=== PATIENT | female | born 1945 | race Caucasian/White ===

== ENCOUNTER → 2017-12-03 10:02 | Outpatient (CLI) | payer MEDICARE, OTHER, SELFPAY ==
[2017-12-03 10:16] VITALS: BP 112/62; PULSE 73; RESP 18; TEMP 36.3; O2SAT 99; BMI 25.4
[2017-12-03] MEDS: Mepolizumab 100 MG VIAL SQ (10:33)
== END ==
PROVIDERS: Family Provider Internal Medicine; PCP Internal Medicine; Visit Provider Internal Medicine Critical Care Medicine
DX: J45.50 Severe persistent asthma, uncomplicated (principal)
CPT/HCPCS: 96372; J2182

== ENCOUNTER → 2017-12-31 10:11 | Outpatient (CLI) | payer MEDICARE, OTHER, SELFPAY ==
[2017-12-03 10:16] VITALS: BP 112/62; BMI 25.4
[2017-12-31] MEDS: Mepolizumab 100 MG VIAL SQ (10:42)
[2017-12-31 10:50] VITALS: BP 117/56; PULSE 72; RESP 18; TEMP 36.7; O2SAT 98; BMI 24.7
== END ==
PROVIDERS: Family Provider Internal Medicine; PCP Internal Medicine; Visit Provider Internal Medicine Critical Care Medicine
DX: J45.50 Severe persistent asthma, uncomplicated (principal)
CPT/HCPCS: 96372; J2182

== ENCOUNTER → 2018-01-06 07:19 | Outpatient (CLI) | payer MEDICARE, OTHER, SELFPAY ==
[2018-01-06 07:54] LABS: Hemoglobin A1c 5.6 % (4.2-6.3)
[2018-01-06 07:58] LABS: AST(SGOT) 14 U/L (15-37); Alanine Aminotransfer ALT/SGPT 22 U/L (13-56); Albumin, Serum 3.3 g/dL (3.2-5.0); Alkaline Phosphatase 61 U/L (45-117); Anion Gap 9 (5-15); BUN 26 mg/dL (7-18); BUN/Creat Ratio 33.4 RATIO (10-20); Calcium,Total 8.2 mg/dL (8.5-10.1); Chloride 111 mmol/L (98-107); Cholesterol 159 mg/dL (200); Creatinine, Serum 0.78 mg/dL (0.55-1.02); EST Glomerular Filtration Rate 77 mL/min (>60); Est Glom Filt Rate - Afr Amer 93 mL/min (>60); Globulin 3.3 g/dL (2.2-4.2); Glucose 85 mg/dL (74-106); High Density Lipoprotein 68 mg/dL; Potassium 4.2 mmol/L (3.5-5.1); Protein, Total 6.6 g/dL (6.4-8.2); Sodium Level 143 mmol/L (136-145); Triglycerides 107 mg/dL; Very Low Density Lipoprotein 21 mg/dL (5-40)
[2018-01-06 08:04] LABS: Absolute Lymphocyte Count 1.87 X10^3/ul (0.83-4.51); Absolute Neutrophil Count 4.6 X10^3/uL (2.0-7.7); Basophil# 0.02 X10^3/uL; Basophil% 0.3 % (0-1); Eosinophil# 0.04 X10^3/uL; Eosinophils% 0.5 % (0-5); Hematocrit 45.4 % (37-47); Hemoglobin 14.8 g/dl (12.0-15.0); Lymphocyte # 1.87 X10^3/ul (4.0); Lymphocyte % 25.6 % (19-41); Mean Corp Hgb Conc 32.6 g/gl (32-36); Mean Corpuscular Hgb 31.7 pg (27.0-32.0); Mean Corpuscular Volume 97.2 fL (81-99); Mean Platelet Vol. 11.5 fl (6.2-12.0); Monocyte# 0.78 X10^3/uL; Monocyte% 10.7 % (0-10); Neutrophil # 4.56 X10^3/uL (2.7-7.7); Neutrophil % 62.5 % (47-70); Platelet Count 172 K/mm3 (150-450); RBC Distribution Width CV 15.8 % (11.6-14.6); RBC Distribution Width SD 55.9 fl (35.1-43.9); Red Blood Count 4.67 M/mm3 (4.2-5.4); White Blood Count 7.3 K/mm3 (4.4-11.0)
[2018-01-06 08:13] LABS: POSITIVE COUNT NO; POSITIVE DIFFERENTIAL NO; POSITIVE MORPHOLOGY NO
== END ==
PROVIDERS: Family Provider Internal Medicine; PCP Internal Medicine; Visit Provider Internal Medicine
DX: E78.5 Hyperlipidemia, unspecified (principal); R73.09 Other abnormal glucose; I10 Essential (primary) hypertension
CPT/HCPCS: 36415; 80053; 80061; 83036; 85025

== ENCOUNTER → 2018-01-14 14:01 | Outpatient (CLI) | payer MEDICARE, OTHER, SELFPAY ==
[2018-01-14 15:53] LABS: M R Staph aureus DNA By PCR Negative (Negative); Probe Check PASS; Specimen Processing Control PASS
== END ==
PROVIDERS: Family Provider Internal Medicine; PCP Internal Medicine; Visit Provider Internal Medicine
DX: Z86.14 Personal history of Methicillin resistant Staphylococcus aureus infection (principal)
CPT/HCPCS: 87641

== ENCOUNTER → 2018-01-28 13:08 | Outpatient (CLI) | payer MEDICARE, OTHER, SELFPAY ==
[2018-01-28 13:14] VITALS: BP 106/66; PULSE 77; RESP 16; TEMP 37; O2SAT 97; BMI 24.9
[2018-01-28] MEDS: Mepolizumab 100 MG VIAL SQ (14:00)
== END ==
PROVIDERS: Family Provider Internal Medicine; PCP Internal Medicine; Visit Provider Internal Medicine Critical Care Medicine
DX: J45.50 Severe persistent asthma, uncomplicated (principal)
CPT/HCPCS: 96372; J2182

== ENCOUNTER → 2018-02-10 13:01 | Outpatient (CLI) | payer MEDICARE, OTHER, SELFPAY ==
--- NOTE | 2018-02-10 13:02 | BI_ITS ---
MAMMOGRAPHY - BILATERAL SCREENING REASON FOR EXAM: Female, 72 years old. Routine annual screening examination. PERTINENT HISTORY: Non-contributory. TECHNIQUE: Digital bilateral breast christa (3D mammographic acquisition) in the CC and MLO projections. 2-D mediolateral oblique (MLO) and craniocaudad (CC) views of both breasts were obtained. CAD: Full Field Digital Mammography with Computer Added Detection was performed. COMPARISON: Comparison is made with prior study dated January 18, 2017. Comparison is also made with prior ultrasound of the right breast dated January 20, 2017. FINDINGS: Breast Composition: The breasts are heterogeneously dense, which may obscure small masses. There are no dominant masses or suspicious calcifications. Stable 1 cm well-defined nodular density medial aspect of the right breast. No other significant abnormalities are identified. There has been no significant change since the prior study. BI/SCREENING MAMM (CAD), BILAT IMPRESSION: Stable bilateral screening mammogram. Yearly follow-up mammogram recommended. (A) ASSESSMENT CATEGORY: BIRADS Category 2: Benign. A letter regarding these results will be sent to the patient by the facility within 30 days. Approximately 10% of breast cancers are not detected by mammography. A normal mammogram should not delay biopsy of a clinically suspicious abnormality. [id number] Electronically Signed: Anand Dumont MD at 14:39 EDT Tel [phone], Service support ,
== END ==
PROVIDERS: Family Provider Internal Medicine; PCP Internal Medicine; Visit Provider Internal Medicine
DX: Z12.31 Encounter for screening mammogram for malignant neoplasm of breast (principal)
CPT/HCPCS: 77063; 77067

== ENCOUNTER → 2018-02-25 12:39 | Outpatient (CLI) | payer MEDICARE, OTHER, SELFPAY ==
[2018-02-25 12:55] VITALS: BP 122/76; PULSE 87; RESP 18; TEMP 36.4; O2SAT 96; BMI 25.0
[2018-02-25] MEDS: Mepolizumab 100 MG VIAL SQ (13:05)
== END ==
PROVIDERS: Family Provider Internal Medicine; PCP Internal Medicine; Visit Provider Internal Medicine Critical Care Medicine
DX: J45.50 Severe persistent asthma, uncomplicated (principal)
CPT/HCPCS: 96372; J2182

== ENCOUNTER → 2018-03-25 12:32 | Outpatient (CLI) | payer MEDICARE, OTHER, SELFPAY ==
[2018-03-25 12:52] VITALS: BP 104/68; PULSE 77; RESP 16; TEMP 36.9; O2SAT 98; BMI 24.7
[2018-03-25] MEDS: Mepolizumab 100 MG VIAL SQ (13:12)
== END ==
PROVIDERS: Family Provider Internal Medicine; PCP Internal Medicine; Visit Provider Internal Medicine Critical Care Medicine
DX: J45.50 Severe persistent asthma, uncomplicated (principal)
CPT/HCPCS: 96372; J2182

== ENCOUNTER → 2018-04-22 12:16 | Outpatient (CLI) | payer MEDICARE, OTHER, SELFPAY ==
[2018-04-22 12:34] VITALS: BP 103/71; PULSE 76; RESP 18; TEMP 36.4; O2SAT 98; BMI 24.5
[2018-04-22] MEDS: Mepolizumab 100 MG VIAL SQ (12:48)
== END ==
PROVIDERS: Family Provider Internal Medicine; PCP Internal Medicine; Visit Provider Internal Medicine Critical Care Medicine
DX: J45.50 Severe persistent asthma, uncomplicated (principal)
CPT/HCPCS: 96372; J2182

== ENCOUNTER → 2018-05-10 16:15 | Outpatient (CLI) | payer MEDICARE, OTHER, SELFPAY ==
--- NOTE | 2018-05-10 16:18 | RAD_ITS ---
STUDY: X-RAY - LUMBAR SPINE REASON FOR EXAM: Female, 72 years old. Chronic low back pain TECHNIQUE: 5 view(s) of the lumbar spine were obtained. COMPARISON: July 24, 2015 FINDINGS: There is a 21 degree lumbar scoliosis with convexity to the left with degenerative changes of the L1-L2, L2-3, L4-5 and L5-S1 disc spaces. There are no acute fractures. The paravertebral soft tissues are normal RAD/L/S Spine Min 4 Views IMPRESSION: Multilevel degenerative changes of the lumbosacral spine. There is also a 21 degree lumbar scoliosis convex to the left Electronically Signed: Brian Batista, at 4:04 EDT Tel , Service support ,
== END ==
PROVIDERS: Family Provider Internal Medicine; PCP Internal Medicine; Visit Provider Internal Medicine
DX: M54.5 Low back pain (principal)
CPT/HCPCS: 72110

== ENCOUNTER → 2018-05-20 10:34 | Outpatient (CLI) | payer MEDICARE, OTHER, SELFPAY ==
[2018-05-20 10:45] VITALS: BP 122/53; PULSE 82; RESP 16; TEMP 36.3; O2SAT 100; BMI 24.3
[2018-05-20] MEDS: Mepolizumab 100 MG VIAL SQ (10:54)
== END ==
PROVIDERS: Family Provider Internal Medicine; PCP Internal Medicine; Visit Provider Internal Medicine Critical Care Medicine
DX: J45.50 Severe persistent asthma, uncomplicated (principal)
CPT/HCPCS: 96372; J2182

== ENCOUNTER → 2018-06-17 11:00 | Outpatient (CLI) | payer MEDICARE, OTHER, SELFPAY ==
[2018-06-17 11:09] VITALS: BP 108/71; PULSE 82; RESP 18; TEMP 36.6; O2SAT 97; BMI 23.8
[2018-06-17] MEDS: Mepolizumab 100 MG VIAL SQ (11:18)
== END ==
PROVIDERS: Family Provider Internal Medicine; PCP Internal Medicine; Visit Provider Internal Medicine Critical Care Medicine
DX: J45.50 Severe persistent asthma, uncomplicated (principal)
CPT/HCPCS: 96372; J2182

== ENCOUNTER → 2018-07-01 10:32 | Outpatient (CLI) | payer MEDICARE, OTHER, SELFPAY | PROVIDERS: Family Provider Internal Medicine; PCP Internal Medicine; Visit Provider Urology | DX: N39.0 Urinary tract infection, site not specified (principal); R39.15 Urgency of urination | CPT/HCPCS: 76770 ==

== ENCOUNTER → 2018-07-15 10:54 | Outpatient (CLI) | payer MEDICARE, OTHER, SELFPAY ==
[2018-07-15 11:12] VITALS: BP 135/69; PULSE 68; RESP 18; TEMP 35.8; O2SAT 100; BMI 24.3
[2018-07-15] MEDS: Mepolizumab 100 MG VIAL SQ (11:35)
== END ==
PROVIDERS: Family Provider Internal Medicine; PCP Internal Medicine; Visit Provider Internal Medicine Critical Care Medicine
DX: J45.50 Severe persistent asthma, uncomplicated (principal); S81.812A Laceration without foreign body, left lower leg, initial encounter; W45.8XXA Other foreign body or object entering through skin, initial encounter; L03.116 Cellulitis of left lower limb; Z86.14 Personal history of Methicillin resistant Staphylococcus aureus infection; M79.89 Other specified soft tissue disorders; R60.0 Localized edema; M30.1 Polyarteritis with lung involvement [Churg-Strauss]
CPT/HCPCS: 11042; 87070; 87075; 87205; 96372; 99213; G0463; J2182

== ENCOUNTER → 2018-07-21 08:52 | Outpatient (CLI) | payer MEDICARE, OTHER, SELFPAY ==
[2018-07-21 09:02] LABS: Lyme Ab Screen Interpretation REF LAB
[2018-07-21 09:49] LABS: Absolute Lymphocyte Count 1.94 X10^3/ul (0.83-4.51); Absolute Neutrophil Count 3.8 X10^3/uL (2.0-7.7); Basophil# 0.05 X10^3/uL; Basophil% 0.8 % (0-1); Eosinophil# 0.06 X10^3/uL; Eosinophils% 0.9 % (0-5); Hematocrit 43.3 % (37-47); Hemoglobin 14.3 g/dl (12.0-15.0); Lymphocyte # 1.94 X10^3/ul (4.0); Lymphocyte % 30.1 % (19-41); Mean Corpuscular Hgb 31.8 pg (27.0-32.0); Mean Corpuscular Volume 96.2 fL (81-99); Mean Platelet Vol. 10.6 fl (6.2-12.0); Monocyte# 0.57 X10^3/uL; Monocyte% 8.8 % (0-10); Neutrophil # 3.83 X10^3/uL (2.7-7.7); Neutrophil % 59.4 % (47-70); Platelet Count 266 K/mm3 (150-450); RBC Distribution Width CV 13.7 % (11.6-14.6); RBC Distribution Width SD 48.3 fl (35.1-43.9); White Blood Count 6.5 K/mm3 (4.4-11.0)
[2018-07-21 09:50] LABS: POSITIVE COUNT NO; POSITIVE DIFFERENTIAL NO; POSITIVE MORPHOLOGY NO
[2018-07-21 10:06] LABS: Hemoglobin A1c 5.3 % (4.2-6.3)
[2018-07-21 10:17] LABS: AST(SGOT) 14 U/L (15-37); Alanine Aminotransfer ALT/SGPT 20 U/L (13-56); Albumin, Serum 3.3 g/dL (3.2-5.0); Alkaline Phosphatase 69 U/L (45-117); Anion Gap 8 (5-15); BUN 17 mg/dL (7-18); BUN/Creat Ratio 30.6 RATIO (10-20); Calcium,Total 8.6 mg/dL (8.5-10.1); Chloride 108 mmol/L (98-107); Cholesterol 150 mg/dL (200); Creatinine, Serum 0.56 mg/dL (0.55-1.02); EST Glomerular Filtration Rate 114 mL/min (>60); Est Glom Filt Rate - Afr Amer 137 mL/min (>60); Globulin 3.4 g/dL (2.2-4.2); Glucose 88 mg/dL (74-106); High Density Lipoprotein 65 mg/dL; Potassium 4.1 mmol/L (3.5-5.1); Protein, Total 6.7 g/dL (6.4-8.2); Sodium Level 141 mmol/L (136-145); Triglycerides 124 mg/dL; Very Low Density Lipoprotein 25 mg/dL (5-40)
[2018-07-21 10:22] LABS: Vitamin D,25 Hydroxy 39.5 ng/mL (29.95-100.01)
[2018-07-23 07:49] LABS: Lyme Scn Total Ab w/Rflx <0.91 ISR (0.00-0.90)
== END ==
PROVIDERS: Family Provider Internal Medicine; PCP Internal Medicine; Referring Provider Internal Medicine; Visit Provider Internal Medicine
DX: R21 Rash and other nonspecific skin eruption (principal); I10 Essential (primary) hypertension; E78.5 Hyperlipidemia, unspecified; R73.09 Other abnormal glucose; E55.9 Vitamin D deficiency, unspecified
CPT/HCPCS: 36415; 80053; 80061; 82306; 83036; 85025; 86618

== ENCOUNTER 2018-07-22 10:00 | Outpatient (RCR) | payer MEDICARE, OTHER, SELFPAY ==
[2018-07-15 09:45] VITALS: BP 131/81; PULSE 79; RESP 16; TEMP 36.1; BMI 24.7
--- NOTE | 2018-07-15 11:13 | PCM.WC.PN ---
(1) Traumatic open wound of left lower leg Status: Acute Current Visit: Yes Qualifiers: Code(s): S81.802A - Unspecified open wound, left lower leg, initial encounter (2) Infected wound Status: Acute Current Visit: Yes Code(s): T14.8XXA - Other injury of unspecified body region, initial encounter; L08.9 - Local infection of the skin and subcutaneous tissue, unspecified (3) History of MRSA infection Status: Acute Current Visit: Yes Code(s): Z86.14 - Personal history of Methicillin resistant Staphylococcus aureus infection Type of Wound Date of Service: 07/15/18 Chief Complaint: Traumatic ulcer to the left lower extremity anterior tibial surface History of Wound: This is a 71-year-old female who presented with a traumatic injury to the left anterior tibial surface. He had a box approximately July 03 and developed a huge partial avulsion laceration with cellulitis was put on doxycycline for her cellulitis. Patient has been using old wound medications to treat. Not healing still has some cellulitis decided to return to wound center. She has had incompetency is shown on her vascular studies in the past. The patient denies a history of thrombophlebitis. She normally experiences pain and swelling in her lower extremities bilaterally, typically near the end of each day. Her right leg is said to be worse symptomatically. She sleeps flat at night. She noted severe swelling in her legs in November 2015, at which time she drove to and from [place] on vacation. 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 Since her previous treatment and [facility], the patient has been implementing conservative treatment measures relative to the swelling, edema, and pain in her lower extremities, namely leg elevation, avoidance of idle standing and sitting, use of graduated compression stockings of 20-30 mmHg compression, active lifestyle, weight control measures, and the use of as non-steroidal anti-inflammatory medications. Progress of Wound: Today the area is small V shaped with some darkened scabbing and eschar that might debride on its own with medication. There is some redness around the area and because of the history of MRSA we will culture her today. - Physical Exam Vital Signs Temp Pulse Resp BP 96.9 F L 79 16 131/81 H 07/15/18 09:45 07/15/18 09:45 07/15/18 09:45 07/15/18 09:45 General: Oriented x3, Cooperative, Well developed HEENT: Atraumatic, PERRLA Oral: Moist Mucosa Neck: Supple, No JVD Lungs: Clear to auscultation, Normal air movement Cardiovascular: Regular rate, Regular Rhythm Abdomen: Bowel Sounds Present, Soft, Non Tender, No Hepato-splenomegaly Extremities: No clubbing, No edema Skin: Ulcer/ Wound - Traumatic wound left lower anterior leg Wound Measurements and Assessment - Nurse 1 - General Ulcer Measurement Start: 07/15/18 09:42 Freq: Status: Active Protocol: Activity Type Activity Date Activity User E-Sign Co-Sign Detail Recorded Client Recorded Date Recorded By Document 07/15/18 09:45 [facility] [id number] 07/15/18 10:07 [facility] 07/15/18 09:45 Wound Center Nurse 1 [Ulcer Assessment] #2- LT LOWER SEE -Combined with other wound No -Current Size (cm) - Length 0.3 -Current Size (cm) - Width 0.4 -Current Size (cm) - Depth 0.2 -Total Square Cm 0.12 -Date of Last Picture (Recall this 07/15/18 field) -Photo Taken Yes -Epithelialization None Present -Tunneling No -Undermining/Tunneling No -Circular Undermining No -Exudate Amt Small (1-33%) -Exudate Type Sanguineous -Wound Margin Distinct, Outline Attached -Granulation Amt Medium (34-66%) -Granulation Quality Red -Slough/Fibrin Yes -Necrosis Amt Medium (34-66%) -Necrotic Tissue Type Adherent Slough -Texture (Summer-wound Skin Appearance) Scarring -Moisture (Summer-wound Skin Appearance Dry/Scaly ) -Color (Summer-wound Skin Appearance) Ecchymosis Erythema -Temperature (Summer-wound Skin No Abnormality Appearance) (Pt Warm) -Tenderness on Palpation (Summer-wound No Skin Appearance) -Ulcer Cleansing Rinsed/ Irrigated with Saline -Foul Odor after Cleansing No -Anesthetic Used 5% Lidocaine Gel [Edema Assessment] -Lower Limb Edema Present Yes -Right Calf (cm) 31.6 -Right Ankle (cm) 19.7 -Left Calf (cm) 32.8 -Left Ankle (cm) 20.2 WC - Nurse 2 - General Ulcer CM Notes Start: 07/15/18 09:42 Freq: Status: Active Protocol: Activity Type Activity Date Activity User E-Sign Co-Sign Detail Recorded Client Recorded Date Recorded By Document 07/15/18 10:19 MW [id number] 07/15/18 10:25 MW 07/15/18 10:19 Wound Center Nurse 2 [Procedure/Treatment] #2- LT LOWER SEE -Time 10:19 -Correct Patient Yes -Correct Side, Site, Position Yes -Correct Procedure Yes -Procedure Performed Yes -Type of Procedure Debridement -Clinical Debridement Subcutaneous -Post Debridement Size (cm) - Length 2.4 -Post Debridement Size (cm) - Width 2.0 -Post Debridement Size (cm) - Depth 0.2 -Total Square Cm 4.80 -Wound/Ulcer Outcome Not Healed -Ulcer Cleansing Rinsed/ Irrigated with Saline -Foul Odor after Cleansing No -Bioengineered Tissue No -Bleeding Controlled with Pressure -Treatment Response Procedure Tolerated Well [See Physician Procedure note for Specifics] Pain Scale: 0-10 Numeric [Pain] -Is Patient Pain Free? Yes Musculoskeletal: No Tenderness to Palpation of Joints or Extremities Lymphatic: No Cervical, Supraclavicular, or Inguinal Adenopathy Neurological: Cranial nerves II-XII grossly intact, Neuro grossly intact Psych/Mental Status: Normal Affect, Appropriate, Alert and oriented to time, place, person, mood and affect Debridement Note Post-Debridement Measurements/Treatment - Nurse 2 - General Ulcer CM Notes Start: 07/15/18 09:42 Freq: Status: Active Protocol: Activity Type Activity Date Activity User E-Sign Co-Sign Detail Recorded Client Recorded Date Recorded By Document 07/15/18 10:19 MW [id number] 07/15/18 10:25 MW 07/15/18 10:19 Wound Center Nurse 2 #2- LT LOWER SEE -Time 10:19 -Correct Patient Yes -Correct Side, Site, Position Yes -Correct Procedure Yes -Procedure Performed Yes -Type of Procedure Debridement -Clinical Debridement Subcutaneous -Post Debridement Size (cm) - Length 2.4 -Post Debridement Size (cm) - Width 2.0 -Post Debridement Size (cm) - Depth 0.2 -Total Square Cm 4.80 -Wound/Ulcer Outcome Not Healed -Ulcer Cleansing Rinsed/ Irrigated with Saline -Foul Odor after Cleansing No -Bioengineered Tissue No -Bleeding Controlled with Pressure -Treatment Response Procedure Tolerated Well Pain Scale: 0-10 Numeric Is Patient Pain Free? Yes Wound debrided: Eft lower leg wound Type of Debridement: Excisional debridement Depth: Down to and including healthy tissue, in the subcutaneous layer Percentage of wound debrided: 100 Instrument Used: 3mm curette Tissue Removed: Devitalized tissue and fibrin Severity: Limited To Skin Breakdown Amount of bleeding with debridement: Mild Bleeding Controlled with: Compression and gauze Patient tolerated procedure well Assessment/Plan Cultures obtained for anaerobic and anaerobic Active Problems (Last Reviewed 05/19/18 @ 12:04 by Nallely Drummond NP-C) Infected wound (Acute) History of MRSA infection (Acute) Traumatic open wound of left lower leg (Acute) Assessment: Traumatic wound left lower leg. History of MRSA. Cellulitis Plan: Wash left leg with Hibiclens. Apply Aquacel silver to wound base cover with Adaptic gauze tape. Double layer Tubigrip to the left leg. Follow-up in 1 week. We will call with the culture results.
--- NOTE | 2018-07-15 11:18 | PN.PCM_ITS ---
(1) Traumatic open wound of left lower leg Status: Acute Current Visit: Yes Qualifiers: Code(s): S81.802A - Unspecified open wound, left lower leg, initial encounter (2) Infected wound Status: Acute Current Visit: Yes Code(s): T14.8XXA - Other injury of unspecified body region, initial encounter; L08.9 - Local infection of the skin and subcutaneous tissue, unspecified (3) History of MRSA infection Status: Acute Current Visit: Yes Code(s): Z86.14 - Personal history of Methicillin resistant Staphylococcus aureus infection Type of Wound Date of Service: 07/15/18 Chief Complaint: Traumatic ulcer to the left lower extremity anterior tibial surface History of Wound: This is a 71-year-old female who presented with a traumatic injury to the left anterior tibial surface. He had a box approximately July 03 and developed a huge partial avulsion laceration with cellulitis was put on doxycycline for her cellulitis. Patient has been using old wound medications to treat. Not healing still has some cellulitis decided to return to wound center. She has had incompetency is shown on her vascular studies in the past. The patient denies a history of thrombophlebitis. She normally experiences pain and swelling in her lower extremities bilaterally, typically near the end of each day. Her right leg is said to be worse symptomatically. She sleeps flat at night. She noted severe swelling in her legs in November 2015, at which time she drove to and from [place] on vacation. 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 Since her previous treatment and [facility], the patient has been implementing conservative treatment measures relative to the swelling, edema, and pain in her lower extremities, namely leg elevation, avoidance of idle standing and sitting, use of graduated compression stockings of 20-30 mmHg compression, active lifestyle, weight control measures, and the use of as non-steroidal anti-inflammatory medications. Progress of Wound: Today the area is small V shaped with some darkened scabbing and eschar that might debride on its own with medication. There is some redness around the area and because of the history of MRSA we will culture her today. - Physical Exam Vital Signs Temp Pulse Resp BP 96.9 F L 79 16 131/81 H 07/15/18 09:45 07/15/18 09:45 07/15/18 09:45 07/15/18 09:45 General: Oriented x3, Cooperative, Well developed HEENT: Atraumatic, PERRLA Oral: Moist Mucosa Neck: Supple, No JVD Lungs: Clear to auscultation, Normal air movement Cardiovascular: Regular rate, Regular Rhythm Abdomen: Bowel Sounds Present, Soft, Non Tender, No Hepato-splenomegaly Extremities: No clubbing, No edema Skin: Ulcer/ Wound - Traumatic wound left lower anterior leg Wound Measurements and Assessment - Nurse 1 - General Ulcer Measurement Start: 07/15/18 09:42 Freq: Status: Active Protocol: Activity Type Activity Date Activity User E-Sign Co-Sign Detail Recorded Client Recorded Date Recorded By Document 07/15/18 09:45 [facility] [id number] 07/15/18 10:07 [facility] 07/15/18 09:45 Wound Center Nurse 1 [Ulcer Assessment] #2- LT LOWER SEE -Combined with other wound No -Current Size (cm) - Length 0.3 -Current Size (cm) - Width 0.4 -Current Size (cm) - Depth 0.2 -Total Square Cm 0.12 -Date of Last Picture (Recall this 07/15/18 field) -Photo Taken Yes -Epithelialization None Present -Tunneling No -Undermining/Tunneling No -Circular Undermining No -Exudate Amt Small (1-33%) -Exudate Type Sanguineous -Wound Margin Distinct, Outline Attached -Granulation Amt Medium (34-66%) -Granulation Quality Red -Slough/Fibrin Yes -Necrosis Amt Medium (34-66%) -Necrotic Tissue Type Adherent Slough -Texture (Summer-wound Skin Appearance) Scarring -Moisture (Summer-wound Skin Appearance Dry/Scaly ) -Color (Summer-wound Skin Appearance) Ecchymosis Erythema -Temperature (Summer-wound Skin No Abnormality Appearance) (Pt Warm) -Tenderness on Palpation (Summer-wound No Skin Appearance) -Ulcer Cleansing Rinsed/ Irrigated with Saline -Foul Odor after Cleansing No -Anesthetic Used 5% Lidocaine Gel [Edema Assessment] -Lower Limb Edema Present Yes -Right Calf (cm) 31.6 -Right Ankle (cm) 19.7 -Left Calf (cm) 32.8 -Left Ankle (cm) 20.2 WC - Nurse 2 - General Ulcer CM Notes Start: 07/15/18 09:42 Freq: Status: Active Protocol: Activity Type Activity Date Activity User E-Sign Co-Sign Detail Recorded Client Recorded Date Recorded By Document 07/15/18 10:19 MW [id number] 07/15/18 10:25 MW 07/15/18 10:19 Wound Center Nurse 2 [Procedure/Treatment] #2- LT LOWER SEE -Time 10:19 -Correct Patient Yes -Correct Side, Site, Position Yes -Correct Procedure Yes -Procedure Performed Yes -Type of Procedure Debridement -Clinical Debridement Subcutaneous -Post Debridement Size (cm) - Length 2.4 -Post Debridement Size (cm) - Width 2.0 -Post Debridement Size (cm) - Depth 0.2 -Total Square Cm 4.80 -Wound/Ulcer Outcome Not Healed -Ulcer Cleansing Rinsed/ Irrigated with Saline -Foul Odor after Cleansing No -Bioengineered Tissue No -Bleeding Controlled with Pressure -Treatment Response Procedure Tolerated Well [See Physician Procedure note for Specifics] Pain Scale: 0-10 Numeric [Pain] -Is Patient Pain Free? Yes Musculoskeletal: No Tenderness to Palpation of Joints or Extremities Lymphatic: No Cervical, Supraclavicular, or Inguinal Adenopathy Neurological: Cranial nerves II-XII grossly intact, Neuro grossly intact Psych/Mental Status: Normal Affect, Appropriate, Alert and oriented to time, place, person, mood and affect Debridement Note Post-Debridement Measurements/Treatment - Nurse 2 - General Ulcer CM Notes Start: 07/15/18 09:42 Freq: Status: Active Protocol: Activity Type Activity Date Activity User E-Sign Co-Sign Detail Recorded Client Recorded Date Recorded By Document 07/15/18 10:19 MW [id number] 07/15/18 10:25 MW 07/15/18 10:19 Wound Center Nurse 2 #2- LT LOWER SEE -Time 10:19 -Correct Patient Yes -Correct Side, Site, Position Yes -Correct Procedure Yes -Procedure Performed Yes -Type of Procedure Debridement -Clinical Debridement Subcutaneous -Post Debridement Size (cm) - Length 2.4 -Post Debridement Size (cm) - Width 2.0 -Post Debridement Size (cm) - Depth 0.2 -Total Square Cm 4.80 -Wound/Ulcer Outcome Not Healed -Ulcer Cleansing Rinsed/ Irrigated with Saline -Foul Odor after Cleansing No -Bioengineered Tissue No -Bleeding Controlled with Pressure -Treatment Response Procedure Tolerated Well Pain Scale: 0-10 Numeric Is Patient Pain Free? Yes Wound debrided: Eft lower leg wound Type of Debridement: Excisional debridement Depth: Down to and including healthy tissue, in the subcutaneous layer Percentage of wound debrided: 100 Instrument Used: 3mm curette Tissue Removed: Devitalized tissue and fibrin Severity: Limited To Skin Breakdown Amount of bleeding with debridement: Mild Bleeding Controlled with: Compression and gauze Patient tolerated procedure well Assessment/Plan Cultures obtained for anaerobic and anaerobic Active Problems (Last Reviewed 05/19/18 @ 12:04 by Nallely Drummond NP-C) Infected wound (Acute) History of MRSA infection (Acute) Traumatic open wound of left lower leg (Acute) Assessment: Traumatic wound left lower leg. History of MRSA. Cellulitis Plan: Wash left leg with Hibiclens. Apply Aquacel silver to wound base cover with Adaptic gauze tape. Double layer Tubigrip to the left leg. Follow-up in 1 week. We will call with the culture results.
[2018-07-22 10:29] VITALS: BP 119/85; PULSE 85; RESP 16; TEMP 36.3; BMI 24.7
--- NOTE | 2018-07-22 11:49 | PCM.WC.PN ---
(1) Traumatic open wound of left lower leg Status: Acute Current Visit: Yes Qualifiers: Code(s): S81.802A - Unspecified open wound, left lower leg, initial encounter (2) Infected wound Status: Acute Current Visit: Yes Code(s): T14.8XXA - Other injury of unspecified body region, initial encounter; L08.9 - Local infection of the skin and subcutaneous tissue, unspecified (3) History of MRSA infection Status: Acute Current Visit: Yes Code(s): Z86.14 - Personal history of Methicillin resistant Staphylococcus aureus infection Type of Wound Chief Complaint: Traumatic ulcer to the left lower extremity anterior tibial surface History of Wound: This is a 71-year-old female who presented with a traumatic injury to the left anterior tibial surface. He had a box approximately July 03 and developed a huge partial avulsion laceration with cellulitis was put on doxycycline for her cellulitis. Patient has been using old wound medications to treat. Not healing still has some cellulitis decided to return to wound center. She has had incompetency is shown on her vascular studies in the past. The patient denies a history of thrombophlebitis. She normally experiences pain and swelling in her lower extremities bilaterally, typically near the end of each day. Her right leg is said to be worse symptomatically. She sleeps flat at night. She noted severe swelling in her legs in November 2015, at which time she drove to and from [place] on vacation. 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 Since her previous treatment and [facility], the patient has been implementing conservative treatment measures relative to the swelling, edema, and pain in her lower extremities, namely leg elevation, avoidance of idle standing and sitting, use of graduated compression stockings of 20-30 mmHg compression, active lifestyle, weight control measures, and the use of as non-steroidal anti-inflammatory medications. Progress of Wound: Today the area is open and healing well cultures showed negative growth. Today the ulcer is shallow and healing we will apply for pure apply for the wound base possibly next week. She is to continue with present treatment until we get approval. - Physical Exam Vital Signs Temp Pulse Resp BP 97.3 F L 85 16 119/85 H 07/22/18 10:29 07/22/18 10:29 07/22/18 10:29 07/22/18 10:29 General: Oriented x3, Cooperative, Well developed HEENT: Atraumatic, PERRLA Oral: Moist Mucosa Neck: Supple, No JVD Lungs: Clear to auscultation, Normal air movement Cardiovascular: Regular rate, Regular Rhythm Abdomen: Bowel Sounds Present, Soft, Non Tender, No Hepato-splenomegaly Extremities: No clubbing, No edema, - - Left lower leg Wound Measurements and Assessment WC - Nurse 1 - General Ulcer Measurement Start: 07/15/18 09:42 Freq: Status: Active Protocol: Activity Type Activity Date Activity User E-Sign Co-Sign Detail Recorded Client Recorded Date Recorded By Document 07/22/18 10:29 [id number] 07/22/18 10:31 07/22/18 10:29 Wound Center Nurse 1 [Ulcer Assessment] #4- LT LOWER SEE -Combined with other wound No -Current Size (cm) - Length 1.9 -Current Size (cm) - Width 1.6 -Current Size (cm) - Depth 0.1 -Total Square Cm 3.04 -Photo Taken No -Epithelialization Small 1-33% -Tunneling No -Undermining/Tunneling No -Circular Undermining No -Exudate Amt Medium (34-66%) -Exudate Type Yellow/Green -Wound Margin Distinct, Outline Attached -Granulation Amt Medium (34-66%) -Granulation Quality [place] Red -Slough/Fibrin Yes -Necrosis Amt Large (67-100%) -Necrotic Tissue Type Adherent Slough -Structure Exposed None/Limited to Skin Breakdown -Texture (Summer-wound Skin Appearance) Assessed Scarring -Moisture (Summer-wound Skin Appearance No Abnormality ) Assessed -Color (Summer-wound Skin Appearance) No Abnormality Assessed -Temperature (Summer-wound Skin No Abnormality Appearance) (Pt Warm) -Tenderness on Palpation (Summer-wound Yes Skin Appearance) -Ulcer Cleansing Rinsed/ Irrigated with Saline -Foul Odor after Cleansing No -Anesthetic Used 5% Lidocaine Gel [Edema Assessment] -Lower Limb Edema Present No -Left Ankle (cm) 31 -Left Foot (cm) 20 WC - Nurse 2 - General Ulcer CM Notes Start: 07/15/18 09:42 Freq: Status: Active Protocol: Activity Type Activity Date Activity User E-Sign Co-Sign Detail Recorded Client Recorded Date Recorded By Document 07/22/18 10:44 MW [id number] 07/22/18 10:45 MW 07/22/18 10:44 Wound Center Nurse 2 [Procedure/Treatment] #4- LT LOWER SEE -Time 10:44 -Correct Patient Yes -Correct Side, Site, Position Yes -Correct Procedure Yes -Procedure Performed Yes -Type of Procedure Debridement -Clinical Debridement Subcutaneous -Post Debridement Size (cm) - Length 2.0 -Post Debridement Size (cm) - Width 1.5 -Post Debridement Size (cm) - Depth 0.2 -Total Square Cm 3.00 -Wound/Ulcer Outcome Not Healed -Ulcer Cleansing Rinsed/ Irrigated with Saline -Foul Odor after Cleansing No -Bioengineered Tissue No -Bleeding Controlled with Pressure -Treatment Response Procedure Tolerated Well [See Physician Procedure note for Specifics] Pain Scale: 0-10 Numeric [Pain] -Is Patient Pain Free? Yes Musculoskeletal: No Tenderness to Palpation of Joints or Extremities Lymphatic: No Cervical, Supraclavicular, or Inguinal Adenopathy Neurological: Cranial nerves II-XII grossly intact, Neuro grossly intact Psych/Mental Status: Normal Affect, Appropriate Debridement Note Post-Debridement Measurements/Treatment WC - Nurse 2 - General Ulcer CM Notes Start: 07/15/18 09:42 Freq: Status: Active Protocol: Activity Type Activity Date Activity User E-Sign Co-Sign Detail Recorded Client Recorded Date Recorded By Document 07/15/18 10:19 MW [id number] 07/15/18 10:25 MW Document 07/22/18 10:44 MW [id number] 07/22/18 10:45 MW 07/15/18 07/22/18 10:19 10:44 Wound Center Nurse 2 #4- LT LOWER SEE -Time 10:19 10:44 -Correct Patient Yes Yes -Correct Side, Site, Position Yes Yes -Correct Procedure Yes Yes -Procedure Performed Yes Yes -Type of Procedure Debridement Debridement -Clinical Debridement Subcutaneous Subcutaneous -Post Debridement Size (cm) - Length 2.4 2.0 -Post Debridement Size (cm) - Width 2.0 1.5 -Post Debridement Size (cm) - Depth 0.2 0.2 -Total Square Cm 4.80 3.00 -Wound/Ulcer Outcome Not Healed Not Healed -Ulcer Cleansing Rinsed/ Rinsed/ Irrigated with Irrigated with Saline Saline -Foul Odor after Cleansing No No -Bioengineered Tissue No No -Bleeding Controlled with Pressure Pressure -Treatment Response Procedure Procedure Tolerated Well Tolerated Well Pain Scale: 0-10 Numeric Is Patient Pain Free? Yes Yes Wound debrided: Left wound Type of Debridement: Excisional debridement Anesthesia Used: 5% Lidocaine Gel Depth: Down to and including healthy tissue, in the subcutaneous layer Percentage of wound debrided: 100 Instrument Used: 3mm curette Tissue Removed: Fibrin and some devitalized tissue Severity: Limited To Skin Breakdown Amount of bleeding with debridement: Mild Bleeding Controlled with: Compression and gauze Patient tolerated procedure well Assessment/Plan Active Problems (Last Reviewed 05/19/18 @ 12:04 by Nallely Drummond [employer]-C) Infected wound (Acute) History of MRSA infection (Acute) Traumatic open wound of left lower leg (Acute) Assessment: Traumatic wound left lower leg. History of MRSA. Cellulitis Plan: Wash left leg with Hibiclens. Apply Aquacel silver to wound base cover with Adaptic gauze tape. Apply for puraply to wound base. Double layer Tubigrip to the left leg. Follow-up in 1 week. We will call with the culture results.
--- NOTE | 2018-07-22 11:53 | PN.PCM_ITS ---
(1) Traumatic open wound of left lower leg Status: Acute Current Visit: Yes Qualifiers: Code(s): S81.802A - Unspecified open wound, left lower leg, initial encounter (2) Infected wound Status: Acute Current Visit: Yes Code(s): T14.8XXA - Other injury of unspecified body region, initial encounter; L08.9 - Local infection of the skin and subcutaneous tissue, unspecified (3) History of MRSA infection Status: Acute Current Visit: Yes Code(s): Z86.14 - Personal history of Methicillin resistant Staphylococcus aureus infection Type of Wound Chief Complaint: Traumatic ulcer to the left lower extremity anterior tibial surface History of Wound: This is a 71-year-old female who presented with a traumatic injury to the left anterior tibial surface. He had a box approximately July 03 and developed a huge partial avulsion laceration with cellulitis was put on doxycycline for her cellulitis. Patient has been using old wound medications to treat. Not healing still has some cellulitis decided to return to wound center. She has had incompetency is shown on her vascular studies in the past. The patient denies a history of thrombophlebitis. She normally experiences pain and swelling in her lower extremities bilaterally, typically near the end of each day. Her right leg is said to be worse symptomatically. She sleeps flat at night. She noted severe swelling in her legs in November 2015, at which time she drove to and from [place] on vacation. 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 Since her previous treatment and [facility], the patient has been implementing conservative treatment measures relative to the swelling, edema, and pain in her lower extremities, namely leg elevation, avoidance of idle standing and sitting, use of graduated compression stockings of 20-30 mmHg compression, active lifestyle, weight control measures, and the use of as non-steroidal anti-inflammatory medications. Progress of Wound: Today the area is open and healing well cultures showed negative growth. Today the ulcer is shallow and healing we will apply for pure apply for the wound base possibly next week. She is to continue with present treatment until we get approval. - Physical Exam Vital Signs Temp Pulse Resp BP 97.3 F L 85 16 119/85 H 07/22/18 10:29 07/22/18 10:29 07/22/18 10:29 07/22/18 10:29 General: Oriented x3, Cooperative, Well developed HEENT: Atraumatic, PERRLA Oral: Moist Mucosa Neck: Supple, No JVD Lungs: Clear to auscultation, Normal air movement Cardiovascular: Regular rate, Regular Rhythm Abdomen: Bowel Sounds Present, Soft, Non Tender, No Hepato-splenomegaly Extremities: No clubbing, No edema, - - Left lower leg Wound Measurements and Assessment WC - Nurse 1 - General Ulcer Measurement Start: 07/15/18 09:42 Freq: Status: Active Protocol: Activity Type Activity Date Activity User E-Sign Co-Sign Detail Recorded Client Recorded Date Recorded By Document 07/22/18 10:29 [id number] 07/22/18 10:31 07/22/18 10:29 Wound Center Nurse 1 [Ulcer Assessment] #4- LT LOWER SEE -Combined with other wound No -Current Size (cm) - Length 1.9 -Current Size (cm) - Width 1.6 -Current Size (cm) - Depth 0.1 -Total Square Cm 3.04 -Photo Taken No -Epithelialization Small 1-33% -Tunneling No -Undermining/Tunneling No -Circular Undermining No -Exudate Amt Medium (34-66%) -Exudate Type Yellow/Green -Wound Margin Distinct, Outline Attached -Granulation Amt Medium (34-66%) -Granulation Quality [place] Red -Slough/Fibrin Yes -Necrosis Amt Large (67-100%) -Necrotic Tissue Type Adherent Slough -Structure Exposed None/Limited to Skin Breakdown -Texture (Summer-wound Skin Appearance) Assessed Scarring -Moisture (Summer-wound Skin Appearance No Abnormality ) Assessed -Color (Summer-wound Skin Appearance) No Abnormality Assessed -Temperature (Summer-wound Skin No Abnormality Appearance) (Pt Warm) -Tenderness on Palpation (Summer-wound Yes Skin Appearance) -Ulcer Cleansing Rinsed/ Irrigated with Saline -Foul Odor after Cleansing No -Anesthetic Used 5% Lidocaine Gel [Edema Assessment] -Lower Limb Edema Present No -Left Ankle (cm) 31 -Left Foot (cm) 20 WC - Nurse 2 - General Ulcer CM Notes Start: 07/15/18 09:42 Freq: Status: Active Protocol: Activity Type Activity Date Activity User E-Sign Co-Sign Detail Recorded Client Recorded Date Recorded By Document 07/22/18 10:44 MW [id number] 07/22/18 10:45 MW 07/22/18 10:44 Wound Center Nurse 2 [Procedure/Treatment] #4- LT LOWER SEE -Time 10:44 -Correct Patient Yes -Correct Side, Site, Position Yes -Correct Procedure Yes -Procedure Performed Yes -Type of Procedure Debridement -Clinical Debridement Subcutaneous -Post Debridement Size (cm) - Length 2.0 -Post Debridement Size (cm) - Width 1.5 -Post Debridement Size (cm) - Depth 0.2 -Total Square Cm 3.00 -Wound/Ulcer Outcome Not Healed -Ulcer Cleansing Rinsed/ Irrigated with Saline -Foul Odor after Cleansing No -Bioengineered Tissue No -Bleeding Controlled with Pressure -Treatment Response Procedure Tolerated Well [See Physician Procedure note for Specifics] Pain Scale: 0-10 Numeric [Pain] -Is Patient Pain Free? Yes Musculoskeletal: No Tenderness to Palpation of Joints or Extremities Lymphatic: No Cervical, Supraclavicular, or Inguinal Adenopathy Neurological: Cranial nerves II-XII grossly intact, Neuro grossly intact Psych/Mental Status: Normal Affect, Appropriate Debridement Note Post-Debridement Measurements/Treatment WC - Nurse 2 - General Ulcer CM Notes Start: 07/15/18 09:42 Freq: Status: Active Protocol: Activity Type Activity Date Activity User E-Sign Co-Sign Detail Recorded Client Recorded Date Recorded By Document 07/15/18 10:19 MW [id number] 07/15/18 10:25 MW Document 07/22/18 10:44 MW [id number] 07/22/18 10:45 MW 07/15/18 07/22/18 10:19 10:44 Wound Center Nurse 2 #4- LT LOWER SEE -Time 10:19 10:44 -Correct Patient Yes Yes -Correct Side, Site, Position Yes Yes -Correct Procedure Yes Yes -Procedure Performed Yes Yes -Type of Procedure Debridement Debridement -Clinical Debridement Subcutaneous Subcutaneous -Post Debridement Size (cm) - Length 2.4 2.0 -Post Debridement Size (cm) - Width 2.0 1.5 -Post Debridement Size (cm) - Depth 0.2 0.2 -Total Square Cm 4.80 3.00 -Wound/Ulcer Outcome Not Healed Not Healed -Ulcer Cleansing Rinsed/ Rinsed/ Irrigated with Irrigated with Saline Saline -Foul Odor after Cleansing No No -Bioengineered Tissue No No -Bleeding Controlled with Pressure Pressure -Treatment Response Procedure Procedure Tolerated Well Tolerated Well Pain Scale: 0-10 Numeric Is Patient Pain Free? Yes Yes Wound debrided: Left wound Type of Debridement: Excisional debridement Anesthesia Used: 5% Lidocaine Gel Depth: Down to and including healthy tissue, in the subcutaneous layer Percentage of wound debrided: 100 Instrument Used: 3mm curette Tissue Removed: Fibrin and some devitalized tissue Severity: Limited To Skin Breakdown Amount of bleeding with debridement: Mild Bleeding Controlled with: Compression and gauze Patient tolerated procedure well Assessment/Plan Active Problems (Last Reviewed 05/19/18 @ 12:04 by Nallely Drummond [employer]) Infected wound (Acute) History of MRSA infection (Acute) Traumatic open wound of left lower leg (Acute) Assessment: Traumatic wound left lower leg. History of MRSA. Cellulitis Plan: Wash left leg with Hibiclens. Apply Aquacel silver to wound base cover with Adaptic gauze tape. Apply for puraply to wound base. Double layer Tubigrip to the left leg. Follow-up in 1 week. We will call with the culture results.
== END 2018-07-24 23:59 ==
LOC: WC 10:00
PROVIDERS: Family Provider Internal Medicine; PCP Internal Medicine; Visit Provider Nurse Practitioner
DX: S81.812A Laceration without foreign body, left lower leg, initial encounter (principal); L03.116 Cellulitis of left lower limb; W45.8XXA Other foreign body or object entering through skin, initial encounter; Z86.14 Personal history of Methicillin resistant Staphylococcus aureus infection; M79.89 Other specified soft tissue disorders; R60.0 Localized edema; M30.1 Polyarteritis with lung involvement [Churg-Strauss]
CPT/HCPCS: 11042; 87070; 87075; 87205; 99213; G0463

== ENCOUNTER → 2018-07-25 11:20 | Outpatient (CLI) | payer MEDICARE, OTHER, SELFPAY ==
--- NOTE | 2018-07-25 11:22 | RAD_ITS ---
STUDY: X-RAY - LEFT SHOULDER REASON FOR EXAM: Female, 72 years old. Left shoulder pain TECHNIQUE: 4 view(s) of the shoulder. COMPARISON: None. FINDINGS: Normal glenohumeral articulation. There is degenerative arthrosis of the acromioclavicular joint without inferior osseous spur formation. Normal acromion. Normal humeral head and visualized proximal humerus. The soft tissue structures are unremarkable. Normal visualized pulmonary apex. RAD/Shoulder min 2 Views IMPRESSION: Minimal AC joint degenerative change. Remainder is within normal limits Electronically Signed: Antwon Henson DO at 9:26 EDT Tel , Service support ,
--- NOTE | 2018-07-25 11:22 | RAD_ITS ---
STUDY: X-RAY - BILATERAL CLAVICLES REASON FOR EXAM: Female, 72 years old. Left shoulder pain TECHNIQUE: 2 views of the right clavicle. 2 views of the left clavicle. With and without weights COMPARISON: None. FINDINGS: No acute fracture. No evidence of significant AC joint widening. Minimal AC joint degenerative changes bilaterally. RAD/A/C Jts Gerry w or w/o Wts IMPRESSION: No acute findings. No evidence of AC joint widening Electronically Signed: Antwon Henson DO at 9:25 EDT Tel , Service support ,
== END ==
PROVIDERS: Family Provider Internal Medicine; PCP Internal Medicine; Referring Provider Internal Medicine; Visit Provider Internal Medicine
DX: M25.512 Pain in left shoulder (principal)
CPT/HCPCS: 73030; 73050

== ENCOUNTER → 2018-08-01 11:48 | Outpatient (CLI) | payer MEDICARE, OTHER, SELFPAY ==
--- NOTE | 2018-08-01 11:50 | RAD_ITS ---
STUDY: X-RAY - RIGHT ELBOW REASON FOR EXAM: Female, 72 years old. Bursitis. TECHNIQUE: 3 view(s) of the elbow. COMPARISON: None. FINDINGS: Normal visualized humerus, radius and ulna. Normal radiocapitellar and ulnotrochlear articulations. The soft tissue structures are unremarkable. RAD/Elbow min 3 Views IMPRESSION: Normal x-ray examination of the right elbow. Electronically Signed: Keagan Dos Santos MD at 13:42 EDT , Service support ,
== END ==
PROVIDERS: Family Provider Internal Medicine; PCP Internal Medicine; Referring Provider Physician Assistant; Visit Provider Physician Assistant
DX: M25.521 Pain in right elbow (principal)
CPT/HCPCS: 73080

== ENCOUNTER → 2018-08-04 10:00 | Outpatient (CLI) | payer MEDICARE, OTHER, SELFPAY ==
--- NOTE | 2018-08-04 13:07 | PFT ---
INTRODUCTION: The patient is a 72-year-old female that presents for pulmonary function studies secondary to a diagnosis of asthma. Respiratory therapy reports good patient effort. Bronchodilators were used during testing. INTERPRETATION: Forced expiration spirometry demonstrates no evidence of a large airways obstructive ventilatory defect. There was no significant response to aerosolized bronchodilators, based upon changes noted in FVC or FEV1. However, the patient did have a brisk mid flow bronchodilator response. Spirograms are of good quality and plateau normally. The respiratory flow volume loop appears normal. Body plethysmography was performed and reveals an elevated TLC to 126% of predicted. Diffusing capacity by single breath CO is within normal limits. When compared to previous pulmonary function studies dated July 2017, there is been a 10% reduction in the patient's FEV1. IMPRESSION: These pulmonary function studies demonstrate possible stigmata of small airways disease, with significant mid flow bronchodilator response. A mild degree of hyperinflation was noted.
== END ==
PROVIDERS: Family Provider Internal Medicine; PCP Internal Medicine; Referring Provider Nurse Practitioner Acute Care; Visit Provider Nurse Practitioner Acute Care
DX: J45.51 Severe persistent asthma with (acute) exacerbation (principal)
CPT/HCPCS: 94060; 94726; 94729

== ENCOUNTER → 2018-08-09 12:13 | Outpatient (CLI) | payer MEDICARE, OTHER, SELFPAY ==
[2018-08-09 12:29] LABS: Absolute Lymphocyte Count 1.85 X10^3/ul (0.83-4.51); Absolute Neutrophil Count 6.4 X10^3/uL (2.0-7.7); Basophil# 0.04 X10^3/uL; Basophil% 0.4 % (0-1); Eosinophil# 0.06 X10^3/uL; Eosinophils% 0.6 % (0-5); Hemoglobin 13.8 g/dl (12.0-15.0); Lymphocyte # 1.85 X10^3/ul (4.0); Lymphocyte % 19.7 % (19-41); Mean Corp Hgb Conc 32.1 g/gl (32-36); Mean Corpuscular Hgb 31.3 pg (27.0-32.0); Mean Corpuscular Volume 97.5 fL (81-99); Monocyte# 1.04 X10^3/uL; Monocyte% 11.1 % (0-10); Neutrophil # 6.36 X10^3/uL (2.7-7.7); Neutrophil % 67.9 % (47-70); Platelet Count 290 K/mm3 (150-450); RBC Distribution Width CV 13.7 % (11.6-14.6); Red Blood Count 4.41 M/mm3 (4.2-5.4); White Blood Count 9.4 K/mm3 (4.4-11.0)
[2018-08-09 12:31] LABS: Erythrocyte Sedimentation Rate 15 mm/hr (0-30); POSITIVE COUNT NO; POSITIVE DIFFERENTIAL NO; POSITIVE MORPHOLOGY NO
[2018-08-09 12:46] LABS: Free T3 2.9 pg/mL (2.18-3.98); T4 Free Direct 1.18 ng/dL (0.76-1.46); Thyroid Stim Hormone (TSH) 2.59 uIU/mL (0.358-3.74)
[2018-08-10 13:36] LABS: Thyroid Peroxidase AB 9 IU/mL (0-34)
== END ==
PROVIDERS: Family Provider Internal Medicine; PCP Internal Medicine; Referring Provider Internal Medicine; Visit Provider Internal Medicine
DX: E06.9 Thyroiditis, unspecified (principal)
CPT/HCPCS: 84439; 84443; 84481; 85025; 85652; 86140; 86376

== ENCOUNTER → 2018-08-11 14:27 | Outpatient (CLI) | payer MEDICARE, OTHER, SELFPAY ==
--- NOTE | 2018-08-11 14:29 | US_ITS ---
STUDY: THYROID ULTRASOUND REASON FOR EXAM: Female, 72 years old. Right neck lump TECHNIQUE: Ultrasound evaluation of the thyroid was performed with real-time and static calhoun-scale imaging. # of Images: 80 COMPARISON: None. FINDINGS: RIGHT LOBE: The right lobe of the thyroid gland measures 3.7 x 1.3 x 2.1 cm. There is a homogeneous echotexture. There are a few nodules in the right thyroid lobe measuring respectively: Nodule #1 measures 7 x 6 x 6 mm. TIRADS Category 3, consistent with low suspicion for malignancy. Nodular #2. Measures 17 x 8 x 9 mm. TIRADS Category 4, consistent with moderate suspicion for malignancy. Nodule #3 measures 11 x 7 x 11 mm. TIRADS Category 3, consistent with low suspicion for malignancy. LEFT LOBE: The left lobe of the thyroid gland measures 3.7 x 1.2 x 1.9 cm cm. There is a homogeneous echotexture. There is one nodule in the left thyroid lobe measures 14 x 10 x 11 mm. TIRADS Category 4, consistent with moderate suspicion for malignancy. ISTHMUS: The isthmus measures . The regional lymph nodes are normal. US/Thyroid IMPRESSION: Bilateral thyroid nodules as described above Electronically Signed: Allyson Wong MD at 15:06 EDT Tel , Service support ,
== END ==
PROVIDERS: Family Provider Internal Medicine; PCP Internal Medicine; Referring Provider Internal Medicine; Visit Provider Internal Medicine
DX: E07.9 Disorder of thyroid, unspecified (principal)
CPT/HCPCS: 76536

== ENCOUNTER → 2018-08-12 13:01 | Outpatient (CLI) | payer MEDICARE, OTHER, SELFPAY ==
[2018-08-12] MEDS: Mepolizumab 100 MG VIAL SQ (13:44)
[2018-08-12 13:48] VITALS: BP 120/68; PULSE 81; RESP 18; TEMP 36.2; O2SAT 98; BMI 23.8
== END ==
PROVIDERS: Family Provider Internal Medicine; PCP Internal Medicine; Visit Provider Internal Medicine Critical Care Medicine
DX: J45.50 Severe persistent asthma, uncomplicated (principal)
CPT/HCPCS: 96372; J2182

== ENCOUNTER 2018-08-19 10:00 | Outpatient (RCR) | payer MEDICARE, OTHER, SELFPAY ==
[2018-07-25 01:38] VITALS: BP 119/85; PULSE 85; RESP 16; TEMP 36.3
[2018-07-29 10:34] VITALS: BP 128/69; PULSE 78; RESP 18; TEMP 36.2
--- NOTE | 2018-07-29 12:43 | PCM.WC.PN ---
(1) Infected wound Status: Acute Current Visit: No Code(s): T14.8XXA - Other injury of unspecified body region, initial encounter; L08.9 - Local infection of the skin and subcutaneous tissue, unspecified (2) Traumatic open wound of left lower leg Status: Acute Current Visit: Yes Qualifiers: Code(s): S81.802A - Unspecified open wound, left lower leg, initial encounter Type of Wound Chief Complaint: Traumatic ulcer to the left lower extremity anterior tibial surface History of Wound: This is a 71-year-old female who presented with a traumatic injury to the left anterior tibial surface. Approximately 9 days prior to presentation, the patient inadvertently impacted the left anterior tibial surface against the corner of a coffee table. This resulted in a traumatic wound. Several skin flaps were elevated, and the patient anchored these back in place using Steri-Strips, which she had on hand. She also used collagen hydrogel topically. Portions of the traumatic wound blackened, and the patient scheduled an appointment for evaluation in the [facility]. She has been previously treated for similar injuries in this location. The patient has undergone vascular studies, with results indicating no evidence of arterial occlusive disease. 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 The patient denies a history of thrombophlebitis. She normally experiences pain and swelling in her lower extremities bilaterally, typically near the end of each day. Her right leg is said to be worse symptomatically. She sleeps flat at night. She noted severe swelling in her legs in November 2015, at which time she drove to and from [place] on vacation. 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 Since her previous treatment and discharge from the [facility], the patient has been implementing conservative treatment measures relative to the swelling, edema, and pain in her lower extremities, namely leg elevation, avoidance of idle standing and sitting, use of graduated compression stockings of 20-30 mmHg compression, active lifestyle, weight control measures, and the use of as non-steroidal anti-inflammatory medications. Progress of Wound: Today the area is open and healing well cultures showed negative growth. Today the ulcer is shallow and healing we applied #1 pure apply to area. - Physical Exam Vital Signs Temp Pulse Resp BP 97.1 F L 78 18 128/69 H 07/29/18 10:34 07/29/18 10:34 07/29/18 10:34 07/29/18 10:34 General: Oriented x3, Cooperative, Well developed HEENT: Atraumatic, PERRLA Oral: Moist Mucosa Neck: Supple, No JVD Lungs: Clear to auscultation, Normal air movement Cardiovascular: Regular rate, Regular Rhythm Abdomen: Bowel Sounds Present, Soft, Non Tender, No Hepato-splenomegaly Extremities: No clubbing, No edema Skin: Ulcer/ Wound - Left lower extremity sharma wound Wound Measurements and Assessment WC - Nurse 1 - General Ulcer Measurement Start: 07/29/18 10:34 Freq: Status: Active Protocol: Activity Type Activity Date Activity User E-Sign Co-Sign Detail Recorded Client Recorded Date Recorded By Document 07/29/18 10:34 [id number] 07/29/18 10:35 07/29/18 10:34 Wound Center Nurse 1 [Ulcer Assessment] #4- LT LOWER SHARMA -Combined with other wound No -Current Size (cm) - Length 1.5 -Current Size (cm) - Width 1.4 -Current Size (cm) - Depth 0.1 -Total Square Cm 2.10 -Photo Taken No -Epithelialization Small 1-33% -Tunneling No -Undermining/Tunneling No -Circular Undermining No -Classification - Thickness Full Thickness without Exposed Support Structure -Exudate Amt Small (1-33%) -Exudate Type Serosanguineous -Wound Margin Distinct, Outline Attached -Granulation Amt Small (1-33%) -Granulation Quality Red -Slough/Fibrin Yes -Necrosis Amt Large (67-100%) -Necrotic Tissue Type Adherent Slough -Structure Exposed Fascia Fat Layer Exposed -Texture (Summer-wound Skin Appearance) Assessed Friable Scarring -Moisture (Summer-wound Skin Appearance No Abnormality ) Assessed -Color (Summer-wound Skin Appearance) Assessed Hemosiderin Staining -Temperature (Summer-wound Skin No Abnormality Appearance) (Pt Warm) -Tenderness on Palpation (Summer-wound No Skin Appearance) -Anesthetic Used 4% Lidocaine Solution [Edema Assessment] -Lower Limb Edema Present Yes -Left Calf (cm) 32.0 -Left Ankle (cm) 19.0 WC - Nurse 2 - General Ulcer CM Notes Start: 07/29/18 10:34 Freq: Status: Active Protocol: Activity Type Activity Date Activity User E-Sign Co-Sign Detail Recorded Client Recorded Date Recorded By Document 07/29/18 10:41 MW [id number] 07/29/18 10:48 MW 07/29/18 10:41 Wound Center Nurse 2 [Procedure/Treatment] #4- LT LOWER SHARMA -Time 10:42 -Correct Patient Yes -Correct Side, Site, Position Yes -Correct Procedure Yes -Procedure Performed Yes -Type of Procedure Debridement -Clinical Debridement Subcutaneous -Post Debridement Size (cm) - Length 1.2 -Post Debridement Size (cm) - Width 1.3 -Post Debridement Size (cm) - Depth 0.2 -Total Square Cm 1.56 -Wound/Ulcer Outcome Not Healed -Ulcer Cleansing Rinsed/ Irrigated with Saline -Foul Odor after Cleansing No -Bioengineered Tissue No -Type of bioengineered Tissue [id number] -Expiration Date 03/21/18 -Product Lot Number [id number] -Percent Used 100 -Saline Lot Number [id number] -Bleeding Controlled with Pressure -Treatment Response Procedure Tolerated Well [See Physician Procedure note for Specifics] Musculoskeletal: No Tenderness to Palpation of Joints or Extremities Lymphatic: No Cervical, Supraclavicular, or Inguinal Adenopathy Neurological: Cranial nerves II-XII grossly intact, Neuro grossly intact Psych/Mental Status: Normal Affect, Appropriate Debridement Note Post-Debridement Measurements/Treatment WC - Nurse 2 - General Ulcer CM Notes Start: 07/29/18 10:34 Freq: Status: Active Protocol: Activity Type Activity Date Activity User E-Sign Co-Sign Detail Recorded Client Recorded Date Recorded By Document 07/29/18 10:41 MW [id number] 07/29/18 10:48 MW 07/29/18 10:41 Wound Center Nurse 2 #4- LT LOWER SHARMA -Time 10:42 -Correct Patient Yes -Correct Side, Site, Position Yes -Correct Procedure Yes -Procedure Performed Yes -Type of Procedure Debridement -Clinical Debridement Subcutaneous -Post Debridement Size (cm) - Length 1.2 -Post Debridement Size (cm) - Width 1.3 -Post Debridement Size (cm) - Depth 0.2 -Total Square Cm 1.56 -Wound/Ulcer Outcome Not Healed -Ulcer Cleansing Rinsed/ Irrigated with Saline -Foul Odor after Cleansing No -Bioengineered Tissue No -Type of bioengineered Tissue [id number] -Expiration Date 03/21/18 -Product Lot Number [id number] -Percent Used 100 -Saline Lot Number [id number] -Bleeding Controlled with Pressure -Treatment Response Procedure Tolerated Well Wound debrided: Left sharma wound Type of Debridement: Excisional debridement Anesthesia Used: 5% Lidocaine Gel Depth: Down to and including healthy tissue Percentage of wound debrided: 100 Instrument Used: 3mm curette Tissue Removed: Fibrin Severity: Limited To Skin Breakdown Amount of bleeding with debridement: Mild Bleeding Controlled with: Pressure Assessment/Plan Active Problems (Last Reviewed 05/19/18 @ 12:04 by Nallely Drummond NP-C) Traumatic open wound of left lower leg (Acute) Assessment: This is a 71-year-old female who sustained a traumatic injury to the left anterior tibial surface approximately 9 days prior to presentation. The wound on the left anterior tibial surface is now completely healed and epithelialized, having been achieved by conservative means. These measures have included serial debridements, the use of collagen hydrogel, compression to the lower extremities using compression stockings of 20-30 mmHg compression, leg elevation, avoidance of vital standing and sitting, weight control measures, etc. She has shown significant improvement each succeeding week. She is now completely healed, and will be discharged from our facility. She has been urged to continue with conservative treatment measures as discussed above, including leg elevation, avoidance vital standing and sitting, active lifestyle, weight control measures, and daily compression by means of graduated compression stockings of at least 20-30 mmHg compression. She notes a history of lower extremity swelling, but denies that significant leg pain or discomfort has been an issue in the past. Plan: Puraply #1 applied leave dressing alone for 1 week. Double layer Tubigrip to the left leg. Follow-up in 1 week
--- NOTE | 2018-07-29 12:46 | PN.PCM_ITS ---
(1) Infected wound Status: Acute Current Visit: No Code(s): T14.8XXA - Other injury of unspecif ied body region, initial encounter; L08.9 - Local infection of the skin and subcutaneous tissue, unspecified (2) Traumatic open wound of left lower leg Status: Acute Current Visit: Yes Qualifiers: Code(s): S81.802A - Unspecified open wound, left lower leg, initial encounter Type of Wound Chief Complaint: Traumatic ulcer to the left lower extremity anterior tibial surface History of Wound: This is a 71-year-old female who presented with a traumatic injury to the left anterior tibial surface. Approximately 9 days prior to presentation, the patient inadvertently impacted the left anterior tibial surface against the corner of a coffee table. This resulted in a traumatic wound. Several skin flaps were elevated, and the patient anchored these back in place using Steri-Strips, which she had on hand. She also used collagen h ydrogel topically. Portions of the traumatic wound blackened, and the patient scheduled an appointment for evaluation in the [facility]. She has been previously treated for similar injuries in this location. The patient has undergone vascular studies, with results indicating no evidence of arterial occlusive disease. 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 The patient denies a history of thrombophlebitis. She normally experiences pain and swelling in her lower extremities bilaterally, typically near the end of each day. Her right leg is said to be worse symptomatically. She sleeps flat at night. She noted severe swelling in her legs in November 2015, at which time she drove to and from [place] on vacation. 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 Since her previous treatment and discharge from the [facility], the patient has been implementing conservative treatment measures relative to the swelling, edema, and pain in her lower extremities, namely leg elevation, avoidance of idle standing and sitting, use of graduated compression stockings of 20-30 mmHg compression, active lifestyle, weight control measures, and the use of as non- steroidal anti-inflammatory medications. Progress of Wound: Today the area is open and healing well cultures showed negative growth. Today the ulcer is shallow and healing we applied #1 pure apply to area. - Physical Exam Vital Signs Temp Pulse Resp BP 97.1 F L 78 18 128/69 H 07/29/18 10:34 07/29/18 10:34 07/29/18 10:34 07/29/18 10:34 General: Oriented x3, Cooperative, Well developed HEENT: Atraumatic, PERRLA Oral: Moist Mucosa Neck: Supple, No JVD Lungs: Clear to auscultation, Normal air movement Cardiovascular: Regular rate, Regular Rhythm Abdomen: Bowel Sounds Present, Soft, Non Tender, No Hepato-splenomegaly Extremities: No clubbing, No edema Skin: Ulcer/ Wound - Left lower extremity sharma wound Wound Measurements and Assessment WC - Nurse 1 - General Ulcer Measurement Start: 07/29/18 10:34 Freq: Status: Active Protocol: Activity Type Activity Date Activity User E-Sign Co-Sign Detail Recorded Client Recorded Date Recorded By Document 07/29/18 10:34 [id number] 07/29/18 10:35 07/29/18 10:34 Wound Center Nurse 1 [Ulcer Assessment] #4- LT LOWER SHARMA -Combined with other wound No -Current Size (cm) - Length 1.5 -Current Size (cm) - Width 1.4 -Current Size (cm) - Depth 0.1 -Total Square Cm 2.10 -Photo Taken No -Epithelialization Small 1-33% -Tunneling No -Undermining/Tunneling No -Circular Undermining No -Classification - Thickness Full Thickness without Exposed Support Structure -Exudate Amt Small (1-33%) -Exudate Type Serosanguineous -Wound Margin Distinct, Outline Attached -Granulation Amt Small (1-33%) -Granulation Quality Red -Slough/Fibrin Yes -Necrosis Amt Large (67-100%) -Necrotic Tissue Type Adherent Slough -Structure Exposed Fascia Fat Layer Exposed -Texture (Summer-wound Skin Appearance) Assessed Friable Scarring -Moisture (Summer-wound Skin Appearance No Abnormality ) Assessed -Color (Summer-wound Skin Appearance) Assessed Hemosiderin Staining -Temperature (Summer-wound Skin No Abnormality Appearance) (Pt Warm) -Tenderness on Palpation (Summer-wound No Skin Appearance) -Anesthetic Used 4% Lidocaine Solution [Edema Assessment] -Lower Limb Edema Present Yes -Left Calf (cm) 32.0 -Left Ankle (cm) 19.0 WC - Nurse 2 - General Ulcer CM Notes Start: 07/29/18 10:34 Freq: Status: Active Protocol: Activity Type Activity Date Activity User E-Sign Co-Sign Detail Recorded Client Recorded Date Recorded By Document 07/29/18 10:41 MW [id number] 07/29/18 10:48 MW 07/29/18 10:41 Wound Center Nurse 2 [Procedure/Treatment] #4- LT LOWER SHARMA -Time 10:42 -Correct Patient Yes -Correct Side, Site, Position Yes -Correct Procedure Yes -Procedure Performed Yes -Type of Procedure Debridement -Clinical Debridement Subcutaneous -Post Debridement Size (cm) - Length 1.2 -Post Debridement Size (cm) - Width 1.3 -Post Debridement Size (cm) - Depth 0.2 -Total Square Cm 1.56 -Wound/Ulcer Outcome Not Healed -Ulcer Cleansing Rinsed/ Irrigated with Saline -Foul Odor after Cleansing No -Bioengineered Tissue No -Type of bioengineered Tissue [id number] -Expiration Date 03/21/18 -Product Lot Number [id number] -Percent Used 100 -Saline Lot Number [id number] -Bleeding Controlled with Pressure -Treatment Response Procedure Tolerated Well [See Physician Procedure note for Specifics] Musculoskeletal: No Tenderness to Palpation of Joints or Extremities Lymphatic: No Cervical, Supraclavicular, or Inguinal Adenopathy Neurological: Cranial nerves II-XII grossly intact, Neuro grossly intact Psych/Mental Status: Normal Affect, Appropriate Debridement Note Post-Debridement Measurements/Treatment - Nurse 2 - General Ulcer CM Notes Start: 07/29/18 10:34 Freq: Status: Active Protocol: Activity Type Activity Date Activity User E-Sign Co-Sign Detail Recorded Client Recorded Date Recorded By Document 07/29/18 10:41 MW [id number] 07/29/18 10:48 MW 07/29/18 10:41 Wound Center Nurse 2 #4- LT LOWER SHARMA -Time 10:42 -Correct Patient Yes -Correct Side, Site, Position Yes -Correct Procedure Yes -Procedure Performed Yes -Type of Procedure Debridement -Clinical Debridement Subcutaneous -Post Debridement Size (cm) - Length 1.2 -Post Debridement Size (cm) - Width 1.3 -Post Debridement Size (cm) - Depth 0.2 -Total Square Cm 1.56 -Wound/Ulcer Outcome Not Healed -Ulcer Cleansing Rinsed/ Irrigated with Saline -Foul Odor after Cleansing No -Bioengineered Tissue No -Type of bioengineered Tissue [id number] -Expiration Date 03/21/18 -Product Lot Number [id number] -Percent Used 100 -Saline Lot Number [id number] -Bleeding Controlled with Pressure -Treatment Response Procedure Tolerated Well Wound debrided: Left sharma wound Type of Debridement: Excisional debridement Anesthesia Used: 5% Lidocaine Gel Depth: Down to and including healthy tissue Percentage of wound debrided: 100 Instrument Used: 3mm curette Tissue Removed: Fibrin Severity: Limited To Skin Breakdown Amount of bleeding with debridement: Mild Bleeding Controlled with: Pressure Assessment/Plan Active Problems (Last Reviewed 05/19/18 @ 12:04 by Nallely Drummond NP-C) Traumatic open wound of left lower leg (Acute) Assessment: This is a 71-year-old female who sustained a traumatic injury to the left anterior tibial surface approximately 9 days prior to presentation. The wound on the left anterior tibial surface is now completely healed and epithelialized, having been achieved by conservative means. These measures have included serial debridements, the use of collagen hydrogel, compression to the lower extremities using compression stockings of 20-30 mmHg compression, leg elevation, avoidance of vital standing and sitting, weight control measures, etc. She has shown significant improvement each succeeding week. She is now completely healed, and will be discharged from our facility. She has been urged to continue with conservative treatment measures as discussed above, including leg elevation, avoidance vital standing and sitting, active lifestyle, weight control measures, and daily compression by means of graduated compression stockings of at least 20-30 mmHg compression. She notes a history of lower extremity swelling, but denies that significant leg pain or discomfort has been an issue in the past. Plan: Puraply #1 applied leave dressing alone for 1 week. Double layer Tubigrip to the left leg. Follow-up in 1 week
[2018-08-05 10:23] VITALS: BP 134/75; PULSE 77; RESP 18; TEMP 35.6
--- NOTE | 2018-08-05 11:24 | PCM.WC.PN ---
(1) Infected wound Status: Acute Current Visit: No Code(s): T14.8XXA - Other injury of unspecified body region, initial encounter; L08.9 - Local infection of the skin and subcutaneous tissue, unspecified (2) Traumatic open wound of left lower leg Status: Acute Current Visit: Yes Qualifiers: Code(s): S81.802A - Unspecified open wound, left lower leg, initial encounter Type of Wound Chief Complaint: Traumatic ulcer to the left lower extremity anterior tibial surface History of Wound: This is a 71-year-old female who presented with a traumatic injury to the left anterior tibial surface. Approximately 9 days prior to presentation, the patient inadvertently impacted the left anterior tibial surface against the corner of a coffee table. This resulted in a traumatic wound. Several skin flaps were elevated, and the patient anchored these back in place using Steri-Strips, which she had on hand. She also used collagen hydrogel topically. Portions of the traumatic wound blackened, and the patient scheduled an appointment for evaluation in the [facility]. She has been previously treated for similar injuries in this location. The patient has undergone vascular studies, with results indicating no evidence of arterial occlusive disease. 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 The patient denies a history of thrombophlebitis. She normally experiences pain and swelling in her lower extremities bilaterally, typically near the end of each day. Her right leg is said to be worse symptomatically. She sleeps flat at night. She noted severe swelling in her legs in November 2015, at which time she drove to and from [place] on vacation. 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 Since her previous treatment and discharge from the [facility], the patient has been implementing conservative treatment measures relative to the swelling, edema, and pain in her lower extremities, namely leg elevation, avoidance of idle standing and sitting, use of graduated compression stockings of 20-30 mmHg compression, active lifestyle, weight control measures, and the use of as non-steroidal anti-inflammatory medications. Progress of Wound: Today the area is open and healing well cultures showed negative growth. Today the wound is shallow and one half the size it was obvious cellular growth happening. We applied #2 of puraply today she should be healed in 2 weeks when she returns. - Physical Exam Vital Signs Temp Pulse Resp BP 96.1 F L 77 18 134/75 H 08/05/18 10:23 08/05/18 10:23 08/05/18 10:23 08/05/18 10:23 General: Oriented x3, Cooperative, Well developed HEENT: Atraumatic, PERRLA Oral: Moist Mucosa Neck: Supple, No JVD Lungs: Clear to auscultation, Normal air movement Cardiovascular: Regular rate, Regular Rhythm Abdomen: Bowel Sounds Present, Soft, Non Tender, No Hepato-splenomegaly Extremities: No clubbing, No edema, - - Left sharma wound Wound Measurements and Assessment WC - Nurse 1 - General Ulcer Measurement Start: 07/29/18 10:34 Freq: Status: Active Protocol: Activity Type Activity Date Activity User E-Sign Co-Sign Detail Recorded Client Recorded Date Recorded By Document 08/05/18 10:23 [facility] [id number] 08/05/18 10:26 [facility] 08/05/18 10:23 W[facility] Center Nurse 1 [Ulcer Assessment] #4- LT LOWER SHARMA -Combined with other wound No -Current Size (cm) - Length 1.5 -Current Size (cm) - Width 1.3 -Current Size (cm) - Depth 0.1 -Total Square Cm 1.95 -Photo Taken No -Epithelialization Small 1-33% -Tunneling No -Undermining/Tunneling No -Circular Undermining No -Exudate Amt Small (1-33%) -Exudate Type Serosanguineous -Wound Margin Distinct, Outline Attached -Granulation Amt Large (67-100%) -Granulation Quality Red -Slough/Fibrin Yes -Necrosis Amt Small (1-33%) -Texture (Summer-wound Skin Appearance) Scarring -Moisture (Summer-wound Skin Appearance Maceration ) -Color (Summer-wound Skin Appearance) Palor -Temperature (Summer-wound Skin No Abnormality Appearance) (Pt Warm) -Tenderness on Palpation (Summer-wound Yes Skin Appearance) -Ulcer Cleansing Rinsed/ Irrigated with Saline -Foul Odor after Cleansing No -Anesthetic Used 4% Lidocaine Solution [Edema Assessment] -Lower Limb Edema Present Yes -Left Calf (cm) 31.9 -Left Ankle (cm) 18.3 WC - Nurse 2 - General Ulcer CM Notes Start: 07/29/18 10:34 Freq: Status: Active Protocol: Activity Type Activity Date Activity User E-Sign Co-Sign Detail Recorded Client Recorded Date Recorded By Document 08/05/18 10:52 MW [id number] 08/05/18 10:59 MW 08/05/18 10:52 Wound Center Nurse 2 [Procedure/Treatment] #4- LT LOWER SHARMA -Time 10:53 -Correct Patient Yes -Correct Side, Site, Position Yes -Correct Procedure Yes -Procedure Performed Yes -Type of Procedure Debridement -Clinical Debridement Subcutaneous -Post Debridement Size (cm) - Length 1.0 -Post Debridement Size (cm) - Width 1.2 -Post Debridement Size (cm) - Depth 0.1 -Total Square Cm 1.20 -Wound/Ulcer Outcome Not Healed -Ulcer Cleansing Rinsed/ Irrigated with Saline -Foul Odor after Cleansing No -Bioengineered Tissue Yes -Type of bioengineered Tissue [id number] -Expiration Date 03/21/19 -Product Lot Number [id number] -Percent Used 100 -Saline Lot Number [id number] -Bleeding Controlled with Pressure -Treatment Response Procedure Tolerated Well [See Physician Procedure note for Specifics] Pain Scale: 0-10 Numeric [Pain] -Is Patient Pain Free? Yes Musculoskeletal: No Tenderness to Palpation of Joints or Extremities Lymphatic: No Cervical, Supraclavicular, or Inguinal Adenopathy Neurological: Cranial nerves II-XII grossly intact, Neuro grossly intact Psych/Mental Status: Normal Affect, Appropriate Debridement Note Post-Debridement Measurements/Treatment - Nurse 2 - General Ulcer CM Notes Start: 07/29/18 10:34 Freq: Status: Active Protocol: Activity Type Activity Date Activity User E-Sign Co-Sign Detail Recorded Client Recorded Date Recorded By Document 07/29/18 10:41 MW [id number] 07/29/18 10:48 MW Document 08/05/18 10:52 MW [id number] 08/05/18 10:59 MW 07/29/18 08/05/18 10:41 10:52 Wound Center Nurse 2 #4- LT LOWER SHARMA -Time 10:42 10:53 -Correct Patient Yes Yes -Correct Side, Site, Position Yes Yes -Correct Procedure Yes Yes -Procedure Performed Yes Yes -Type of Procedure Debridement Debridement -Clinical Debridement Subcutaneous Subcutaneous -Post Debridement Size (cm) - Length 1.2 1.0 -Post Debridement Size (cm) - Width 1.3 1.2 -Post Debridement Size (cm) - Depth 0.2 0.1 -Total Square Cm 1.56 1.20 -Wound/Ulcer Outcome Not Healed Not Healed -Ulcer Cleansing Rinsed/ Rinsed/ Irrigated with Irrigated with Saline Saline -Foul Odor after Cleansing No No -Bioengineered Tissue No Yes -Type of bioengineered Tissue [id number] -Expiration Date 03/21/18 03/21/19 -Product Lot Number [id number] -Percent Used 100 100 -Saline Lot Number [id number] -Bleeding Controlled with Pressure Pressure -Treatment Response Procedure Procedure Tolerated Well Tolerated Well Pain Scale: 0-10 Numeric Is Patient Pain Free? Yes Wound debrided: Left sharma wound Type of Debridement: Excisional debridement Anesthesia Used: 5% Lidocaine Gel Depth: Down to and including healthy tissue, in the subcutaneous layer Percentage of wound debrided: 100 Instrument Used: 7mm curette Tissue Removed: Fibrin Severity: Limited To Skin Breakdown Amount of bleeding with debridement: Mild Bleeding Controlled with: Compression and gauze Patient tolerated procedure well Assessment/Plan Active Problems (Last Reviewed 05/19/18 @ 12:04 by Nallely Drummond NP-Kai) Traumatic open wound of left lower leg (Acute) Assessment: This is a 71-year-old female who sustained a traumatic injury to the left anterior tibial surface approximately 9 days prior to presentation. The wound on the left anterior tibial surface is now completely healed and epithelialized, having been achieved by conservative means. These measures have included serial debridements, the use of collagen hydrogel, compression to the lower extremities using compression stockings of 20-30 mmHg compression, leg elevation, avoidance of vital standing and sitting, weight control measures, etc. She has shown significant improvement each succeeding week. She is now completely healed, and will be discharged from our facility. She has been urged to continue with conservative treatment measures as discussed above, including leg elevation, avoidance vital standing and sitting, active lifestyle, weight control measures, and daily compression by means of graduated compression stockings of at least 20-30 mmHg compression. She notes a history of lower extremity swelling, but denies that significant leg pain or discomfort has been an issue in the past. Plan: Puraply #2 applied leave dressing alone for 1 week. Double layer Tubigrip to the left leg. Follow-up in 2 week
--- NOTE | 2018-08-05 11:29 | PN.PCM_ITS ---
(1) Infected wound Status: Acute Current Visit: No Code(s): T14.8XXA - Other injury of unspecif ied body region, initial encounter; L08.9 - Local infection of the skin and subcutaneous tissue, unspecified (2) Traumatic open wound of left lower leg Status: Acute Current Visit: Yes Qualifiers: Code(s): S81.802A - Unspecified open wound, left lower leg, initial encounter Type of Wound Chief Complaint: Traumatic ulcer to the left lower extremity anterior tibial surface History of Wound: This is a 71-year-old female who presented with a traumatic injury to the left anterior tibial surface. Approximately 9 days prior to presentation, the patient inadvertently impacted the left anterior tibial surface against the corner of a coffee table. This resulted in a traumatic wound. Several skin flaps were elevated, and the patient anchored these back in place using Steri-Strips, which she had on hand. She also used collagen h ydrogel topically. Portions of the traumatic wound blackened, and the patient scheduled an appointment for evaluation in the [facility]. She has been previously treated for similar injuries in this location. The patient has undergone vascular studies, with results indicating no evidence of arterial occlusive disease. 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 The patient denies a history of thrombophlebitis. She normally experiences pain and swelling in her lower extremities bilaterally, typically near the end of each day. Her right leg is said to be worse symptomatically. She sleeps flat at night. She noted severe swelling in her legs in November 2015, at which time she drove to and from [place] on vacation. 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 Since her previous treatment and discharge from the [facility], the patient has been implementing conservative treatment measures relative to the swelling, edema, and pain in her lower extremities, namely leg elevation, avoidance of idle standing and sitting, use of graduated compression stockings of 20-30 mmHg compression, active lifestyle, weight control measures, and the use of as non- steroidal anti-inflammatory medications. Progress of Wound: Today the area is open and healing well cultures showed negative growth. Today the wound is shallow and one half the size it was obvious cellular growth happening. We applied #2 of puraply today she should be healed in 2 weeks when she returns. - Physical Exam Vital Signs Temp Pulse Resp BP 96.1 F L 77 18 134/75 H 08/05/18 10:23 08/05/18 10:23 08/05/18 10:23 08/05/18 10:23 General: Oriented x3, Cooperative, Well developed HEENT: Atraumatic, PERRLA Oral: Moist Mucosa Neck: Supple, No JVD Lungs: Clear to auscultation, Normal air movement Cardiovascular: Regular rate, Regular Rhythm Abdomen: Bowel Sounds Present, Soft, Non Tender, No Hepato-splenomegaly Extremities: No clubbing, No edema, - - Left sharma wound Wound Measurements and Assessment WC - Nurse 1 - General Ulcer Measurement Start: 07/29/18 10:34 Freq: Status: Active Protocol: Activity Type Activity Date Activity User E-Sign Co-Sign Detail Recorded Client Recorded Date Recorded By Document 08/05/18 10:23 [facility] [id number] 08/05/18 10:26 [facility] 08/05/18 10:23 Wound Center Nurse 1 [Ulcer Assessment] #4- LT LOWER SHARMA -Combined with other wound No -Current Size (cm) - Length 1.5 -Current Size (cm) - Width 1.3 -Current Size (cm) - Depth 0.1 -Total Square Cm 1.95 -Photo Taken No -Epithelialization Small 1-33% -Tunneling No -Undermining/Tunneling No -Circular Undermining No -Exudate Amt Small (1-33%) -Exudate Type Serosanguineous -Wound Margin Distinct, Outline Attached -Granulation Amt Large (67-100%) -Granulation Quality Red -Slough/Fibrin Yes -Necrosis Amt Small (1-33%) -Texture (Summer-wound Skin Appearance) Scarring -Moisture (Summer-wound Skin Appearance Maceration ) -Color (Summer-wound Skin Appearance) Palor -Temperature (Summer-wound Skin No Abnormality Appearance) (Pt Warm) -Tenderness on Palpation (Summer-wound Yes Skin Appearance) -Ulcer Cleansing Rinsed/ Irrigated with Saline -Foul Odor after Cleansing No -Anesthetic Used 4% Lidocaine Solution [Edema Assessment] -Lower Limb Edema Present Yes -Left Calf (cm) 31.9 -Left Ankle (cm) 18.3 WC - Nurse 2 - General Ulcer CM Notes Start: 07/29/18 10:34 Freq: Status: Active Protocol: Activity Type Activity Date Activity User E-Sign Co-Sign Detail Recorded Client Recorded Date Recorded By Document 08/05/18 10:52 MW [id number] 08/05/18 10:59 MW 08/05/18 10:52 Wound Center Nurse 2 [Procedure/Treatment] #4- LT LOWER SHARMA -Time 10:53 -Correct Patient Yes -Correct Side, Site, Position Yes -Correct Procedure Yes -Procedure Performed Yes -Type of Procedure Debridement -Clinical Debridement Subcutaneous -Post Debridement Size (cm) - Length 1.0 -Post Debridement Size (cm) - Width 1.2 -Post Debridement Size (cm) - Depth 0.1 -Total Square Cm 1.20 -Wound/Ulcer Outcome Not Healed -Ulcer Cleansing Rinsed/ Irrigated with Saline -Foul Odor after Cleansing No -Bioengineered Tissue Yes -Type of bioengineered Tissue [id number] -Expiration Date 03/21/19 -Product Lot Number [id number] -Percent Used 100 -Saline Lot Number [id number] -Bleeding Controlled with Pressure -Treatment Response Procedure Tolerated Well [See Physician Procedure note for Specifics] Pain Scale: 0-10 Numeric [Pain] -Is Patient Pain Free? Yes Musculoskeletal: No Tenderness to Palpation of Joints or Extremities Lymphatic: No Cervical, Supraclavicular, or Inguinal Adenopathy Neurological: Cranial nerves II-XII grossly intact, Neuro grossly intact Psych/Mental Status: Normal Affect, Appropriate Debridement Note Post-Debridement Measurements/Treatment WC - Nurse 2 - General Ulcer CM Notes Start: 07/29/18 10:34 Freq: Status: Active Protocol: Activity Type Activity Date Activity User E-Sign Co-Sign Detail Recorded Client Recorded Date Recorded By Document 07/29/18 10:41 MW [id number] 07/29/18 10:48 MW Document 08/05/18 10:52 MW [id number] 08/05/18 10:59 MW 07/29/18 08/05/18 10:41 10:52 Wound Center Nurse 2 #4- LT LOWER SHARMA -Time 10:42 10:53 -Correct Patient Yes Yes -Correct Side, Site, Position Yes Yes -Correct Procedure Yes Yes -Procedure Performed Yes Yes -Type of Procedure Debridement Debridement -Clinical Debridement Subcutaneous Subcutaneous -Post Debridement Size (cm) - Length 1.2 1.0 -Post Debridement Size (cm) - Width 1.3 1.2 -Post Debridement Size (cm) - Depth 0.2 0.1 -Total Square Cm 1.56 1.20 -Wound/Ulcer Outcome Not Healed Not Healed -Ulcer Cleansing Rinsed/ Rinsed/ Irrigated with Irrigated with Saline Saline -Foul Odor after Cleansing No No -Bioengineered Tissue No Yes -Type of bioengineered Tissue [id number] -Expiration Date 03/21/18 03/21/19 -Product Lot Number [id number] -Percent Used 100 100 -Saline Lot Number [id number] -Bleeding Controlled with Pressure Pressure -Treatment Response Procedure Procedure Tolerated Well Tolerated Well Pain Scale: 0-10 Numeric Is Patient Pain Free? Yes Wound debrided: Left sharma wound Type of Debridement: Excisional debridement Anesthesia Used: 5% Lidocaine Gel Depth: Down to and including healthy tissue, in the subcutaneous layer Percentage of wound debrided: 100 Instrument Used: 7mm curette Tissue Removed: Fibrin Severity: Limited To Skin Breakdown Amount of bleeding with debridement: Mild Bleeding Controlled with: Compression and gauze Patient tolerated procedure well Assessment/Plan Active Problems (Last Reviewed 05/19/18 @ 12:04 by DENNIS Castorena) Traumatic open wound of left lower leg (Acute) Assessment: This is a 71-year-old female who sustained a traumatic injury to the left anterior tibial surface approximately 9 days prior to presentation. The wound on the left anterior tibial surface is now completely healed and epithelialized, having been achieved by conservative means. These measures have included serial debridements, the use of collagen hydrogel, compression to the lower extremities using compression stockings of 20-30 mmHg compression, leg elevation, avoidance of vital standing and sitting, weight control measures, etc. She has shown significant improvement each succeeding week. She is now completely healed, and will be discharged from our facility. She has been urged to continue with conservative treatment measures as discussed above, including leg elevation, avoidance vital standing and sitting, active lifestyle, weight control measures, and daily compression by means of graduated compression stockings of at least 20-30 mmHg compression. She notes a history of lower extremity swelling, but denies that significant leg pain or discomfort has been an issue in the past. Plan: Teeaply #2 applied leave dressing alone for 1 week. Double layer Tubigrip to the left leg. Follow-up in 2 week
[2018-08-19 10:20] VITALS: BP 111/72; PULSE 81; RESP 16; TEMP 36.6
--- NOTE | 2018-08-19 11:12 | PCM.WC.PN ---
(1) Infected wound Status: Acute Current Visit: No Code(s): T14.8XXA - Other injury of unspecified body region, initial encounter; L08.9 - Local infection of the skin and subcutaneous tissue, unspecified (2) Traumatic open wound of left lower leg Status: Acute Current Visit: Yes Qualifiers: Code(s): S81.802A - Unspecified open wound, left lower leg, initial encounter Type of Wound Chief Complaint: Traumatic ulcer to the left lower extremity anterior tibial surface History of Wound: This is a 71-year-old female who presented with a traumatic injury to the left anterior tibial surface. Approximately 9 days prior to presentation, the patient inadvertently impacted the left anterior tibial surface against the corner of a coffee table. This resulted in a traumatic wound. Several skin flaps were elevated, and the patient anchored these back in place using Steri-Strips, which she had on hand. She also used collagen hydrogel topically. Portions of the traumatic wound blackened, and the patient scheduled an appointment for evaluation in the [facility]. She has been previously treated for similar injuries in this location. The patient has undergone vascular studies, with results indicating no evidence of arterial occlusive disease. 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 In the left lower extremity, the great saphenous vein is incompetent, as well as an incompetent builder beam 15 cm proximal to the left medial malleolus. The patient denies a history of thrombophlebitis. She normally experiences pain and swelling in her lower extremities bilaterally, typically near the end of each day. Her right leg is said to be worse symptomatically. She sleeps flat at night. She noted severe swelling in her legs in November 2015, at which time she drove to and from [place] on vacation. 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 Since her previous treatment and discharge from the [facility], the patient has been implementing conservative treatment measures relative to the swelling, edema, and pain in her lower extremities, namely leg elevation, avoidance of idle standing and sitting, use of graduated compression stockings of 20-30 mmHg compression, active lifestyle, weight control measures, and the use of as non-steroidal anti-inflammatory medications. Progress of Wound: Today the area is healed. After 2 puraply's. - Physical Exam Vital Signs Temp Pulse Resp BP 97.9 F 81 16 111/72 08/19/18 10:20 08/19/18 10:20 08/19/18 10:20 08/19/18 10:20 General: Oriented x3, Cooperative, Well developed HEENT: Atraumatic, PERRLA Oral: Moist Mucosa Neck: Supple, No JVD Lungs: Clear to auscultation, Normal air movement Cardiovascular: Regular rate, Regular Rhythm Abdomen: Bowel Sounds Present, Soft, Non Tender, No Hepato-splenomegaly Extremities: No clubbing, No edema Skin: Ulcer/ Wound - Left lower leg wound traumatic Wound Measurements and Assessment WC - Nurse 1 - General Ulcer Measurement Start: 07/29/18 10:34 Freq: Status: Active Protocol: Activity Type Activity Date Activity User E-Sign Co-Sign Detail Recorded Client Recorded Date Recorded By Document 08/19/18 10:20 [id number] 08/19/18 10:22 08/19/18 10:20 Wound Center Nurse 1 [Ulcer Assessment] #4- LT LOWER SEE -Combined with other wound No -Current Size (cm) - Length 0.5 -Current Size (cm) - Width 0.4 -Current Size (cm) - Depth 0.1 -Total Square Cm 0.20 -Epithelialization Large 67-100% -Tunneling No -Undermining/Tunneling No -Circular Undermining No -Exudate Amt Small (1-33%) -Exudate Type Serosanguineous -Wound Margin Distinct, Outline Attached -Granulation Amt Medium (34-66%) -Granulation Quality [place] Red -Slough/Fibrin Yes -Necrosis Amt Small (1-33%) -Necrotic Tissue Type Adherent Slough -Structure Exposed Fat Layer Exposed None/Limited to Skin Breakdown -Texture (Summer-wound Skin Appearance) Assessed Scarring -Moisture (Summer-wound Skin Appearance No Abnormality ) Assessed -Color (Summer-wound Skin Appearance) No Abnormality Assessed -Temperature (Summer-wound Skin No Abnormality Appearance) (Pt Warm) -Tenderness on Palpation (Summer-wound No Skin Appearance) -Ulcer Cleansing Rinsed/ Irrigated with Saline -Foul Odor after Cleansing No -Anesthetic Used 4% Lidocaine Solution [Edema Assessment] -Left Calf (cm) 33 -Left Ankle (cm) 19 WC - Nurse 2 - General Ulcer CM Notes Start: 10/05/18 10:34 Freq: Status: Active Protocol: Activity Type Activity Date Activity User E-Sign Co-Sign Detail Recorded Client Recorded Date Recorded By Document 08/19/18 10:35 MW [id number] 08/19/18 10:36 MW 08/19/18 10:35 Wound Center Nurse 2 [Procedure/Treatment] #4- LT LOWER SEE -Time 10:35 -Correct Patient Yes -Correct Side, Site, Position Yes -Correct Procedure Yes -Procedure Performed No -Post Debridement Size (cm) - Length 0 -Post Debridement Size (cm) - Width 0 -Post Debridement Size (cm) - Depth 0 -Total Square Cm 0 -Wound/Ulcer Outcome Healed- Epithelialized -Ulcer Cleansing Not Cleansed -Foul Odor after Cleansing No -Bioengineered Tissue No -Bleeding Controlled with NA -Treatment Response Procedure Tolerated Well [See Physician Procedure note for Specifics] Pain Scale: 0-10 Numeric [Pain] -Is Patient Pain Free? Yes Musculoskeletal: No Tenderness to Palpation of Joints or Extremities Lymphatic: No Cervical, Supraclavicular, or Inguinal Adenopathy Neurological: Cranial nerves II-XII grossly intact, Neuro grossly intact Psych/Mental Status: Normal Affect, Appropriate Debridement Note Post-Debridement Measurements/Treatment WC - Nurse 2 - General Ulcer CM Notes Start: 07/29/18 10:34 Freq: Status: Active Protocol: Activity Type Activity Date Activity User E-Sign Co-Sign Detail Recorded Client Recorded Date Recorded By Document 07/29/18 10:41 MW [id number] 07/29/18 10:48 MW Document 08/05/18 10:52 MW [id number] 08/05/18 10:59 MW Document 08/19/18 10:35 MW [id number] 08/19/18 10:36 MW 07/29/18 08/05/18 08/19/18 10:41 10:52 10:35 Wound Center Nurse 2 #4- LT LOWER SEE -Time 10:42 10:53 10:35 -Correct Patient Yes Yes Yes -Correct Side, Site, Position Yes Yes Yes -Correct Procedure Yes Yes Yes -Procedure Performed Yes Yes No -Type of Procedure Debridement Debridement -Clinical Debridement Subcutaneous Subcutaneous -Post Debridement Size (cm) - Length 1.2 1.0 0 -Post Debridement Size (cm) - Width 1.3 1.2 0 -Post Debridement Size (cm) - Depth 0.2 0.1 0 -Total Square Cm 1.56 1.20 0 -Wound/Ulcer Outcome Not Healed Not Healed Healed- Epithelialized -Ulcer Cleansing Rinsed/ Rinsed/ Not Cleansed Irrigated with Irrigated with Saline Saline -Foul Odor after Cleansing No No No -Bioengineered Tissue No Yes No -Type of bioengineered Tissue [id number] -Expiration Date 03/21/18 03/21/19 -Product Lot Number [id number] -Percent Used 100 100 -Saline Lot Number [id number] -Bleeding Controlled with Pressure Pressure NA -Treatment Response Procedure Procedure Procedure Tolerated Well Tolerated Well Tolerated Well Pain Scale: 0-10 Numeric Is Patient Pain Free? Yes Yes Wound debrided: Left lower leg wound No debridement was completed today Assessment/Plan Active Problems (Last Updated 08/16/18 @ 07:46 by Danette Benitez) Traumatic open wound of left lower leg (Acute) Assessment: This is a 71-year-old female who sustained a traumatic injury to the left anterior tibial surface approximately 9 days prior to presentation. The wound on the left anterior tibial surface is now completely healed and epithelialized, having been achieved by conservative means. These measures have included serial debridements, the use of collagen hydrogel, compression to the lower extremities using compression stockings of 20-30 mmHg compression, leg elevation, avoidance of vital standing and sitting, weight control measures, etc. She has shown significant improvement each succeeding week. She is now completely healed, and will be discharged from our facility. She has been urged to continue with conservative treatment measures as discussed above, including leg elevation, avoidance vital standing and sitting, active lifestyle, weight control measures, and daily compression by means of graduated compression stockings of at least 20-30 mmHg compression. She notes a history of lower extremity swelling, but denies that significant leg pain or discomfort has been an issue in the past. Plan: Discharge from the wound center follow-up as needed
== END 2018-08-24 23:59 ==
LOC: WC 10:00
PROVIDERS: Family Provider Internal Medicine; PCP Internal Medicine; Visit Provider Nurse Practitioner
DX: S81.802A Unspecified open wound, left lower leg, initial encounter (principal); L03.116 Cellulitis of left lower limb; W45.8XXA Other foreign body or object entering through skin, initial encounter; Z86.14 Personal history of Methicillin resistant Staphylococcus aureus infection; M79.89 Other specified soft tissue disorders; R60.0 Localized edema; M30.1 Polyarteritis with lung involvement [Churg-Strauss]
CPT/HCPCS: 15271; 99213; Q4172; G0463

== ENCOUNTER → 2018-09-07 13:29 | Outpatient (CLI) | payer MEDICARE, OTHER, SELFPAY ==
--- NOTE | 2018-09-07 | ASPIG_PTH ---
PATIENT: LULI LARA LOC: [facility] [[email or web address]]#:[id number] AGE/SX: 79/F ROOM: RE09/07/[address]: Dr. Bib Fajardo MD : 1945 BED: DIS: SPEC #: [id number] RECD: 09/07/18 14:52 STATUS: OSMIN MCQUEEN #: [id number] DIVYA: 09/07/18 00:[address]: Bib Fajardo DEPT: CYTOLOGY RECD BY: Francisco Javier Caceres ENTERED: 09/07/18 14:53 SP TYPE: ASP OUT OTHR DR: Dr. Domonique Akins DO Tissues: Thyroid gland, NOS Procedures: FNA Specimen Adequacy Pap Stain (control) Special Stain Group II Surgery Specimen Level IV Diff Quik Stain (control) Cell Block Cytology Other HEADER OPERATION: Ultrasound guided thyroid biopsy PRE-OP DIAGNOSIS: Multi nodule goiter TISSUE SUBMITTED: Left thyroid nodule, FNA DIAGNOSIS CYTOLOGY Left thyroid nodule, ultrasound-guided FNA (smears and cell block): Consistent with benign follicular nodule. Adequate for evaluation. See comment. SJ:sp 09/08/18 COMMENT The specimen is evaluated at the time of FNA by Dr. Willis. Immediate Evaluation = Follicular cells noted. Correlation with clinical, radiologic findings and appropriate followup are necessary. Case has been reviewed in consultation with Dr. Davis who concurs with the above diagnosis. IDC:AM CYTOLOGY STUDY Slides are reviewed. CYTOLOGY GROSS Received are slides labeled with the patient's name, and designated Left thyroid nodule. 5 imprints and 1 pap are made from the submitted fluid and the rest is added to CytoLyt for cell block preparation. Submitted for cytology study. TC: 5 CPT: 88320, 40873, 71061
--- NOTE | 2018-09-07 13:35 | US_ITS ---
STUDY: THYROID ULTRASOUND REASON FOR EXAM: Female, 72 years old. Ultrasound guided biopsy of the left thyroid nodule. TECHNIQUE: Ultrasound evaluation of the thyroid was performed with real-time and static calhoun-scale imaging. COMPARISON: Comparison is made with prior examination dated August 11, 2018. FINDINGS: Under direct sonographic guidance, the surgeon performed multiple 22-gauge needle aspiration of the 1 cm x 1 cm x 1.2 cm hypoechoic solid nodule in the left lobe. US/US Thyroid Biopsy IMPRESSION: Successful ultrasound-guided biopsy of the nodular density in the left lobe of the thyroid. Electronically Signed: Anand Dumont MD at 14:42 EST Tel [phone], Service support ,
--- NOTE | 2018-09-08 08:57 | OP.PCM_ITS ---
Problem List (1) Multinodular goiter (nontoxic) Status: Acute Report of Operation Date of Procedure: 09/07/18 Pre-Operative Diagnosis: Multinodular goiter Post-Operative Diagnosis: Same Surgery/Procedure Performed:: Ultrasound-guided fine-needle aspiration of dominant left thyroid nodule Type of Anesthesia:: Local Estimated Blood Loss (mL): < 5 CC Description of Procedure: Patient was brought into the ultrasound room. Ultrasound of the right thyroid gland I could not delineate an obvious discernible mass and it actually looked quite different from her original ultrasound of her thyroid. I opted not to do any fine-needle aspiration on this side. Ultrasound of the left side of the thyroid revealed a nodule in question. I prepped the skin with chlorhexidine. I injected 1% lidocaine plain. Under ultrasound guidance 5 passes with a 22- gauge needle were performed I gave these to the pathologist that was located within the room. She told me that there were follicular cells. Sterile dressings were applied. The patient tolerated the procedure well. - Admit VTE Documentation VTE Present on Admission: No VTE Mechan Device Prophylaxis: None VTE Pharm Prophylaxis ordered?: No Reason prophylaxis not ordered:: Treatment Not Indicated
== END ==
PROVIDERS: Family Provider Internal Medicine; PCP Internal Medicine; Referring Provider Surgery; Visit Provider Surgery
DX: E04.2 Nontoxic multinodular goiter (principal)
CPT/HCPCS: 10022; 76942; 88161; 88172; 88305; 88313

== ENCOUNTER → 2018-09-23 10:57 | Outpatient (CLI) | payer MEDICARE, OTHER, SELFPAY ==
[2018-09-09 10:56] VITALS: BMI 25.4
[2018-09-23 11:13] VITALS: BP 113/66; PULSE 72; RESP 16; TEMP 36.6; O2SAT 100; BMI 23.8
[2018-09-23] MEDS: Mepolizumab 100 MG VIAL SQ (11:24)
--- OUTSIDE RECORDS SUMMARY | 2018-11-18 08:57 | XMS RPT_ITS ---
:1945 Author Organization [place] Support Name Relationship Address Phone JOSE LARA Unavailable Ja [phone] [place] [address] R Unavailable Unavailable Unavailable BRAIN, JOSE Unavailable Ja [phone] [place] [address] R Unavailable Unavailable Unavailable BRAIN, JOSE Unavailable Ja [phone] [place] [address] R Unavailable Unavailable Unavailable BRAIN, JOSE Unavailable Ja [phone] [place] [address] R Unavailable Unavailable Unavailable BRAIN, JOSE Unavailable Ja [phone] [place] [address] R Unavailable Unavailable Unavailable BRAIN, JOSE Unavailable Ja [phone] [place] [address] R Unavailable Unavailable Unavailable BRAIN, JOSE Unavailable Ja [phone] [place] [address] R Unavailable Unavailable Unavailable BRAIN, JOSE Unavailable Ja [phone] [place] [address] R Unavailable Unavailable Unavailable BRAIN, JOSE Unavailable Ja [phone] [place] [address] R Unavailable Unavailable Unavailable BRAIN, JOSE Unavailable Ja [phone] [place] [address] R Unavailable Unavailable Unavailable BRAIN, JOSE Unavailable Ja [phone] [place] [address] R Unavailable Unavailable Unavailable BRAIN, JOSE Unavailable Ja [phone] [place] [address] R Unavailable Unavailable Unavailable BRAIN, JOSE Unavailable Ja [phone] [place] [address] R Unavailable Unavailable Unavailable BRAIN, JOSE Unavailable Ja [phone] [place] [address] R Unavailable Unavailable Unavailable BRAIN, JOSE [facility]available [phone] [place] [address] R Unavailable Unavailable Unavailable BRAIN, JOSE Unavailable [facility] [phone] [place] [address] R Unavailable Unavailable Unavailable BRAIN, JOSE Unavailable [phone] [place] [address] R Unavailable Unavailable Unavailable BRAIN, JOSE Unavailable [phone] [place] [address] R Unavailable Unavailable Unavailable BRAIN, JOSE Unavailable [phone] [place] [address] R Unavailable Unavailable Unavailable BRAIN, JOSE Unavailable [phone] [place] [address] R Unavailable Unavailable Unavailable BRAIN, JOSE Unavailable [phone] [place] [address] R Unavailable Unavailable Unavailable BRAIN, JOSE Unavailable [phone] [place] [address] R Unavailable Unavailable Unavailable BRAIN, JOSE Unavailable [phone] [place] [address] R Unavailable Unavailable Unavailable BRAIN, JOSE Unavailable [phone] [place] [address] R Unavailable Unavailable Unavailable BRAIN, JOSE Unavailable [phone] [place] [address] R Unavailable Unavailable Unavailable BRAIN, JOSE Unavailable [phone] [place] [address] R Unavailable Unavailable Unavailable BRAIN, JOSE Unavailable [phone] [place] [address] R Unavailable Unavailable Unavailable BRAIN, JOSE Unavailable [phone] [place] [address] R Unavailable Unavailable Unavailable BRAIN, JOSE Unavailable [phone] [place] [address] R Unavailable Unavailable Unavailable BRAIN, JOSE Unavailable [phone] [place] [address] R Unavailable Unavailable Unavailable BRAIN, JOSE Unavailable [phone] [place] [address] R Unavailable Unavailable Unavailable BRAIN, JOSE Unavailable Ja [phone] [place] [address] R Unavailable Unavailable Unavailable BRAIN, JOSE Unavailable Ja [phone] [place] [address] R Unavailable Unavailable Unavailable BRAIN, JOSE Unavailable [phone] [place] [address] R Unavailable Unavailable Unavailable BRAIN, JOSE Unavailable Ja [phone] [place] [address] R Unavailable Unavailable Unavailable BRAIN, JOSE Unavailable [phone] [place] [address] R Unavailable Unavailable Unavailable BRAIN, JOSE Unavailable [phone] [place] [address] R Unavailable Unavailable Unavailable BRAIN, JOSE Unavailable [phone] [place] [address] R Unavailable Unavailable Unavailable BRAIN, JOSE Unavailable Ja [phone] [place] [address] R Unavailable Unavailable Unavailable BRAIN, JOSE Unavailable [phone] [place] [address] R Unavailable Unavailable Unavailable BRAIN, JOSE Unavailable [phone] [place] [address] R Unavailable Unavailable Unavailable BRAIN, JOSE Unavailable [phone] [place] [address] R Unavailable Unavailable Unavailable BRAIN, JOSE Unavailable Ja [phone] [place] [address] R Unavailable Unavailable Unavailable BRAIN, JOSE Unavailable [phone] [place] [address] R Unavailable Unavailable Unavailable BRAIN, JOSE Unavailable Ja [phone] [place] [address] R Unavailable Unavailable Unavailable Care Team Providers Name Role Phone Lorena Pacheco Attending Unavailable Nallely Drummond Attending Unavailable Fast, Domonique Referring Unavailable Fast, Domonique Primary Care Unavailable Nallely Drummond Attending Unavailable Fast, Domonique Primary Care Unavailable Carlitos Rankin Attending Unavailable Fast, Domonique Referring Unavailable Fast, Domonique Primary Care Unavailable Carlitos Rankin Attending Unavailable Fast, Domonique Primary Care Unavailable Carlitos Ranikn Referring Unavailable Carlitos Rankin Attending Unavailable Fast, Domonique Primary Care Unavailable Chucho, Carlitos Attending Unavailable Chucho, Carlitos Referring Unavailable Fast, Domonique Primary Care Unavailable Fast, Domonique Attending Unavailable Fast, Domonique Referring Unavailable Fast, Domonique Primary Care Unavailable Chucho, Carlitos Attending Unavailable Fast, Domonique Referring Unavailable Fast, Domonique Attending Unavailable Fast, Domonique Primary Care Unavailable Fast, Domonique Referring Unavailable Chucho, Carlitos Attending Unavailable Chucho, Carlitos Referring Unavailable Fast, Domonique Primary Care Unavailable Fast, Domonique Attending Unavailable Fast, Domonique Referring Unavailable Fast, Domonique Primary Care Unavailable Chucho, Carlitos Attending Unavailable Chucho, Carlitos Referring Unavailable Fast, Domonique Primary Care Unavailable Graciela Interiano Unavailable Chucho, Carlitos Attending Unavailable Chucho, Carlitos Referring Unavailable Fast, Domonique Primary Care Unavailable Fast, Domonique Attending Unavailable Fast, Domonique Primary Care Unavailable Chucho, Carlitos Attending Unavailable Chucho, Carlitos Referring Unavailable Fast, Domonique Primary Care Unavailable Nallely Drummond Attending Unavailable Fast, Domonique Referring Unavailable Fast, Domonique Primary Care Unavailable Fast, Domonique Attending Unavailable Fast, Domonique Referring Unavailable Fast, Domonique Primary Care Unavailable Chucho, Carlitos Attending Unavailable Chucho, Carlitos Referring Unavailable Fast, Domonique Primary Care Unavailable Drummond, Nallely Attending Unavailable Fast, Domonique Referring Unavailable Fast, Domonique Primary Care Unavailable Chucho, Carlitos Attending Unavailable Chucho, Carlitos Referring Unavailable Fast, Domonique Primary Care Unavailable Clara Sullivan Attending Unavailable Fast, Domonique Primary Care Unavailable Clara Sullivan Referring Unavailable Chucho, Carlitos Attending Unavailable Chucho, Carlitos Referring Unavailable Fast, Domonique Primary Care Unavailable Rosalie Valles [employer] Attending Unavailable Fast, Domonique Primary Care Unavailable Fast, Domonique Attending Unavailable Fast, Domonique Referring Unavailable Fast, Domonique Primary Care Unavailable Rosalie Valles [employer] Attending Unavailable Fast, Domonique Primary Care Unavailable Fast, Domonique Attending Unavailable Fast, Domonique Referring Unavailable Fast, Domonique Primary Care Unavailable Jairo Vines Attending Unavailable Fast, Domonique Referring Unavailable WayJairo song Attending Unavailable Wayt, Jairo Referring Unavailable Fast, Domonique Primary Care Unavailable DrummondNallely Attending Unavailable Fast, Domonique Referring Unavailable Drummond Nallely Attending Unavailable Drummond, Nallely Referring Unavailable Fast, Domonique Primary Care Unavailable Fast, Domonique Attending Unavailable Fast, Domonique Referring Unavailable Fast, Domonique Primary Care Unavailable Chucho, Carlitos Attending Unavailable Chucho, Carlitos Referring Unavailable Fast, Domonique Primary Care Unavailable Fast, Domonique Attending Unavailable Fast, Domonique Referring Unavailable Fast, Domonique Primary Care Unavailable Chucho, Carlitos Attending Unavailable Fast, Domonique Referring Unavailable Sugar Johnson.O. Attending Unavailable Drummond, Nallely Referring Unavailable [place], Bib Attending Unavailable Fast, Domonique Referring Unavailable Valles, Rosalie [employer] Attending Unavailable Fast, Domonique Primary Care Unavailable [place], Bib Attending Unavailable Fast, Domonique Referring Unavailable Tana, Bib Attending Unavailable [place], Bib Referring Unavailable Fast, Domonique Primary Care Unavailable Chucho, Carlitos Attending Unavailable Chucho, Carlitos Referring Unavailable Fast, Domonique Primary Care Unavailable Tana, Bib Attending Unavailable Tana, Bib Referring Unavailable Fast, Domonique Primary Care Unavailable [place], Bib Consulting Unavailable Tana, Bib Attending Unavailable Fast, Domonique Referring Unavailable Chucho, Carlitos Attending Unavailable Fast, Domonique Primary Care Unavailable Tana, Bib Attending Unavailable PROBLEMS PROBLEMS DATE TYPE CONDITION / CODE ATTENDING STATUS SOURCE 09/28/2018 Unknown J45.50 - Severe ChuchoCarlitos mckinnon Active [place] persistent asthma, Community uncomplicated / Hospital J45.50(ICD-10) Repository 09/26/2018 Unknown E04.2 - Nontoxic [place]anc, Bib Active [facility] multinodular goiter Community / E04.2(ICD-10) Hospital Repository 08/25/2018 Unknown S81.812A - Valles, Active [facility] Laceration without Rosalie [employer] Community foreign body, left Hospital lower leg, initial Repository encounter / S81.812A(ICD-10) 08/16/2018 Unknown 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 Community with (acute) Hospital exacerbation / Repository J45.51(ICD-10) 08/01/2018 Unknown Z23 - Encounter for Bhanu Active [place] immunization / Nallely Community Z23(ICD-10) Hospital Repository 08/01/2018 Unknown M25.521 - Pain in PablotJairo Active [place] right elbow / Community M25.521(ICD-10) Hospital Repository 07/25/2018 Unknown M25.512 - Pain in Fast, Domonique Active [place] left shoulder / Community M25.512(ICD-10) Hospital Repository 07/21/2018 Unknown I10 - Essential Fast, Domonique Active [facility] (primary) Community hypertension / Hospital I10(ICD-10) Repository 07/21/2018 Unknown E55.9 - Vitamin D Fast, Domonique Active [place] deficiency, Community unspecified / Hospital E55.9(ICD-10) Repository 07/21/2018 Unknown R73.09 - Other Fast, Domonique Active [place] abnormal glucose / Community R73.09(ICD-10) Hospital Repository 07/21/2018 Unknown R21 - Rash and other Fast, Domonique Active [facility] nonspecific skin Community eruption / Hospital R21(ICD-10) Repository 05/10/2018 Unknown M54.5 - Low back Fast, Domonique Active [facility] pain / M54.5(ICD-10) [facility] Hospital Repository 01/14/2018 Unknown Z86.14 - Personal Fast, Domonique Active [place] history 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 / Z86.14(ICD-10) 01/06/2018 Unknown E78.5 - Fast, Domonique Active [facility] Hyperlipidemia, Community unspecified / Hospital E78.5(ICD-10) Repository 10/21/2017 Unknown R06.02 - Shortness Drummond, Active [place] of breath / [facility] R06.02(ICD-10) Hospital Repository 10/21/2017 Unknown R05 - Cough / Drummond, Active [facility] R05(ICD-10) [facility] Hospital Repository PROCEDURES PROCEDURES No Procedure Records FoundRESULTS RESULTS SURGERY VISIT REPORT Observed: 09/27/2018 Status: F Source: [place] 12:57 PM [facility] REPOSITORY [facility] [address] [place] [address]. 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 Is patient in pain?: No Allergies Penicillins Allergy (Verified 09/23/18 11:18) Hives Sulfa (Sulfonamide Antibiotics) Allergy (Verified 09/23/18 11:18) Rash gabapentin [From Neurontin] Adverse Reaction (Mild, Verified 09/23/18 11:18) constipation Medications Albuterol Aerosols [Ventolin Aerosols] 2.5 mg INHALATION Q6H PRN PRN 06/25/15 [History Confirmed 08/23/18] Estradiol [Estrace] 1 gm TOPICAL QWEEK 06/25/15 [History Confirmed 08/23/18] Levalbuterol HCl [Xopenex Aerosols] 0.63 mg INHALATION Q6H PRN PRN 06/25/15 [History Confirmed 08/23/18] Lisinopril [Zestril] 5 mg PO DAILY 06/25/15 [History Confirmed 08/23/18] Omeprazole [Prilosec] 20 mg PO DAILY 06/25/15 [History Confirmed 08/23/18] Solifenacin Succinate [Vesicare] 5 mg PO DAILY 06/25/15 [History Confirmed 08/23/18] MedroxyPROGESTERone [Cycrin,Provera] 2.5 mg PO DAILY 11/09/16 [History Confirmed 08/23/18] Mepolizumab [Nucala] 100 mg SQ X1 09/03/17 [History Confirmed 08/23/18] albuterol sulfate HFA 90 mcg/actuation aerosol inhaler 2 puff INHALATION Q4H #18 g 10/21/17 [Rx Confirmed 08/23/18] Simvastatin [Zocor] 5 mg PO QHS 04/22/18 [History Confirmed 08/23/18] Acetaminophen [Tylenol Arthritis] 650 mg PO DAILY PRN 07/15/18 [History Confirmed 08/23/18] Amlodipine [Norvasc] 5 mg PO DAILY 07/15/18 [History Confirmed 08/23/18] Ascorbic Acid [Vitamin C] 500 mg PO DAILY 07/15/18 [History Confirmed 08/23/18] Cranberry 500 mg PO TID 07/15/18 [History Confirmed 08/23/18] Fluticasone/Salmeterol [Advair 500/50 Mcg Diskus] 1 puff INHALATION BID 07/15/18 [History Confirmed 08/23/18] Glucosamine/MSM/Chondroitin A [Glucosamine Chondroit MSM Tab] 1 ea PO DAILY 07/15/18 [History Confirmed 08/23/18] L.acidoph,Paracasei, B.lactis [Probiotic] 1 ea PO DAILY 07/15/18 [History Confirmed 08/23/18] Loratadine [Claritin] 10 mg PO DAILY 07/15/18 [History Confirmed 08/23/18] Loteprednol Etabonate [Alrex] ml OP PRN 07/15/18 [History Confirmed 08/23/18] Multivitamin [Multiple Vitamins] 1 ea PO SUMOTUWETH 07/15/18 [History Confirmed 08/23/18] Hanna-3 Fatty Acids [Fish Oil] mg PO DAILY 07/15/18 [History Confirmed 08/23/18] Turmeric Root Extract [Turmeric] 1,000 mg PO DAILY 07/15/18 [History Confirmed 08/23/18] Ubidecarenone [Coq10] 100 mg PO DAILY 07/15/18 [History Confirmed 08/23/18] Cephalexin [Keflex] 250 mg PO QHS 08/12/18 [History Confirmed 08/23/18] Is last menstrual period known: No Post menopausal: Yes Patient : No Subjective Details: Patient status post an ultrasound-guided fine-needle aspiration of a left thyroid nodule. This came back consistent with a benign follicular nodule. It was adequate for evaluation Objective Details: Neck is supple there are no hard palpable nodules identified. There is no lymphadenopathy identified. Assessment AND Plan Problems 1. Multinodular goiter (nontoxic) E04.2 Plan I will see the patient back in 6 months with a follow-up ultrasound bilaterally. I think him to have to keep a close eye on her because of her previous radiation treatment for her adenoids and tonsils with Elielasaki up the nose Coding Level of Care Code Off vis,est,level 2 Diagnoses Multinodular goiter (nontoxic) E04.2 09/27/18 1257 <Electronically signed by Bib Fajardo MD> Date [facility] Signature: Date (if applicable) CC: Domonique Akins DO OPERATIVE REPORT Observed: 09/08/2018 Status: F Source: [place] 8:57 AM [facility] REPOSITORY [facility] Medical Records Department [address] [place] [address] Operative Report 09/08/18 0855 MR#: [id number] Acct: [id number] Name: RONDA LARA Rep #: [id number] : 1945 72 From: Bib Fajardo MD PCP: Domonique Akins DO Status: REG CLI Y Location: Problem List (1) Multinodular goiter (nontoxic) Status: Acute Report of Operation Date of Procedure: 09/07/18 Pre-Operative Diagnosis: Multinodular goiter Post-Operative Diagnosis: Same Surgery/Procedure Performed:: Ultrasound-guided fine-needle aspiration of dominant left thyroid nodule Type of Anesthesia:: Local Estimated Blood Loss (mL): < 5 CC Description of Procedure: Patient was brought into the ultrasound room. Ultrasound of the right thyroid gland I could not delineate an obvious discernible mass and it actually looked quite different from her original ultrasound of her thyroid. I opted not to do any fine-needle aspiration on this side. Ultrasound of the left side of the thyroid revealed a nodule in question. I prepped the skin with chlorhexidine. I injected 1% lidocaine plain. Under ultrasound guidance 5 passes with a 22-gauge needle were performed I gave these to the pathologist that was located within the room. She told me that there were follicular cells. Sterile dressings were applied. The patient tolerated the procedure well. - Admit VTE Documentation VTE Present on Admission: No VTE Mechan Device Prophylaxis: None VTE Pharm Prophylaxis ordered?: No Reason prophylaxis not ordered:: Treatment Not Indicated 09/08/18 0857 <Electronically signed by Bib Fajardo MD> Date Bib Fajardo MD CC: Bib Fajardo MD; Domonique Akins DO Signed US THYROID BIOPSY Observed: 09/07/2018 Status: F Source: [place] 1:35 PM [facility] REPOSITORY [facility] Imaging Services [address] [place] [address] US Thyroid Biopsy MR#: [id number] Acct: [id number] Name: RONDA LARA Rep #: [id number] : 1945 F 72 From: Anand Dumont MD PCP: Domonique Akins DO Status: REG CLI Study: US Thyroid Biopsy Date of Exam: 09/07/18 Exam# [id number] Ordering Dr: Bib Fajardo MD STUDY: THYROID ULTRASOUND REASON FOR EXAM: Female, 72 years old. Ultrasound guided biopsy of the left thyroid nodule. TECHNIQUE: Ultrasound evaluation of the thyroid was performed with real-time and static calhoun-scale imaging. COMPARISON: Comparison is made with prior examination dated August 11, 2018. FINDINGS: Under direct sonographic guidance, the surgeon performed multiple 22-gauge needle aspiration of the 1 cm x 1 cm x 1.2 cm hypoechoic solid nodule in the left lobe. US/US Thyroid Biopsy IMPRESSION: Successful ultrasound-guided biopsy of the nodular density in the left lobe of the thyroid. Electronically Signed: Anand Dumont MD at 14:42 EST Tel [phone], Service support , CC: Bib Fajardo MD; Domonique Akins DO Family Services Coordinator: Signed ASP RADIOLOGY (FLUID) Observed: 09/07/2018 Status: F Source: [place] 12:00 AM [facility] REPOSITORY Patient: RONDA LARA : 1945 (72/F) Acct Num: [id number] Phys: Bib Fajardo MD Unit Num: [id number] Loc: US Specimen: [id number] Received: 09/07/18 - 1452 Spec Type: ASP OUT TISSUES 1 TISSUES: Thyroid gland, NOS COMMENT The specimen is evaluated at the time of FNA by Dr. Willis. Immediate Evaluation = Follicular cells noted. Correlation with clinical, radiologic findings and appropriate followup are necessary. Case has been reviewed in consultation with Dr. Davis who concurs with the above diagnosis. IDC:AM CYTOLOGY GROSS Received are slides labeled with the patient's name, and designated Left thyroid nodule. 5 imprints and 1 pap are made from the submitted fluid and the rest is added to CytoLyt for cell block preparation. Submitted for cytology study. TC: 5 CPT: 46515, 47802, 77489 CYTOLOGY STUDY Slides are reviewed. DIAGNOSIS CYTOLOGY Left thyroid nodule, ultrasound-guided FNA (smears and cell block): Consistent with benign follicular nodule. Adequate for evaluation. See comment. SJ:cyndi 09/08/18 HEADER OPERATION: Ultrasound guided thyroid biopsy PRE-OP DIAGNOSIS: Multi nodule goiter TISSUE SUBMITTED: Left thyroid nodule, FNA Signed Joseph Willis 09/08/18 <signature on file> Performed By: #### EDUARDO #### [facility] [address] [place] [address] [place], [address] SURGERY VISIT REPORT Observed: 09/02/2018 Status: F Source: [place] 8:27 [facility] REPOSITORY [facility] [address] [place] [address] OFFICE VISIT Date of Service: 09/02/18 MR#: [id number] Acct: [id number] Name: RONDA LARA Rep #: [id number] : 1945 Provider: Bib Fajardo MD Age/Sex: 72/F Location: [facility] Status: Signed Intake Intake Visit Reasons: Bilateral FNA Thyroid Chief Complaint: nucala Allergies Penicillins Allergy (Verified 08/23/18 08:22) Hives Sulfa (Sulfonamide Antibiotics) Allergy (Verified 08/23/18 08:22) Rash gabapentin [From Neurontin] Adverse Reaction (Mild, Verified 08/23/18 08:22) constipation Medications Albuterol Aerosols [Ventolin Aerosols] 2.5 mg INHALATION Q6H PRN PRN 06/25/15 [History Confirmed 08/23/18] Estradiol [Estrace] 1 gm TOPICAL QWEEK 06/25/15 [History Confirmed 08/23/18] Levalbuterol HCl [Xopenex Aerosols] 0.63 mg INHALATION Q6H PRN PRN 06/25/15 [History Confirmed 08/23/18] Lisinopril [Zestril] 5 mg PO DAILY 06/25/15 [History Confirmed 08/23/18] Omeprazole [Prilosec] 20 mg PO DAILY 06/25/15 [History Confirmed 08/23/18] Solifenacin Succinate [Vesicare] 5 mg PO DAILY 06/25/15 [History Confirmed 08/23/18] MedroxyPROGESTERone [Cycrin,Provera] 2.5 mg PO DAILY 11/09/16 [History Confirmed 08/23/18] Mepolizumab [Nucala] 100 mg SQ X1 09/03/17 [History Confirmed 08/23/18] albuterol sulfate HFA 90 mcg/actuation aerosol inhaler 2 puff INHALATION Q4H #18 g 10/21/17 [Rx Confirmed 08/23/18] Simvastatin [Zocor] 5 mg PO QHS 04/22/18 [History Confirmed 08/23/18] Acetaminophen [Tylenol Arthritis] 650 mg PO DAILY PRN 07/15/18 [History Confirmed 08/23/18] Amlodipine [Norvasc] 5 mg PO DAILY 07/15/18 [History Confirmed 08/23/18] Ascorbic Acid [Vitamin C] 500 mg PO DAILY 07/15/18 [History Confirmed 08/23/18] Cranberry 500 mg PO TID 07/15/18 [History Confirmed 08/23/18] Fluticasone/Salmeterol [Advair 500/50 Mcg Diskus] 1 puff INHALATION BID 07/15/18 [History Confirmed 08/23/18] Glucosamine/MSM/Chondroitin A [Glucosamine Chondroit MSM Tab] 1 ea PO DAILY 07/15/18 [History Confirmed 08/23/18] L.acidoph,Paracasei, B.lactis [Probiotic] 1 ea PO DAILY 07/15/18 [History Confirmed 08/23/18] Loratadine [Claritin] 10 mg PO DAILY 07/15/18 [History Confirmed 08/23/18] Loteprednol Etabonate [Alrex] ml OP PRN 07/15/18 [History Confirmed 08/23/18] Multivitamin [Multiple Vitamins] 1 ea PO SUMOTUWETH 07/15/18 [History Confirmed 08/23/18] Hanna-3 Fatty Acids [Fish Oil] mg PO DAILY 07/15/18 [History Confirmed 08/23/18] Turmeric Root Extract [Turmeric] 1,000 mg PO DAILY 07/15/18 [History Confirmed 08/23/18] Ubidecarenone [Coq10] 100 mg PO DAILY 07/15/18 [History Confirmed 08/23/18] Cephalexin [Keflex] 250 mg PO QHS 08/12/18 [History Confirmed 08/23/18] Subjective Details: Patient is here to undergo a bilateral fine-needle aspiration of her thyroid gland Objective Details: Unfortunately my ultrasound cannot delineate with a high degree of certainty where the nodules are located within the thyroid gland Assessment AND Plan Problems 1. Multinodular goiter (nontoxic) E04.2 Plan We are going to get the patient scheduled to undergo her bilateral fine-needle aspiration in the radiology department with the pathologist present at the time of the procedure. Coding Level of Care Code No Charge Diagnoses Multinodular goiter (nontoxic) E04.2 09/02/18 0827 <Electronically signed by Bib Fajardo MD> Date Bib Foxign Signature: Date (if applicable) CC: SURGERY VISIT REPORT Observed: 08/26/2018 Status: F Source: [place] 12:09 PM [facility] REPOSITORY [facility] [address] [place] [address] OFFICE VISIT Date of Service: 08/23/18 MR#: [id number] Acct: [id number] Name: RONDA LARA Rep #: [id number] : 1945 Provider: Bib Fajardo MD Age/Sex: 72/F Location: [facility] Status: Signed Intake Vital Signs08/23/18 Height 5 ft 1 in 08/23/18 Weight: 134 lb 08/23/18 Body Mass Index (BMI) 25.3 Intake Visit Reasons: Bilateral Thyroid Nodules/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 Is patient in pain?: No Allergies Penicillins Allergy (Verified 08/23/18 08:22) Hives Sulfa (Sulfonamide Antibiotics) Allergy (Verified 08/23/18 08:22) Rash gabapentin [From Neurontin] Adverse Reaction (Mild, Verified 08/23/18 08:22) constipation Medications Albuterol Aerosols [Ventolin Aerosols] 2.5 mg INHALATION Q6H PRN PRN 06/25/15 [History Confirmed 08/23/18] Estradiol [Estrace] 1 gm TOPICAL QWEEK 06/25/15 [History Confirmed 08/23/18] Levalbuterol HCl [Xopenex Aerosols] 0.63 mg INHALATION Q6H PRN PRN 06/25/15 [History Confirmed 08/23/18] Lisinopril [Zestril] 5 mg PO DAILY 06/25/15 [History Confirmed 08/23/18] Omeprazole [Prilosec] 20 mg PO DAILY 06/25/15 [History Confirmed 08/23/18] Solifenacin Succinate [Vesicare] 5 mg PO DAILY 06/25/15 [History Confirmed 08/23/18] MedroxyPROGESTERone [Cycrin,Provera] 2.5 mg PO DAILY 11/09/16 [History Confirmed 08/23/18] Mepolizumab [Nucala] 100 mg SQ X1 09/03/17 [History Confirmed 08/23/18] albuterol sulfate HFA 90 mcg/actuation aerosol inhaler 2 puff INHALATION Q4H #18 g 10/21/17 [Rx Confirmed 08/23/18] Simvastatin [Zocor] 5 mg PO QHS 04/22/18 [History Confirmed 08/23/18] Acetaminophen [Tylenol Arthritis] 650 mg PO DAILY PRN 07/15/18 [History Confirmed 08/23/18] Amlodipine [Norvasc] 5 mg PO DAILY 07/15/18 [History Confirmed 08/23/18] Ascorbic Acid [Vitamin C] 500 mg PO DAILY 07/15/18 [History Confirmed 08/23/18] Cranberry 500 mg PO TID 07/15/18 [History Confirmed 08/23/18] Fluticasone/Salmeterol [Advair 500/50 Mcg Diskus] 1 puff INHALATION BID 07/15/18 [History Confirmed 08/23/18] Glucosamine/MSM/Chondroitin A [Glucosamine Chondroit MSM Tab] 1 ea PO DAILY 07/15/18 [History Confirmed 08/23/18] L.acidoph,Paracasei, B.lactis [Probiotic] 1 ea PO DAILY 07/15/18 [History Confirmed 08/23/18] Loratadine [Claritin] 10 mg PO DAILY 07/15/18 [History Confirmed 08/23/18] Loteprednol Etabonate [Alrex] ml OP PRN 07/15/18 [History Confirmed 08/23/18] Multivitamin [Multiple Vitamins] 1 ea PO SUMOTUWETH 07/15/18 [History Confirmed 08/23/18] Hanna-3 Fatty Acids [Fish Oil] mg PO DAILY 07/15/18 [History Confirmed 08/23/18] Turmeric Root Extract [Turmeric] 1,000 mg PO DAILY 07/15/18 [History Confirmed 08/23/18] Ubidecarenone [Coq10] 100 mg PO DAILY 07/15/18 [History Confirmed 08/23/18] Cephalexin [Keflex] 250 mg PO QHS 08/12/18 [History Confirmed 08/23/18] [facility] Medical History Vasculitis (Acute) Eosinophilia (Chronic) Diverticulitis (Chronic) Depression (Chronic) GERD (gastroesophageal reflux disease) (Chronic) Hyperlipemia (Chronic) Palpitations (Acute) Churg-Renate syndrome (Chronic) Aortic valve disease (Chronic) Trochanteric bursitis (Acute) Sciatica (Acute) Seasonal allergies (Chronic) Right knee pain (Chronic) Left knee pain (Chronic) Osteoarthritis (Chronic) Physical deconditioning (Chronic) Abscess (Acute) Cellulitis (Acute) Neuropathy (Chronic) Hypertension (Chronic) Asthma (Chronic) Edema, lower extremity (Chronic) Peripheral vascular disease (Chronic) 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) Bilateral lower extremity edema (Chronic) Traumatic open wound of left lower leg (Acute) Peripheral vascular occlusive disease (Chronic) Venous insufficiency (chronic) (peripheral) (Chronic) 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) Swelling of lower extremity (Chronic) Pain In Left Leg (Chronic) Pain In Right Leg (Chronic) Churg-Renate syndrome with lung involvement (Chronic) Thyroiditis (Acute) Surgical History History of colon surgery (Acute) h/o tonsillectomy (Acute) Social History Smoking Status: Never smoker second hand exposure: No alcohol intake: current alcohol intake frequency: a few times a month Alcohol type: wine substance use type: does not use HPI HPI HPI: RONDA LARA, is a 72 F who presents to the office today for an abnormal ultrasound to her thyroid gland. Patient had a ultrasound of her thyroid gland completed at [facility] on 08/11/2018. This showed there to be a 1.7 cm nodule on the right side and a 1.4 cm nodule on the left side. There was several other subcentimeter nodules located on the right side. Patient has a history of thyroiditis in the past she has been treated with NSAIDs in the past. Of most interest the patient believes that she may have been treated with radium tip tubes in her nostrils when she was just a child approximately 3 years of age which would have been approximately 1951. ROS General General: Yes fatigue; no weight change, appetite, colon cancer, breast cancer or weakness HEENT HEENT: Yes difficulty swallowing and swollen glands; no eye injury, eye surgery or hoarseness Endo Endocrine: Yes thyroid disease; no diabetes mellitus, thyroid cancer, Hair loss, heat intolerance or cold intolerance Skin Skin: No rash or changing moles Breast Breast: No left breast lump, right breast lump, nipple discharge, breast pain, abnormal mammogram, abnormal US or breast enlargement Musc Musculoskeletal: Yes back problems and arthritis; no rheumatoid arthritis, gout or joint pain Cardio Cardiovascular: Yes high blood pressure; no murmur, pacemaker, heart disease, atrial fibrillation, heart attack, heart stent, palpitations, shortness of breat with exertion or chest pain Psych Psychiatric: No depression, anxiety or hearing voices Resp Respiratory: Yes shortness of breath, Yes asthma, No sleep apnea, No cough, No COPD, No emphysema, No wheezing Gastro Gastrointestinal: Yes acid reflux, No abdominal pain, No nausea or vomiting, No diarrhea, No constipation, No blood in stool, No hemorrhoids, No ulcers, No gallbladder problem, No black,tarry stools Sonu Hematologic: No blood thinners, No blood disorders, No bleeding, No anemia, No blood clots Neuro Neurologic: No system reviewed and no additional complaints, except as docu, No as per HPI, No abnormal walking, No abnormal hearing, No abnormal movements, No abnormal speech, No behavioral changes, No burning sensations, No confusion, No seizure-like activity, No unsteadiness, No dizziness, No localized weakness, No frequent falls, No headache(s), No lack of coordination, No loss of vision, No memory loss, No numbness, No other visual disturbances, No radiating pain, No restless legs, No sensory deficit, No fainting, No tingling, No tremor(s), No weakness, No other Exam Const General: well developed, no acute distress, well hydrated Orientation: oriented to person, oriented to place, oriented to time [facility] Head: normocephalic, atraumatic Ears: external ears normal Mouth: moist mucous membranes Other: Thyroid Exam: No hard palpable nodules are identified on either side. There is no lymphadenopathy identified on either side I cannot really appreciate any tenderness on her thyroid exam. Eyes Sclera: sclerae normal Pupils: normal by confrontation Neck Neck: no lymphadenopathy noted Neck mass: No Thyroid: symmetrical, thyroid normal Chest Chest palpation AND inspection: normal inspection of the chest Breast Palpation: No nipple discharge Resp Effort AND Inspection: normal respiratory effort Auscultation: clear to auscultation bilaterally Percussion: percussion normal Cardio Rate: regular rate Rhythm: regular rhythm Heart Sounds: no murmurs GI Palpation: soft, no masses, no hepatosplenomegaly, nontender Rectal Exam: other Other: Rectal exam deferred. Extrem General: no clubbing, cyanosis or edema, normal to inspection Assessment AND Plan Problems 1. Multinodular goiter (nontoxic) E04.2 Plan Plan is to perform a bilateral fine-needle aspiration of the thyroid glands. We discussed the risks and benefits of the planned procedure. I have informed the patient that complications can occur including failure to complete the procedure. The patient had the opportunity to ask questions concerning the planned procedure. My staff has also explained the procedure to the patient in understandable terms and has given the patient printed material concerning the procedure. The patient freely consents to the procedure. Of interesting note if this patient actually was treated with radium tip tubes in her nostrils ([place] up the nose), we will really need to consider performing a total thyroidectomy. Coding Level of Care Code Off vis,new,level 3 Diagnoses Multinodular goiter (nontoxic) E04.2 08/26/18 1209 <Electronically signed by Bib Fajardo MD> Date Bib Fajardo MD Cosigner Signature: Date (if applicable) CC: Domonique Akins DO PULMONARY VISIT REPORT Observed: 08/16/2018 Status: F Source: [place] 8:18 AM [facility] Pulmonary Medicine [address] [place] [address] OFFICE VISIT Date of Service: 08/16/18 MR#: [id number] Acct: [id number] Name: RONDA LARA Rep #: [id number] : 1945 Provider: Carlitos Rankin MD Age/Sex: 72/F Location: [facility] Status: Signed Assessment AND Plan Problems 1. 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 Severe persistent asthma with acute exacerbation J45.51 Plan Patient is doing well from a breathing perspective. Patient is on Nucala and has been able to come off of prednisone therapy. Did discuss with patient about the possibility of stepping down Advair therapy, but patient is concerned that this would lead to reinitiation of p.o. prednisone. After discussion, patient will remain on current medications until next visit. Signs and symptoms of exacerbation and sick policy were reviewed in detail. Patient voiced understanding. Continue current medications. Call with issues Plan Detail Follow Up 6 Months ([facility] 2 M FU: Chief Complaint: Follow-up asthma Details: Patient is a 72-year-old female, currently under the care of Dr. Akins, who presents for evaluation secondary to asthma and Churg-Renate syndrome Since last visit, patient denies any ER visits, hospitalizations or prednisone burst. Patient is on Advair and Nucala. Patient states that she was diagnosed with thyroiditis recently had thyroid studies are within normal limits. Patient reports she did have a CBC in relation to this finding and was noted to have an eosinophil count of 0.6%. Overall, patient feels well controlled at this time. Patient has not required any as needed albuterol. Patient states that she can forget her Advair intermittently and does notice a difference. Patient states that she has been tolerating the Nucala well. Patient is wondering if she could possibly space out dosing to 5-6 weeks but is unaware of the effect this would have. Patient is very excited about being off of prednisone therapy. Patient continues to have issues with seasonal allergies. Patient is on Claritin and Flonase therapy and tolerating this well. Patient denies any convocation such as thrush, hoarseness, sore throat or epistaxis. 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 Accompanied by: Self Is patient in pain?: Yes Allergies Penicillins Allergy (Verified 08/16/18 06:37) Hives Sulfa (Sulfonamide Antibiotics) Allergy (Verified 08/16/18 06:37) Rash gabapentin [From Neurontin] Adverse Reaction (Mild, Verified 08/16/18 06:37) constipation Medications Albuterol Aerosols [Ventolin Aerosols] 2.5 mg INHALATION Q6H PRN PRN 06/25/15 [History Confirmed 08/16/18] Estradiol [Estrace] 1 gm TOPICAL QWEEK 06/25/15 [History Confirmed 08/16/18] Levalbuterol HCl [Xopenex Aerosols] 0.63 mg INHALATION Q6H PRN PRN 06/25/15 [History Confirmed 08/16/18] Lisinopril [Zestril] 5 mg PO DAILY 06/25/15 [History Confirmed 08/16/18] Omeprazole [Prilosec] 20 mg PO DAILY 06/25/15 [History Confirmed 08/16/18] Solifenacin Succinate [Vesicare] 5 mg PO DAILY 06/25/15 [History Confirmed 08/16/18] MedroxyPROGESTERone [Cycrin,Provera] 2.5 mg PO DAILY 11/09/16 [History Confirmed 08/16/18] Mepolizumab [Nucala] 100 mg SQ X1 09/03/17 [History Confirmed 08/16/18] albuterol sulfate HFA 90 mcg/actuation aerosol inhaler 2 puff INHALATION Q4H #18 g 10/21/17 [Rx Confirmed 08/16/18] Simvastatin [Zocor] 5 mg PO QHS 04/22/18 [History Confirmed 08/16/18] Acetaminophen [Tylenol Arthritis] 650 mg PO DAILY PRN 07/15/18 [History Confirmed 08/16/18] Amlodipine [Norvasc] 5 mg PO DAILY 07/15/18 [History Confirmed 08/16/18] Ascorbic Acid [Vitamin C] 500 mg PO DAILY 07/15/18 [History Confirmed 08/16/18] Cranberry 500 mg PO TID 07/15/18 [History Confirmed 08/16/18] Fluticasone/Salmeterol [Advair 500/50 Mcg Diskus] 1 puff INHALATION BID 07/15/18 [History Confirmed 08/16/18] Glucosamine/MSM/Chondroitin A [Glucosamine Chondroit MSM Tab] 1 ea PO DAILY 07/15/18 [History Confirmed 08/16/18] L.acidoph,Paracasei, B.lactis [Probiotic] 1 ea PO DAILY 07/15/18 [History Confirmed 08/16/18] Loratadine [Claritin] 10 mg PO DAILY 07/15/18 [History Confirmed 08/16/18] Loteprednol Etabonate [Alrex] ml OP PRN 07/15/18 [History Confirmed 08/16/18] Multivitamin [Multiple Vitamins] 1 ea PO SUMOTUWETH 07/15/18 [History Confirmed 08/16/18] Hanna-3 Fatty Acids [Fish Oil] mg PO DAILY 07/15/18 [History Confirmed 08/16/18] Turmeric Root Extract [Turmeric] 1,000 mg PO DAILY 07/15/18 [History Confirmed 08/16/18] Ubidecarenone [Coq10] 100 mg PO DAILY 07/15/18 [History Confirmed 08/16/18] Cephalexin [Keflex] 250 mg PO QHS 08/12/18 [History Confirmed 08/16/18] PF[facility] Medical History Vasculitis (Acute) Eosinophilia (Chronic) Diverticulitis (Chronic) Depression (Chronic) GERD (gastroesophageal reflux disease) (Chronic) Hyperlipemia (Chronic) Palpitations (Acute) Churg-Renate syndrome (Chronic) Aortic valve disease (Chronic) Trochanteric bursitis (Acute) Sciatica (Acute) Seasonal allergies (Chronic) Right knee pain (Chronic) Left knee pain (Chronic) Osteoarthritis (Chronic) Physical deconditioning (Chronic) Abscess (Acute) Cellulitis (Acute) Neuropathy (Chronic) Hypertension (Chronic) Asthma (Chronic) Edema, lower extremity (Chronic) Peripheral vascular disease (Chronic) 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) Bilateral lower extremity edema (Chronic) Traumatic open wound of left lower leg (Acute) Peripheral vascular occlusive disease (Chronic) Venous insufficiency (chronic) (peripheral) (Chronic) 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) Swelling of lower extremity (Chronic) Pain In Left Leg (Chronic) Pain In Right Leg (Chronic) Churg-Renate syndrome with lung involvement (Chronic) Thyroiditis (Acute) Social History Smoking Status: Never smoker second hand exposure: No alcohol intake: current alcohol intake frequency: a few times a month Alcohol type: wine substance use type: does not use Review of Systems Const CONSTITUTIONAL: Positive seasonal allergies; negative anorexia, body ache, chills, daytime sleepiness, fever(s), night sweats, oral thrush, stops breathing during sleep, weight loss, sleeping in chair, fatigue, weight loss, weight gain, frequent colds, other, headache(s) or orthopnea EETM Ear Nose Throat Mouth: Positive hearing normal; negative hoarseness, dry mouth in morning, change in vision, itchy eyes, eye pain, swallowing Difficulty, ear pain, headache(s), mouth pain, nasal congestion, nasal discharge, sinus pain, sinus pressure, sore throat, other, hard of hearing, nose bleed or post nasal drip Cardio Cardiovascular: Negative chest pain, chest pain at rest, chest pain with activity, irregular heart rhythm, edema, shortness of breath when lying down, palpitations, other or murmur Resp Respiratory: Positive as per HPI and shortness of breath shortness of breath: Positive with activity; negative pain with cough, wheezing, chest congestion, cough, chest tightness, pain on inspiration, inhalers, increase use of rescue inhalers, snoring, apnea or other Gastro Gastrointestional: Negative bloody stools, change in appetite, difficulty swallowing, reflux, hematemesis, melena stool, loose stool, constipation or other Genitourinary: Negative blood in urine, nocturia, pain with urination or other Musc Musculoskeletal: Negative body pain, back pain, neck pain or other Skin/Breast Skin/Breast: Negative dry skin, itching, unusual bruising, breast lump, other or rash Neuro Neurological: Negative restless legs, confusion, weakness or other Psych Psychocological: Negative abnormal sleep pattern, anxiety, thoughts of hurting self/others, hopelessness or other Lymph Lymphatic: Negative easy bleeding, easy bruising, other or swollen lymph nodes Exam Const Constitutional: Positive conversant, cooperative, in no acute respiratory distress, healthy appearing, well developed, well nourished and good hygiene Head Head: Positive normocephalic and atraumatic; negative cyanosis of lips/distal nose, frontal sinus tenderness or maxillary sinus tenderness Eyes Eye: Positive clear conjunctiva; negative nystagmus, scleral abnormality or cataract present Ears Ear: Positive hearing normal and external ears normal; negative hard of hearing Nose Nose: Positive external nose normal, septum normal and no nasal discharge; negative epistaxis or nasal polyp Mouth Mouth: Positive oral mucosae normal, no lesions and good dentition; negative post nasal drip, malodorous breath or oral thrush present Mallampati Score: I: Mallampati Score Neck Neck: Positive normal visual inspection, full ROM and trachea midline; negative lymphadenopathy or JVD Chest Wall Chest: Positive normal inspection of the chest and symmetric chest movement; negative crepitus or tenderness Resp lung sounds: Positive clear to auscultation, good air exchange, normal expiratory time and normal respiratory effort; negative wheezes, rhonchi, rales, use of accessory muscles, wheeze present on forced exhalation or dullness to percussion Cardio Cardiac: Positive regular rate, regular rhythm, S1 normal and S2 normal; negative murmur, rub or gallop GI GI: Positive normal to inspection and normal bowel sounds; negative distended, ascites or epigastric tenderness Genitourinary: Positive deferred Musc Musculoskeletal: Positive steady gait; negative using an assistive device for ambulation, kyphosis or scoliosis Skin Pulmonary Skin Exam: Positive intact; negative rash, lesion, ulcers, erythema or dermal atrophy Pulses Pulse: Yes radial pulses present Extremities Extremities: Yes capillary refill normal, No clubbing, No cyanosis, No edema Neuro Neurologic: Yes conversant, Yes no focal neuro deficits, Yes normal concentration, Yes understands questions, Yes cooperative, Yes normal cognition, Yes normal coordination Lymph Lymphatic: No lymphadenopathy Psych Appearance: Positive grossly normal Mental Status: Positive mental status grossly normal Mood: Positive congruent mood Affect: Positive normal affect Coding Level of Care Code Off vis,est,level 3 Diagnoses 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 Severe persistent asthma with acute exacerbation J45.51 Asthma severity: severe Asthma complication type: with acute exacerbation Asthma persistence: persistent 08/16/1818 <Electronically signed by Carlitos Rankin MD> Date Carlitos Rankin MD Cosigner Signature: Date (if applicable) CC: Domonique Akins DO THYROID Observed: 08/11/2018 Status: F Source: [place] 2:29 PM [facility] REPOSITORY [facility] Imaging Services [address] [place] [address] Thyroid MR#: [id number] Acct: [id number] Name: RONDA LARA Rep #: [id number] : 1945 F 72 From: Allyson Wong MD PCP: Domonique Akins DO Status: REG CLI Study: Thyroid Date of Exam: 08/11/18 Exam# [id number] Ordering Dr: Domonique Akins DO STUDY: THYROID ULTRASOUND REASON FOR EXAM: Female, 72 years old. Right neck lump TECHNIQUE: Ultrasound evaluation of the thyroid was performed with real-time and static calhoun-scale imaging. # of Images: 80 COMPARISON: None. FINDINGS: RIGHT LOBE: The right lobe of the thyroid gland measures 3.7 x 1.3 x 2.1 cm. There is a homogeneous echotexture. There are a few nodules in the right thyroid lobe measuring respectively: Nodule #1 measures 7 x 6 x 6 mm. TIRADS Category 3, consistent with low suspicion for malignancy. Nodular #2. Measures 17 x 8 x 9 mm. TIRADS Category 4, consistent with moderate suspicion for malignancy. Nodule #3 measures 11 x 7 x 11 mm. TIRADS Category 3, consistent with low suspicion for malignancy. LEFT LOBE: The left lobe of the thyroid gland measures 3.7 x 1.2 x 1.9 cm cm. There is a homogeneous echotexture. There is one nodule in the left thyroid lobe measures 14 x 10 x 11 mm. TIRADS Category 4, consistent with moderate suspicion for malignancy. ISTHMUS: The isthmus measures . The regional lymph nodes are normal. US/Thyroid IMPRESSION: Bilateral thyroid nodules as described above Electronically Signed: Allyson Wong MD at 15:06 EDT Tel , Service support , CC: Domonique Akins DO Family Services Coordinator: Signed CBC W/DIFF, AUTOMATED Collected: 08/09/2018 Status: F Source: [place] 12:22 PM [facility] REPOSITORY TYPE CODE TESTS RESULT OUT OF RANGE REFERENCE UNITS LAB L100.1000 4.4-11.0 K/mm3 Normal WBC 9.4 LAB L100.1200 4.2-5.4 M/mm3 Normal RBC 4.41 LAB L100.1300 12.0-15.0 g/dl Normal HGB 13.8 LAB L100.1400 37-47 % Normal HCT 43.0 LAB L100.1500 81-99 fL Normal MCV 97.5 LAB L100.1600 27.0-32.0 pg Normal MCH 31.3 LAB L100.1700 32-36 g/gl Normal MCHC 32.1 LAB L100.1810 11.6-14.6 % Normal RDW CV 13.7 LAB L100.1820 35.1-43.9 fl High RDW SD 49.0 LAB L100.1900 150-450 K/mm3 Normal PLT 290 LAB L100.2000 6.2-12.0 fl Normal MPV 11.0 LAB L100.2100 47-70 % Normal NEUT% 67.9 LAB L100.2200 19-41 % Normal LY% 19.7 LAB L100.2300 0-10 % High MONO% 11.1 LAB L100.2400 0-5 % Normal EO% 0.6 LAB L100.2500 0-1 % Normal BASO% 0.4 LAB L100.2550 0.0-0.9 % Normal IM GRAN % 0.300 Result Comment: IG% - Immature Granulocytes (promyelocytes, myelocytes and metamyelocytes) > 1% indicates that a LEFT SHIFT is Present. LAB L100.2620 2.0-7.7 X10 3/uL Normal Absolute Neut 6.4 LAB L100.2720 0.83-4.51 X10 3/ul Normal Absolute Lymph 1.85 Performed By: #### L100.0100, L101.9900, L501.6710, L501.37287, L501.9520, L506.0400 #### [facility] [address] [place], [address] ERYTHROCYTE SED RATE Collected: 08/09/2018 Status: F Source: [place] 12:22 PM [facility] REPOSITORY TYPE CODE TESTS RESULT OUT OF RANGE REFERENCE UNITS LAB L102.0000 0-30 mm/hr Normal SED RATE 15 Performed By: #### L100.0100, L101.9900, L501.6710, L501.90062, L501.9520, L506.0400 #### [facility] [address] [place], [place], [address] (010) CRP Collected: 08/09/2018 Status: F Source: [place] 12:22 PM [facility] REPOSITORY TYPE CODE TESTS RESULT OUT OF RANGE REFERENCE UNITS LAB L501.6710 0.0-3.0 mg/L High 25.40 C-REACTIVE PROT Result Comment: C-Reactive Protein (CRP) provides useful information for the diagnosis, therapy and monitoring of inflammatory processes and associated diseases. For the evaluation of Relative Risk for Cardiovascular Disease, a High Sensitivity CRP (HSCRP) should be ordered. Performed By: #### L100.0100, L101.9900, L501.6710, L501.78270, L501.9520, L506.0400 #### [facility] [address] [place], [address] FREE T3 Collected: 08/09/2018 Status: F Source: [place] 12:22 PM [facility] REPOSITORY TYPE CODE TESTS RESULT OUT OF RANGE REFERENCE UNITS LAB L501.60132 2.18-3.98 pg/mL Normal FREE T3 2.9 Performed By: #### L100.0100, L101.9900, L501.6710, L501.63725, L501.9520, L506.0400 #### [facility] [address] [place], [place], [address] THYROID STIM HORMONE Collected: 08/09/2018 Status: F Source: [place] ([place]SH) 12:22 PM [facility] REPOSITORY TYPE CODE TESTS RESULT OUT OF RANGE REFERENCE UNITS LAB L501.9520 0.358-3.74 uIU/mL Normal TSH 2.59 Performed By: #### L100.0100, L101.9900, L501.6710, L501.15515, L501.9520, L506.0400 #### [facility] [address] [place], [place], [address] T4 FREE DIRECT Collected: 08/09/2018 Status: F Source: [place] 12:22 PM [facility] REPOSITORY TYPE CODE TESTS RESULT OUT OF RANGE REFERENCE UNITS LAB L506.0400 0.76-1.46 ng/dL Normal T4 FREE 1.18 DIRECT Performed By: #### L100.0100, L101.9900, L501.6710, L501.44312, L501.9520, L506.0400 #### [facility] [address] [facility] [place], [address] THYROID PEROXIDASE AB Collected: 08/09/2018 Status: F Source: [place] 12:22 PM [facility] REPOSITORY TYPE CODE TESTS RESULT OUT OF RANGE REFERENCE UNITS LAB L3300.6900 0-34 IU/mL Normal TPO AB 9 4857 Result Comment: Performed at: - [facility] [id number] [employer]: Jhony Mercedes PhD, Phone: [phone] Performed By: #### L3300.6900 #### [facility] (refer to report for specific site) refer to report for address and phone number PULMONARY FUNCTION Observed: 08/04/2018 Status: F Source: [place] TEST 1:10 PM [facility] REPOSITORY [facility] Pulmonary Services/Neurology [address] [place], [place] [id number] MR#: [id number] Acct: [id number] Name: RONDA LARA Rep #: [id number] : 1945 72 From: Stanley Interiano DO Referring Dr: Nallely Drummond CORPORATE PILOT Status: REG CLI Ordering Dr: Date: Location: [facility] Sex: F C INTRODUCTION: The patient is a 72-year-old female that presents for pulmonary function studies secondary to a diagnosis of asthma. Respiratory therapy reports good patient effort. Bronchodilators were used during testing. INTERPRETATION: Forced expiration spirometry demonstrates no evidence of a large airways obstructive ventilatory defect. There was no significant response to aerosolized bronchodilators, based upon changes noted in FVC or FEV1. However, the patient did have a brisk mid flow bronchodilator response. Spirograms are of good quality and plateau normally. The respiratory flow volume loop appears normal. Body plethysmography was performed and reveals an elevated TLC to 126% of predicted. Diffusing capacity by single breath CO is within normal limits. When compared to previous pulmonary function studies dated July 2017, there is been a 10% reduction in the patient's FEV1. IMPRESSION: These pulmonary function studies demonstrate possible stigmata of small airways disease, with significant mid flow bronchodilator response. A mild degree of hyperinflation was noted. 08/04/18 1310 <Electronically signed by Stanley Interiano DO> Date Stanley Interiano DO CC: Nallely Drummond; Domonique Akins DO Date Dictated: 08/04/181306 Date Transcribed: 08/04/181306 Family Services Coordinator: CHIP Signed ORTHOPEDIC VISIT Observed: 08/02/2018 Status: F Source: [place] REPORT 11:47 AM [facility] REPOSITORY [facility] Orthopaedics AND Sports Medicine [address] [place] [address] OFFICE VISIT Date of Service: 08/01/18 MR#: [id number] Acct: [id number] Name: RONDA LARA Rep #: [id number] : 1945 Provider: ELIAS Vines Age/Sex: 72/F Location: [facility] [place] Status: Signed Intake Intake Visit Reasons: RIGHT ELBOW Chief Complaint: nucala Allergies Penicillins Allergy (Verified 08/01/18 14:01) Hives Sulfa (Sulfonamide Antibiotics) Allergy (Verified 08/01/18 14:01) Rash gabapentin [From Neurontin] Adverse Reaction (Mild, Verified 08/01/18 14:01) constipation Medications Albuterol Aerosols [Ventolin Aerosols] 2.5 mg INHALATION Q6H PRN PRN 06/25/15 [History Confirmed 08/01/18] Estradiol [Estrace] 1 gm TOPICAL QWEEK 06/25/15 [History Confirmed 08/01/18] Levalbuterol HCl [Xopenex Aerosols] 0.63 mg INHALATION Q6H PRN PRN 06/25/15 [History Confirmed 08/01/18] Lisinopril [Zestril] 5 mg PO DAILY 06/25/15 [History Confirmed 08/01/18] Omeprazole [Prilosec] 20 mg PO DAILY 06/25/15 [History Confirmed 08/01/18] Solifenacin Succinate [Vesicare] 5 mg PO DAILY 06/25/15 [History Confirmed 08/01/18] MedroxyPROGESTERone [Cycrin,Provera] 2.5 mg PO DAILY 11/09/16 [History Confirmed 08/01/18] Mepolizumab [Nucala] 100 mg SQ X1 09/03/17 [History Confirmed 08/01/18] albuterol sulfate HFA 90 mcg/actuation aerosol inhaler 2 puff INHALATION Q4H #18 g 10/21/17 [Rx Confirmed 08/01/18] Simvastatin [Zocor] 10 mg PO QHS 04/22/18 [History Confirmed 08/01/18] Acetaminophen [Tylenol Arthritis] 650 mg PO DAILY PRN 07/15/18 [History Confirmed 08/01/18] Amlodipine [Norvasc] 5 mg PO DAILY 07/15/18 [History Confirmed 08/01/18] Ascorbic Acid [Vitamin C] 500 mg PO DAILY 07/15/18 [History Confirmed 08/01/18] Cranberry 500 mg PO TID 07/15/18 [History Confirmed 08/01/18] Doxycycline Hyclate 100 mg PO BID 07/15/18 [History Confirmed 08/01/18] Fluticasone/Salmeterol [Advair 500/50 Mcg Diskus] 1 puff INHALATION BID 07/15/18 [History Confirmed 08/01/18] Glucosamine/MSM/Chondroitin A [Glucosamine Chondroit MSM Tab] 1 ea PO DAILY 07/15/18 [History Confirmed 08/01/18] L.acidoph,Paracasei, B.lactis [Probiotic] 1 ea PO DAILY 07/15/18 [History Confirmed 08/01/18] Loratadine [Claritin] 10 mg PO DAILY 07/15/18 [History Confirmed 08/01/18] Loteprednol Etabonate [Alrex] ml OP PRN 07/15/18 [History Confirmed 08/01/18] Multivitamin [Multiple Vitamins] 1 ea PO SUMOTUWETH 07/15/18 [History Confirmed 08/01/18] Hanna-3 Fatty Acids [Fish Oil] mg PO DAILY 07/15/18 [History Confirmed 08/01/18] Turmeric Root Extract [Turmeric] 1,000 mg PO DAILY 07/15/18 [History Confirmed 08/01/18] Ubidecarenone [Coq10] 100 mg PO DAILY 07/15/18 [History Confirmed 08/01/18] PFSH Medical History Vasculitis (Acute) Eosinophilia (Chronic) Diverticulitis (Chronic) Depression (Chronic) GERD (gastroesophageal reflux disease) (Chronic) Hyperlipemia (Chronic) Palpitations (Acute) Churg-Renate syndrome (Chronic) Aortic valve disease (Chronic) Trochanteric bursitis (Acute) Sciatica (Acute) Seasonal allergies (Chronic) Right knee pain (Chronic) Left knee pain (Chronic) Osteoarthritis (Chronic) Physical deconditioning (Chronic) Abscess (Acute) Cellulitis (Acute) Neuropathy (Chronic) Hypertension (Chronic) Asthma (Chronic) Edema, lower extremity (Chronic) Peripheral vascular disease (Chronic) 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) Bilateral lower extremity edema (Chronic) Traumatic open wound of left lower leg (Acute) Peripheral vascular occlusive disease (Chronic) Venous insufficiency (chronic) (peripheral) (Chronic) 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) Swelling of lower extremity (Chronic) Pain In Left Leg (Chronic) Pain In Right Leg (Chronic) Churg-Renate syndrome with lung involvement (Chronic) Social History Smoking Status: Never smoker second hand exposure: No alcohol intake: current alcohol intake frequency: a few times a month Alcohol type: wine substance use type: does not use HPI RIGHT ELBOW: Details: RONDA LARA is a 72 year old F here today for right elbow bursitis, she had it aspirated by her pcp last week and it return within a day but she states that it feels bigger and more squishy. She hit her elbow on her washer about a month ago which caused the inflammation. She states her cultures on the fluid were negative and that there was nothing injected in to the elbow. She does not have much pain and states its just more of an annoyance. ROS Ollie Reports joint swelling, Reports as per HPI Ortho Exam Left Elbow Contralateral Normal: Yes Test: No Varus Stress Test, No TTP Medial Epicondyle, No TTP Lateral Epicondyle ROM: Yes Flexion 0-140, Extension 0, Supination 0-90 and Pronation 0-80 Sensation: Radial: I, Ulnar: I, Median: I Motor: Elbow Extension: 5, Elbow Flexion: 5 ELBOW: Patient has evident localized olecranon bursitis on the left elbow. There is no erythema and no tenderness on palpation of the bursa. Office Procedures Ortho Aspiration Procedure Detail Procedure performed by: Jairo Vines Medication Given: Yes Ortho Injections/Aspirations Details: Obtained consent for aspiration. Under sterile conditions, aspirated 5cc from the patients left olecranon bursa. Syringe was then removed and needle left in place and syringe containing 0.5cc of kenalog was then applied and given. The patient tolerated the aspiration well without any noted complications. Patient should call our office if redness develops, pain worsens or if they have any concerns. Assessment AND Plan Problems 1. Olecranon bursitis of left elbow M70.22 Plan Obtained Xrays of patient's left elbow. Personally reviewed Xrays. There is no obvious fracture, dislocation, or lucency noted. See chart for further details. Patient had this aspirated within the past week only to have it return rapidly. She was using a little compression on the area. There is no erythema or signs of infection and it does not hurt her, but its just there. Her culture of the fluid was negative. We discussed aspirating this again and injecting some kenalog into the joint. We discussed risks and benefits of this which she understands. She would like to proceed with aspiration and injection with kenalog at this time. Orders Orders: Plan Detail Follow Up 2 Weeks Coding Level of Care Code Off vis,est,level 3 Diagnoses Olecranon bursitis of left elbow M70.22 08/02/18 1147 <Electronically signed by Jairo GRIFFIN> Date Jairo GRIFFIN Cosigner Signature: Date (if applicable) CC: OFFICE VISIT REPORT Observed: 08/01/2018 Status: F Source: [place] 2:[address] [place] [address] OFFICE VISIT Date of Service: 08/01/18 MR#: [id number] Acct: [id number] Patient: RONDA LARA Rep #: [id number] : 1945 Provider: Nallely Drummond Age/Sex: 72/F Location: [facility] Status: Signed Intake Vital Signs08/01/18 Height 5 ft 1 in 08/01/18 Weight: 128 lb Intake Visit Reasons: flu shot Chief Complaint: nucala [employer] Required: No Allergies Penicillins Allergy (Verified 08/01/18 14:01) Hives Sulfa (Sulfonamide Antibiotics) Allergy (Verified 08/01/18 14:01) Rash gabapentin [From Neurontin] Adverse Reaction (Mild, Verified 08/01/18 14:01) constipation Medications Albuterol Aerosols [Ventolin Aerosols] 2.5 mg INHALATION Q6H PRN PRN 06/25/15 [History Confirmed 08/01/18] Estradiol [Estrace] 1 gm TOPICAL QWEEK 06/25/15 [History Confirmed 08/01/18] Levalbuterol HCl [Xopenex Aerosols] 0.63 mg INHALATION Q6H PRN PRN 06/25/15 [History Confirmed 08/01/18] Lisinopril [Zestril] 5 mg PO DAILY 06/25/15 [History Confirmed 08/01/18] Omeprazole [Prilosec] 20 mg PO DAILY 06/25/15 [History Confirmed 08/01/18] Solifenacin Succinate [Vesicare] 5 mg PO DAILY 06/25/15 [History Confirmed 08/01/18] MedroxyPROGESTERone [Cycrin,Provera] 2.5 mg PO DAILY 11/09/16 [History Confirmed 08/01/18] Mepolizumab [Nucala] 100 mg SQ X1 09/03/17 [History Confirmed 08/01/18] albuterol sulfate HFA 90 mcg/actuation aerosol inhaler 2 puff INHALATION Q4H #18 g 10/21/17 [Rx Confirmed 08/01/18] Simvastatin [Zocor] 10 mg PO QHS 04/22/18 [History Confirmed 08/01/18] Acetaminophen [Tylenol Arthritis] 650 mg PO DAILY PRN 07/15/18 [History Confirmed 08/01/18] Amlodipine [Norvasc] 5 mg PO DAILY 07/15/18 [History Confirmed 08/01/18] Ascorbic Acid [Vitamin C] 500 mg PO DAILY 07/15/18 [History Confirmed 08/01/18] Cranberry 500 mg PO TID 07/15/18 [History Confirmed 08/01/18] Doxycycline Hyclate 100 mg PO BID 07/15/18 [History Confirmed 08/01/18] Fluticasone/Salmeterol [Advair 500/50 Mcg Diskus] 1 puff INHALATION BID 07/15/18 [History Confirmed 08/01/18] Glucosamine/MSM/Chondroitin A [Glucosamine Chondroit MSM Tab] 1 ea PO DAILY 07/15/18 [History Confirmed 08/01/18] L.acidoph,Paracasei, B.lactis [Probiotic] 1 ea PO DAILY 07/15/18 [History Confirmed 08/01/18] Loratadine [Claritin] 10 mg PO DAILY 07/15/18 [History Confirmed 08/01/18] Loteprednol Etabonate [Alrex] ml OP PRN 07/15/18 [History Confirmed 08/01/18] Multivitamin [Multiple Vitamins] 1 ea PO SUMOTUWETH 07/15/18 [History Confirmed 08/01/18] Hanna-3 Fatty Acids [Fish Oil] mg PO DAILY 07/15/18 [History Confirmed 08/01/18] Turmeric Root Extract [Turmeric] 1,000 mg PO DAILY 07/15/18 [History Confirmed 08/01/18] Ubidecarenone [Coq10] 100 mg PO DAILY 07/15/18 [History Confirmed 08/01/18] Immunizations Fluad 65yr up(PF)45 mcg(15 mcgx3)/0.5 mL intramuscular syringe Performing Provider: DENNIS Castorena Administered by: Danette Benitez on 08/01/18 14:04 Dose Route Admin Location Lot Number Expiration Date [facility] Mobile Phlebotomist 0.5 mL IM Left Deltoid [id number] 02/21/19 00483-879-69 SEQIRUS VIS Given Date VIS Publication Date 08/01/18 05/31/15 Eligibility Eligibility Date Assessment AND Plan Orders Orders: Medications Discontinued: Fluad 65yr up(PF)45 mcg(15 mcgx3)/0.5 mL intramuscula0.5 mL IM ONCE #1 0RF NS Z23 r syringe (flu vac 2018 [id number])) Discontinued Re ason: Office Medication has been Documented as given 08/01/18 1434 <Electronically signed by Nallely COLLINS> Date Nallely COLLINS Cosigner Signature: Date (if applicable) CC: Domonique Akins DO ELBOW MIN 3 VIEWS Observed: 08/01/2018 Status: F Source: [place] 11:50 AM [facility] REPOSITORY [facility] Imaging Services [address] [place] [address] Elbow min 3 Views MR#: [id number] Acct: [id number] Name: RONDA LARA Rep #: [id number] : 1945 F 72 From: Keagan Dos Santos MD PCP: Domonique Akins DO Status: REG CLI Study: Elbow min 3 Views Date of Exam: 08/01/18 Exam# [id number] Ordering Dr: Jairo Vines STUDY: X-RAY - RIGHT ELBOW REASON FOR EXAM: Female, 72 years old. Bursitis. TECHNIQUE: 3 view(s) of the elbow. COMPARISON: None. FINDINGS: Normal visualized humerus, radius and ulna. Normal radiocapitellar and ulnotrochlear articulations. The soft tissue structures are unremarkable. RAD/Elbow min 3 Views IMPRESSION: Normal x-ray examination of the right elbow. Electronically Signed: Keagan Dos Santos MD at 13:42 EDT , Service support , CC: ELIAS Vines; Domonique Akins DO Family Services Coordinator: Signed A/C JTS GERRY W OR Observed: 07/25/2018 Status: F Source: [place] W/O WTS 11:23 AM [facility] REPOSITORY [facility] Imaging Services [address] [place] [address] A/C Jts Gerry w or w/o Wts MR#: [id number] Acct: [id number] Name: RONDA LARA Rep #: [id number] : 1945 F 72 From: Antwon Henson DO PCP: Domonique Akins DO Status: REG CLI Study: A/C Jts Gerry w or w/o Wts Date of Exam: 07/25/18 Exam# [id number] Ordering Dr: Domonique Akins DO STUDY: X-RAY - BILATERAL CLAVICLES REASON FOR EXAM: Female, 72 years old. Left shoulder pain TECHNIQUE: 2 views of the right clavicle. 2 views of the left clavicle. With and without weights COMPARISON: None. FINDINGS: No acute fracture. No evidence of significant AC joint widening. Minimal AC joint degenerative changes bilaterally. RAD/A/C Jts Gerry w or w/o Wts IMPRESSION: No acute findings. No evidence of AC joint widening Electronically Signed: Antwon Henson DO at 9:25 EDT Tel , Service support , CC: Domonique Akins DO Family Services Coordinator: Signed SHOULDER MIN 2 VIEWS Observed: 07/25/2018 Status: F Source: [place] 11:23 AM [facility] REPOSITORY [facility] Imaging Services [address] [place] [address] Shoulder min 2 Views MR#: [id number] Acct: [id number] Name: RONDA LARA Rep #: [id number] : 1945 F 72 From: Antwon Henson DO PCP: Domonique Akins DO Status: REG CLI Study: Shoulder min 2 Views Date of Exam: 07/25/18 Exam# [id number] Ordering Dr: Domonique Akins DO STUDY: X-RAY - LEFT SHOULDER REASON FOR EXAM: Female, 72 years old. Left shoulder pain TECHNIQUE: 4 view(s) of the shoulder. COMPARISON: None. FINDINGS: Normal glenohumeral articulation. There is degenerative arthrosis of the acromioclavicular joint without inferior osseous spur formation. Normal acromion. Normal humeral head and visualized proximal humerus. The soft tissue structures are unremarkable. Normal visualized pulmonary apex. RAD/Shoulder min 2 Views IMPRESSION: Minimal AC joint degenerative change. Remainder is within normal limits Electronically Signed: Antwon Henson DO at 9:26 EDT Tel , Service support , CC: Domonique Akins DO Family Services Coordinator: Signed CBC W/DIFF, AUTOMATED Collected: 07/21/2018 Status: F Source: [place] 9:00 AM [facility] REPOSITORY TYPE CODE TESTS RESULT OUT OF RANGE REFERENCE UNITS LAB L100.1000 4.4-11.0 K/mm3 Normal WBC 6.5 LAB L100.1200 4.2-5.4 M/mm3 Normal RBC 4.50 LAB L100.1300 12.0-15.0 g/dl Normal HGB 14.3 LAB L100.1400 37-47 % Normal HCT 43.3 LAB L100.1500 81-99 fL Normal MCV 96.2 LAB L100.1600 27.0-32.0 pg Normal MCH 31.8 LAB L100.1700 32-36 g/gl Normal MCHC 33.0 LAB L100.1810 11.6-14.6 % Normal RDW CV 13.7 LAB L100.1820 35.1-43.9 fl High RDW SD 48.3 LAB L100.1900 150-450 K/mm3 Normal PLT 266 LAB L100.2000 6.2-12.0 fl Normal MPV 10.6 LAB L100.2100 47-70 % Normal NEUT% 59.4 LAB L100.2200 19-41 % Normal LY% 30.1 LAB L100.2300 0-10 % Normal MONO% 8.8 LAB L100.2400 0-5 % Normal EO% 0.9 LAB L100.2500 0-1 % Normal BASO% 0.8 LAB L100.2550 0.0-0.9 % Normal IM GRAN % 0.000 Result Comment: IG% - Immature Granulocytes (promyelocytes, myelocytes and metamyelocytes) > 1% indicates that a LEFT SHIFT is Present. LAB L100.2620 2.0-7.7 X10 3/uL Normal Absolute Neut 3.8 LAB L100.2720 0.83-4.51 X10 3/ul Normal Absolute Lymph 1.94 Performed By: #### L100.0100 #### [facility] [address] [place], [place], [id number] HEMOGLOBIN A1C Collected: 07/21/2018 Status: F Source: [place] 9:00 AM [facility] REPOSITORY TYPE CODE TESTS RESULT OUT OF RANGE REFERENCE UNITS LAB L501.9985 4.2-6.3 % Normal HGB A1C 5.3 Performed By: #### L501.9985 #### [facility] [address] [place], [place], [address] COMPREHENSIVE METABOLIC Collected: 07/21/2018 Status: F Source: [facility] 9:00 AM [facility] REPOSITORY TYPE CODE TESTS RESULT OUT OF RANGE REFERENCE UNITS LAB L501.0100 74-106 mg/dL Normal GLU 88 Result Comment: Please note revised GLUCOSE reference range effective 2017. LAB L501.1000 7-18 mg/dL Normal BUN 17 LAB L501.1100 0.55-1.02 mg/dL Normal CREAT,SERUM 0.56 Result Comment: The validity of the calculated GFR AND GFRAA in patients over 70 years has not been determined. Clinical correlation is essential. LAB L501.1110 >60 mL/min Normal EST GFR 114 Result Comment: Non- GFR Calc LAB L501.1115 >60 mL/min Normal EST GFR - AA 137 Result Comment: GFR Calc LAB L501.1300 10-20 RATIO High BUN/CRE 30.6 LAB L501.1500 6.4-8.2 g/dL T Normal PROT 6.7 LAB L501.1800 3.2-5.0 g/dL Normal ALB 3.3 LAB L501.1950 2.2-4.2 g/dL Normal GLOB 3.4 LAB L501.2000 0.9-2.4 RATIO Normal A/G 1.0 LAB L501.2200 8.5-10.1 mg/dL CA Normal 8.6 LAB L501.4100 15-37 U/L Low AST 14 LAB L501.4305 45-117 U/L Normal ALK P 69 LAB L501.4405 13-56 U/L Normal ALT 20 LAB L501.4600 0.20-1.00 mg/dL T Normal BILI 0.40 LAB L501.5300 136-145 mmol/L NA Normal 141 LAB L501.5600 3.5-5.1 mmol/L K Normal 4.1 LAB L501.5900 98-107 mmol/L High CL 108 LAB L501.6100 21.0-32.0 mmol/L Normal CO2 25.0 LAB L501.6200 5-15 Normal GAP 8 Performed By: #### L500.4050, L500.4100 #### [facility] [address] [place], [place], [address] LIPID PROFILE Collected: 07/21/2018 Status: F Source: [place] 9:00 AM [facility] REPOSITORY TYPE CODE TESTS RESULT OUT OF RANGE REFERENCE UNITS LAB L501.4900 200 mg/dL Normal CHOL 150 Result Comment: <200 mg/dL Desirable 200-240 mg/dL Borderline >240 mg/dL High Risk LAB L501.5000 mg/dL Normal TRIG 124 Result Comment: The drugs N-Acetylcysteine and Metamizole may falsely depress this assay. Serum Triglycerides Reference Interval Normal <150 mg/dL Borderline high 150 - 199 mg/dL High 200 - 499 mg/dL Very High > or = 500 mg/dL LAB L501.6400 mg/dL Normal HDL 65 Result Comment: The drugs N-Acetylcysteine and Metamizole may falsely depress this assay. Reference Range HDL <40 mg/dL Low HDL Cholesterol HDL >or= 60 mg/dL High HDL Cholesterol LAB L501.6500 0-130 mg/dL Normal LDL 60 LAB L501.6600 5-40 mg/dL Normal VLDL 25 Performed By: #### L500.4050, L500.4100 #### [facility] [address] [facility] [place], [address] VITAMIN D,25 HYDROXY Collected: 07/21/2018 Status: F Source: [place] 9:00 AM [facility] REPOSITORY TYPE CODE TESTS RESULT OUT OF RANGE REFERENCE UNITS LAB L506.1000 29.95-100.01 ng/mL Normal Vitamin D 39.5 25-OH Result Comment: Vitamin D 25(OH) Status Range Deficiency <20 ng/mL (50nmol/L) Insuffciency 20 - 30 ng/mL (50 - 75 nmol/L) Sufficiency 30 - 100 ng/mL (75 - 250 nmol/L) Toxicity >100 ng/mL (>250 nmol/L) Performed By: #### L506.1000 #### [facility] [address] [facility] [place], [address] LYME SCREEN W/REFLEX Collected: 07/21/2018 Status: F Source: [facility] 9:00 AM [facility] REPOSITORY TYPE CODE TESTS RESULT OUT OF RANGE REFERENCE UNITS LAB L7000.5400 0.00-0.90 ISR Normal LYME SCN <0.91 AB Result Comment: Negative <0.91 Equivocal 0.91 - 1.09 Positive >1.09 Performed at: - [facility] [id number] [employer]: Jhony Mercedes PhD, Phone: [phone] LAB L3088.4157 Normal LYME SCN REF INTERP LAB Performed By: #### L7000.5306 #### [facility] (refer to report for specific site) refer to report for address and phone number Observed: 07/15/2018 Status: F Source: [place] CULTURE, DEEP WOUND 10:30 AM [facility] REPOSITORY Gram Stain Gram Stain No White Blood Cells No organisms seen Wound Culture No growth aerobically. Cult, Anaerobic No growth in 5 days. Performed By: #### M100.1500 #### [facility] [address] [place], [address] KIDNEY AND BLADDER Observed: 07/01/2018 Status: F Source: [place] 10:36 AM [facility] REPOSITORY [facility] Imaging Services [address] [place] [address] Kidney and Bladder MR#: [id number] Acct: [id number] Name: RONDA LARA Rep #: [id number] : 1945 F 72 From: Altaf Malik DO PCP: Domonique Akins DO Status: REG CLI Study: Kidney and Bladder Date of Exam: 07/01/18 Exam# [id number] Ordering Dr: Clara Sullivan MD STUDY: RENAL ULTRASOUND - COMPLETE REASON FOR EXAM: Female, 72 years old. Chronic UTI. Urgency. Bladder leak. TECHNIQUE: Ultrasound evaluation of the kidneys was performed with real-time and static plaza-scale imaging. COMPARISON: CT of the abdomen and pelvis, November 28, 2013. FINDINGS: RIGHT KIDNEY: Normal location of the right kidney, which is normal in size. The right kidney measures 9.3 cm. There is a normal cortex of the right kidney. The renal cortex measures 1.2 cm. There is no right renal mass or cyst. There are no right renal calculi. There is no right hydronephrosis. DISTAL RIGHT URETER: There is non-visualization of the distal right ureter. There is no demonstrated right ureterovesical junction calculus. There is a visualized right ureteral jet. LEFT KIDNEY: Normal location of the left kidney, which is normal in size. The left kidney measures 9.4 cm. There is a normal cortex of the left kidney. The renal cortex measures 1.4 cm. There is a 0.9 x 0.7 x 0.8 cm hyperechoic nodule in the lower pole of the left kidney which is consistent with the fatty density mass seen on the prior CT. This suggests angiomyolipoma. There are no left renal calculi. There is no left hydronephrosis. DISTAL LEFT URETER: There is non-visualization of the distal left ureter. There is no demonstrated left ureterovesical junction calculus. There is a visualized left ureteral jet. BLADDER: The distended urinary bladder has a volume of 69 ml. The empty urinary bladder has a volume of 0 ml. There is a normal wall thickness of the distended urinary bladder. There is no demonstrated mass within the urinary bladder. There are no demonstrated bladder calculi. US/Kidney and Bladder IMPRESSION: 1. 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 2. Otherwise normal kidneys and urinary bladder. Electronically Signed: Altaf Malik DO at 23:03 EDT Tel [phone], Service support , CC: Domonique Akins DO; Clara Sullivan MD Family Services Coordinator: Signed PULMONARY VISIT REPORT Observed: 05/19/2018 Status: F Source: [place] 1:43 PM [facility] REPOSITORY Pulmonary Medicine [address] [place] [address] OFFICE VISIT Date of Service: 05/19/18 MR#: [id number] Acct: [id number] Name: RONDA LARA Rep #: [id number] : 1945 Provider: Nallely Drummond Age/Sex: 72/F Location: [facility] Status: Signed Assessment AND Plan 1. Severe persistent asthma with acute exacerbation J45.51 Plan Stable. No signs of exacerbation of asthma today. Discontinue use of Spiriva, as patient had no clinical benefit from using. No additional testing at this time. Contact the office with any signs of new or worsening symptoms. Follow-up in 3 months as scheduled following yearly PFT. 2. Postnasal drip R09.82 Plan Improved. Continue use of Flonase daily to control symptoms. HPI 2 M FU: Chief Complaint: dyspnea with exertion HPI Comments Details: Ronda is a pleasant 72-year-old female who presents to the office to follow up for asthma. At her last visit, she was started on Spiriva to see if it improved her symptoms. The patient presents with a log of peak flows before and after the Spiriva, with only minor improvement of an average of 10-15 mL following treatment. The patient does endorse some dyspnea with exertion which she associates with the humidity and warm weather, but denies any significant wheezing, chest tightness, cough, or shortness of breath at rest. Ronda reports that she does not use a rescue inhaler because she has never noticed an improvement in her symptoms, so she has not used it in years. She is also started on Flonase, which she states has improved her postnasal drip. Overall, the patient is feeling very well today and denies any acute complaints. She has not had an exacerbation of her asthma symptoms for approximately 6 months, and has not required any ER visits or hospitalization. Ronda denies any medication side effects, such as thrush, sore throat, or hoarseness. She reports that she does rinse her mouth out after each use of her Advair. Intake Vital Signs05/19/18 Height 5 ft 1 in 05/19/18 Weight: 130 lb Intake Visit Reasons: 2 M FU Chief Complaint: NUCALA Accompanied by: Self Allergies Penicillins Allergy (Verified 05/19/18 10:47) Hives Sulfa (Sulfonamide Antibiotics) Allergy (Verified 05/19/18 10:47) Rash gabapentin [From Neurontin] Adverse Reaction (Mild, Verified 05/19/18 10:47) constipation Medications Albuterol Aerosols [Ventolin Aerosols] 2.5 mg INHALATION Q6H PRN PRN 06/25/15 [History Confirmed 05/19/18] Amlodipine [Norvasc] 5 mg PO DAILY 06/25/15 [History Confirmed 05/19/18] Cholecalciferol (VIT D3) [Vitamin D] 2,000 unit PO DAILY 06/25/15 [History Confirmed 05/19/18] Estradiol [Estrace] 0.5 mg PO DAILY 06/25/15 [History Confirmed 05/19/18] Levalbuterol HCl [Xopenex Aerosols] 0.63 mg INHALATION Q6H PRN PRN 06/25/15 [History Confirmed 05/19/18] Lisinopril [Zestril] 5 mg PO DAILY 06/25/15 [History Confirmed 05/19/18] Omeprazole [Prilosec] 20 mg PO DAILY 06/25/15 [History Confirmed 05/19/18] Ranitidine [Zantac] 150 mg PO DAILY 06/25/15 [History Confirmed 05/19/18] Solifenacin Succinate [Vesicare] 5 mg PO DAILY 06/25/15 [History Confirmed 05/19/18] MedroxyPROGESTERone [Cycrin,Provera] 2.5 mg PO DAILY 11/09/16 [History Confirmed 05/19/18] Mepolizumab [Nucala] 100 mg SQ X1 09/03/17 [History Confirmed 05/19/18] albuterol sulfate HFA 90 mcg/actuation aerosol inhaler 2 puff INHALATION Q4H #18 g 10/21/17 [Rx Confirmed 05/19/18] levalbuterol HFA 45 mcg/actuation aerosol inhaler 2 inh INHALATION Q6H #15 g 10/21/17 [Rx Confirmed 05/19/18] Simvastatin [Zocor] 5 mg PO QHS 11/05/17 [History Confirmed 05/19/18] Simvastatin [Zocor] 10 mg PO QHS 04/22/18 [History Confirmed 05/19/18] fluticasone 500 mcg-salmeterol 50 mcg/dose blistr powdr for inhalation 1 inh INHALATION BID #60 ea 05/10/18 [Rx Confirmed 05/19/18] fluticasone 50 mcg/actuation nasal spray,suspension 2 spray INTRANASAL QDAY 05/19/18 [History Confirmed 05/19/18] [facility] Medical History Vasculitis (Acute) Eosinophilia (Chronic) Diverticulitis (Chronic) Depression (Chronic) GERD (gastroesophageal reflux disease) (Chronic) Hyperlipemia (Chronic) Palpitations (Acute) Churg-Renate syndrome (Chronic) Aortic valve disease (Chronic) Trochanteric bursitis (Acute) Sciatica (Acute) Seasonal allergies (Chronic) Right knee pain (Chronic) Left knee pain (Chronic) Osteoarthritis (Chronic) Physical deconditioning (Chronic) Abscess (Acute) Cellulitis (Acute) Neuropathy (Chronic) Hypertension (Chronic) Asthma (Chronic) Edema, lower extremity (Chronic) Peripheral vascular disease (Chronic) 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) Bilateral lower extremity edema (Chronic) Traumatic open wound of left lower leg (Acute) Peripheral vascular occlusive disease (Chronic) Venous insufficiency (chronic) (peripheral) (Chronic) 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) Swelling of lower extremity (Chronic) Pain In Left Leg (Chronic) Pain In Right Leg (Chronic) Churg-Renate syndrome with lung involvement (Chronic) Social History Smoking Status: Never smoker second hand exposure: No alcohol intake: current alcohol intake frequency: a few times a month Alcohol type: wine substance use type: does not use Review of Systems Const CONSTITUTIONAL: Positive fatigue; negative anorexia, body ache, chills, daytime sleepiness, fever(s), night sweats, oral thrush, stops breathing during sleep, weight loss, sleeping in chair, weight loss, weight gain, frequent colds, seasonal allergies, other, headache(s) or orthopnea EETM Ear Nose Throat Mouth: Positive hard of hearing (reads lips); negative hoarseness, dry mouth in morning, change in vision, itchy eyes, eye pain, swallowing Difficulty, ear pain, nose bleed, headache(s), mouth pain, nasal congestion, nasal discharge, post nasal drip, sinus pain, sinus pressure, sore throat or other Cardio Cardiovascular: Negative chest pain, chest pain at rest, chest pain with activity, irregular heart rhythm, edema, shortness of breath when lying down, palpitations, murmur or other Resp Respiratory: Positive as per HPI and shortness of breath shortness of breath: Positive with activity; negative pain with cough, wheezing, chest congestion, cough, chest tightness, pain on inspiration, inhalers, increase use of rescue inhalers, snoring, apnea or other Gastro Gastrointestional: Negative bloody stools, change in appetite, difficulty swallowing, reflux, hematemesis, melena stool, loose stool, constipation or other Genitourinary: Negative blood in urine, nocturia, pain with urination or other Musc Musculoskeletal: Negative body pain, back pain, neck pain or other Skin/Breast Skin/Breast: Negative dry skin, itching, rash, unusual bruising, breast lump or other Neuro Neurological: Negative restless legs, confusion, weakness or other Psych Psychocological: Negative abnormal sleep pattern, anxiety, thoughts of hurting self/others, hopelessness or other Lymph Lymphatic: Negative easy bleeding, easy bruising, swollen lymph nodes or other Exam Const Constitutional: Positive conversant, cooperative, in no acute respiratory distress, healthy appearing, well developed, well nourished and good hygiene Head Head: Positive normocephalic and atraumatic; negative cyanosis of lips/distal nose Eyes Eye: Positive clear conjunctiva; negative nystagmus or scleral abnormality Ears Ear: Positive hard of hearing (reads lips) Nose Nose: Positive external nose normal and no nasal discharge; negative epistaxis Mouth Mouth: Positive oral mucosae normal and no lesions; negative post nasal drip or oral thrush present Mallampati Score: II: Mallampati Score Neck Neck: Positive normal visual inspection, full ROM and trachea midline; negative lymphadenopathy, JVD or tender Chest Wall Chest: Positive normal inspection of the chest and symmetric chest movement; negative increased A/P diameter Resp lung sounds: Positive good air exchange, wheezes (RML inspiratory) wheezing: Positive right, normal expiratory time and normal respiratory effort; negative diminished, rhonchi, rales, dullness to percussion or wheeze present on forced exhalation Cardio Cardiac: Positive regular rate, regular rhythm, S1 normal and S2 normal; negative murmur GI GI: Positive normal to inspection and normal bowel sounds; negative distended Genitourinary: Positive deferred Musc Musculoskeletal: Positive steady gait and ROM normal; negative kyphosis or scoliosis Skin Pulmonary Skin Exam: Positive intact; negative rash Pulses Pulse: Yes radial pulses present Extremities Extremities: Yes capillary refill normal, No clubbing, No cyanosis, Yes edema Location: lower extremity location: Bilateral chronic with vascular changes Neuro Neurologic: Yes conversant, Yes no focal neuro deficits, Yes cooperative, Yes normal cognition, Yes normal coordination, Yes normal concentration, Yes understands questions Lymph Lymphatic: No lymphadenopathy Psych Appearance: Positive grossly normal, eye contact and well kempt Mental Status: Positive mental status grossly normal Mood: Positive congruent mood Affect: Positive normal affect Coding Level of Care Code Off vis,est,level 3 Diagnoses Severe persistent asthma with acute exacerbation J45.51 Asthma severity: severe Asthma complication type: with acute exacerbation Asthma persistence: persistent Postnasal drip R09.82 05/19/18 1343 <Electronically signed by Nallely COLLINS> Date Nallely COLLINS Cosigner Signature: Date (if applicable) CC: Domonique Akins DO L/S SPINE MIN 4 Observed: 05/10/2018 Status: F Source: [place] 4:19 PM [facility] REPOSITORY [facility] Imaging Services [address] [place] [id number] L/S Spine Min 4 Views MR#: [id number] Acct: [id number] Name: RONDA LARA Rep #: [id number] : 1945 F 72 From: Brian Batista MD PCP: Domonique Akins DO Status: REG CLI Study: L/S Spine Min 4 Views Date of Exam: 05/10/18 Exam# [id number] Ordering Dr: Domonique Akins DO STUDY: X-RAY - LUMBAR SPINE REASON FOR EXAM: Female, 72 years old. Chronic low back pain TECHNIQUE: 5 view(s) of the lumbar spine were obtained. COMPARISON: July 24, 2015 FINDINGS: There is a 21 degree lumbar scoliosis with convexity to the left with degenerative changes of the L1-L2, L2-3, L4-5 and L5-S1 disc spaces. There are no acute fractures. The paravertebral soft tissues are normal RAD/L/S Spine Min 4 Views IMPRESSION: Multilevel degenerative changes of the lumbosacral spine. There is also a 21 degree lumbar scoliosis convex to the left Electronically Signed: Brian Batista, at 4:04 EDT Tel , Service support , CC: Domonique Akins DO Family Services Coordinator: Signed PULMONARY VISIT REPORT Observed: 05/06/2018 Status: F Source: [place] 6:24 PM [facility] REPOSITORY [facility] [place] [address] [place] [address] OFFICE VISIT Date of Service: 05/06/18 MR#: [id number] Acct: [id number] Name: RONDA LARA Rep #: [id number] : 1945 Provider: Nallely Drummond Age/Sex: 72/F Location: [facility] Status: Signed Assessment AND Plan 1. Severe persistent asthma with acute exacerbation J45.51 Status Chronic Plan Added and add adjunctive therapy, Spiriva 1.25 mcg 2 puffs daily. She was provided with a sample of the medication the office today and personally trained on how to use medication. Does provide in the office. Patient will perform peak flow volumes prior to using the Spiriva daily and post inhalation of the Spiriva daily. Will then follow-up in 2 weeks to see if there has been any change in her peak flow volumes were shortness of breath. She has been encouraged to contact the office if her wheezing does not dissipate over the next few days. Annual pulmonary function test will be due in June, we will set up an appointment for her to be seen by Dr. Rankin in July. Orders Orders: 2. 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 Eosinophils are 0.3 %. Change in maintenance medications at this time. 3. PND (post-nasal drip) R09.82 Status Acute Plan New. She has been encouraged to garbage pick up man Flonase [id number] for her postnasal drip. Plan Detail Follow Up 2 Weeks ([facility]) 3 Months ([facility]) HPI 3 M FU: Chief Complaint: Reduced peak flow meter HPI Comments Details: Patient presents to the office today follow-up on her severe asthma. She is ambulatory in room air. She has not been seen in the ED urgent care for respiratory illness last office visit. She has not required any antibiotics or prednisone or any breathing problems since her last office visit. The patient reports that she is very pleased to be off of prednisone for the first time in 18 years. She remains compliant with her new, injections monthly. She continues Advair twice daily. She does report rinsing her mouth out after each use. She denies any medication side effects as sore throat or thrush. She has not needed use her rescue inhaler for rescue symptoms but would like to know if it would be appropriate to use it prior to exercising/walking. She currently denies any cough, wheezing or chest tightness. Denies any sputum production or hemoptysis. She denies any shortness of breath on exertion. She does report some mild lower extremity edema which she attributes to incompetent pains. Denies any fever, chills or body aches. She has not experienced any chest pain or palpitation. She does report that she checks her peak flow volumes daily. Approximately 4 years ago her peak flow volumes were around the 370 L/min range, currently she only ever holds about 310-3 30 L/min. She is concerned about the overall reduction in liter flow. Intake Vital Signs05/06/18 Height 5 ft 1.5 in 05/06/18 Weight: 132 lb Intake Visit Reasons: 3 M FU Chief Complaint: NUCALA [employer] Apprentice Required: No Accompanied by: Self Is patient in pain?: No Allergies Penicillins Allergy (Verified 05/06/18 10:55) Hives Sulfa (Sulfonamide Antibiotics) Allergy (Verified 05/06/18 10:55) Rash gabapentin [From Neurontin] Adverse Reaction (Mild, Verified 05/06/18 10:55) constipation Medications Albuterol Aerosols [Ventolin Aerosols] 2.5 mg INHALATION Q6H PRN PRN 06/25/15 [History Confirmed 05/06/18] Amlodipine [Norvasc] 5 mg PO DAILY 06/25/15 [History Confirmed 05/06/18] Cholecalciferol (VIT D3) [Vitamin D] 2,000 unit PO DAILY 06/25/15 [History Confirmed 05/06/18] Estradiol [Estrace] 0.5 mg PO DAILY 06/25/15 [History Confirmed 05/06/18] Fluticasone/Salmeterol [Advair 500/50 Mcg Diskus] 1 puff INHALATION BID 06/25/15 [History Confirmed 05/06/18] Levalbuterol HCl [Xopenex Aerosols] 0.63 mg INHALATION Q6H PRN PRN 06/25/15 [History Confirmed 05/06/18] Lisinopril [Zestril] 5 mg PO DAILY 06/25/15 [History Confirmed 05/06/18] Omeprazole [Prilosec] 20 mg PO DAILY 06/25/15 [History Confirmed 05/06/18] Ranitidine [Zantac] 150 mg PO DAILY 06/25/15 [History Confirmed 05/06/18] Solifenacin Succinate [Vesicare] 5 mg PO DAILY 06/25/15 [History Confirmed 05/06/18] MedroxyPROGESTERone [Cycrin,Provera] 2.5 mg PO DAILY 11/09/16 [History Confirmed 05/06/18] Mepolizumab [Nucala] 100 mg SQ X1 09/03/17 [History Confirmed 05/06/18] albuterol sulfate HFA 90 mcg/actuation aerosol inhaler 2 puff INHALATION Q4H #18 g 10/21/17 [Rx Confirmed 05/06/18] levalbuterol HFA 45 mcg/actuation aerosol inhaler 2 inh INHALATION Q6H #15 g 10/21/17 [Rx Confirmed 05/06/18] Simvastatin [Zocor] 5 mg PO QHS 11/05/17 [History Confirmed 05/06/18] Simvastatin [Zocor] 10 mg PO QHS 04/22/18 [History Confirmed 05/06/18] PFSH Medical History Vasculitis (Acute) Eosinophilia (Chronic) Diverticulitis (Chronic) Depression (Chronic) GERD (gastroesophageal reflux disease) (Chronic) Hyperlipemia (Chronic) Palpitations (Acute) Churg-Renate syndrome (Chronic) Aortic valve disease (Chronic) Trochanteric bursitis (Acute) Sciatica (Acute) Seasonal allergies (Chronic) Right knee pain (Chronic) Left knee pain (Chronic) Osteoarthritis (Chronic) Physical deconditioning (Chronic) Abscess (Acute) Cellulitis (Acute) Neuropathy (Chronic) Hypertension (Chronic) Asthma (Chronic) Edema, lower extremity (Chronic) Peripheral vascular disease (Chronic) 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) Bilateral lower extremity edema (Chronic) Traumatic open wound of left lower leg (Acute) Peripheral vascular occlusive disease (Chronic) Venous insufficiency (chronic) (peripheral) (Chronic) 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) Swelling of lower extremity (Chronic) Pain In Left Leg (Chronic) Pain In Right Leg (Chronic) Churg-Renate syndrome with lung involvement (Chronic) Social History Smoking Status: Never smoker second hand exposure: No alcohol intake: current alcohol intake frequency: a few times a month Alcohol type: wine substance use type: does not use Review of Systems Const CONSTITUTIONAL: Positive fatigue; negative anorexia, body ache, chills, daytime sleepiness, fever(s), night sweats, oral thrush, stops breathing during sleep, weight loss, sleeping in chair, weight loss, weight gain, frequent colds, seasonal allergies, other, headache(s) or orthopnea EETM Ear Nose Throat Mouth: Positive hard of hearing and post nasal drip; negative hoarseness, dry mouth in morning, change in vision, itchy eyes, eye pain, swallowing Difficulty, ear pain, nose bleed, headache(s), mouth pain, nasal congestion, nasal discharge, sinus pain, sinus pressure, sore throat or other Cardio Cardiovascular: Positive edema Location: lower extremity; negative chest pain, chest pain at rest, chest pain with activity, irregular heart rhythm, shortness of breath when lying down, palpitations, murmur or other Resp Respiratory: Positive as per HPI, shortness of breath shortness of breath: Positive with activity and inhalers; negative pain with cough, wheezing, chest congestion, cough, chest tightness, pain on inspiration, increase use of rescue inhalers, snoring, apnea or other Gastro Gastrointestional: Negative bloody stools, change in appetite, difficulty swallowing, reflux, hematemesis, melena stool, loose stool, constipation or other Genitourinary: Negative blood in urine, nocturia, pain with urination or other Musc Musculoskeletal: Positive body pain; negative back pain, neck pain or other Skin/Breast Skin/Breast: Negative dry skin, itching, rash, unusual bruising, breast lump or other Neuro Neurological: Negative restless legs, confusion, weakness or other Psych Psychocological: Negative abnormal sleep pattern, anxiety, thoughts of hurting self/others, hopelessness or other Lymph Lymphatic: Negative easy bleeding, easy bruising, swollen lymph nodes or other Exam Const Constitutional: Positive conversant, cooperative, in no acute respiratory distress, healthy appearing, well developed, well nourished and good hygiene Head Head: Positive normocephalic and atraumatic; negative cyanosis of lips/distal nose Eyes Eye: Positive clear conjunctiva and nystagmus; negative scleral abnormality Ears Ear: Positive hard of hearing and external ears normal Nose Nose: Positive external nose normal and no nasal discharge; negative epistaxis Mouth Mouth: Positive post nasal drip, oral mucosae normal, no lesions, good dentition and crowded posterior oropharynx; negative malodorous breath or oral thrush present Mallampati Score: III: Mallampati Score Neck Neck: Positive normal visual inspection, full ROM and trachea midline; negative lymphadenopathy, JVD or tender Chest Wall Chest: Positive normal inspection of the chest and symmetric chest movement; negative increased A/P diameter Resp lung sounds: Positive good air exchange, wheezes, wheeze present on forced exhalation, normal expiratory time and normal respiratory effort; negative diminished, rhonchi, rales or dullness to percussion Cardio Cardiac: Positive regular rate, regular rhythm, S1 normal and S2 normal; negative murmur GI GI: Positive normal to inspection and normal bowel sounds; negative distended Genitourinary: Positive deferred Musc Musculoskeletal: Positive steady gait and ROM normal; negative kyphosis or scoliosis Skin Pulmonary Skin Exam: Negative rash, lesion, ulcers, erythema, scaly or dermal atrophy Pulses Pulse: Yes pulses normal x4 extremities Extremities Extremities: Yes capillary refill normal, No clubbing, No cyanosis, No edema Neuro Neurologic: Yes conversant, Yes no focal neuro deficits, Yes normal concentration, Yes understands questions, Yes cooperative, Yes normal cognition, Yes normal coordination Lymph Lymphatic: No lymphadenopathy, No tenderness, No cervical adenopathy, No axillary adenopathy Psych Appearance: Positive grossly normal, eye contact and well kempt Mental Status: Positive mental status grossly normal Mood: Positive congruent mood Affect: Positive normal affect Office Procedures Inhaler Training Inhaler Training Procedure performed by: Nallely Drummond Inhaler Training: Yes personally trained on inhaler use, sample provided, first dose given in the office, expresses understanding and continue to monitor Coding Level of Care Code Off vis,est,level 4 Diagnoses Severe persistent asthma with acute exacerbation J45.51 Asthma severity: severe Asthma complication type: with acute exacerbation Asthma persistence: persistent 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 PND (post-nasal drip) R09.82 05/06/18 1824 <Electronically signed by Nallely Drummond CORPORATE PILOTJosepC> Date Nallely Drummond CORPORATE PILOT-C Cosigner Signature: Date (if applicable) CC: Domonique Akins DO SCREENING MAMM (CAD), Observed: 02/10/2018 Status: F Source: [place] 1:02 PM [facility] REPOSITORY [facility] Imaging Services [address] [place] [address] SCREENING MAMM (CAD), BILAT MR#: [id number] Acct: [id number] Name: RONDA LARA Rep #: [id number] : 1945 F 72 From: Anand Dumont MD PCP: Domonique Akins DO Status: REG CLI Study: SCREENING MAMM (CAD), BILAT Date of Exam: 02/10/18 Exam# [id number] Ordering Dr: Domonique Akins DO MAMMOGRAPHY - BILATERAL SCREENING REASON FOR EXAM: Female, 72 years old. Routine annual screening examination. PERTINENT HISTORY: Non-contributory. TECHNIQUE: Digital bilateral breast chritsa (3D mammographic acquisition) in the CC and MLO projections. 2-D mediolateral oblique (MLO) and craniocaudad (CC) views of both breasts were obtained. CAD: Full Field Digital Mammography with Computer Added Detection was performed. COMPARISON: Comparison is made with prior study dated January 18, 2017. Comparison is also made with prior ultrasound of the right breast dated January 20, 2017. FINDINGS: Breast Composition: The breasts are heterogeneously dense, which may obscure small masses. There are no dominant masses or suspicious calcifications. Stable 1 cm well-defined nodular density medial aspect of the right breast. No other significant abnormalities are identified. There has been no significant change since the prior study. BI/SCREENING MAMM (CAD), BILAT IMPRESSION: Stable bilateral screening mammogram. Yearly follow-up mammogram recommended. (A) ASSESSMENT CATEGORY: BIRADS Category 2: Benign. A letter regarding these results will be sent to the patient by the facility within 30 days. Approximately 10% of breast cancers are not detected by mammography. A normal mammogram should not delay biopsy of a clinically suspicious abnormality. [id number] Electronically Signed: Anand Dumont MD at 14:39 EDT Tel [phone], Service support , CC: Domonique Akins DO Family Services Coordinator: Signed Bhavya Romeo [facility] Collected: 01/14/2018 Status: F Source: [place] DNA BY PCR 2:02 PM [facility] REPOSITORY Order Comment: Order Date: 01/14/18 Order Info: [id number] - MRSAD TYPE CODE TESTS RESULT OUT OF RANGE REFERENCE UNITS LAB L8200.1100 Negative Normal MRSA Negative RESULT Performed By: #### L8200.1000 #### [facility] [address] [facility] [facility] [place], [address] HEMOGLOBIN A1C Collected: 01/06/2018 Status: F Source: [place] 7:23 AM [facility] REPOSITORY Order Comment: PLEASE COPY DR CHAMORRO @ [id number] TYPE CODE TESTS RESULT OUT OF RANGE REFERENCE UNITS LAB L501.9985 4.2-6.3 % Normal HGB A1C 5.6 Performed By: #### L501.9985 #### [facility] [address] [facility] [place], [address] COMPREHENSIVE METABOLIC Collected: 01/06/2018 Status: F Source: [place] PROFIL 7:23 AM [facility] REPOSITORY Order Comment: PLEASE COPY DR CHAMORRO @ [id number] TYPE CODE TESTS RESULT OUT OF RANGE REFERENCE UNITS LAB L501.0100 74-106 mg/dL Normal GLU 85 Result Comment: Please note revised GLUCOSE reference range effective 2017. LAB L501.1000 7-18 mg/dL High BUN 26 LAB L501.1100 0.55-1.02 mg/dL Normal CREAT,SERUM 0.78 Result Comment: The validity of the calculated GFR AND GFRAA in patients over 70 years has not been determined. Clinical correlation is essential. LAB L501.1110 >60 mL/min Normal EST GFR 77 Result Comment: Non- GFR Calc LAB L501.1115 >60 mL/min Normal EST GFR - AA 93 Result Comment: GFR Calc LAB L501.1300 10-20 RATIO High BUN/CRE 33.4 LAB L501.1500 6.4-8.2 g/dL T Normal PROT 6.6 LAB L501.1800 3.2-5.0 g/dL Normal ALB 3.3 LAB L501.1950 2.2-4.2 g/dL Normal GLOB 3.3 LAB L501.2000 0.9-2.4 RATIO Normal A/G 1.0 LAB L501.2200 8.5-10.1 mg/dL Low CA 8.2 LAB L501.4100 15-37 U/L Low AST 14 LAB L501.4305 45-117 U/L Normal ALK P 61 LAB L501.4405 13-56 U/L Normal ALT 22 Result Comment: Please note revised ALT reference range effective 2017. LAB L501.4600 0.20-1.00 mg/dL Normal T BILI 0.40 LAB L501.5300 136-145 mmol/L Normal NA 143 LAB L501.5600 3.5-5.1 mmol/L Normal K 4.2 LAB L501.5900 98-107 mmol/L High CL 111 LAB L501.6100 21.0-32.0 mmol/L Normal CO2 23.0 LAB L501.6200 5-15 Normal GAP 9 Performed By: #### L500.4050, L500.4100 #### [facility] [address] [place], [address] LIPID PROFILE Collected: 01/06/2018 Status: F Source: [place] 7:23 AM [facility] REPOSITORY Order Comment: PLEASE COPY DR CHAMORRO @ [id number] TYPE CODE TESTS RESULT OUT OF RANGE REFERENCE UNITS LAB L501.4900 200 mg/dL Normal CHOL 159 Result Comment: <200 mg/dL Desirable 200-240 mg/dL Borderline >240 mg/dL High Risk LAB L501.5000 mg/dL Normal TRIG 107 Result Comment: The drugs N-Acetylcysteine and Metamizole may falsely depress this assay. Serum Triglycerides Reference Interval Normal <150 mg/dL Borderline high 150 - 199 mg/dL High 200 - 499 mg/dL Very High > or = 500 mg/dL LAB L501.6400 mg/dL Normal HDL 68 Result Comment: The drugs N-Acetylcysteine and Metamizole may falsely depress this assay. Reference Range HDL <40 mg/dL Low HDL Cholesterol HDL >or= 60 mg/dL High HDL Cholesterol LAB L501.6500 0-130 mg/dL Normal LDL 70 LAB L501.6600 5-40 mg/dL Normal VLDL 21 Performed By: #### L500.4050, L500.4100 #### [facility] [address], [address] CBC W/DIFF, AUTOMATED Collected: 01/06/2018 Status: F Source: [place] 7:23 AM [facility] REPOSITORY Order Comment: PLEASE COPY DR CHAMORRO @ [id number] TYPE CODE TESTS RESULT OUT OF RANGE REFERENCE UNITS LAB L100.1000 4.4-11.0 K/mm3 Normal WBC 7.3 LAB L100.1200 4.2-5.4 M/mm3 Normal RBC 4.67 LAB L100.1300 12.0-15.0 g/dl Normal HGB 14.8 LAB L100.1400 37-47 % Normal HCT 45.4 LAB L100.1500 81-99 fL Normal MCV 97.2 LAB L100.1600 27.0-32.0 pg Normal MCH 31.7 LAB L100.1700 32-36 g/gl Normal MCHC 32.6 LAB L100.1810 11.6-14.6 % High RDW CV 15.8 LAB L100.1820 35.1-43.9 fl High RDW SD 55.9 LAB L100.1900 150-450 K/mm3 Normal PLT 172 LAB L100.2000 6.2-12.0 fl Normal MPV 11.5 LAB L100.2100 47-70 % Normal NEUT% 62.5 LAB L100.2200 19-41 % Normal LY% 25.6 LAB L100.2300 0-10 % High MONO% 10.7 LAB L100.2400 0-5 % Normal EO% 0.5 LAB L100.2500 0-1 % Normal BASO% 0.3 LAB L100.2550 0.0-0.9 % Normal IM GRAN % 0.400 Result Comment: IG% - Immature Granulocytes (promyelocytes, myelocytes and metamyelocytes) > 1% indicates that a LEFT SHIFT is Present. LAB L100.2620 2.0-7.7 X10 3/uL Normal Absolute Neut 4.6 LAB L100.2720 0.83-4.51 X10 3/ul Normal Absolute Lymph 1.87 Performed By: #### L100.0100 #### [facility] [facility] [place], [address] PULMONARY VISIT REPORT Observed: 10/28/2017 Status: F Source: [place] 12:45 PM [facility] REPOSITORY Pulmonary Medicine of [address] [place] [address] OFFICE VISIT Date of Service: 10/28/17 MR#: [id number] Acct: [id number] Name: RONDA LARA Rep #: [id number] : 1945 Provider: Carlitos Rankin MD Age/Sex: 71/F Location: [facility] Status: Signed Assessment AND Plan 1. Severe persistent asthma with acute exacerbation J45.51; J45.51; J45.51 Plan Patient appears to be responding to therapy appropriately. Patient has completed 5 days of antibiotics and likely does not require subsequent doses. This was complicated by a vaginal yeast infection, but patient appears to be responding to that therapy. Did discuss with patient about the weaning of her steroids. Patient will be down to 10 mg as previously planned. Patient will then come down in a stepwise fashion with the goal of being off of steroids by next visit. Patient can continue with her Nucala therapy as previously prescribed. Will check a CBC with differential to see if eosinophils are continued to be suppressed off of steroid therapy at the next visit. Obtain CBC prior to next visit. Wean steroids. No further antibiotics. Orders Orders: 2. 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 Eosinophils at last draw were below 2%. Patient is currently on a prednisone burst secondary to an acute exacerbation, but the plan would be to wean off of p.o. steroid therapy and be down to Advair by the next visit. And will attempt to decrease Advair therapy if possible. Patient should continue with Nucala therapy as steroids do not provide interaction. Wean steroids as prescribed. Continue Nucala. CBC prior to next visit. 3. Yeast infection of the vagina B37.3 Plan Patient with complications to antibiotic therapy with the development of a vaginal yeast infection. Patient has been using [id number]-[id number] Monistat and fluconazole with significant improvement in overall condition. Will defer to PCP for further management. Patient likely does not require further antibiotic therapy from a pulmonary perspective, which should allow for resolution of yeast infection. Management per PCP. Plan Detail Other Medications Discontinued: azithromycin Discontinued Reason: Order [id number] mg PO QDAY Carlitos Rankin MD rigoberto levofloxacin (Levaquin) Discontinued Reason: B750 mg PO Q24H 7 days Background Daemon y Stop Date Follow Up 3 Months ([facility]) HPI 3 M FU: Details: MRSA on thigh - drained twice - back to normal. improving. completed 5 days of antibiotics. yeast improving. on 20 mg prednisone - Patient is a 71-year-old female, well-known to me, who presented to our office approximately 1 week ago with signs of an asthma exacerbation. At that time, patient had a chest x-ray showing a possible early infiltrate and was initiated on steroid and antibiotic therapy. Patient reports complications with yeast infection associated with the antibiotics, but has completed a total of 5 days of antibiotics. Patient called her PCP and was recently placed on fluconazole and was taking Monistat [id number]. Patient reports significant improvement in all symptoms compared to previous. Patient states her albuterol use is down from its peak. Patient is bringing up clear sputum at this time. Patient continues to have some dyspnea on exertion, but feels this is much improved compared to previous. Patient is currently on 20 mg of prednisone and is tolerating this well. Patient does report that she has been seen by surgery twice in the last 2 months secondary to MRSA abscess in her inner thigh. Patient states that she feels that she is on the mend from this condition. Patient does not believe that this had any bearing on her respiratory status. Intake Vital Signs10/28/17 Height 5 ft 1 in 10/28/17 Weight: 61.689 kg Intake Visit Reasons: 3 M FU Allergies Penicillins Allergy (Verified 10/21/17 11:06) Hives Sulfa (Sulfonamide Antibiotics) Allergy (Verified 10/21/17 11:06) Rash Medications Albuterol Aerosols [Ventolin Aerosols] 2.5 mg INHALATION Q6H PRN PRN 06/25/15 [History Confirmed 10/21/17] Amlodipine [Norvasc] 5 mg PO DAILY 06/25/15 [History Confirmed 10/21/17] Cholecalciferol (VIT D3) [Vitamin D] 2,000 unit PO DAILY 06/25/15 [History Confirmed 10/21/17] Estradiol [Estrace] 0.5 mg PO DAILY 06/25/15 [History Confirmed 10/21/17] Fluticasone/Salmeterol [Advair 500/50 Mcg Diskus] 1 puff INHALATION BID 06/25/15 [History Confirmed 10/21/17] Levalbuterol HCl [Xopenex Aerosols] 0.63 mg INHALATION Q6H PRN PRN 06/25/15 [History Confirmed 10/21/17] Lisinopril [Zestril] 5 mg PO DAILY 06/25/15 [History Confirmed 10/21/17] Hanna-3 Fatty Acids/Fish Oil [Fish Oil 1,000 mg Capsule] 1 ea PO DAILY 06/25/15 [History Confirmed 10/21/17] Omeprazole [Prilosec] 20 mg PO DAILY 06/25/15 [History Confirmed 10/21/17] PredniSONE 6 mg PO DAILY 06/25/15 [History Confirmed 10/21/17] Ranitidine [Zantac] 150 mg PO DAILY 06/25/15 [History Confirmed 10/21/17] Solifenacin Succinate [Vesicare] 5 mg PO DAILY 06/25/15 [History Confirmed 10/21/17] MedroxyPROGESTERone [Cycrin,Provera] 2.5 mg PO DAILY 11/09/16 [History Confirmed 10/21/17] Mepolizumab [Nucala] 100 mg SQ 09/03/17 [History Confirmed 10/21/17] albuterol sulfate HFA 90 mcg/actuation aerosol inhaler 2 puff INHALATION Q4H #18 g 10/21/17 [Rx Confirmed 10/21/17] levalbuterol HFA 45 mcg/actuation aerosol inhaler 2 inh INHALATION Q6H #15 g 10/21/17 [Rx Confirmed 10/21/17] prednisone 10 mg tablet 10 mg PO QDAY #30 tab 10/21/17 [Rx Confirmed 10/21/17] miconazole nitrate 200 mg vaginal suppository 200 mg VAGINAL QHS 3 Days #3 supp 10/26/17 [Rx] Review of Systems Const CONSTITUTIONAL: Negative anorexia, body ache, chills, daytime sleepiness, fever(s), night sweats, oral thrush, stops breathing during sleep, weight loss, sleeping in chair, fatigue, weight loss, weight gain, frequent colds, seasonal allergies, other, headache(s) or orthopnea EETM Ear Nose Throat Mouth: Positive hearing normal, hoarseness, dry mouth in morning, nasal congestion, nasal discharge and sinus pressure; negative hard of hearing, change in vision, itchy eyes, eye pain, swallowing Difficulty, ear pain, nose bleed, headache(s), mouth pain, post nasal drip, sinus pain, sore throat or other Cardio Cardiovascular: Positive palpitations; negative chest pain, chest pain at rest, chest pain with activity, irregular heart rhythm, edema, shortness of breath when lying down, murmur or other Resp Respiratory: Positive as per HPI, shortness of breath (getting better ) shortness of breath: Positive with activity and while talking, wheezing, chest congestion, cough and increase use of rescue inhalers; negative pain with cough, chest tightness, pain on inspiration, inhalers, snoring, apnea or other Gastro Gastrointestional: Negative bloody stools, change in appetite, difficulty swallowing, reflux, hematemesis, melena stool, loose stool, constipation or other Genitourinary: Negative blood in urine, nocturia, pain with urination or other Musc Musculoskeletal: Positive back pain; negative body pain, neck pain or other Skin/Breast Skin/Breast: Negative dry skin, itching, rash, unusual bruising, breast lump or other Neuro Neurological: Negative restless legs, confusion, weakness or other Psych Psychocological: Negative abnormal sleep pattern, anxiety, thoughts of hurting self/others, hopelessness or other Lymph Lymphatic: Negative easy bleeding, easy bruising, swollen lymph nodes or other Exam Const Constitutional: Positive conversant, cooperative, in no acute respiratory distress, healthy appearing, well developed, well nourished and good hygiene Head Head: Positive normocephalic, atraumatic and maxillary sinus tenderness (Left); negative cyanosis of lips/distal nose or frontal sinus tenderness Eyes Eye: Positive clear conjunctiva; negative nystagmus, scleral abnormality or cataract present Ears Ear: Positive hearing normal and external ears normal; negative hard of hearing Nose Nose: Positive external nose normal, septum normal and clear nasal discharge; negative epistaxis or nasal polyp Mouth Mouth: Positive oral mucosae normal, no lesions, good dentition and posterior oropharynx is adequate; negative post nasal drip or oral thrush present Mallampati Score: II: Mallampati Score Neck Neck: Positive normal visual inspection, full ROM and trachea midline; negative lymphadenopathy, JVD or tender Chest Wall Chest: Positive normal inspection of the chest and symmetric chest movement; negative crepitus or tenderness Resp lung sounds: Positive good air exchange, normal expiratory time and wheeze present on forced exhalation; negative wheezes, rhonchi, rales or use of accessory muscles Cardio Cardiac: Positive regular rate, regular rhythm, S1 normal and S2 normal; negative murmur, rub or gallop GI GI: Positive normal to inspection and normal bowel sounds; negative distended, ascites or epigastric tenderness Genitourinary: Positive deferred Musc Musculoskeletal: Positive steady gait; negative using an assistive device for ambulation Skin Pulmonary Skin Exam: Positive intact and dermal atrophy; negative rash, lesion, ulcers or erythema Pulses Pulse: Positive radial pulses present Extremities Extremities: Positive capillary refill normal; negative clubbing, cyanosis or edema Neuro Neurologic: Positive conversant, no focal neuro deficits, cooperative, normal cognition, normal coordination and normal concentration Lymph Lymphatic: Negative lymphadenopathy Psych Appearance: Positive grossly normal Mental Status: Positive mental status grossly normal Mood: Positive congruent mood Affect: Positive normal affect [facility] Medical History Cough (Acute) Vasculitis (Acute) Eosinophilia (Chronic) Diverticulitis (Chronic) Depression (Chronic) GERD (gastroesophageal reflux disease) (Chronic) Hyperlipemia (Chronic) Palpitations (Acute) Churg-Renate syndrome (Chronic) Aortic valve disease (Chronic) Trochanteric bursitis (Acute) Sciatica (Acute) Seasonal allergies (Chronic) Right knee pain (Chronic) Left knee pain (Chronic) Osteoarthritis (Chronic) Physical deconditioning (Chronic) Abscess (Acute) Cellulitis (Acute) Neuropathy (Chronic) Hypertension (Chronic) Asthma (Chronic) Edema, lower extremity (Chronic) Peripheral vascular disease (Chronic) 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) Bilateral lower extremity edema (Chronic) Traumatic open wound of left lower leg (Acute) Peripheral vascular occlusive disease (Chronic) Venous insufficiency (chronic) (peripheral) (Chronic) 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) Swelling of lower extremity (Chronic) Pain In Left Leg (Chronic) Pain In Right Leg (Chronic) Churg-Renate syndrome with lung involvement (Chronic) Social History Smoking Status: Never smoker second hand exposure: No alcohol intake: current alcohol intake frequency: a few times a month Alcohol type: wine substance use type: does not use 10/28/17 1245 <Electronically signed by Carlitos Rankin MD> Date Carlitos Rankin MD Cosigner Signature: Date (if applicable) CC: Domonique Akins DO PULMONARY VISIT REPORT Observed: 10/21/2017 Status: F Source: [place] 6:08 PM [facility] REPOSITORY Pulmonary Medicine of [address] [place] [address] OFFICE VISIT Date of Service: 10/21/17 MR#: [id number] Acct: [id number] Name: RONDA LARA Rep #: [id number] : 1945 Provider: Nallely Drummond Age/Sex: 71/F Location: [facility] Status: Signed with Addenda ADDENDUM by Nallely Drummond on 10/21/17 at 1808 Addendum entered and electronically signed by DENNIS Castorena 10/21/17 18:08: Chest x-ray looks like early pneumonia, given the patient's symptoms the patient will be treated for pneumonia. She has been called and notified of the chest x-ray results. She did take the 2 azithromycin tablets tonight. 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 She has been advised to report to the emergency department if her symptoms worsen over the weekend. 10/21/17 1808 <Electronically signed by Nallely COLLINS> Date Nallely Drummond cc: Domonique Fast DO * Signed Assessment AND Plan 1. Cough R05 Status Acute Plan Patient's cough is possibly the result of a viral insult. The patient does have significant rhonchi in the left posterior base, this could be consistent with pneumonia. The patient has not reported any fevers. The patient is agreeable to obtaining a chest x-ray today to rule out pneumonia. She is also agreeable to providing a sputum culture prior to initiation of any antibiotics. I do not believe the 30 mg daily dosing of prednisone is quite enough for the patient I have increased her to a taper that consist of 40 mg for 3 days, followed by 30 mg for 3 days, then 20 mg for 3 days, and finally 10 mg for 3 days. The patient has been on long-term prednisone and there is a concern for the speed of the taper. After the patient completes the 10 mg she will drop down to 5 mg for 3 days and at that point will attempt to drop down to 2 mg which she was on previous to this exacerbation. The patient has an upcoming visit and will keep that to follow-up and make sure she is on the mend. She has been advised to call the office on Wednesday with the report on how she is feeling. Given that the weekend and holiday are upcoming, the patient will be treated with a Z-Luis in the meantime. Once the results of the sputum can be evaluated, antibiotic changes will be made if necessary. Orders Orders: Plan Detail Other Orders Orders: Other Medications New: prednisone take 4 tabs for three days, then 3 tabs for three days, then 10 mg PO QDAY 2 tabs for three days, then 1 tab for 3 days HPI Shortness of breath: Chief Complaint: cough HPI Comments Details: Patient presents to the office today for an acute visit regarding cough and shortness of breath. The patient reports that 5 days ago she began to notice increasing shortness of breath, wheezing and cough, as well as a sore throat and runny nose. Her cough is dry but persistent. It is also hard. She feels as though she has chest congestion. She last received a new collagen injection on October 08. She is compliant with Advair twice daily. She had not used her rescue inhaler since 2015 prior to this illness, but has been using her Xopenex twice daily since Wednesday. She was seen by her PCP physician 2 days ago and was placed on 30 mg of prednisone daily. She does report that she originally presented with flulike symptoms but was not treated with Tamiflu, and has not received any antibiotics. She denies any fever or chills. She denies any hemoptysis. She does report that occasionally she is able to expectorate thick yellow sputum, typically occurs in the morning. She also states that the cough was so persistent last night that she received very little sleep. Intake Vital Signs10/21/17 Height 5 ft 1 in 10/21/17 Weight: 136 lb Intake Visit Reasons: Shortness of breath Accompanied by: Self Allergies Penicillins Allergy (Verified 10/21/17 11:06) Hives Sulfa (Sulfonamide Antibiotics) Allergy (Verified 10/21/17 11:06) Rash Medications Albuterol Aerosols [Ventolin Aerosols] 2.5 mg INHALATION Q6H PRN PRN 06/25/15 [History Confirmed 10/21/17] Amlodipine [Norvasc] 5 mg PO DAILY 06/25/15 [History Confirmed 10/21/17] Cholecalciferol (VIT D3) [Vitamin D] 2,000 unit PO DAILY 06/25/15 [History Confirmed 10/21/17] Estradiol [Estrace] 0.5 mg PO DAILY 06/25/15 [History Confirmed 10/21/17] Fluticasone/Salmeterol [Advair 500/50 Mcg Diskus] 1 puff INHALATION BID 06/25/15 [History Confirmed 10/21/17] Levalbuterol HCl [Xopenex Aerosols] 0.63 mg INHALATION Q6H PRN PRN 06/25/15 [History Confirmed 10/21/17] Lisinopril [Zestril] 5 mg PO DAILY 06/25/15 [History Confirmed 10/21/17] Hanna-3 Fatty Acids/Fish Oil [Fish Oil 1,000 mg Capsule] 1 ea PO DAILY 06/25/15 [History Confirmed 10/21/17] Omeprazole [Prilosec] 20 mg PO DAILY 06/25/15 [History Confirmed 10/21/17] PredniSONE 6 mg PO DAILY 06/25/15 [History Confirmed 10/21/17] Ranitidine [Zantac] 150 mg PO DAILY 06/25/15 [History Confirmed 10/21/17] Solifenacin Succinate [Vesicare] 5 mg PO DAILY 06/25/15 [History Confirmed 10/21/17] MedroxyPROGESTERone [Cycrin,Provera] 2.5 mg PO DAILY 11/09/16 [History Confirmed 10/21/17] Mepolizumab [Nucala] 100 mg SQ 09/03/17 [History Confirmed 10/21/17] azithromycin 250 mg tablet 250 mg PO QDAY #6 tab 10/21/17 [Rx Confirmed 10/21/17] levalbuterol HFA 45 mcg/actuation aerosol inhaler 2 inh INHALATION Q6H #15 g 10/21/17 [Rx Confirmed 10/21/17] prednisone 10 mg tablet 10 mg PO QDAY #30 tab 10/21/17 [Rx Confirmed 10/21/17] Review of Systems Const CONSTITUTIONAL: Positive chills, sleeping in chair and other (cannot lie flat); negative anorexia, body ache, daytime sleepiness, fever(s), night sweats, oral thrush, stops breathing during sleep, weight loss, fatigue, weight loss, weight gain, frequent colds, seasonal allergies, headache(s) or orthopnea EETM Ear Nose Throat Mouth: Positive hard of hearing, hoarseness, nasal discharge and other (dry mouth); negative hearing normal, dry mouth in morning, change in vision, itchy eyes, eye pain, swallowing Difficulty, ear pain, nose bleed, headache(s), mouth pain, nasal congestion, post nasal drip, sinus pain, sinus pressure or sore throat Cardio Cardiovascular: Negative chest pain, chest pain at rest, chest pain with activity, irregular heart rhythm, edema, shortness of breath when lying down, palpitations, murmur or other Resp Respiratory: Positive as per HPI, shortness of breath, wheezing and cough (cloudy to yellow) cough: Positive productive; negative pain with cough, chest congestion, chest tightness, pain on inspiration, inhalers, increase use of rescue inhalers, snoring, apnea or other Gastro Gastrointestional: Negative bloody stools, change in appetite, difficulty swallowing, reflux, hematemesis, melena stool, loose stool, constipation or other Genitourinary: Positive nocturia; negative blood in urine, pain with urination or other Musc Musculoskeletal: Negative body pain, back pain, neck pain or other Skin/Breast Skin/Breast: Negative dry skin, itching, rash, unusual bruising, breast lump or other Neuro Neurological: Negative restless legs, confusion, weakness or other Psych Psychocological: Positive abnormal sleep pattern; negative anxiety, thoughts of hurting self/others, hopelessness or other Lymph Lymphatic: Positive easy bruising; negative easy bleeding, swollen lymph nodes or other Exam Const Constitutional: Positive conversant, cooperative, well developed, well nourished, good hygiene, ill appearing and in no acute respiratory distress Head Head: Positive normocephalic and atraumatic; negative cyanosis of lips/distal nose Eyes Eye: Positive clear conjunctiva and nystagmus; negative scleral abnormality Ears Ear: Positive hard of hearing; negative hearing normal Nose Nose: Positive no nasal discharge and external nose normal; negative epistaxis Mouth Mouth: Positive oral mucosae normal, no lesions, good dentition and posterior oropharynx is adequate; negative post nasal drip, malodorous breath or oral thrush present Mallampati Score: II: Mallampati Score Neck Neck: Positive normal visual inspection, full ROM and trachea midline; negative lymphadenopathy, JVD or tender Chest Wall Chest: Positive normal inspection of the chest and symmetric chest movement; negative increased A/P diameter Resp lung sounds: Positive rhonchi (base) rhonchi: Positive left, diminished, normal expiratory time and increased work of breathing; negative rales, wheezes, wheeze present on forced exhalation, dullness to percussion or use of accessory muscles Cardio Cardiac: Positive regular rate, regular rhythm, S1 normal and S2 normal; negative murmur GI GI: Positive normal to inspection and normal bowel sounds; negative distended Genitourinary: Positive deferred Musc Musculoskeletal: Positive steady gait and ROM normal; negative kyphosis or scoliosis Skin Pulmonary Skin Exam: Positive intact; negative rash, lesion or ulcers Pulses Pulse: Positive pulses normal x4 extremities Extremities Extremities: Positive capillary refill normal; negative clubbing, cyanosis or edema Neuro Neurologic: Positive conversant, no focal neuro deficits, cooperative, normal cognition, normal coordination, normal concentration and understands questions; negative tremor Lymph Lymphatic: Negative lymphadenopathy, tenderness, cervical adenopathy or axillary adenopathy Psych Appearance: Positive grossly normal, eye contact and well kempt Mental Status: Positive mental status grossly normal Mood: Positive congruent mood Affect: Positive normal affect [facility] Medical History Vasculitis (Acute) Eosinophilia (Chronic) Diverticulitis (Chronic) Depression (Chronic) GERD (gastroesophageal reflux disease) (Chronic) Hyperlipemia (Chronic) Palpitations (Acute) Churg-Renate syndrome (Chronic) Aortic valve disease (Chronic) Trochanteric bursitis (Acute) Sciatica (Acute) Seasonal allergies (Chronic) Right knee pain (Chronic) Left knee pain (Chronic) Osteoarthritis (Chronic) Physical deconditioning (Chronic) Abscess (Acute) Cellulitis (Acute) Neuropathy (Chronic) Hypertension (Chronic) Asthma (Chronic) Edema, lower extremity (Chronic) Peripheral vascular disease (Chronic) 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) Bilateral lower extremity edema (Chronic) Traumatic open wound of left lower leg (Acute) Peripheral vascular occlusive disease (Chronic) Venous insufficiency (chronic) (peripheral) (Chronic) 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) Swelling of lower extremity (Chronic) Pain In Left Leg (Chronic) Pain In Right Leg (Chronic) Churg-Renate syndrome with lung involvement (Chronic) Social History Smoking Status: Never smoker second hand exposure: No alcohol intake: current alcohol intake frequency: a few times a month Alcohol type: wine substance use type: does not use 10/21/17 3836 <Electronically signed by Nallely MALINC> Date Nallely COLLINS Cosigner Signature: Date (if applicable) CC: Domonique Akins DO Observed: 10/21/2017 Status: F Source: [place] CULTURE, SPUT[place] 2:53 PM [facility] REPOSITORY Gram Stain Acceptable Specimen? Yes (<25 Epithelial cells per/lpf) Gram Stain 3+ White Blood Cells 2+ Gram positive diplococci No Epithelial cells Resp. Culture Mixed normal respiratory [place]. No Haemophilus, Streptococcus pneumoniae, beta-hemolytic Streptococcus or Staphylococcus aureus isolated. Performed By: #### M100.0800 #### [facility] [address] [place], [address] CHEST PA AND LATERAL Observed: 10/21/2017 Status: F Source: [place] 12:16 PM [facility] REPOSITORY [facility] Imaging Services [address] [place] [address] Chest PA and Lateral MR#: [id number] Acct: [id number] Name: RONDA LARA Rep #: [id number] : 1945 F 71 From: Lenard Santana MD PCP: Domonique Akins DO Status: REG CLI Study: Chest PA and Lateral Date of Exam: 10/21/17 Exam# [id number] Ordering Dr: Nallely Drummond STUDY: X-RAY CHEST REASON FOR EXAM: Female, 71 years old. Cough. TECHNIQUE: Frontal and lateral views of the chest. COMPARISON: March 31, 2016 FINDINGS: There is stable hyperexpansion. There is a mild diffuse interstitial pattern which is slightly more prominent than on the prior study. There is linear opacities at the left base compatible with atelectasis. Early/developing pneumonia cannot be excluded. There is no demonstrated pleural abnormality. There is stable borderline cardiomegaly. Normal mediastinum and praveen. Normal visualized pulmonary arteries. Normal visualized aortic arch and descending thoracic aorta. Normal visualized thoracic spine. Normal visualized ribs, clavicles, and shoulders. There is no demonstrated abnormality of the visualized soft tissue structures of the upper abdomen. RAD/Chest PA and Lateral IMPRESSION: Stable borderline cardiomegaly. Mild diffuse interstitial pattern which is slightly more prominent than on the prior study. Patchy opacity at the left base most compatible with atelectasis. However, early/developing pneumonia cannot be excluded. If the patient remains symptomatic, a repeat chest x-ray would be appropriate for this finding. Electronically Signed: Lenard Santana MD at 17:56 EST , Service support , CC: Nallely Drummond; Domonique Akins DO Family Services Coordinator: Signed ALLERGIES ALLERGIES DATE TYPE / CODE NAME / CODE REACTION SEVERITY SOURCE 09/23/2018 Drug Penicillins/ Hives Unknown [facility] Allergy/416 [id number](R Hospital 589463(SNOM XNORM) Repository ED CT) 09/23/2018 Drug Sulfa Rash Unknown [facility] Allergy/416 (Sulfonamide Hospital 509293(SN Antibiotics) Repository ED CT) /[id number]( RXNORM) 09/23/2018 Drug gabapentin/F CONSTIPATION [place] [facility] Allergy/416 [id number](RX Hospital 078992(SNOM NORM) Repository ED CT) ENCOUNTERS ENCOUNTERS ADMIT/DISCHARGE ACCOUNT ADMITTING ENCOUNTER LOCATION SOURCE NUMBER CLASS 09/23/2018 [id number] Ambulatory [place] 6 [facility] 09/19/2018/ [id number] Ambulatory BMSBuilding:B [place] 8 2 [facility] Repository 09/09/2018 [id number] [place] 5 [facility] ing:MEDOUT Repository 09/08/2018 [id number] Ambulatory BMSBuilding:B [place] 4 MS.[facility] Repository 09/07/2018 [id number] Ambulatory [place] 3 [facility] ing:US Repository 09/07/2018 [id number] Ambulatory BMSBuilding:B [place] 0 MS.[facility] Hospital Repository 09/04/2018 [id number] Ambulatory [place] 4 [facility] ing:WC Repository 09/02/2018/ [id number] Ambulatory BMSBuilding:B [place] 8 0 [facility] Hospital Repository 08/23/2018/ [id number] Ambulatory BMSBuilding:B [place] 8 3 [facility] Hospital Repository 08/19/2018/ [id number] Ambulatory [place] 8 7 [facility] Repository 08/16/2018/ [id number] Ambulatory BMSBuilding:B [place] 8 2 [facility] Hospital Repository 08/12/2018 [id number] Ambulatory [place] 3 [facility] Hospital ing:MEDOUTP Repository 08/11/2018 [id number] Ambulatory [place] 5 [facility] Hospital ing:OPUS Repository 08/09/2018 [id number] Ambulatory [place] 6 [facility] Hospital ing:LABSPEC Repository 08/04/2018 [id number] Ambulatory [place] 7 [facility] Hospital ing:PSN Repository 08/04/2018 [id number] Ambulatory BMSBuilding:W [place] 2 [facility] Hospital Repository 08/01/2018/ [id number] Ambulatory BMSBuilding:B [place] 8 1 [facility] Hospital Repository 08/01/2018 [id number] Ambulatory [place] 0 [facility] Hospital ing:HPRAD Repository 08/01/2018/ [id number] Ambulatory BMSBuilding:B [place] 8 8 [facility] Repository 07/25/2018 [id number] Ambulatory [place] 9 [facility] Hospital ing:MTRAD Repository 07/22/2018/ [id number] Ambulatory [place] 8 6 [facility] Hospital ing:WC Repository 07/21/2018 [id number] Ambulatory [place] 7 [facility] Hospital ing:LAB Repository 07/15/2018 [id number] Ambulatory [place] 0 [facility] ing:MEDOUTP Repository 07/01/2018 [id number] Ambulatory [place] 2 [facility] Hospital ing:US Repository 06/17/2018 [id number] Ambulatory [place] 7 [facility] Hospital ing:MEDOUTP Repository 05/20/2018 [id number] Ambulatory [place] 4 [facility] Hospital ing:MEDOUTP Repository 05/19/2018/ [id number] Ambulatory BMSBuilding:B [place] 8 8 MS.[facility] Hospital Repository 05/10/2018 [id number] Ambulatory [place] 8 [facility] ing:MTRAD Repository 05/06/2018/ [id number] Ambulatory BMSBuilding:B [place] 8 6 MS.[facility] Hospital Repository 04/22/2018 [id number] Ambulatory [place] 0 [facility] ing:MEDOUTP Repository 03/25/2018 [id number] Ambulatory [place] 1 [facility] Hospital ing:MEDOUTP Repository 03/24/2018 [id number] Ambulatory [place] 8 [facility] Hospital ing:[facility] Repository 02/25/2018 [id number] Ambulatory [place] 7 [facility] Hospital ing:MEDOUTP Repository 02/10/2018 [id number] Ambulatory [place] 7 [facility] Hospital ing:OPBI Repository 02/02/2018 [id number] Ambulatory BMSBuilding:B [place] 8 MS.[facility] Hospital Repository 01/28/2018 [id number] Ambulatory [place] 9 [facility] Hospital ing:MEDOUTP Repository 01/14/2018 [id number] Ambulatory [place] 3 [facility] Hospital ing:LABSPEC Repository 01/06/2018 [id number] Ambulatory [place] 5 [facility] Hospital ing:LAB Repository 12/31/2017 [id number] Ambulatory [place] 9 [facility] Hospital ing:MEDOUTP Repository 12/03/2017 [id number] Ambulatory [place] 8 [facility] ing:MEDOUTP Repository 11/05/2017 [id number] Ambulatory [place] 7 [facility] ing:MEDOUTP Repository 10/28/2017/ [id number] Ambulatory BMSBuilding:B [place] 8 9 [facility] Hospital Repository 10/21/2017 [id number] Ambulatory [place] 1 [facility] ing:RAD Repository 10/21/2017/ [id number] Ambulatory BMSBuilding:B [place] 7 2 [facility] Repository 10/21/2017 [id number] Ambulatory BMSBuilding:B [place] 6 [facility] Repository PAYERS PAYERS ENCOUNTER GUARANTOR PAYER SUBSCRIBER SOURCE 09/23/2018 RONDA Quinn [id number] Primary RONDA Quinn BRAINDOB: [place] GREG Insurance:MEDICARE [id number] [address]Ghs: (330) Number: Repository [phone] () [id number] Date:2018-09-23 09/23/2018 Secondary RONDA Quinn BRAINDOB: [place] Insurance:[facility] [id number] Number: Repository [id number] Date:5561-94-43GSWBO SENIOR SUPPLEMENT [address] [place] [address]JP: 09/23/2018 Tertiary NOT GIVENUNK [place] Insurance:SELF PAY [facility] Number: Effective Repository Date:2018-09-23 09/19/2018 RONDA Quinn [id number] Primary RONDA Quinn BRAINDOB: [place] GREG Insurance:MEDICARE [id number] [facility] [address]Byv: (330) Number: Repository [phone] (HP) [id number] Date:2018-09-09 09/19/2018 Secondary RONDA Quinn BRAINDOB: [place] Insurance:[facility] [id number] [facility] Number: Repository [id number] Date:4330-20-88UEMMZ SENIOR SUPPLEMENT [address] [address], [place] [address]IC: 09/19/2018 Tertiary NOT GIVENUNK [place] Insurance:SELF PAY [facility] Number: Effective Repository Date:2018-09-19 09/09/2018 JOSE Valverde Primary RONDA C BRAINDOB: [place] [id number] Insurance:MEDICARE [id number] Number: Repository [id number]: [phone]) [id number] () Date:2018-08-12 09/09/2018 Secondary RONDA C BRAINDOB: [place] Insurance:AETNA SR [id number] [facility] Number: Repository [id number] Date:4431-67-17GPYXZ SENIOR SUPPLEMENT [address] [address]FO[place], [place] [address]JC: 09/09/2018 Tertiary NOT GIVENUNK [place] Insurance:SELF PAY [facility] Number: Effective Repository Date:2018-08-12 09/08/2018 JOSE Valvedre Primary NOT GIVENUNK [place] [id number] Insurance:SELF PAY [place] Number: Effective Repository [id number]: 330) Date:2018-09-08 [phone] () 09/07/2018 JOSE H Primary RONDA C BRAINDOB: [place] [id number] Insurance:MEDICARE [id number] Number: Repository [id number]: [phone]) [id number] [phone] (HP) Date:2018-09-02 09/07/2018 Secondary RONDA C BRAINDOB: [place] Insurance:AETNA SR [id number] [facility] Number: Repository [id number] Date:7853-15-99TVQYT SENIOR SUPPLEMENT [address] [address], [place] [address]AN: 09/07/2018 Tertiary NOT GIVENUNK [place] Insurance:SELF PAY [facility]: Effective Repository Date:2018-09-02 09/07/2018 JOSE Valverde Primary RONDA uQinn BRAINDOB: [place] [id number] Insurance:MEDICARE [id number] Number: Repository [id number]: 330 [id number] [phone] () Date:2018-09-02 09/07/2018 Secondary RONDA C BRAINDOB: [place] Insurance:AETNA SR [id number] [facility] Number: Repository [id number] Date:0252-43-72PMDPS SENIOR SUPPLEMENT [address] [place] [address]AC: 09/07/2018 Tertiary NOT GIVENUNK [place] Insurance:SELF PAY [facility] Number: Effective Repository Date:2018-09-07 09/04/2018 JOSE Valverde Primary RONDA C BRAINDOB: [place] [id number] Insurance:MEDICARE [id number] Number: Repository [address]Qii: 330 [id number] [phone] () Date:2018-07-05 09/04/2018 Secondary RONDA C BRAINDOB: [place] Insurance:AETNA SR [id number] [facility] Number: Repository [id number] Date:3458-00-18HLADP [facility] SUPPLEMENT [address] [place] [address]AQ: 09/04/2018 Tertiary NOT GIVENUNK [place] Insurance:SELF PAY [facility] Number: Effective Repository Date:2018-08-25 09/02/2018 RONDA C [id number] Primary RONDA C BRAINDOB: [place] GREG Insurance:MEDICARE [id number] [facility] [address]Rin: (330) Number: Repository [phone] () [id number] Date:2018-08-23 09/02/2018 Secondary RONDA C BRAINDOB: [place] Insurance:AETNA SR [id number] [facility] SUPPLEMENT [facility] Number: Repository [id number] Date:2474-43-89PNGJQ SENIOR SUPPLEMENT [id number] [place] [address]CR: 09/02/2018 Tertiary NOT GIVENUNK [place] Insurance:SELF PAY [facility] Number: Effective Repository Date:2018-09-01 08/23/2018 JOSE Valverde Primary RONDA Quinn BRAINDOB: [place] [id number] Insurance:MEDICARE [id number] Number: Repository [id number]: [phone]) [id number] [phone] () Date:2018-08-16 08/23/2018 Secondary RONDA C BRAINDOB: [place] Insurance:AETNA SR [id number] Number: Repository [id number] Date:1800-75-23YMQYO SENIOR SUPPLEMENT [id number] [place] [address]RD: 08/23/2018 Tertiary NOT GIVENUNK [place] Insurance:SELF PAY [facility] Number: Effective Repository Date:2018-08-23 08/19/2018 JOSE Valverde Primary RONDA Quinn BRAINDOB: [place] [id number] Insurance:MEDICARE [id number] [place] Number: Repository [id number]: [phone]) [id number] [phone] () Date:2018-07-05 08/19/2018 Secondary RONDA C BRAINDOB: [place] Insurance:AETNA SR [id number] [facility] Number: Repository [id number] Date:2687-23-55IMWRN [facility] SUPPLEMENT [address] [place] [address]FC: 08/19/2018 Tertiary NOT GIVENUNK [place] Insurance:SELF PAY [facility] Number: Effective Repository Date:2018-07-25 08/16/2018 JOSE Valverde Primary RONDA Quinn BRAINDOB: [place] [id number] Insurance:MEDICARE [id number] [place] Number: Repository [id number]: [phone]) [id number] [phone] () Date:2018-05-10 08/16/2018 Secondary RONDA Quinn BRAINDOB: [place] Insurance:AETNA SR [id number] [facility] SUPPLEMENT [facility] Number: Repository [id number] Date:9251-86-09IQRAZ SENIOR SUPPLEMENT [address] [place] [address]AP: 08/16/2018 Tertiary NOT GIVENUNK [place] Insurance:SELF PAY [facility] Number: Effective Repository Date:2018-08-08 08/12/2018 JOSE Valverde Primary RONDA Quinn BRAINDOB: [place] [id number] Insurance:MEDICARE [id number] Number: Repository [id number]: 330 [id number] [phone] () Date:2018-07-15 08/12/2018 Secondary RONDA Quinn BRAINDOB: [place] Insurance:AETNA SR [id number] [facility] Number: Repository [id number] Date:5452-05-86JPHZF SENIOR SUPPLEMENT [id number] [place] [address]JI: 08/12/2018 Tertiary NOT GIVENUNK [place] Insurance:SELF PAY [facility] Number: Effective Repository Date:2018-07-15 08/11/2018 JOSE Valverde Primary RONDA Quinn BRAINDOB: [place] [id number] Insurance:MEDICARE [id number] [place] Number: Repository [id number]: [phone]) [id number] [phone] () Date:2018-08-09 08/11/2018 Secondary RONDA Kai BRAINDOB: [place] Insurance:AETNA SR [id number] [facility] SUPPLEMENT [facility] Number: Repository [id number] Date:0540-26-46AHQJX SENIOR SUPPLEMENT [address] [place] [address]HC: 08/11/2018 Tertiary NOT GIVENUNK [place] Insurance:SELF PAY [facility] Number: Effective Repository Date:2018-08-09 08/09/2018 JOSE Valverde Primary RONDA Quinn BRAINDOB: [place] [id number] Insurance:MEDICARE [id number] [facility] [place] Number: Repository [id number]: [phone]) [id number] [phone] () Date:2018-08-09 08/09/2018 Secondary RONDA C BRAINDOB: [place] Insurance:AETNA [id number] [facility] Number: Repository [id number] Date:3257-55-08GVBQJ SENIOR SUPPLEMENT [id number] [place] [address]RW: 08/09/2018 Tertiary NOT GIVENUNK [place] Insurance:SELF PAY [facility] Number: Effective Repository Date:2018-08-09 08/04/2018 JOSE Valverde Primary RONDA Quinn BRAINDOB: [place] [id number] Insurance:MEDICARE [id number] [facility] [place] Number: Repository [address]Qys: 330 [id number] [phone] () Date:2018-05-09 08/04/2018 Secondary RONDA C BRAINDOB: [place] Insurance:AETNA [id number] [facility] Number: Repository [id number] Date:7443-63-04UPOGG SENIOR SUPPLEMENT [id number] [place] [address]PM: 08/04/2018 Tertiary NOT GIVENUNK [place] Insurance:SELF PAY [facility] Number: Effective Repository Date:2018-05-09 08/04/2018 JOSE Valverde Primary RONDA Quinn BRAINDOB: [place] [id number] Insurance:MEDICARE [id number] [facility] [place] Number: Repository [id number]: ([phone]) [id number] [phone] () Date:2018-05-09 08/04/2018 Secondary RONDA C BRAINDOB: [place] Insurance:AETNA SR [id number] [facility] Number: Repository [id number] Date:1402-63-25YFKLI SENIOR SUPPLEMENT [id number] [place] [address]VB: 08/04/2018 Tertiary NOT GIVENUNK [place] Insurance:SELF PAY [facility] Number: Effective Repository Date:2018-08-04 08/01/2018 JOSE Valverde Primary RONDA C BRAINDOB: [place] [id number] Insurance:MEDICARE [id number] Number: Repository [id number]: [phone]) [id number] [phone] () Date:2018-07-28 08/01/2018 Secondary RONDA C BRAINDOB: [place] Insurance:AETNA SR [id number] [facility] Number: Repository [id number] Date:9679-05-77QYQIM SENIOR SUPPLEMENT [id number] [place] [address]GT: 08/01/2018 Tertiary NOT GIVENUNK [place] Insurance:SELF PAY [facility] Number: Effective Repository Date:2018-08-01 08/01/2018 JOSE Valverde Primary RONDA Quinn BRAINDOB: [place] [id number] Insurance:MEDICARE [id number] [place] Number: Repository [address]Kpn: 330 [id number] [phone] () Date:2018-08-01 08/01/2018 Secondary RONDA C BRAINDOB: [place] Insurance:AETNA SR [id number] [facility] Number: Repository [id number] Date:0898-64-19DOSFB SENIOR SUPPLEMENT INSPO [facility] [id number] [place] [address]BN: 08/01/2018 Tertiary NOT GIVENUNK [place] Insurance:SELF PAY [facility] Number: Effective Repository Date:2018-08-01 08/01/2018 JOSE Valverde Primary RONDA C BRAINDOB: [place] [id number] Insurance:MEDICARE [id number] [place] Number: Repository [address]Kbe: 330 [id number] [phone] () Date:2018-07-29 08/01/2018 Secondary RONDA C BRAINDOB: [place] Insurance:AETNA SR [id number] Community SUPPLEMENT [facility] Number: Repository [id number] Date:7452-99-46NOCUK SENIOR SUPPLEMENT INSPO [address] [address] [place] [address]YR: 08/01/2018 Tertiary NOT GIVENUNK [place] Insurance:SELF PAY [facility] Effective Repository Date:2018-08-01 07/25/2018 JOSE Valverde Primary RONDA Quinn BRAINDOB: [place] [id number] Insurance:MEDICARE [id number] [facility] [place] Number: Repository [id number]: 330 [id number] [phone] () Date:2018-07-25 07/25/2018 Secondary RONDA C BRAINDOB: [place] Insurance:AETNA SR [id number] Community SUPPLEMENT [facility] Number: Repository [id number] Date:5643-53-76KRLAH SENIOR SUPPLEMENT [address] [place] [address]QW: 07/25/2018 Tertiary NOT GIVENUNK [place] Insurance:SELF PAY [facility] Number: Effective Repository Date:2018-07-25 07/22/2018 JOSE Valverde Primary RONDA Quinn BRAINDOB: [place] [id number] Insurance:MEDICARE [id number] [facility] [place] Number: Repository [id number]: 330 [id number] [phone] () Date:2018-07-05 07/22/2018 Secondary RONDA C BRAINDOB: [place] Insurance:AETNA SR [id number] Community SUPPLEMENT [facility] Number: Repository [id number] Date:3326-17-08UZXZN SENIOR SUPPLEMENT [address] [place] [address]WK: 07/22/2018 Tertiary NOT GIVENUNK [place] Insurance:SELF PAY [facility] Number: Effective Repository Date:2018-07-05 07/21/2018 JOSE Valverde Primary RONDA Quinn BRAINDOB: [place] [id number] Insurance:MEDICARE [id number] [facility] Number: Repository [address]Ini: 330 [id number] [phone] (HP) Date:2018-07-21 07/21/2018 Secondary RONDA C BRAINDOB: [place] Insurance:AETNA [id number] [facility] SUPPLEMENT [facility] Number: Repository [id number] Date:3209-36-75LKGKP SENIOR SUPPLEMENT [address] [place] [address]MW: 07/21/2018 Tertiary NOT GIVENUNK [place] Insurance:SELF PAY [facility] Number: Effective Repository Date:2018-07-21 07/15/2018 JOSE Valverde Primary RONDA Quinn BRAINDOB: [place] [id number] Insurance:MEDICARE [id number] [facility] [place] Number: Repository [id number]: 330 [id number] [phone] () Date:2018-06-17 07/15/2018 Secondary RONDA C BRAINDOB: [place] Insurance:AETNA [id number] [facility] Number: Repository [id number] Date:6791-46-71BCMYJ SENIOR SUPPLEMENT [address] [place] [address]IP: 07/15/2018 Tertiary NOT GIVENUNK [place] Insurance:SELF PAY [facility] Number: Effective Repository Date:2018-06-17 07/01/2018 JOSE Valverde Primary RONDA Quinn BRAINDOB: [place] [id number] Insurance:MEDICARE [id number] [facility] [place] Number: Repository [id number]: (178) [id number] [phone] (HP) Date:2018-06-30 07/01/2018 Secondary RONDA C BRAINDOB: [place] Insurance:AETNA SR [id number] Community SUPPLEMENT [facility] Number: Repository [id number] Date:9237-67-47KKIUC SENIOR SUPPLEMENT [address] [place] [address]BM: 07/01/2018 Tertiary NOT GIVENUNK [place] Insurance:SELF PAY [facility]: Effective Repository Date:2018-06-30 06/17/2018 JOSE Valverde Primary RONDA C BRAINDOB: [place] [id number] Insurance:MEDICARE [id number] [place] Number: Repository [id number]: 330 [id number] [phone] () Date:2018-05-20 06/17/2018 Secondary RONDA C BRAINDOB: [place] Insurance:AETNA SR [id number] [facility] Number: Repository [id number] Date:3653-18-85ZRHHK SENIOR SUPPLEMENT [address], [place] [address]RQ: 06/17/2018 Tertiary NOT GIVENUNK [place] Insurance:SELF PAY [facility] Number: Effective Repository Date:2018-05-20 05/20/2018 JOSE Valverde Primary RONDA Quinn BRAINDOB: [place] [id number] Insurance[place]MEDICARE [id number] [id number]: 330 [id number] [phone] () Date:2018-04-22 05/20/2018 Secondary RONDA C BRAINDOB: [place] Insurance:AETNA SR [id number] [facility] SUPPLEMENT [facility] Number: Repository [id number] Date:3561-01-14JHBUB SENIOR SUPPLEMENT [address] [place] [address]DF: 05/20/2018 Tertiary NOT GIVENUNK [place] Insurance:SELF PAY Community [facility] Number: Effective Repository Date:2018-04-22 05/19/2018 JOSE Valverde Primary RONDA C BRAINDOB: [place] [id number] Insurance:MEDICARE [id number] [place] Number: Repository [id number]: 330 [id number] [phone] () Date:2018-05-06 05/19/2018 Secondary RONDA C BRAINDOB: [place] Insurance:AETNA SR [id number] Community SUPPLEMENT [facility] Number: Repository [id number] Date:8771-38-14TEJNB SENIOR SUPPLEMENT [address]JM[address] [place] [address]WD: 05/19/2018 Tertiary NOT GIVENUNK [place] Insurance:SELF PAY [facility] Number: Effective Repository Date:2018-05-17 05/10/2018 JOSE Valverde Primary RONDA C BRAINDOB: [place] [id number] Insurance:MEDICARE [id number] [place] Number: Repository [address]Eeb: 330 [id number] [phone] () Date:2018-05-10 05/10/2018 Secondary RONDA C BRAINDOB: [place] Insurance:AETNA SR [id number] [facility] SUPPLEMENT [facility] Number: Repository [id number] Date:6503-22-35ZWFTS SENIOR SUPPLEMENT [address]TPB[address]RHDA[address] [place] [address]DZ: 05/10/2018 Tertiary NOT GIVENUNK [place] Insurance:SELF PAY [facility] Number: Effective Repository Date:2018-05-10 05/06/2018 JOSE Valverde Primary RONDA C BRAINDOB: [place] [id number] Insurance:MEDICARE [id number] [place] Number: Repository [id number]: 330 [id number] [phone] () Date:2018-04-05 05/06/2018 Secondary RONDA C BRAINDOB: [place] Insurance:AETNA SR [id number] [facility] SUPPLEMENT [facility] Number: Repository [id number] Date:0089-84-07PMVFX SENIOR SUPPLEMENT [address] [address]ZXENFZLHM, [place] [address]GB: 05/06/2018 Tertiary NOT GIVENUNK [place] Insurance:SELF PAY [facility] Number: Effective Repository Date:2018-04-29 04/22/2018 JOSE Valverde Primary RONDA Quinn BRAINDOB: [place] [id number] Insurance:MEDICARE [id number] [place] Number: Repository [id number]: (362) [id number] [phone] () Date:2018-03-25 04/22/2018 Secondary RONDA Kai BRAINDOB: [place] Insurance:AETNA [id number] [facility] Number: Repository [id number] Date:2223-25-12ZPDBC SENIOR SUPPLEMENT [address] [address]MZAVMWFQB, [place] [address]ZC: 04/22/2018 Tertiary NOT GIVENUNK [place] Insurance:SELF PAY [facility] Number: Effective Repository Date:2018-03-25 03/25/2018 Jose Valverde Primary RONDA Quinn BRAINDOB: [place] [id number] Insurance:MEDICARE [id number] Number: Repository [id number]: [id number] [phone] Date:2018-02-25 () 03/25/2018 Secondary RONDA C BRAINDOB: [place] Insurance:AETNA [id number] [facility] Number: Repository [id number] Date:6557-48-90KHMCQ SENIOR SUPPLEMENT [address] [address]NQ[place], [place] [address]BB: 03/25/2018 Tertiary NOT GIVENUNK [place] Insurance:SELF PAY [facility] Number: Effective Repository Date:2018-02-25 03/24/2018 Jose H Primary NOT GIVENUNK [place] [id number] Insurance:[place]LF [place] Number: Effective Repository [address]Nek: Date:2018-03-14 ~330 -4 () 02/25/2018 Jose Valverde Primary RONDA Quinn BRAINDOB: [place] [id number] Insurance:MEDICARE [id number] [place] Number: Repository [id number]: [id number] [phone] Date:2018-01-28 () 02/25/2018 Secondary RONDA C BRAINDOB: [place] Insurance:AETNA [id number] [facility] Number: Repository [id number] Date:0773-48-03EOCTV SENIOR SUPPLEMENT [address] [place] [address]HF: 02/25/2018 Tertiary NOT GIVENUNK [place] Insurance:SELF PAY [facility]: Effective Repository Date:2018-01-28 02/10/2018 Jose Valverde Primary RONDA C BRAINDOB: [place] [id number] Insurance:MEDICARE [id number] [facility] [place] Number: Repository [id number]: [id number] [phone] Date:2018-01-14 () 02/10/2018 Secondary RONDA C BRAINDOB: [place] Insurance:AETNA [id number] [facility] Number: Repository [id number] Date:1113-37-12PCXEG SENIOR SUPPLEMENT [address] [address]LZDLWQYTP, [place] [address]RT: 02/10/2018 Tertiary NOT GIVENUNK [place] Insurance:SELF PAY [facility] Number: Effective Repository Date:2018-01-14 02/02/2018 Jose Valverde Primary RONDA C BRAINDOB: [place] [id number] Insurance:MEDICARE [id number] [place] Number: Repository [id number]: [id number] [phone] Date:2017-10-28 () 02/02/2018 Secondary RONDA C BRAINDOB: [place] [facility] [id number] [id number] Rep[facility] Date:3731-31-66HH [address] [place] [address]CW: 02/02/2018 Tertiary NOT GIVENUNK [place] Insurance:SELF PAY [facility] Number: Effective Repository Date:2017-10-28 01/28/2018 Jose Valverde Primary RONDA C BRAINDOB: [place] [id number] Insurance:MEDICARE [id number] Number: Repository [id number]: [id number] [phone] Date:2017-12-31 () 01/28/2018 Secondary RONDA C BRAINDOB: [place] Insurance:AETNA [id number] [facility] Number: Repository [id number] Date:9065-28-21ZXVMX SENIOR SUPPLEMENT [address] [address]XQWACARVF, [place] [address]HD: 01/28/2018 Tertiary NOT GIVENUNK [place] Insurance:SELF PAY [facility] Number: Effective Repository Date:2017-12-31 01/14/2018 Jose Valverde Primary RONDA C BRAINDOB: [place] [id number] Insurance:MEDICARE [id number] [place] Number: Repository [id number]: [id number] [phone] Date:2018-01-14 () 01/14/2018 Secondary RONDA C BRAINDOB: [place] Insurance:AETNA SR [id number] [facility] Number: Repository [id number] Date:4939-29-05RAOKO SENIOR SUPPLEMENT [address] [place] [address]JR: 01/14/2018 Tertiary NOT GIVENUNK [place] Insurance:SELF PAY [facility] Number: Effective Repository Date:2018-01-14 01/06/2018 Jose Valverde Primary RONDA C BRAINDOB: [place] [id number] Insurance:MEDICARE [id number] [facility] [place] Number: Repository [address]Rjn: [id number] [phone] Date:2018-01-06 () 01/06/2018 Secondary RONDA Quinn BRAINDOB: [place] Insurance:AETNA SR [id number] Community SUPPLEMENT [facility] Number: Repository [id number] Date:0055-98-00EBQFM SENIOR SUPPLEMENT [address] [address]ASFLNLRWK, [place] [address]YE: 01/06/2018 Tertiary NOT GIVENUNK [place] Insurance:SELF PAY [facility] Number: Effective Repository Date:2018-01-06 12/31/2017 Jose Valverde Primary RONDA Quinn BRAINDOB: [place] [id number] Insurance:MEDICARE [id number] [facility] [place] Number: Repository [id number]: [id number] [phone] Date:2017-12-03 (HP) 12/31/2017 Secondary RONDA C BRAINDOB: [place] Insurance:AETNA SR [id number] Community SUPPLEMENT [facility] Number: Repository [id number] Date:6649-20-41LAFUX SENIOR SUPPLEMENT [address] [address]SPHKCMJFH, [place] [address]QX: 12/31/2017 Tertiary NOT GIVENUNK [place] Insurance:SELF PAY Community [facility] Number: Effective Repository Date:2017-12-03 12/03/2017 Jose Valverde Primary RONDA Quinn BRAINDOB: [place] [id number] Insurance:MEDICARE [id number] [facility] [place] Number: Repository [id number]: [id number] [phone] Date:2017-11-05 () 12/03/2017 Secondary RONDA Quinn BRAINDOB: [place] Insurance:AETNA SR [id number] Community SUPPLEMENT [facility] Number: Repository [id number] Date:8438-01-50DBRSE SENIOR SUPPLEMENT [address] [address]BXWVVPKWL, [place] [address]DH: 12/03/2017 Tertiary NOT GIVENUNK [place] Insurance:SELF PAY [facility] Number: Effective Repository Date:2017-11-05 11/05/2017 Jose Valverde Primary RONDA Quinn BRAINDOB: [place] [id number] Insurance:MEDICARE [id number] [place] Number: Repository [id number]: [id number] [phone] Date:2017-10-08 () 11/05/2017 Secondary RONDA C BRAINDOB: [place] Insurance:AETNA SR [id number] [facility] Number: Repository [id number] Date:2640-13-21KVRKNMILWA[facility] [address] [address]GQGBQLABP, [place] [address]QC: 11/05/2017 Tertiary NOT GIVENUNK [place] Insurance:SELF PAY [facility] Number: Effective Repository Date:2017-10-08 10/28/2017 Jose Valverde Primary RONDA Quinn BRAINDOB: [place] [id number] Insurance:MEDICARE [id number] [place] Number: Repository [address]Wfm: [id number] [phone] Date:2017-10-01 () 10/28/2017 Secondary RONDA C BRAINDOB: [place] Insurance:AETNAPolicy [id number] [facility] Number: [facility] [id number] Repository Date:4467-17-10[address] [address]AU: 10/28/2017 Tertiary NOT GIVENUNK [place] Insurance:SELF PAY [facility] Number: Effective Repository Date:2017-10-01 10/21/2017 Jose Valverde Primary RONDA Quinn BRAINDOB: [place] [id number] Insurance:MEDICARE [id number] [place] Number: Repository [address]Xsr: [id number] [phone] Date:2017-10-21 () 10/21/2017 Secondary RONDA C BRAINDOB: [place] Insurance:MUTUAL OF [id number] Hospital [id number] Repository Date:8705-82-44MVGOLB [place] [address]QM: 10/21/2017 Tertiary NOT GIVENUNK [place] Insurance:SELF PAY [facility] Number: Effective Repository Date:2017-10-21 10/21/2017 Jose Valverde Primary RONDA C BRAINDOB: [place] [id number] Insurance:MEDICARE [id number] [place] Number: Repository [address]Tyo: [id number] [phone] Date:2017-10-21 () 10/21/2017 Secondary RONDA C BRAINDOB: [place] Insurance:MUTUAL OF [id number] Number: [facility] [id number] Repository Date:6235-45-78AZDMWK [place] [address]EY: 10/21/2017 Tertiary NOT GIVENUNK [place] Insurance:SELF PAY [facility] Number: Effective Repository Date:2017-10-21 10/21/2017 Jose Valverde Primary RONDA Quinn BRAINDOB: [place] [id number] Insurance:MEDICARE [id number] Number: Repository [address]Upo: [id number] [phone] Date:2017-10-21 () 10/21/2017 Secondary RONDA C BRAINDOB: [place] Insurance:MUTUAL OF [id number] Number: [facility] [id number] Repository Date:6040-60-44PRIJZZ [place] [address]GH: 10/21/2017 Tertiary NOT GIVENUNK [place] Insurance:SELF PAY [facility] Number: Effective Repository Date:2017-10-21
== END ==
PROVIDERS: Family Provider Internal Medicine; PCP Internal Medicine; Visit Provider Internal Medicine Critical Care Medicine
DX: J45.50 Severe persistent asthma, uncomplicated (principal)
CPT/HCPCS: 96372; J2182

== ENCOUNTER → 2018-10-21 13:05 | Outpatient (CLI) | payer MEDICARE, OTHER, SELFPAY ==
[2018-09-23 11:13] VITALS: BMI 23.8
[2018-10-21 13:10] VITALS: BP 109/68; PULSE 77; RESP 16; TEMP 36.6; O2SAT 99; BMI 23.8
[2018-10-21] MEDS: Mepolizumab 100 MG VIAL SQ (13:31)
== END ==
PROVIDERS: Family Provider Internal Medicine; PCP Internal Medicine; Referring Provider Internal Medicine Critical Care Medicine; Visit Provider Internal Medicine Critical Care Medicine
DX: J45.50 Severe persistent asthma, uncomplicated (principal)
CPT/HCPCS: 96372; J2182

== ENCOUNTER → 2018-11-25 13:23 | Outpatient (CLI) | payer MEDICARE, OTHER, SELFPAY ==
[2018-10-21 13:10] VITALS: BMI 23.8
[2018-11-25 13:39] VITALS: BP 131/72; PULSE 77; RESP 18; TEMP 36.7; O2SAT 98; BMI 23.4
[2018-11-25] MEDS: Mepolizumab 100 MG VIAL SQ (14:03)
== END ==
PROVIDERS: Family Provider Internal Medicine; PCP Internal Medicine; Referring Provider Internal Medicine Critical Care Medicine; Visit Provider Internal Medicine Critical Care Medicine
DX: J45.50 Severe persistent asthma, uncomplicated (principal)
CPT/HCPCS: 96372; J2182

== ENCOUNTER → 2018-12-27 09:00 | Outpatient (CLI) | payer MEDICARE, OTHER, SELFPAY ==
[2018-11-25 13:39] VITALS: BMI 23.4
[2018-12-27 09:06] VITALS: BP 121/68; PULSE 84; RESP 16; TEMP 36.7; O2SAT 99; BMI 24.0
[2018-12-27] MEDS: Mepolizumab 100 MG VIAL SQ (09:21)
== END ==
PROVIDERS: Family Provider Internal Medicine; PCP Internal Medicine; Referring Provider Internal Medicine Critical Care Medicine; Visit Provider Internal Medicine Critical Care Medicine
DX: J45.50 Severe persistent asthma, uncomplicated (principal)
CPT/HCPCS: 96372; J2182

== ENCOUNTER → 2019-01-11 08:46 | Outpatient (CLI) | payer MEDICARE, OTHER, SELFPAY ==
[2018-12-27 09:06] VITALS: BMI 24.0
[2019-01-11 09:44] LABS: Absolute Lymphocyte Count 1.77 X10^3/ul (0.83-4.51); Absolute Neutrophil Count 2.5 X10^3/uL (2.0-7.7); Basophil# 0.05 X10^3/uL; Eosinophil# 0.07 X10^3/uL; Eosinophils% 1.4 % (0-5); Hematocrit 44.1 % (37-47); Hemoglobin 14.4 g/dl (12.0-15.0); Lymphocyte # 1.77 X10^3/ul (4.0); Lymphocyte % 36.1 % (19-41); Mean Corp Hgb Conc 32.7 g/gl (32-36); Mean Corpuscular Hgb 31.9 pg (27.0-32.0); Mean Corpuscular Volume 97.6 fL (81-99); Mean Platelet Vol. 10.7 fl (6.2-12.0); Monocyte# 0.51 X10^3/uL; Monocyte% 10.4 % (0-10); Neutrophil # 2.49 X10^3/uL (2.7-7.7); Neutrophil % 50.9 % (47-70); Platelet Count 274 K/mm3 (150-450); RBC Distribution Width CV 14.2 % (11.6-14.6); Red Blood Count 4.52 M/mm3 (4.2-5.4); White Blood Count 4.9 K/mm3 (4.4-11.0)
[2019-01-11 09:45] LABS: POSITIVE COUNT NO; POSITIVE DIFFERENTIAL NO; POSITIVE MORPHOLOGY NO
[2019-01-11 10:09] LABS: ALB/GLOB Ratio 1.1 RATIO (0.9-2.4); AST(SGOT) 19 U/L (15-37); Alanine Aminotransfer ALT/SGPT 21 U/L (13-56); Albumin, Serum 3.4 g/dL (3.2-5.0); Alkaline Phosphatase 63 U/L (45-117); Anion Gap 6 (5-15); BUN 18 mg/dL (7-18); BUN/Creat Ratio 25.7 RATIO (10-20); Calcium,Total 8.5 mg/dL (8.5-10.1); Chloride 107 mmol/L (98-107); Cholesterol 160 mg/dL (200); EST Glomerular Filtration Rate 87 mL/min (>60); Est Glom Filt Rate - Afr Amer 105 mL/min (>60); Globulin 3.2 g/dL (2.2-4.2); Glucose 81 mg/dL (74-106); High Density Lipoprotein 73 mg/dL; Potassium 4.2 mmol/L (3.5-5.1); Protein, Total 6.6 g/dL (6.4-8.2); Sodium Level 140 mmol/L (136-145); Triglycerides 76 mg/dL; Very Low Density Lipoprotein 15 mg/dL (5-40)
[2019-01-11 10:54] LABS: Vitamin D,25 Hydroxy 54.6 ng/mL (29.95-100.01)
[2019-01-11 11:26] LABS: Hemoglobin A1c 5.4 % (4.2-6.3)
== END ==
PROVIDERS: Family Provider Internal Medicine; PCP Internal Medicine; Referring Provider Internal Medicine; Visit Provider Internal Medicine
DX: R73.09 Other abnormal glucose (principal); E55.9 Vitamin D deficiency, unspecified
CPT/HCPCS: 36415; 80053; 80061; 82306; 83036; 85025

== ENCOUNTER → 2019-01-27 10:04 | Outpatient (CLI) | payer MEDICARE, OTHER, SELFPAY ==
[2018-12-27 09:06] VITALS: BMI 24.0
[2019-01-27 10:11] VITALS: BP 101/65; PULSE 79; RESP 18; TEMP 36.1; O2SAT 100; BMI 23.6
[2019-01-27] MEDS: Mepolizumab 100 MG VIAL SQ (10:18)
== END ==
PROVIDERS: Family Provider Internal Medicine; PCP Internal Medicine; Referring Provider Internal Medicine Critical Care Medicine; Visit Provider Internal Medicine Critical Care Medicine
DX: J45.50 Severe persistent asthma, uncomplicated (principal)
CPT/HCPCS: 96372; J2182

== ENCOUNTER → 2019-02-24 13:38 | Outpatient (CLI) | payer MEDICARE, OTHER, SELFPAY ==
[2019-01-27 10:11] VITALS: BMI 23.6
[2019-02-14 12:45] VITALS: BMI 25.6
[2019-02-24 13:44] VITALS: BP 115/70; PULSE 77; RESP 16; TEMP 36.4; O2SAT 98; BMI 23.8
[2019-02-24] MEDS: Mepolizumab 100 MG VIAL SQ (14:22)
== END ==
PROVIDERS: Family Provider Internal Medicine; PCP Internal Medicine; Referring Provider Internal Medicine Critical Care Medicine; Visit Provider Internal Medicine Critical Care Medicine
DX: J45.50 Severe persistent asthma, uncomplicated (principal)
CPT/HCPCS: 96372; J2182

== ENCOUNTER → 2019-03-24 08:58 | Outpatient (CLI) | payer MEDICARE, OTHER, SELFPAY ==
[2019-02-24 13:44] VITALS: BMI 23.8
[2019-03-24 09:07] VITALS: BP 116/86; PULSE 71; RESP 16; TEMP 36.1; O2SAT 98; BMI 23.8
[2019-03-24] MEDS: Mepolizumab 100 MG VIAL SQ (09:34)
== END ==
PROVIDERS: Family Provider Internal Medicine; PCP Internal Medicine; Referring Provider Internal Medicine Critical Care Medicine; Visit Provider Internal Medicine Critical Care Medicine
DX: J45.50 Severe persistent asthma, uncomplicated (principal)
CPT/HCPCS: 96372; J2182

== ENCOUNTER → 2019-04-21 09:04 | Outpatient (CLI) | payer MEDICARE, OTHER, SELFPAY ==
[2019-03-24 09:07] VITALS: BMI 23.8
[2019-04-21 09:10] VITALS: BP 111/76; PULSE 77; RESP 16; TEMP 36.2; O2SAT 98; BMI 23.6
[2019-04-21] MEDS: Mepolizumab 100 MG VIAL SQ (09:25)
== END ==
PROVIDERS: Family Provider Internal Medicine; PCP Internal Medicine; Referring Provider Internal Medicine Critical Care Medicine; Visit Provider Internal Medicine Critical Care Medicine
DX: J45.50 Severe persistent asthma, uncomplicated (principal)
CPT/HCPCS: 96372; J2182

== ENCOUNTER → 2019-05-09 | Outpatient (CLI) | payer MEDICARE, OTHER, SELFPAY ==
[2019-04-21 09:10] VITALS: BMI 23.6
--- NOTE | 2019-05-09 13:40 | BI_ITS ---
MAMMOGRAPHY - BILATERAL SCREENING REASON FOR EXAM: Female, 73 years old. Routine annual screening examination. PERTINENT HISTORY: Non-contributory. TECHNIQUE: Digital bilateral breast gema (3D mammographic acquisition) in the CC and MLO projections. 2-D mediolateral oblique (MLO) and craniocaudad (CC) views of both breasts were obtained. CAD: Full Field Digital Mammography with Computer Added Detection was performed. COMPARISON: Comparison is made with prior study dated February 10, 2018 and January 18, 2017. FINDINGS: Breast Composition: The breasts are heterogeneously dense, which may obscure small masses. There are no dominant masses or suspicious calcifications. No other significant abnormalities are identified. There has been no significant change since the prior study. BI/SCREEN MAMM (CAD) W/GEMA BILAT IMPRESSION: Stable bilateral screening mammogram. Yearly follow-up mammogram recommended. (A) ASSESSMENT CATEGORY: BIRADS Category 1: Negative. A letter regarding these results will be sent to the patient by the facility within 30 days. Approximately 10% of breast cancers are not detected by mammography. A normal mammogram should not delay biopsy of a clinically suspicious abnormality. [id number] Electronically Signed: Anand Dumont, at 15:02 EDT , Service support ,
--- NOTE | 2019-05-09 14:26 | US_ITS ---
STUDY: THYROID ULTRASOUND REASON FOR EXAM: Female, 73 years old. Follow-up nodule. TECHNIQUE: Ultrasound evaluation of the thyroid was performed with real-time and static calhoun-scale imaging. COMPARISON: Thyroid ultrasound biopsy, September 07, 2018. Thyroid ultrasound, August 11, 2018 FINDINGS: RIGHT LOBE: The right lobe of the thyroid gland measures 3.4 x 1.0 x 1.3 cm. There is a heterogeneous echotexture. 0.5 x 0.3 x 0.2 cm hypoechoic nodule in the upper pole. There is anterior nodular vascularity. LEFT LOBE: The left lobe of the thyroid gland measures 3.0 x 0.9 x 1.0 cm. There is a homogeneous echotexture. There is a 3 mm nodule in the mid thyroid with calcified borders. ISTHMUS: The isthmus measures 0.2 cm. The regional lymph nodes are normal. US/Thyroid IMPRESSION: 1. Marked reduction in size of the right thyroid nodule compared to prior study. This is thought to be due to collapse of the cystic portion of the mass. 2. Small calcific nodule in the left thyroid unchanged study. The low-attenuation surrounding the nodule described on the prior study is not appreciated on the current examination. Electronically Signed: Altaf Malik DO at 17:46 EDT Tel [phone], Service support ,
== END | disposition home or self-care (01) ==
LOC: OPBI 13:39
PROVIDERS: Family Provider Internal Medicine; PCP Internal Medicine; Referring Provider Internal Medicine; Visit Provider Internal Medicine
DX: E04.1 Nontoxic single thyroid nodule (principal); Z12.31 Encounter for screening mammogram for malignant neoplasm of breast
CPT/HCPCS: 76536; 77063; 77067

== ENCOUNTER → 2019-05-19 14:33 | Outpatient (CLI) | payer MEDICARE, OTHER, SELFPAY ==
[2019-04-21 09:10] VITALS: BMI 23.6
[2019-05-19] MEDS: Mepolizumab 100 MG VIAL SQ (14:52)
[2019-05-19 14:55] VITALS: BP 120/61; PULSE 94; RESP 18; TEMP 36.4; O2SAT 97; BMI 23.6
== END ==
PROVIDERS: Family Provider Internal Medicine; PCP Internal Medicine; Referring Provider Internal Medicine Critical Care Medicine; Visit Provider Internal Medicine Critical Care Medicine
DX: J45.50 Severe persistent asthma, uncomplicated (principal)
CPT/HCPCS: 96372; J2182

== ENCOUNTER → 2019-06-19 14:06 | Outpatient (CLI) | payer MEDICARE, OTHER, SELFPAY ==
[2019-05-19 14:55] VITALS: BMI 23.6
[2019-06-19 14:13] VITALS: BP 124/87; PULSE 73; RESP 16; TEMP 36.6; O2SAT 98; BMI 24.0
[2019-06-19] MEDS: Mepolizumab 100 MG VIAL SQ (14:27)
== END ==
PROVIDERS: Family Provider Internal Medicine; PCP Internal Medicine; Referring Provider Internal Medicine Rheumatology; Visit Provider Internal Medicine Rheumatology
DX: J45.50 Severe persistent asthma, uncomplicated (principal)
CPT/HCPCS: 96372; J2182

== ENCOUNTER → 2019-07-05 10:31 | Outpatient (CLI) | payer MEDICARE, OTHER, SELFPAY ==
[2019-06-19 14:13] VITALS: BMI 24.0
[2019-07-05 10:50] VITALS: BP 116/73; PULSE 78; RESP 16; TEMP 36.4; O2SAT 98; BMI 23.6
[2019-07-05] MEDS: Zoledronic Acid 5 MG 100 ML 300 MG IV (11:05)
== END ==
PROVIDERS: Family Provider Internal Medicine; PCP Internal Medicine; Referring Provider Internal Medicine; Visit Provider Internal Medicine
DX: M85.80 Other specified disorders of bone density and structure, unspecified site (principal)
CPT/HCPCS: 96365; A4216; J3489

== ENCOUNTER → 2019-07-21 13:00 | Outpatient (CLI) | payer MEDICARE, OTHER, SELFPAY ==
[2019-07-05 10:50] VITALS: BMI 23.6
[2019-07-21 13:11] VITALS: BP 115/57; PULSE 83; RESP 16; TEMP 36.6; O2SAT 97; BMI 24.1
[2019-07-21] MEDS: Mepolizumab 100 MG VIAL SQ (13:24)
== END ==
PROVIDERS: Family Provider Internal Medicine; PCP Internal Medicine; Referring Provider Internal Medicine Critical Care Medicine; Visit Provider Internal Medicine Critical Care Medicine
DX: J45.50 Severe persistent asthma, uncomplicated (principal)
CPT/HCPCS: 96372; J2182

== ENCOUNTER → 2019-07-26 15:55 | Outpatient (CLI) | payer MEDICARE, OTHER, SELFPAY ==
[2019-07-21 13:11] VITALS: BMI 24.1
[2019-07-26 18:26] LABS: Thyroid Stim Hormone (TSH) 2.22 uIU/mL (0.358-3.74)
== END ==
PROVIDERS: Family Provider Internal Medicine; PCP Internal Medicine; Referring Provider Internal Medicine; Visit Provider Internal Medicine
DX: E03.9 Hypothyroidism, unspecified (principal); Z87.440 Personal history of urinary (tract) infections
CPT/HCPCS: 36415; 84443

== ENCOUNTER → 2019-09-01 13:05 | Outpatient (CLI) | payer MEDICARE, OTHER, SELFPAY ==
[2019-08-03 10:24] VITALS: BMI 24.1
[2019-09-01 13:23] VITALS: BP 127/70; PULSE 80; RESP 16; TEMP 37; O2SAT 97; BMI 23.8
[2019-09-01] MEDS: Mepolizumab 100 MG VIAL SQ (13:46)
== END ==
PROVIDERS: Family Provider Internal Medicine; PCP Internal Medicine; Referring Provider Internal Medicine Critical Care Medicine; Visit Provider Internal Medicine Critical Care Medicine
DX: J45.50 Severe persistent asthma, uncomplicated (principal)
CPT/HCPCS: 96372; J2182

== ENCOUNTER → 2019-09-04 15:59 | Outpatient (CLI) | payer MEDICARE, OTHER, SELFPAY ==
[2019-09-01 13:23] VITALS: BMI 23.8
--- NOTE | 2019-09-04 16:04 | RAD_ITS ---
STUDY: X-RAY CHEST REASON FOR EXAM: Female, 73 years old. Acute exacerbation of asthma TECHNIQUE: Two view of the chest were performed COMPARISON: 21 October 2017 FINDINGS: Lungs are clear. There is no pneumothorax, pulmonary edema, pleural effusions or cardiomegaly. There are benign calcified mediastinal lymph nodes. Osseous structures are intact. There is no gas under the diaphragms. [ Appearance is similar to prior] RAD/Chest PA and Lateral IMPRESSION: 1. No acute cardiorespiratory disease. [ ] Electronically Signed: Krystal Gonzales, at 16:34 EST Tel , Service support ,
[2019-09-04 17:44] LABS: Absolute Lymphocyte Count 2.38 X10^3/uL (0.83-4.51); Absolute Neutrophil Count 5.8 X10^3/uL (2.0-7.7); Basophil# 0.06 X10^3/uL; Basophil% 0.7 % (0-1); Eosinophil# 0.04 X10^3/uL; Eosinophils% 0.4 % (0-5); Hematocrit 44.8 % (37-47); Hemoglobin 14.3 g/dL (12.0-15.0); Lymphocyte # 2.38 X10^3/ul (4.0); Lymphocyte % 26.2 % (19-41); Mean Corp Hgb Conc 31.9 g/dL (32-36); Mean Corpuscular Hgb 31.7 pg (27.0-32.0); Mean Corpuscular Volume 99.3 fL (81-99); Mean Platelet Vol. 10.7 fl (6.2-12.0); Monocyte# 0.77 X10^3/uL; Monocyte% 8.5 % (0-10); NRBC Flagged by Analyzer 0 % (0-5); Neutrophil % 63.8 % (47-70); Platelet Count 262 K/mm3 (150-450); RBC Distribution Width CV 13.9 % (11.6-14.6); RBC Distribution Width SD 51.1 fl (35.1-43.9); Red Blood Count 4.51 M/mm3 (4.2-5.4); White Blood Count 9.1 K/mm3 (4.4-11.0)
[2019-09-04 17:53] LABS: Erythrocyte Sedimentation Rate 7 mm/hr (0-30)
[2019-09-04 18:05] LABS: CRP < 2.90 mg/L (0.0-3.0)
== END ==
PROVIDERS: Family Provider Internal Medicine; PCP Internal Medicine; Referring Provider Internal Medicine; Visit Provider Internal Medicine
DX: J45.901 Unspecified asthma with (acute) exacerbation (principal); R07.89 Other chest pain
CPT/HCPCS: 36415; 71046; 84484; 85025; 85652; 86140

== ENCOUNTER → 2019-09-29 12:59 | Outpatient (CLI) | payer MEDICARE, OTHER, SELFPAY ==
[2019-09-01 13:23] VITALS: BMI 23.8
[2019-09-29 13:08] VITALS: BP 107/58; PULSE 78; RESP 18; TEMP 36.4; O2SAT 100
[2019-09-29] MEDS: Mepolizumab 100 MG VIAL SQ (13:38)
== END ==
PROVIDERS: Family Provider Internal Medicine; PCP Internal Medicine; Referring Provider Internal Medicine Critical Care Medicine; Visit Provider Internal Medicine Critical Care Medicine
DX: J45.50 Severe persistent asthma, uncomplicated (principal)
CPT/HCPCS: 96372; J2182

== ENCOUNTER → 2019-10-27 14:07 | Outpatient (CLI) | payer MEDICARE, OTHER, SELFPAY ==
[2019-09-01 13:23] VITALS: BMI 23.8
[2019-10-27 14:21] VITALS: BP 133/89; PULSE 81; RESP 16; TEMP 36.4; O2SAT 99; BMI 24.3
[2019-10-27] MEDS: Mepolizumab 100 MG VIAL SQ (14:27)
== END ==
PROVIDERS: Family Provider Internal Medicine; PCP Internal Medicine; Referring Provider Internal Medicine Critical Care Medicine; Visit Provider Internal Medicine Critical Care Medicine
DX: J45.50 Severe persistent asthma, uncomplicated (principal)
CPT/HCPCS: 96372; J2182

== ENCOUNTER → 2019-11-02 08:43 | Outpatient (CLI) | payer MEDICARE, OTHER, SELFPAY ==
[2019-10-27 14:21] VITALS: BMI 24.3
[2019-11-02 09:46] LABS: Hemoglobin A1c 5.5 % (4.2-6.3)
[2019-11-02 09:54] LABS: AST(SGOT) 18 U/L (15-37); Alanine Aminotransfer ALT/SGPT 25 U/L (13-56); Albumin, Serum 3.3 g/dL (3.2-5.0); Alkaline Phosphatase 67 U/L (45-117); Anion Gap 5 (5-15); BUN 23 mg/dL (7-18); Calcium,Total 8.5 mg/dL (8.5-10.1); Chloride 108 mmol/L (98-107); Cholesterol 170 mg/dL (200); Creatinine, Serum 0.77 mg/dL (0.55-1.02); EST Glomerular Filtration Rate 78 mL/min (>60); Est Glom Filt Rate - Afr Amer 94 mL/min (>60); Globulin 3.4 g/dL (2.2-4.2); Glucose 90 mg/dL (74-106); High Density Lipoprotein 79 mg/dL; Potassium 4.1 mmol/L (3.5-5.1); Protein, Total 6.7 g/dL (6.4-8.2); Sodium Level 140 mmol/L (136-145); Thyroid Stim Hormone (TSH) 2.38 uIU/mL (0.358-3.74); Triglycerides 102 mg/dL; Very Low Density Lipoprotein 20 mg/dL (5-40)
== END ==
PROVIDERS: Family Provider Internal Medicine; PCP Internal Medicine; Referring Provider Internal Medicine; Visit Provider Internal Medicine
DX: R73.09 Other abnormal glucose (principal); E78.5 Hyperlipidemia, unspecified; R79.89 Other specified abnormal findings of blood chemistry; M30.1 Polyarteritis with lung involvement [Churg-Strauss]
CPT/HCPCS: 36415; 80053; 80061; 83036; 84443

== ENCOUNTER → 2019-11-29 12:58 | Outpatient (CLI) | payer MEDICARE, OTHER, SELFPAY ==
[2019-10-27 14:21] VITALS: BMI 24.3
[2019-11-29 13:20] VITALS: BP 114/76; PULSE 78; RESP 16; TEMP 36.4; O2SAT 99; BMI 24.7
[2019-11-29] MEDS: Mepolizumab 100 MG VIAL SQ (13:32)
== END ==
PROVIDERS: Family Provider Internal Medicine; PCP Internal Medicine; Referring Provider Internal Medicine Critical Care Medicine; Visit Provider Internal Medicine Critical Care Medicine
DX: J45.50 Severe persistent asthma, uncomplicated (principal)
CPT/HCPCS: 96372; J2182

== ENCOUNTER → 2019-12-28 14:31 | Outpatient (CLI) | payer MEDICARE, OTHER, SELFPAY ==
[2019-10-27 14:21] VITALS: BMI 24.3
[2019-11-29 13:20] VITALS: BMI 24.7
[2019-12-28 14:41] VITALS: BP 117/79; PULSE 78; RESP 16; O2SAT 98; BMI 24.1
[2019-12-28] MEDS: Mepolizumab 100 MG VIAL SQ (14:50)
== END ==
PROVIDERS: PCP Internal Medicine; Referring Provider Internal Medicine Critical Care Medicine; Visit Provider Internal Medicine Critical Care Medicine
DX: J45.50 Severe persistent asthma, uncomplicated (principal)
CPT/HCPCS: 96372; J2182

== ENCOUNTER → 2020-01-24 13:36 | Outpatient (CLI) | payer MEDICARE, OTHER, SELFPAY ==
[2019-11-29 13:20] VITALS: BMI 24.7
[2019-12-28 14:41] VITALS: BMI 24.1
[2020-01-24 13:55] VITALS: BP 103/70; PULSE 79; RESP 16; TEMP 36.3; O2SAT 100; BMI 24.7
[2020-01-24] MEDS: Mepolizumab 100 MG VIAL SQ (14:03)
[2020-01-24 14:15] VITALS: BP 103/70; PULSE 79; RESP 16; TEMP 36.3; O2SAT 100
== END ==
PROVIDERS: PCP Internal Medicine; Referring Provider Family Medicine; Visit Provider Family Medicine
DX: J45.50 Severe persistent asthma, uncomplicated (principal)
CPT/HCPCS: 96372; J2182

== ENCOUNTER → 2020-02-23 13:32 | Outpatient (CLI) | payer MEDICARE, OTHER, SELFPAY ==
[2019-12-28 14:41] VITALS: BMI 24.1
[2020-01-29 11:06] VITALS: BMI 24.7
[2020-02-23] MEDS: Mepolizumab 100 MG VIAL SQ (13:56)
[2020-02-23 13:58] VITALS: BP 119/69; PULSE 79; RESP 16; TEMP 36.4; O2SAT 97; BMI 25.3
== END ==
PROVIDERS: PCP Internal Medicine; Referring Provider Internal Medicine Critical Care Medicine; Visit Provider Internal Medicine Critical Care Medicine
DX: J45.50 Severe persistent asthma, uncomplicated (principal)
CPT/HCPCS: 96372; J2182

== ENCOUNTER → 2020-03-22 13:33 | Outpatient (CLI) | payer MEDICARE, OTHER, SELFPAY ==
[2020-01-29 11:06] VITALS: BMI 24.7
[2020-02-23 13:58] VITALS: BMI 25.3
[2020-03-22 13:52] VITALS: BP 113/68; PULSE 79; RESP 18; TEMP 35.9; O2SAT 97; BMI 24.7
[2020-03-22] MEDS: Mepolizumab 100 MG VIAL SQ (13:57)
== END ==
PROVIDERS: PCP Internal Medicine; Referring Provider Internal Medicine Critical Care Medicine; Visit Provider Internal Medicine Critical Care Medicine
DX: J45.50 Severe persistent asthma, uncomplicated (principal)
CPT/HCPCS: 96372; J2182

== ENCOUNTER → 2020-04-22 13:40 | Outpatient (CLI) | payer MEDICARE, OTHER, SELFPAY ==
[2020-03-22 13:52] VITALS: BMI 24.7
[2020-04-22 14:01] VITALS: BP 128/66; PULSE 74; RESP 16; TEMP 36.5; O2SAT 100; BMI 24.7
[2020-04-22] MEDS: Mepolizumab 100 MG VIAL SQ (14:22)
== END ==
PROVIDERS: PCP Internal Medicine; Referring Provider Internal Medicine Critical Care Medicine; Visit Provider Internal Medicine Critical Care Medicine
DX: J45.50 Severe persistent asthma, uncomplicated (principal)
CPT/HCPCS: 96372; J2182

== ENCOUNTER → 2020-05-21 15:04 | Outpatient (CLI) | payer MEDICARE, OTHER, SELFPAY ==
[2020-03-22 13:52] VITALS: BMI 24.7
[2020-04-22 14:01] VITALS: BMI 24.7
[2020-05-21 15:11] VITALS: BP 106/56; PULSE 73; RESP 16; TEMP 36.7; O2SAT 97; BMI 25.2
[2020-05-21] MEDS: Mepolizumab 100 MG VIAL SQ (15:27)
== END ==
PROVIDERS: PCP Internal Medicine; Referring Provider Internal Medicine Critical Care Medicine; Visit Provider Internal Medicine Critical Care Medicine
DX: J45.50 Severe persistent asthma, uncomplicated (principal)
CPT/HCPCS: 96372; J2182

== ENCOUNTER → 2020-06-21 13:58 | Outpatient (CLI) | payer MEDICARE, OTHER, SELFPAY ==
[2020-05-21 15:11] VITALS: BMI 25.2
[2020-06-21 14:06] VITALS: BP 128/71; PULSE 71; RESP 16; TEMP 36.3; O2SAT 99; BMI 25.0
[2020-06-21] MEDS: Mepolizumab 100 MG VIAL SQ (14:41)
[2020-10-07 15:15] LABS: CREATININE FINGERSTICK 0.9 mg/dL (0.55-1.02)
== END ==
PROVIDERS: PCP Internal Medicine; Referring Provider Internal Medicine; Visit Provider Internal Medicine
DX: J45.50 Severe persistent asthma, uncomplicated (principal)
CPT/HCPCS: 96372

== ENCOUNTER → 2020-06-21 14:00 | Outpatient (CLI) | payer MEDICARE, OTHER, SELFPAY ==
[2020-04-22 14:01] VITALS: BMI 24.7
[2020-06-21 14:06] VITALS: BMI 25.0
== END ==
PROVIDERS: PCP Internal Medicine; Referring Provider Internal Medicine Critical Care Medicine; Visit Provider Internal Medicine Critical Care Medicine
DX: J45.50 Severe persistent asthma, uncomplicated (principal)
CPT/HCPCS: 96372; J2182

== ENCOUNTER → 2020-07-19 14:47 | Outpatient (CLI) | payer MEDICARE, OTHER, SELFPAY ==
[2020-05-21 15:11] VITALS: BMI 25.2
[2020-06-21 14:06] VITALS: BMI 25.0
[2020-07-19 14:58] VITALS: BP 117/69; PULSE 79; RESP 14; TEMP 37.1; O2SAT 98; BMI 25.3
[2020-07-19] MEDS: Mepolizumab 100 MG VIAL SQ (15:04)
== END ==
PROVIDERS: PCP Internal Medicine; Referring Provider Internal Medicine Critical Care Medicine; Visit Provider Internal Medicine Critical Care Medicine
DX: J45.50 Severe persistent asthma, uncomplicated (principal)
CPT/HCPCS: 96372; J2182

== ENCOUNTER → 2020-07-25 09:27 | Outpatient (CLI) | payer MEDICARE, OTHER, SELFPAY ==
[2020-01-29 11:06] VITALS: BMI 24.7
[2020-07-19 14:58] VITALS: BMI 25.3
--- NOTE | 2020-07-25 15:55 | PFTCOMP ---
COMPLETE PULMONARY FUNCTION TEST INTERPRETATION Brief HPI: Patient is a 74 year old female, currently under the care of myself, who presents to [facility] for complete pulmonary function tests secondary to diagnosis of asthma. Respiratory therapist reports good effort and reproducible results. Interpretation: Forced expiration spirometry shows no large airways obstructive ventilatory defect with an FEV1 of 111% predicted. There is no significant bronchodilator response by strict ATS criteria. Spirograms are of good quality and plateau normally. The respiratory flow volume loop shows a normal pattern. Lung volumes by body plethysmography show an elevated total lung capacity at 5.13 L, 123% predicted. All other lung volumes are increased symmetrically. Diffusion capacity by carbon monoxide is normal at 88% predicted. The airway resistance is normal. Compared to previous pulmonary function tests from 08/04/2018, there is a significant reduction in DLCO by 16%, but this appears to be in line with studies from 2015 through 2017. Impression: Grossly normal pulmonary function tests
== END ==
PROVIDERS: PCP Internal Medicine; Visit Provider Internal Medicine Critical Care Medicine
DX: J45.50 Severe persistent asthma, uncomplicated (principal); M30.1 Polyarteritis with lung involvement [Churg-Strauss]
CPT/HCPCS: 94060; 94726; 94729

== ENCOUNTER → 2020-08-16 14:05 | Outpatient (CLI) | payer MEDICARE, OTHER, SELFPAY ==
[2020-06-21 14:06] VITALS: BMI 25.0
[2020-07-31 08:01] VITALS: BMI 25.4
[2020-08-16 14:18] VITALS: BP 118/64; PULSE 78; RESP 16; TEMP 36.5; O2SAT 98; BMI 25.4
[2020-08-16] MEDS: Mepolizumab 100 MG VIAL SQ (14:51)
[2020-08-16 15:05] VITALS: BP 119/65; PULSE 77; RESP 16; TEMP 36.5; O2SAT 98
== END ==
PROVIDERS: PCP Internal Medicine; Referring Provider Internal Medicine Critical Care Medicine; Visit Provider Internal Medicine Critical Care Medicine
DX: J45.50 Severe persistent asthma, uncomplicated (principal)
CPT/HCPCS: 96372; J2182

== ENCOUNTER → 2020-09-13 14:00 | Outpatient (CLI) | payer MEDICARE, OTHER, SELFPAY ==
[2020-07-31 08:01] VITALS: BMI 25.4
[2020-08-16 14:18] VITALS: BMI 25.4
[2020-09-13 14:18] VITALS: BP 122/76; PULSE 75; RESP 14; TEMP 36.7; O2SAT 100; BMI 25.1
[2020-09-13] MEDS: Mepolizumab 100 MG VIAL SQ (14:47)
== END ==
PROVIDERS: PCP Internal Medicine; Referring Provider Internal Medicine Critical Care Medicine; Visit Provider Internal Medicine Critical Care Medicine
DX: J45.50 Severe persistent asthma, uncomplicated (principal)
CPT/HCPCS: 96372; J2182

== ENCOUNTER → 2020-10-07 14:24 | Outpatient (CLI) | payer MEDICARE, OTHER, SELFPAY ==
[2020-09-13 14:18] VITALS: BMI 25.1
--- NOTE | 2020-10-07 14:26 | US_ITS ---
STUDY: THYROID ULTRASOUND REASON FOR EXAM: Female, 74 years old. nodule TECHNIQUE: Ultrasound evaluation of the thyroid was performed with real-time and static calhoun-scale imaging. COMPARISON: 05/09/2019 FINDINGS: RIGHT LOBE: The right lobe of the thyroid gland measures 2.9 x 1.3 x 0.9 cm. There is a heterogeneous. Echotexture. There are no demonstrated solid, cystic or complex lesions. LEFT LOBE: The left lobe of the thyroid gland measures 3.1 x 1.2 x 0.9 cm. There is a homogeneous echotexture. There is a solid nodule with regular margins demonstrating perinodular vascularity demonstrates calcific shadowing ISTHMUS: The isthmus measures 2 mm . The regional lymph nodes are normal. Previously noted nodule in the right lobe is not visualized on current study US/Thyroid IMPRESSION: Nonvisualization of previously noted right thyroid nodule. Stable appearance to nodule in the left lobe Electronically Signed: Ty Gonzalez MD at 16:27 EST , Service support ,
--- NOTE | 2020-10-07 14:53 | CT_ITS ---
STUDY: CTA HEAD AND NECK WITH CONTRAST REASON FOR EXAM: Female, 74 years old. POUNDING [place]CG[place], INTERMITTENTLY X 1 YEAR. RADIATION DOSAGE (If Supplied By Facility): CTDIvol = ( 27.264 ) mGy, DLP = ( 1333.87 ) mGycm TECHNIQUE: CT angiography was performed with a multi-detector CT scanner. Data acquisition was obtained from the skull base through the vertex following intravenous administration of IV 100mL Isovue-370. MIP images were reconstructed from the axial data set. Post-processing of the angiographic images was performed, with multiplanar reformation and 3D reconstruction. Individualized dose optimization techniques were used for this CT. COMPARISON: No relevant priors. FINDINGS: Normal bilateral petrous carotid arteries. Minor calcific plaquing of the right cavernous carotid artery with a normal supraclinoid bifurcation. Minor calcific plaquing of the left cavernous carotid artery with a normal supraclinoid bifurcation. Normal right A1 segments of the anterior cerebral artery. Normal left A1 segments of the anterior cerebral artery. Normal intact anterior communicating artery (ACOM). Normal bilateral A2 segments of the anterior cerebral arteries. Normal right M1 and M2 segments of the middle cerebral arteries, with a normal M1 bifurcation. Normal left M1 and M2 segments of the middle cerebral arteries, with a normal M1 bifurcation. Normal right posterior communicating artery (PCOM). Normal left posterior communicating artery (PCOM). Normal bilateral vertebral arteries. Normal basilar artery with a normal basilar bifurcation. The visualized bilateral superior cerebellar (SCA) arteries are normal. Normal bilateral P1, P2 and visualized P3 segments of the posterior cerebral arteries. There is no demonstrated aneurysm of the [place] of [place]. There is no demonstrated abnormality of the visualized brain. AORTIC ARCH: Normal visualized aortic arch. Normal origins of the brachiocephalic, left common carotid, and left subclavian arteries. RIGHT CAROTID ARTERIES: Minor calcific plaquing of the distal right common carotid artery (CCA). Normal right common carotid bulb. Normal origin of the right internal carotid (ICA) artery without a hemodynamically significant stenosis. Normal visualized cervical portion of the right internal carotid artery. Normal origin of the right external carotid artery (ECA). LEFT CAROTID ARTERIES: Minor calcific plaquing of the distal left common carotid artery (CCA). Normal left common carotid bulb. Normal origin of the left internal carotid (ICA) artery without a hemodynamically significant stenosis. Normal visualized cervical portion of the left internal carotid artery. Normal origin of the left external carotid artery (ECA). VERTEBRAL ARTERIES: Right vertebral is dominant and normal caliber. There is diffuse narrowing of the distal left vertebral CT/CTA Head AND Neck W/ Contrast IMPRESSION: Mild atherosclerotic disease. No evidence for hemodynamically significant stenosis utilizing NASCET criteria or aneurysm. Electronically Signed: Ty Gonzalez MD at 16:00 EST , Service support ,
--- NOTE | 2020-10-07 15:29 | BI_ITS ---
MAMMOGRAPHY - BILATERAL SCREENING REASON FOR EXAM: Female, 74 years old. Routine annual screening examination. PERTINENT HISTORY: Non-contributory. TECHNIQUE: Digital bilateral breast gema (3D mammographic acquisition) in the CC and MLO projections. 2-D mediolateral oblique (MLO) and craniocaudad (CC) views of both breasts were obtained. CAD: Full Field Digital Mammography with Computer Added Detection was performed. COMPARISON: Comparison is made with prior study dated 05/09/2019 and 02/11/2008. FINDINGS: Breast Composition: The breasts are heterogeneously dense, which may obscure small masses. There are no dominant masses or suspicious calcifications. Stable benign-appearing bilateral axillary lymph nodes. No other significant abnormalities are identified. There has been no significant change since the prior study. BI/SCREEN MAMM (CAD) W/GEMA BILAT IMPRESSION: Stable bilateral screening mammogram. Yearly follow-up mammogram recommended. (A) ASSESSMENT CATEGORY: BIRADS Category 2: Benign. A letter regarding these results will be sent to the patient by the facility within 30 days. Approximately 10% of breast cancers are not detected by mammography. A normal mammogram should not delay biopsy of a clinically suspicious abnormality. [id number] Electronically Signed: Anand Dumont, at 8:18 EST , Service support ,
== END ==
PROVIDERS: PCP Internal Medicine; Referring Provider Internal Medicine; Visit Provider Internal Medicine
DX: Z12.31 Encounter for screening mammogram for malignant neoplasm of breast (principal); R51.9 Headache, unspecified; E04.1 Nontoxic single thyroid nodule
CPT/HCPCS: 70496; 70498; 76536; 77063; 77067; Q9967

== ENCOUNTER → 2020-10-14 15:06 | Outpatient (CLI) | payer MEDICARE, OTHER, SELFPAY ==
[2020-08-16 14:18] VITALS: BMI 25.4
[2020-09-13 14:18] VITALS: BMI 25.1
[2020-10-14 15:13] VITALS: BP 128/61; PULSE 79; RESP 16; TEMP 36.4; O2SAT 100; BMI 25.1
[2020-10-14] MEDS: Mepolizumab 100 MG VIAL SQ (15:44)
== END ==
PROVIDERS: PCP Internal Medicine; Referring Provider Internal Medicine Critical Care Medicine; Visit Provider Internal Medicine Critical Care Medicine
DX: J45.50 Severe persistent asthma, uncomplicated (principal)
CPT/HCPCS: 96372; J2182

== ENCOUNTER → 2020-10-22 09:58 | Outpatient (CLI) | payer MEDICARE, OTHER, SELFPAY ==
[2020-10-14 15:13] VITALS: BMI 25.1
[2020-10-22 10:56] LABS: Microalbumin,Random Urine < 5.0 mg/L (NO RANGE EST.)
[2020-10-22 10:59] LABS: Vitamin D,25 Hydroxy 44.8 ng/mL
[2020-10-22 11:00] LABS: Hemoglobin A1c 5.4 % (3.8-5.6)
[2020-10-22 11:07] LABS: ALB/GLOB Ratio 1.1 RATIO (0.9-2.4); AST(SGOT) 19 U/L (15-37); Alanine Aminotransfer ALT/SGPT 25 U/L (13-56); Albumin, Serum 3.7 g/dL (3.2-5.0); Alkaline Phosphatase 70 U/L (45-117); Anion Gap 5 (5-15); BUN 24 mg/dL (7-18); Calcium,Total 8.2 mg/dL (8.5-10.1); Chloride 105 mmol/L (98-107); Cholesterol 179 mg/dL (200); Creatinine, Serum 0.78 mg/dL (0.55-1.02); EST Glomerular Filtration Rate 77 mL/min (>60); Est Glom Filt Rate - Afr Amer 93 mL/min (>60); Globulin 3.4 g/dL (2.2-4.2); Glucose 92 mg/dL (74-106); High Density Lipoprotein 79 mg/dL; Potassium 4.4 mmol/L (3.5-5.1); Protein, Total 7.1 g/dL (6.4-8.2); Sodium Level 138 mmol/L (136-145); Thyroid Stim Hormone (TSH) 3.16 uIU/mL (0.358-3.74); Triglycerides 92 mg/dL; Very Low Density Lipoprotein 18 mg/dL (5-40)
== END ==
PROVIDERS: PCP Internal Medicine; Referring Provider Internal Medicine; Visit Provider Internal Medicine
DX: E78.5 Hyperlipidemia, unspecified (principal); R73.09 Other abnormal glucose; E03.9 Hypothyroidism, unspecified; E55.9 Vitamin D deficiency, unspecified
CPT/HCPCS: 36415; 80053; 80061; 82043; 82306; 82570; 83036; 84443

== ENCOUNTER → 2020-11-08 10:01 | Outpatient (CLI) | payer MEDICARE, OTHER, SELFPAY ==
[2020-09-13 14:18] VITALS: BMI 25.1
[2020-10-14 15:13] VITALS: BMI 25.1
[2020-11-08 10:13] VITALS: BP 143/79; PULSE 76; RESP 16; TEMP 35.8; O2SAT 98; BMI 25.1
[2020-11-08] MEDS: Mepolizumab 100 MG VIAL SQ (10:24)
== END ==
PROVIDERS: PCP Internal Medicine; Referring Provider Internal Medicine Critical Care Medicine; Visit Provider Internal Medicine Critical Care Medicine
DX: J45.50 Severe persistent asthma, uncomplicated (principal)
CPT/HCPCS: 96372; J2182

== ENCOUNTER → 2020-12-06 14:03 | Outpatient (CLI) | payer MEDICARE, OTHER, SELFPAY ==
[2020-10-14 15:13] VITALS: BMI 25.1
[2020-11-08 10:13] VITALS: BMI 25.1
[2020-12-06 14:22] VITALS: BP 112/76; PULSE 78; RESP 16; TEMP 36.3; O2SAT 97; BMI 26.0
[2020-12-06] MEDS: Mepolizumab 100 MG VIAL SQ (14:33)
[2020-12-06 14:35] VITALS: BP 107/55; PULSE 77; RESP 16; TEMP 36.3; O2SAT 99
== END ==
PROVIDERS: PCP Internal Medicine; Referring Provider Internal Medicine Critical Care Medicine; Visit Provider Internal Medicine Critical Care Medicine
DX: J45.50 Severe persistent asthma, uncomplicated (principal)
CPT/HCPCS: 96372; J2182

== ENCOUNTER 2020-12-27 13:02 | Outpatient (CLI) | payer MEDICARE, OTHER, SELFPAY ==
[2020-11-08 10:13] VITALS: BMI 25.1
[2020-12-06 14:22] VITALS: BMI 26.0
[2020-12-27 13:19] VITALS: BP 118/79; PULSE 80; RESP 16; TEMP 36.9; O2SAT 98; BMI 26.0
[2020-12-27] MEDS: Mepolizumab 100 MG VIAL SQ (13:33)
[2020-12-27 13:39] VITALS: BP 118/79; PULSE 80; RESP 16; TEMP 36.9; O2SAT 98; BMI 26.0
[2020-12-27 13:44] VITALS: BP 118/79; PULSE 80; RESP 16; TEMP 36.9; O2SAT 98
== END 2020-12-27 16:00 | disposition home or self-care (01) ==
LOC: MEDOUTP 13:03
PROVIDERS: PCP Internal Medicine; Referring Provider Internal Medicine Critical Care Medicine; Visit Provider Internal Medicine Critical Care Medicine
DX: J45.50 Severe persistent asthma, uncomplicated (principal)
CPT/HCPCS: 96372; J2182

== ENCOUNTER → 2021-01-29 09:22 | Outpatient (CLI) | payer MEDICARE, OTHER, SELFPAY ==
[2021-01-29 10:35] LABS: Absolute Lymphocyte Count 1.56 X10^3/uL (0.83-4.51); Absolute Neutrophil Count 2.9 X10^3/uL (2.0-7.7); Basophil# 0.06 X10^3/uL; Basophil% 1.2 % (0-1); Eosinophil# 0.07 X10^3/uL; Eosinophils% 1.4 % (0-5); Hematocrit 42.5 % (37-47); Hemoglobin 14.1 g/dL (12.0-15.0); Lymphocyte # 1.56 X10^3/ul (4.0); Lymphocyte % 30.4 % (19-41); Mean Corp Hgb Conc 33.2 g/dL (32-36); Mean Corpuscular Hgb 33.1 pg (27.0-32.0); Mean Corpuscular Volume 99.8 fL (81-99); Mean Platelet Vol. 10.9 fl (6.2-12.0); Monocyte# 0.53 X10^3/uL; Monocyte% 10.3 % (0-10); NRBC Flagged by Analyzer 0 % (0-5); Neutrophil # 2.89 X10^3/uL (2.7-7.7); Neutrophil % 56.1 % (47-70); Platelet Count 276 K/mm3 (150-450); RBC Distribution Width CV 14.3 % (11.6-14.6); RBC Distribution Width SD 51.9 fl (35.1-43.9); Red Blood Count 4.26 M/mm3 (4.2-5.4); White Blood Count 5.1 K/mm3 (4.4-11.0)
[2021-01-29 11:07] LABS: Hemoglobin A1c 5.3 % (3.8-5.6)
[2021-01-29 11:16] LABS: AST(SGOT) 21 U/L (15-37); Alanine Aminotransfer ALT/SGPT 22 U/L (13-56); Albumin, Serum 3.4 g/dL (3.2-5.0); Alkaline Phosphatase 70 U/L (45-117); Anion Gap 6 (5-15); BUN 15 mg/dL (7-18); BUN/Creat Ratio 27.4 RATIO (10-20); Calcium,Total 8.2 mg/dL (8.5-10.1); Chloride 109 mmol/L (98-107); Cholesterol 173 mg/dL (200); Creatinine, Serum 0.55 mg/dL (0.55-1.02); EST Glomerular Filtration Rate 115 mL/min (>60); Est Glom Filt Rate - Afr Amer 139 mL/min (>60); Globulin 3.3 g/dL (2.2-4.2); Glucose 99 mg/dL (74-106); High Density Lipoprotein 80 mg/dL; Protein, Total 6.7 g/dL (6.4-8.2); Sodium Level 139 mmol/L (136-145); Thyroid Stim Hormone (TSH) 1.92 uIU/mL (0.358-3.74); Triglycerides 99 mg/dL; Very Low Density Lipoprotein 20 mg/dL (5-40)
[2021-01-29 11:30] LABS: Vitamin D,25 Hydroxy 61.8 ng/mL
[2021-02-01 03:07] LABS: Immunoglobulin E 1250 IU/mL (6-495)
[2021-02-01 09:00] LABS: Immunoglobulin G 547 mg/dL (586-1602)
== END ==
PROVIDERS: PCP Internal Medicine; Visit Provider Internal Medicine
DX: M30.1 Polyarteritis with lung involvement [Churg-Strauss] (principal); R73.09 Other abnormal glucose; E03.9 Hypothyroidism, unspecified; E78.5 Hyperlipidemia, unspecified; E55.9 Vitamin D deficiency, unspecified; D83.9 Common variable immunodeficiency, unspecified
CPT/HCPCS: 36415; 80053; 80061; 82306; 82784; 82785; 83036; 84443; 85025

== ENCOUNTER → 2021-01-31 11:03 | Outpatient (CLI) | payer MEDICARE, OTHER, SELFPAY ==
[2021-01-31 11:18] VITALS: BP 126/71; PULSE 73; RESP 16; TEMP 36.1; O2SAT 97; BMI 25.7
[2021-01-31] MEDS: Mepolizumab 100 MG VIAL SQ (11:33)
== END ==
PROVIDERS: PCP Internal Medicine; Referring Provider Internal Medicine Critical Care Medicine; Visit Provider Internal Medicine Critical Care Medicine
DX: J45.50 Severe persistent asthma, uncomplicated (principal)
CPT/HCPCS: 96372; J2182

== ENCOUNTER → 2021-02-28 10:34 | Outpatient (CLI) | payer MEDICARE, OTHER, SELFPAY ==
[2021-02-12 09:52] VITALS: BMI 27.2
[2021-02-28 10:43] VITALS: BP 123/66; PULSE 78; RESP 16; O2SAT 100; BMI 27.2
[2021-02-28] MEDS: Mepolizumab 100 MG VIAL SQ (11:04)
== END ==
PROVIDERS: PCP Internal Medicine; Referring Provider Internal Medicine Critical Care Medicine; Visit Provider Internal Medicine Critical Care Medicine
DX: J45.50 Severe persistent asthma, uncomplicated (principal)
CPT/HCPCS: 96372; J2182

== ENCOUNTER → 2021-03-28 11:10 | Outpatient (CLI) | payer MEDICARE, OTHER, SELFPAY ==
[2021-02-12 09:52] VITALS: BMI 27.2
[2021-02-28 10:43] VITALS: BMI 27.2
[2021-03-28 11:35] VITALS: BP 123/69; PULSE 83; RESP 16; TEMP 36.3; O2SAT 96; BMI 25.0
[2021-03-28] MEDS: Mepolizumab 100 MG VIAL SQ (11:39)
== END ==
PROVIDERS: PCP Internal Medicine; Referring Provider Internal Medicine Critical Care Medicine; Visit Provider Internal Medicine Critical Care Medicine
DX: J45.50 Severe persistent asthma, uncomplicated (principal)
CPT/HCPCS: 96372; J2182

== ENCOUNTER → 2021-04-25 10:37 | Outpatient (CLI) | payer MEDICARE, OTHER, SELFPAY ==
[2021-02-28 10:43] VITALS: BMI 27.2
[2021-04-21 08:13] VITALS: BMI 25.0
[2021-04-25 10:48] VITALS: BP 114/82; PULSE 82; RESP 16; TEMP 36.5; O2SAT 99; BMI 24.7
[2021-04-25] MEDS: Mepolizumab 100 MG VIAL SQ (10:56)
== END ==
PROVIDERS: PCP Internal Medicine; Referring Provider Internal Medicine Critical Care Medicine; Visit Provider Internal Medicine Critical Care Medicine
DX: J45.50 Severe persistent asthma, uncomplicated (principal)
CPT/HCPCS: 96372; J2182

== ENCOUNTER → 2021-05-23 10:31 | Outpatient (CLI) | payer MEDICARE, OTHER, SELFPAY ==
[2021-04-21 08:13] VITALS: BMI 25.0
[2021-04-25 10:48] VITALS: BMI 24.7
[2021-05-23 10:36] VITALS: BP 114/68; PULSE 79; RESP 16; TEMP 36.6; O2SAT 98; BMI 24.7
[2021-05-23] MEDS: Mepolizumab 100 MG VIAL SQ (11:02)
== END ==
PROVIDERS: PCP Internal Medicine; Referring Provider Internal Medicine Critical Care Medicine; Visit Provider Internal Medicine Critical Care Medicine
DX: J45.50 Severe persistent asthma, uncomplicated (principal)
CPT/HCPCS: 96372; J2182

== ENCOUNTER 2021-05-28 13:00 | Outpatient (RCR) | payer MEDICARE, OTHER, SELFPAY ==
[2021-04-25 10:48] VITALS: BMI 24.7
--- NOTE | 2021-05-12 19:18 | HP.PTEVAL_ITS ---
Patient's Visit Information LULI LARA is a 75 year old F referred to Physical Therapy by Dr. Mickey Crowder DO with a diagnosis of RIGHT KNEE OA. Date of Evaluation: 05/12/21 Physical Therapist: Giancarlo Najera, PT, Cert MDT, OCS - Visit Plan Frequency: 1-2x /Week Duration: 4 Weeks Plan: PLAN TO HAVE TKR May. PT INTERVETIONS HEP,ROM.STENGTH QUADS/HAMS/HIP ,NUSTEP AND FUNCTIONAL STRENGTHENING - Subjective This 75 y/o female presents to physical therapy for right knee OA. Patient has had knee pain for 4 years which has progressively worse past several months. Patient had stem cells and uflexa by family DR. Patient seen DR Arryoo had x- rays showed DJD and plan to have TKR June 10 . Pain located global knee described ache located medial knee. Denies paresthesia/tingling. Patient is unable to squat ,kneeling ,difficulty with stairs with one steps. Pain has some difficulty with standing. Alleviating rest. Patient has some difficulty sleeping. Patient goal is to get stronger prior to TKR . SOCIAL: . HOME SITUATION: I story home with elevator - Pain Right Knee Pain Intensity (Out of 10): 1 Pain Intensity Range: 10 - Objective POSTURE: mild forward mild knee valgus. GAIT: reciprocal pattern antalgic gait right side knee slightly flexed. EDEMA: effusion knee medial > lateral. PALAPTION: medial joint line tenderness. AROM: supine knee flexion 0-130 degrees. MMT: quads/hams 4/5,hip flexion ,hip abd 4-/5,ankle 5/5. FLEXABLITY: hams mild tight. STAIRS: one step at time - Goals Goal 1:: I with HEP Goal Time Frame: 4-6 Weeks Goal 2:: Improve quality of gait with less pain Goal Time Frame: 4-6 Weeks Goal 3:: Decrease knee pain by 30% or> to improve function and gait Goal Time Frame: 4-6 Weeks Goal 4:: Improve LEFS score by 5 points or > to improve function/QOL Goal Time Frame: 4-6 Weeks - Rehabilitation Potential Physical Therapy Diagnosis: This patient has right knee pain with decrease strength impairs function with gait and ADL'S and will have TKR in May thus will need skilled PT address these deficits Rehabilitation Potential: Good - Anticipated Interventions Patient/Client Instruction: Educate patient on: Condition, Plan of Care For the Purpose of:: To decrease pain, To increase ROM, To improve ability to perform ADL's, To increase tolerance to activity/condition/position, To improve performance and independence with ADL's, To improve ability of physical actions for home/community/work/leisure, To improve health of tissue, To decrease soft tissue restriction, To increase flexibility/ROM, To reduce risk of recurrence, To improve ability to perform tasks related to life management, To improve tolerance to ADL's Therapeutic Exercise to Include: Strength training, Endurance training, Balance training, Active ROM Comment: QUADS/HAMS/KNEE For the Purpose of:: To decrease pain, To increase ROM, To improve muscle performance and motor function, To increase tolerance to activity/condition/position, To improve ability of physical actions for home/community/work/leisure, To improve health of tissue, To decrease soft tissue restriction, To increase flexibility/ROM, To improve balance, To improve safety with gait Thank you for the opportunity to evaluate your patient. For Medicare and Medicare HMO plans, please review the plan of care and approve it. It will need to be FAXED BACK to us at [phone] for Medicare purposes. For Medicare only, by signing this I certify the plan of care. Please let me know if there are questions or concerns regarding this plan of care. Physician Signature: Date:
--- NOTE | 2021-05-28 13:48 | HP.PTDCSUM ---
It has been my pleasure to treat LULI LARA referred by Dr. Mickey Crowder DO, with the diagnosis of RIGHT KNEE OA for a total of 2 visit(s). Discharge Date: 05/28/21 Please see the following information for a summary of their discharge status. Subjective: Surgery scheduled Right Knee Pain Intensity (Out of 10): 2 % Improvement: 20 Objective/Function: MALIA TX WELL DID WELL WITH HEP ROM EX'S POST REHAB. 0-130 degrees knee flexion. MMT: quads/hams 4/5,hip flexion 4-/5,ankle 5/5. STAIRS: steps lead with right one step at a time with rail Goal 1:: I with HEP Goal Progress: Goal Met Goal 2:: Improve quality of gait with less pain Goal 3:: Decrease knee pain by 30% or> to improve function and gait Goal Progress: Progressing Goal 4:: Improve LEFS score by 5 points or > to improve function/QOL Goal Progress: Progressing Plan: PLAN TO HAVE TKR May. d/c Discharge Comments: right tkr If there are questions or concerns regarding this patient's physical therapy, please feel free to call me at [phone]. Thank you for the referral of this patient. Sincerely, Giancarlo Najera, PT, Cert MDT, OCS Balance/Gait/Functional tests - Balance/Special Test Scores Lower Extremity Functional Score: 38
== END 2021-05-28 19:00 | disposition home or self-care (01) ==
LOC: PT 13:00
PROVIDERS: PCP Internal Medicine; Referring Provider Orthopaedic Surgery; Visit Provider Orthopaedic Surgery
DX: M17.11 Unilateral primary osteoarthritis, right knee (principal)
CPT/HCPCS: 97110; 97162

== ENCOUNTER → 2021-06-04 07:57 | Outpatient (CLI) | payer MEDICARE, OTHER, SELFPAY ==
[2021-04-25 10:48] VITALS: BMI 24.7
[2021-05-30 10:14] VITALS: BMI 24.7
--- NOTE | 2021-06-04 07:58 | CT_ITS ---
STUDY: RIGHT LOWER EXTREMITY CT SCAN REASON FOR EXAM: Female, 75 years old. Presurgical planning for total knee arthroplasty. RADIATION DOSAGE (If Supplied By Facility): CTDIvol = ( 20.10 ) mGy, DLP = ( 1032.81 ) mGycm. Individualized dose optimization techniques were used for this CT.? TECHNIQUE: Axial multidetector CT scan of the right lower extremity. Coronal and sagittal reformatted images. COMPARISON: X-ray dated 04/21/2021. FINDINGS: Right hip: Mild right hip osteoarthritis. Mild pubic symphysis arthrosis. 3 cm right cystic adnexa (axial image 9 series 2). Postsurgical changes at the colon. Constipation. Vascular calcifications. Normal muscles appear Right knee: Severe medial compartment arthrosis. Mild lateral compartment arthrosis. Moderate/severe patellofemoral arthrosis. Moderate volume joint effusion. Small popliteal cyst. Multiple loose bodies medially measuring up to 1.2 cm. Moderate anterior swelling. Normal muscles. Right ankle: Tiny Achilles enthesophyte. Ankle mortise well aligned. Minimal soft tissue swelling. No significant osseous degenerative features. Normal muscles. CT/Extremity Lower without Contra IMPRESSION: Right knee severe medial and patellofemoral arthrosis Right knee moderate volume joint effusion, small popliteal cyst, loose bodies and anterior swelling Right hip mild osteoarthritis Right ankle tiny enthesophyte 3 cm right cystic adnexa (statistically physiologic; correlate nonemergent ultrasound) Electronically Signed: Mukul Cuadra DO at 8:27 EDT Tel , Service support ,
== END ==
PROVIDERS: PCP Internal Medicine; Referring Provider Orthopaedic Surgery; Visit Provider Orthopaedic Surgery
DX: M17.11 Unilateral primary osteoarthritis, right knee (principal)
CPT/HCPCS: 73700

== ENCOUNTER 2021-06-10 16:00 | Inpatient (IN) | payer MEDICARE, OTHER, SELFPAY ==
[2021-04-25 10:48] VITALS: BMI 24.7
[2021-05-29 12:05] LABS: Absolute Lymphocyte Count 1.69 X10^3/uL (0.83-4.51); Basophil# 0.07 X10^3/uL; Basophil% 1.1 % (0-1); Eosinophil# 0.06 X10^3/uL; Eosinophils% 0.9 % (0-5); Hematocrit 44.9 % (37-47); Hemoglobin 14.8 g/dL (12.0-15.0); Lymphocyte # 1.69 X10^3/ul (0.83-4.51); Lymphocyte % 26.2 % (19-41); Mean Corpuscular Hgb 32.6 pg (27.0-32.0); Mean Corpuscular Volume 98.9 fL (81-99); Mean Platelet Vol. 10.6 fl (6.2-12.0); Monocyte% 9.3 % (0-10); NRBC Flagged by Analyzer 0 % (0-5); Neutrophil # 3.99 X10^3/uL (2.7-7.7); Neutrophil % 61.7 % (47-70); Platelet Count 292 K/mm3 (150-450); RBC Distribution Width CV 14.1 % (11.6-14.6); RBC Distribution Width SD 51.4 fl (35.1-43.9); Red Blood Count 4.54 M/mm3 (4.2-5.4); White Blood Count 6.5 K/mm3 (4.4-11.0)
[2021-05-29 12:12] LABS: Prothrombin Time (Protime)PT. 12.1 SECONDS (11.7-14.9)
[2021-05-29 12:13] LABS: Partial Thromboplast Time 29.5 Seconds (24.1-36.2)
[2021-05-29 12:46] LABS: Anion Gap 8 (5-15); BUN 27 mg/dL (7-18); BUN/Creat Ratio 40.4 RATIO (10-20); Calcium,Total 9.4 mg/dL (8.5-10.1); Chloride 105 mmol/L (98-107); Creatinine, Serum 0.67 mg/dL (0.55-1.02); EST Glomerular Filtration Rate 91 mL/min (>60); Est Glom Filt Rate - Afr Amer 110 mL/min (>60); Glucose 95 mg/dL (74-106); Potassium 4.7 mmol/L (3.5-5.1); Sodium Level 139 mmol/L (136-145)
[2021-05-29 12:52] LABS: Magnesium 2.5 mg/dL (1.6-2.6)
[2021-05-30 08:39] LABS: Fructosamine 229 umol/L (0-285)
[2021-05-30 10:14] VITALS: BMI 24.7
[2021-06-10] VITALS (13 sets, daily range): BP systolic 103–143; BP diastolic 54–91; PULSE 63–76; RESP 16; TEMP 36.4–37.1; O2SAT 95–100; BMI 25.9
[2021-06-10] MEDS: Lactated Ringers 1,000 ML 100 ML IV (08:45)
[2021-06-10] MEDS: Acetaminophen 500 MG Tablet 1000 MG PO ×3 (09:00→21:51)
[2021-06-10] MEDS: Gabapentin 600 MG Tablet PO (09:00)
[2021-06-10] MEDS: Scopolamine 1mg/72hr Patch 1 PATCH TD (09:00)
[2021-06-10] MEDS: Celecoxib 200 MG Capsule 400 MG PO (09:00)
--- NOTE | 2021-06-10 10:08 | HP.PCM_ITS ---
History and Physical Date of Admission: 06/10/21 Date of Service: 05/14/21 MR#:[id number]:[id number]: LULI LARA #:[id number]:[id number] Provider:Dr. Mickey Crowder DOAge/Sex: 75/F [facility] Int[facility] Visit Reasons: Euflexxa #3, L knee Allergies Penicillins Allergy (Verified 05/14/21 11:46) Hives Sulfa (Sulfonamide Antibiotics) Allergy (Verified 05/14/21 11:46) Rash gabapentin [From Neurontin] Adverse Reaction (Mild, Verified 05/14/21 11:46) constipation [facility] Medical History (Updated 04/21/21 @ 14:[address] 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 Depression Diverticulitis Edema, lower extremity Eosinophilia GERD (gastroesophageal reflux disease) Hyperlipemia Hypertension Left knee pain Neuropathy Osteoarthritis Pain In Left Leg Pain In Right Leg Palpitations Peripheral vascular disease Peripheral vascular occlusive disease Physical deconditioning Right knee pain Sciatica Seasonal allergies Swelling of lower extremity Thyroiditis Traumatic open wound of left lower leg Trochanteric bursitis Varicose veins of both legs with edema Varicose veins with ulcer and inflammation Vasculitis Venous insufficiency (chronic) (peripheral) Surgical History h/o tonsillectomy History of colon surgery Social History (Updated 02/12/21 @ 10:[address] Carlitos Rankin MD) Smoking Status: Never smoker second hand exposure: No alcohol intake: current alcohol intake frequency: a few times a month Alcohol type: wine substance use type: does not use HPI Euflexxa #3, L knee Details: Parts of this documentation were recorded by a scribe, this documentation accurately reflects the service provided and the decisions made by me, Dr. Mickey Crowder DO 05/14/21 0734. LULI LARA is a 75 year old F here today for her 3rd Euflexxa injection into her left knee. Patient states that her left knee is doing well and not having any left knee pain currently. She believes the injections have been helpful. She takes cymbalta for pain. ROS [facility] [place] arthralgias Skin/Breast Reports system reviewed and no additional complaints, except as documented Neuro Yes system reviewed and no additional complaints, except as documented Ortho Exam General General: Yes no acute distress Neurologic: Yes alert Psychologic: Yes reasonable and appropriate Left Knee KNEE: Skin/Wound: No ecchymosis, No erythema and No swelling Knee ROM: Yes ROM-Extension -20 to 0 and No ROM-Flexion 0-140 (130) Stability: NML: Anterior Drawer, NML: Posterior Drawer, NML: Valgus 0, NML: Valgus 30, NML: Varus 0 and NML: Varus 30 Patella Translation: 1 Office Meds Euflexxa Performing Provider: Mickey Crowder DO Administered by: Mickey Crowder DO on 05/14/21 11:50 Dose Route Admin Location Lot Number Expiration Date [facility] Ma nufacturer 10 mg intra-articular left knee [id number] 07/22/22 [address]-5 [facility] Supplemental Info 04/21/2021 x-ray left knee moderate to severe medial joint space narrowing moderate spurring patellofemoral joint Coding Level of Care Code Off vis,est,level 3 Diagnoses Left knee DJD M17.12 Osteoarthritis type: primary Assessment and Plan Assessment and Plan (1) Left knee DJD: Status: Acute Qualifiers: Osteoarthritis type: primary Qualified Code(s): M17.12 - Unilateral primary osteoarthritis, left knee Plan - Dr. Mickey Crowder DO: Patient may have the viscosupplementation injections every 6 months if needed. She should contact our office if she would like to repeat the injections. Spoke with the patient about her right total knee arthroplasty and the iovera procedure. Follow up on an as needed basis for her left knee or sooner if pain, swelling, numbness or associated symptoms, or concerns develop. All questions answered. Patient in agreement of plan. Plan Details Other Orders: Orders: Euflexxa Injection Today 05/14/21 1309<Electronically signed by Mickey Crowder DO>Date Mickey Crowder DO Cosigner Signature:Date (if applicable) I have re-examined the patient. There are no clinical changes since date of exam
[2021-06-10 10:36] LABS: Bedside Glucose 90 mg/dL (70-110)
--- NOTE | 2021-06-10 10:55 | KNEE_PTH ---
PATIENT: LULI LARA LOC: [facility]3 U#:[id number] AGE/SX: 75/F ROOM: MA311 RE06/10/[address]: Dr. Mickey Crowder DO : 1945 BED: 1 DIS: 06/11/2021 SPEC #: [id number] RECD: 06/10/21 15:16 STATUS: OSMIN RENimco #: [id number] DIVYA: 06/10/21 10:[address]: Mickey Crowder DEPT: SURGICAL PATHOLOGY RECD BY: Anisha Graff ENTERED: 06/11/21 08:51 SP TYPE: TOTAL KNEE OTHR DR: Dr. Domonique Akins DO Tissues: Knee, NOS Procedures: Decalcification bone/plaque Surgery Specimen Level IV HEADER OPERATION: ERAS, total knee replacement robotic arm assist PRE-OP DIAGNOSIS: Left knee degenerative joint disease TISSUE SUBMITTED: Right knee bone and soft tissue MICROSCOPIC DIAGNOSIS Bone and soft tissue, right knee, total knee replacement/resection: Pieces of bone with degenerative osteoarthritic changes. Fibroadipose tissue, fibroconnective tissue and reactive synovial tissue. JIMBO:pillo 06/16/2021 MICROSCOPIC DESCRIPTION Slides are reviewed. GROSS DESCRIPTION Received is one container designated right knee bone and soft tissue. The specimen consists of multiple fragments of severino-yellow bone measuring in aggregate 9 x 8 x 3 cm. Also in the specimen container are multiple fragments of cartilaginous tissue measuring in aggregate 6 x 3 x 1.2 cm. A number of bony fragments contain articular surfaces consistent with tibial plateau and femoral condyle and displaying prominent osteophyte formation, eburnation, and bone erosion. Utilization Management Manager sections are submitted in two cassettes as follows: 1 - soft tissue, 2 - bone after decalcification. / JIMBO:pillo 06/11/21 TC:5 [facility]: [id number], [id number]
[2021-06-10] MEDS: dexAMETHasone 10 MG/ML Vial IV (11:15)
[2021-06-10] MEDS: Bupivacaine 0.5% PF 10 ML VIAL (12:44)
[2021-06-10] MEDS: Epinephrine (1 mg/ml) 1 MG/ML VIAL (12:44)
[2021-06-10] MEDS: Betamethasone/Betamethasone 30 MG/5 ML Vial (12:44)
[2021-06-10] MEDS: 0.9% Normal Saline (Pres. free 10 ML Vial (12:44)
--- NOTE | 2021-06-10 13:20 | OP.PCM_ITS ---
Report of Operation Date of Procedure: 06/10/21 Description of Surgical Findings:: Preoperative diagnosis: Right knee DJD Postoperative diagnosis: Same Procedure: Right total knee arthroplasty CT guided Robotic Assisted Implant: Freddy triathlon cemented, femoral component size1, tibial baseplate size 2, symmetric patella size 27, polyethylene X3 size 10 CS Anesthesia: Spinal with adductor canal block Tourniquet time: 22 minutes at 250 mmHg Complications: None Condition: Stable to PACU Estimated blood loss: 125 cc Indication for procedure: This is a 75-year-old female with long standing degenerative joint disease of the knee who has failed conservative treatment and wished to proceed with elective total knee arthroplasty. Risk benefits and alternatives were reviewed including; risk of bleeding, infection, nerve artery and tissue damage, continued pain, postoperative stiffness, venous thromb oembolism, need for postoperative rehabilitation, mechanical feel to the knee, and expected postoperative course. The operative CT and templating was performed with component sizing Procedure: The patient was met in the preoperative holding area. The operative extremity was identified by both patient and physician and was marked. Patient was met by anesthesia. An adductor canal block was placed by anesthesia postoperatively the patient was brought back to the operating room on a wheeled cart and transferred to the operating table in the supine position. Anesthesia was started. A well-padded tourniquet was placed on the operative extremity. The patient was prepped and draped in the usual sterile fashion. A timeout was called to ensure the proper patient procedure and extremity were being contemplated. An Esmarch was used to exsanguinate the extremity. The tourniquet was inflated. A 10 blade scalpel was used to make a midline incision down through the skin and subcutaneous tissue. Skin retractors placed. Bovie was used to perform meticulous hemostasis. full-thickness flaps were elevated medial and lateral along the joint capsule. A deep blade scalpel was used to perform a medial parapatellar arthrotomy. The knee was brought to full extension. A Bovie was used to release the soft tissues off the most proximal aspect of the medial tibial plateau, a three-quarter inch curved osteotome was also used for this process. The infrapatellar fat pad was excised. The superior fat pad was excised partially anteriorolateraly and portion the anterioromedial pad was elevated from the femur. At this point our intra- articular femoral array was placed of a 45 degree angle proximal and posterior to the medial epicondyle. Our tibial array was placed greater than 1 hands b reath below the incision at a 20 degree angle stab incisions were used for this case were attached and checked with the robotic software. Tourniquet was let down. At this point registration lombardo were taken throughout the knee as well as checkpoints placed in the femur and tibia once the knee was registered then tensioned the medial and lateral ligaments in extension and 90 degrees of flexion. We then used these numbers to adjust our components within parameters to balance the knee in both flexion and extension once this was done on our monitor we then proceeded with using the robotic arm to make our tibial plateau cut and anterior posterior and chamfer cuts and distal on the femur we then trialed and achieved the desired plan with a well-balanced knee. Lug holes were drilled in the femur the tibia preparation was completed with a fin punch and the patella was prepared by first using a caliper to ensure sufficient bone stock and a patellar reamer to remove the desired amount of bone locals were drilled for an asymmetric poly-. We then brought the knee through range of motion with excellent patellar tracking. We thoroughly irrigated the knee with a trial components were removed a posterior capsular injection with her standard cocktail was performed the aqua Mantis was also used to aid in hemostasis. Betadine rinse was allowed to sit and washed out components were cemented in place. Aricept rinse was then used followed by several more rate liters of irrigation after it was allowed to sit. Joint capsule was closed with #1 Ethibond [id number]'s followed by Vicryl in the subcutaneous tissues staple in the skin arrays and checkpoints were removed prior to closure all counts were correct stab incisions were closed with a stable standard dressing in the form of Mepilex for the main incision Xeroform 4 x 4 and Tegaderm over pin site holes. Thigh-high TULIO hose applied over top of dressing. Patient tolerated the procedure well and was directed to PACU in stable condition no intraoperative complications
--- NOTE | 2021-06-10 13:50 | RAD_ITS ---
STUDY: X-RAY - RIGHT KNEE REASON FOR EXAM: Female, 75 years old. Post op -- AP and Lateral xray of operative knee in PACU TECHNIQUE: 2 view(s) of the knee. COMPARISON: Comparison is made with prior study dated 04/13/2021. FINDINGS: Normal visualized distal femur. Normal visualized proximal tibia and fibula. Normal proximal tibiofibular articulation. The patient status post total knee replacement. There is good alignment. Postoperative soft tissue changes. RAD/Knee 1 or 2 Views IMPRESSION: Status post total knee replacement. There is good alignment. Postoperative soft tissue changes. Electronically Signed: Anand Dumont MD at 14:39 EDT , Service support ,
[2021-06-10] MEDS: Lactated Ringers 1,000 ML 125 ML IV (15:25)
[2021-06-10] MEDS: oxyCODONE 5 MG Tablet PO ×2 (16:37→21:51)
--- NOTE | 2021-06-10 17:43 | PCS.PANDOC ---
PANDEMIC DOCUMENTATION INITIATED: Date: 06/10/2021 Time: 1600
[2021-06-10] MEDS: amLODIPine 5 MG Tablet PO (18:06)
[2021-06-10] MEDS: 0.9% Saline Lock 10 ML Syringe IV ×2 (18:07→21:54)
[2021-06-10] MEDS: Senna/Docusate Sodium 1 Tablet 2 TABLET PO (21:51)
[2021-06-11] MEDS: Lactated Ringers 1,000 ML 100 ML IV (00:16)
[2021-06-11 00:21] VITALS: BP 98/57; PULSE 63; RESP 16; TEMP 36.6; O2SAT 98
[2021-06-11 04:32] VITALS: BP 130/71; PULSE 61; RESP 16; TEMP 36.5; O2SAT 100
[2021-06-11] MEDS: Levothyroxine 50 MCG Tablet PO (04:40)
[2021-06-11] MEDS: Acetaminophen 500 MG Tablet 1000 MG PO ×2 (05:01→14:06)
[2021-06-11] MEDS: oxyCODONE 5 MG Tablet PO ×3 (05:02→15:00)
[2021-06-11 05:54] LABS: Hematocrit 37.8 % (37-47); Hemoglobin 12.1 g/dL (12.0-15.0); Mean Corpuscular Hgb 31.9 pg (27.0-32.0); Mean Corpuscular Volume 99.7 fL (81-99); Mean Platelet Vol. 10.7 fl (6.2-12.0); Platelet Count 229 K/mm3 (150-450); RBC Distribution Width CV 14.2 % (11.6-14.6); RBC Distribution Width SD 52.4 fl (35.1-43.9); Red Blood Count 3.79 M/mm3 (4.2-5.4); White Blood Count 10.5 K/mm3 (4.4-11.0)
[2021-06-11 06:14] LABS: Anion Gap 6 (5-15); BUN 9 mg/dL (7-18); BUN/Creat Ratio 17.6 RATIO (10-20); Chloride 109 mmol/L (98-107); Creatinine, Serum 0.51 mg/dL (0.55-1.02); EST Glomerular Filtration Rate 124 mL/min (>60); Est Glom Filt Rate - Afr Amer 151 mL/min (>60); Estimated Creatinine Clearance 36.12 ml/min; Glucose 150 mg/dL (74-106); Potassium 4.1 mmol/L (3.5-5.1); Sodium Level 139 mmol/L (136-145)
[2021-06-11 08:30] VITALS: BP 129/64; PULSE 59; RESP 14; TEMP 37.2; O2SAT 97
--- NOTE | 2021-06-11 09:22 | NURSING ---
PT IS NOW DOWN IN THERAPY ROOM.
[2021-06-11 09:43] VITALS: O2SAT 97
[2021-06-11] MEDS: Lisinopril 5 MG Tablet PO (09:45)
[2021-06-11] MEDS: Ascorbic Acid 500 MG Tablet PO (09:45)
[2021-06-11] MEDS: APIXABAN 2.5 MG TABLET PO (09:45)
[2021-06-11] MEDS: Multivitamins,Therapeutic Tablet 1 TABLET PO (09:45)
--- NOTE | 2021-06-11 12:18 | PCM.PN.ORT ---
Subjective Subjective Seen and examined doing well pain controlled no fevers chills nausea vomiting shortness of breath or chest pain Objective Data Objective Data Vital Signs: Vital Signs Temp Pulse Resp BP Pulse Ox 98.9 F 59 L 14 129/64 H 97 06/11/21 08:30 06/11/21 08:30 06/11/21 08:30 06/11/21 08:30 06/11/21 09:43 Oxygen Flow Rate (L/min) 6 Oxygen Delivery Method Room Air Weight: 137 lb 9.095 oz Body Mass Index (BMI) 25.9 Intake & Output: Intake and Output for Last 24 Hours 06/09/21 06/10/21 06/11/21 23:59 23:59 23:59 Intake Total 3210.58 / 3710.58 1545.26 / 1545.26 Balance 3210.58 / 3710.58 1545.26 / 1545.26 Lab / Micro Data Result Diagrams: 06/11/21 05:34 06/11/21 05:34 Labs: Laboratory Results - last 24 hr 06/11/21 05:34: WBC 10.5, RBC 3.79 L, Hgb 12.1, Hct 37.8, MCV 99.7 H, MCH 31.9, MCHC 32.0, RDW Std Deviation 52.4 H, RDW Coeff of Nella 14.2, Plt Count 229, MPV 10.7 06/11/21 05:34: Sodium 139, Potassium 4.1, Chloride 109 H, Carbon Dioxide 24.0, Anion Gap 6, BUN 9, Creatinine 0.51 L, Estim Creat Clear Calc 36.12, Est GFR (MDRD) Af Amer 151, Est GFR (MDRD) Non-Af 124, BUN/Creatinine Ratio 17.6, Glucose 150 H, Calcium 8.0 L Micro: Microbiology 05/29/21 11:33 Swab (Method) Nasal Screen MRSA/MSSA - Final Radiography Diagnostic Testing: Radiology Impression Knee X-Ray 06/10/21 13:50 IMPRESSION: Status post total knee replacement. There is good alignment. Postoperative soft tissue changes. Electronically Signed: Anand Dumont MD at 14:39 EDT , Service support , Physical Exam Const alert, oriented x3 and no apparent distress General Appearance: cooperative Extremity Extremity Narrative: Bloody drainage noted to saturate the Mepilex dressing compartments soft small amount of bloody drainage on lower pin site dressing. Neurovascular intact EHL tibialis anterior gastrocsoleus palpable pulses. Assessment & Plan Assessment/Plan (1) Total knee replacement status: QUALIFIERS: Laterality: right Qualified Code(s): Z96.651 - Presence of right artificial knee joint PLAN: Patient is doing well wish to be discharged home. Her vital signs and laboratory analysis is all okay Patient will receive second round of physical therapy prior to being discharged home Nursing to change Mepilex Ag dressing. Continue with blood thinner prescribed for 2 weeks postop Physical therapy outpatient Follow-up in the office 2 weeks
--- NOTE | 2021-06-11 12:21 | PCM.DC ---
Discharge Instructions Dressing / Incision Call your doctor if you observe: Shortness of breath and Chest pain Additional Dressing/Incision Instructions:: Ice and elevate one week while not ambulating. Ambulation is encouraged. Weightbearing as tolerated. Use assistive devise for stability. Encourage FULL knee extension and flexion 1 time EVERY time you get up and down and MULTIPLE times per day. No showering 72 hours after surgery. Begin showering postop day #3. Remove the dressing prior to shower and gently wash with warm water and antibacterial soap then pat dry and place abdominal pad (or plain gauze) and TULIO hose over top. This is to be done daily. Do not submerge for 3 weeks. If not showering daily after the initial 72 hours then you must clean incision and change dressing daily. Do not allow animals near the incision area. Keep clean. Follow anticoagulation recommendations as prescribed. Do not take any NSAIDs while on blood thinner. Do not take any additional narcotic pain medication other than what was prescribed on your surgery day without discussing with physician. Narcotic medication can be addictive. Do not drink alcohol while taking narcotics. Start physical therapy. If you are not currently scheduled for physical therapy or you are unsure of appointment time please call office [facility] to arrange. Call Dr. Crowder with any concerns. Follow Up Care Test Results: Test results from this visit will be discussed in further detail at your follow-up appointment, if applicable. Discharge Plan Admission Admit Date/Time: 06/10/21 16:00 Attending Provider: Mickey Crowder Primary Care Provider: Domonique Akins Discharge Orders/Prescriptions Prescriptions: New acetaminophen 500 mg Tablet 1,000 mg PO Q6H Qty: 100 RF: 0 Eliquis 2.5 mg Tablet 2.5 mg PO BID Qty: 28 RF: 0 oxycodone 5 mg Tablet 5 - 10 mg PO Q4H PRN PRN (Reason: Pain Score 4-10) 7 Days Qty: 50 RF: 0 Continued duloxetine 60 mg capsule,delayed release(DR/EC) 60 mg PO DAILY RF: 0 levothyroxine 50 mcg capsule 50 mcg capsule 50 mcg PO DAILY RF: 0 albuterol sulfate [Ventolin HFA] 90 mcg/actuation HFA aerosol inhaler 2 puff INHALATION Q4H Qty: 18 RF: 6 lisinopril 5 MG tablet 5 mg PO DAILY RF: 0 estradiol 0.5 MG tablet 1 gm TOPICAL QWEEK RF: 0 Nucala 100 MG recon soln 100 mg SQ X1 RF: 0 multivitamin 1 EACH tablet 1 each PO SUMOTUWETH RF: 0 Alrex 10 ML drops,suspension 10 ml OP PRN PRN (Reason: Dry Eye) RF: 0 amlodipine 5 MG tablet 5 mg PO 1800 RF: 0 ascorbic acid (vitamin C) 500 MG capsule 500 mg PO DAILY RF: 0 cranberry 500 mg capsule 500 mg PO BID RF: 0 medroxyprogesterone 2.5 mg tablet 2.5 mg PO DAILY RF: 0 estradiol 0.5 mg tablet 0.5 mg PO DAILY RF: 0 Breo Ellipta 200-25 mcg/dose blister with device 1 inh INHALATION QDAY Qty: 60 RF: 6 Discontinued acetaminophen 650 MG tablet extended release 650 mg PO DAILY PRN (Reason: Pain) RF: 0 turmeric root extract 1,053 MG tablet 1,000 mg PO DAILY RF: 0 meloxicam 15 MG tablet 15 mg PO DAILY PRN (Reason: pain) RF: 0 Referrals / Follow Up: Domonique Akins DO [Primary Care Provider] - Disposition Discharge Orders: Discharge Patient (Routine); Ordered 06/11/21 Ordered By: Dr. Mickey Crowder
[2021-06-11 13:30] VITALS: BP 111/59; PULSE 61; RESP 14; TEMP 36.8; O2SAT 99
--- NOTE | 2021-06-11 13:34 | CASEMGMT ---
RN CM Assessment Introduced role of RN CM to patient.? Patient is alert, oriented and able?to participate in RN CM Assessment. ?Care providers, pharmacy, and demographics verified. Admit Dx: Rt TKR Re-Admit: No Barriers/Issues: None, KETCHIKAN-wears hearing aids PCP: Domonique Akins Specialists: Addie Jensen Pharmacy: [facility] Insurance: Mcr A/B, [employer] Supp Rx Benefit:?Yes LNOK: Jose Brain LW/HPOA: Has LW- aware not on filw with [facility] and if brought in will scan a copy on file. HPOA is Jose Brain. Living Arrangements:? Lives with in a [facility], no steps to enter. Dtr and gnddtr are going to be staying with patient and for 2 weeks. ADL?s: Independent with ambulation and ADLs Transportation: Both patient and drive. will transport upon DC. DME: Elevator in home to go down to recreation room. 2ww, [place], RTS. HHC: None SNF: None Goal: Home and states already established with [facility], appointment . Denies any other needs, issues, concerns with going home. DC PLAN: Home with outpatient PT- Steven. DARREL Martinez
--- NOTE | 2021-06-11 14:06 | CHAPLAIN ---
Type of Pastoral Visit _x__ Initial Visit ___ Follow-up Visit ___ On-call Visit ___ General Patient Visit ___ Spiritual Assessment ___ Family Conference ___ Bereavement ___ Rapid Response ___ Code Blue ___ Other (describe below) Pastoral Care Referral From _x__ Patient ___ Family ___ Nurse ___ Physician ___ Manager [employer] ___ Trolley Wire Installer ___ Other (describe below) Sacrament/Intervention _x__ Active listening ___ Anointing ___ Uatsdin ___ Bereavement ___ Communion _x__ Deborah exploration ___ ___ Life review _x__ Prayer ___ Reconciliation ___ Sacrament of Sick ___ Supportive presence ___ Wedding ___ Other (describe below) Pastoral Comments
== END 2021-06-11 15:30 | disposition home or self-care (01) | DRG 470 ==
LOC: SDC 18:55 → MS3 18:55
PROVIDERS: Anesthesiology; Admitting Provider Orthopaedic Surgery; PCP Internal Medicine; Referring Provider Orthopaedic Surgery; Visit Provider Orthopaedic Surgery
PROC: 0SRC0JZ Replacement of Right Knee Joint with Synthetic Substitute, Open Approach (ICD-10-PCS; CPT 27447; principal; 2021-06-10 10:25)
DX: M17.12 Unilateral primary osteoarthritis, left knee (principal); E78.5 Hyperlipidemia, unspecified; I10 Essential (primary) hypertension; I73.9 Peripheral vascular disease, unspecified
CPT/HCPCS: 36415; 73560; 80048; 82962; 82985; 83735; 85025; 85027; 85610; 85730; 86850; 86900; 86901; 87081; 88305; 88311; 97110; 97116; 97162; 97166; 97530; 97535; 99251; C1776; J7120; A4216; G0463; J0702; J2405; J3475; J3490

== ENCOUNTER → 2021-06-20 13:57 | Outpatient (CLI) | payer MEDICARE, OTHER, SELFPAY ==
[2021-04-25 10:48] VITALS: BMI 24.7
[2021-06-20 14:07] VITALS: BP 110/67; PULSE 88; RESP 16; TEMP 36.7; O2SAT 98; BMI 25.0
[2021-06-20] MEDS: Mepolizumab 100 MG VIAL SQ (14:19)
== END ==
PROVIDERS: PCP Internal Medicine; Referring Provider Internal Medicine Critical Care Medicine; Visit Provider Internal Medicine Critical Care Medicine
DX: J45.50 Severe persistent asthma, uncomplicated (principal)
CPT/HCPCS: 96372; J2182

== ENCOUNTER → 2021-06-23 13:58 | Outpatient (CLI) | payer MEDICARE, OTHER, SELFPAY ==
--- NOTE | 2021-06-23 14:00 | VDLE_ITS ---
Reason For Study: SWELLING RIGHT LEFT GSV is normal. CFV is compressible, spontaneous, phasic, CFV is compressible, spontaneous, phasic, competent, and demonstrates normal competent and demonstrates normal augmentation. augmentation. FV is compressible, spontaneous, phasic, competent and demonstrates normal augmentation. POP V is compressible, spontaneous, phasic, competent and demonstrates normal augmentation. T/P Trunk is compressible. PTV is compressible. RT PerV is compressible. Procedure Exam performed in department. This is a venous duplex using B-mode, color flow and spectral Doppler. A preliminary report was called and/or faxed to DR HUERTAS. VL/Venous Duplex US, Unilateral Interpretation Summary Deep veins of the right lower extremity are patent and compressible segmentally . There is no evidence of right lower extremity deep vein thrombosis. Valvular competence sage ears intact within the proximal deep venous system on the right . The right great saphenous vein a ppears patent and compressible segmentally. Ordering Physician: Mickey Crowder Referring Physician: TONYA GONZALEZ Performed By: Mary Cook, RDCS, RVT
== END ==
PROVIDERS: PCP Internal Medicine; Referring Provider Orthopaedic Surgery; Visit Provider Orthopaedic Surgery
DX: R60.0 Localized edema (principal); Z96.651 Presence of right artificial knee joint
CPT/HCPCS: 93971

== ENCOUNTER → 2021-07-18 10:04 | Outpatient (CLI) | payer MEDICARE, OTHER, SELFPAY ==
[2021-07-18 10:11] VITALS: BP 116/62; PULSE 77; RESP 16; TEMP 36.2; O2SAT 100
[2021-07-18] MEDS: Mepolizumab 100 MG VIAL SQ (10:40)
[2021-07-18 17:38] LABS: Magnesium 2.5 mg/dL (1.6-2.6)
== END ==
PROVIDERS: PCP Internal Medicine; Referring Provider Internal Medicine Critical Care Medicine; Visit Provider Internal Medicine Critical Care Medicine
DX: J45.50 Severe persistent asthma, uncomplicated (principal); I10 Essential (primary) hypertension
CPT/HCPCS: 36415; 83735; 96372; J2182

== ENCOUNTER 2021-07-25 15:00 | Outpatient (RCR) | payer MEDICARE, OTHER, SELFPAY ==
[2021-04-25 10:48] VITALS: BMI 24.7
--- NOTE | 2021-06-12 11:30 | HP.PTEVAL_ITS ---
Patient's Visit Information LULI LARA is a 75 year old F referred to Physical Therapy by Dr. Mickey Crowder DO with a diagnosis of R TKA goes by Bree. Date of Evaluation: 06/12/21 Physical Therapist: Anthony Gomez, PT, ATC - Visit Plan Frequency: 2-3x /Week Duration: 6-8 weeks Plan: R knee PROM/mobs, stretching and strengthening, balance and proprio, core strengthening, and HEP - Subjective DOS: 06/10/21. Pt reports she was very limited with mobility prior to having a R TKA. Pt reports she was limited with stairs and prolonged walking prior to surgery. Pt reports she is still in a lot of pain at this time. Pt notes she has been compliant with HEP up til this date. Pt reports she has to take pain meds to sleep at this time, and still wakes up about 3 times per night. No tingling or numbness in R LE at this time. Pt reports she has stairs at home, but has to negotiate them one step at a time. Pt reports she is not working at this time. Pt reports she is still having difficulty with car transfers at this time secon claudia to pain. Pt reports she has very little pain at rest noting it is about a 1/10, but notes her pain is 9/10 at worst (when she woke up this moring. - Pain R TKA Pain Intensity (Out of 10): 1 Pain Intensity Range: 9 - Objective Girth at joint line: R knee 39 cm, L knee 33 cm. ROM: R knee 0-15-100, L knee 0-130. MMT: R knee flex= 9, ext= 12. L knee flex= 17, ext= 15 #F. Gait: Pt is able to ambulate greater than 680' with WW without difficulty. Tu.87 - Goals Goal 1:: Decrease R knee pain x 50% to aid with sleep Goal Time Frame: 6-8 Weeks Goal 2:: Increase R knee ROM x 25 degrees to aid with restoring a more normal gait pattern Goal Time Frame: 6-8 Weeks Goal 3:: Increase R knee strength x 5-10#F to aid with stair negotiation Goal Time Frame: 6-8 Weeks Goal 4:: I with HEP Goal Time Frame: 6-8 Weeks - Rehabilitation Potential Physical Therapy Diagnosis: Pt has R knee pain, weakness, and limited ROM secondary to R TKA Rehabilitation Potential: Good - Anticipated Interventions Patient/Client Instruction: Educate patient on: Condition, Plan of Care For the Purpose of:: To improve self management Therapeutic Exercise to Include: Strength training, Endurance training, Balance training, Flexibilty training, Gait and locomotor training, Passive ROM, Active ROM, Dynamic Lumbar Stabilization For the Purpose of:: To decrease pain, To increase ROM, To improve muscle performance and motor function Cryotherapy (ice pack, ice massage): Yes For the Purpose of:: To decrease pain Thank you for the opportunity to evaluate your patient. For Medicare and Medicare HMO plans, please review the plan of care and approve it. It will need to be FAXED BACK to us at [phone] for Medicare purposes. For Medicare only, by signing this I certify the plan of care. Please let me know if there are questions or concerns regarding this plan of care. Physician Signature: Date:
--- NOTE | 2021-07-25 15:31 | HP.PTDCSUM ---
It has been my pleasure to treat LULI MANZO BRAIN referred by Dr. Mickey Crowder DO, with the diagnosis of R TKA goes by Bree for a total of 17 visit(s). Discharge Date: Please see the following information for a summary of their discharge status. Subjective: I feel ready to be done. R TKA Pain Intensity (Out of 10): 1 % Improvement: 90 Objective/Function: R knee pain 1/10 at this time. R knee ROM: 0-4-125. R knee MMT: flex= 25, ext= 22. Tu sec. Pt is I with HEP Goal 1:: Decrease R knee pain x 50% to aid with sleep Goal Progress: Goal Met Goal 2:: Increase R knee ROM x 25 degrees to aid with restoring a more normal gait pattern Goal Progress: Goal Met Goal 3:: Increase R knee strength x 5-10#F to aid with stair negotiation Goal Progress: Goal Met Goal 4:: I with HEP Goal Progress: Goal Met Plan: DC to HEP If there are questions or concerns regarding this patient's physical therapy, please feel free to call me at [phone]. Thank you for the referral of this patient. Sincerely, Anthony Gomez, PT, ATC Balance/Gait/Functional tests - Balance/Special Test Scores Lower Extremity Functional Score: 49
== END 2021-07-25 19:00 | disposition home or self-care (01) ==
LOC: PT 15:00
PROVIDERS: PCP Internal Medicine; Referring Provider Orthopaedic Surgery; Visit Provider Orthopaedic Surgery
DX: Z47.1 Aftercare following joint replacement surgery (principal); Z96.651 Presence of right artificial knee joint
CPT/HCPCS: 97110; 97140; 97161; 97164

== ENCOUNTER → 2021-08-06 14:59 | Outpatient (CLI) | payer MEDICARE, OTHER, SELFPAY ==
[2021-08-06 16:42] LABS: Absolute Lymphocyte Count 1.84 X10^3/uL (0.83-4.51); Absolute Neutrophil Count 4.3 X10^3/uL (2.0-7.7); Basophil# 0.06 X10^3/uL; Basophil% 0.9 % (0-1); Eosinophil# 0.07 X10^3/uL; Hematocrit 42.1 % (37-47); Hemoglobin 13.5 g/dL (12.0-15.0); Lymphocyte # 1.84 X10^3/ul (0.83-4.51); Lymphocyte % 26.4 % (19-41); Mean Corp Hgb Conc 32.1 g/dL (32-36); Mean Corpuscular Hgb 31.5 pg (27.0-32.0); Mean Corpuscular Volume 98.1 fL (81-99); Monocyte# 0.73 X10^3/uL; Monocyte% 10.5 % (0-10); NRBC Flagged by Analyzer 0 % (0-5); Neutrophil # 4.25 X10^3/uL (2.7-7.7); Neutrophil % 60.8 % (47-70); Platelet Count 317 K/mm3 (150-450); RBC Distribution Width CV 13.7 % (11.6-14.6); RBC Distribution Width SD 49.5 fl (35.1-43.9); Red Blood Count 4.29 M/mm3 (4.2-5.4)
[2021-08-06 17:25] LABS: ALB/GLOB Ratio 0.9 RATIO (0.9-2.4); AST(SGOT) 20 U/L (15-37); Alanine Aminotransfer ALT/SGPT 22 U/L (13-56); Albumin, Serum 3.3 g/dL (3.2-5.0); Alkaline Phosphatase 92 U/L (45-117); Anion Gap 8 (5-15); BUN 31 mg/dL (7-18); BUN/Creat Ratio 50.8 RATIO (10-20); Calcium,Total 8.9 mg/dL (8.5-10.1); Chloride 106 mmol/L (98-107); Creatinine, Serum 0.61 mg/dL (0.55-1.02); EST Glomerular Filtration Rate 101 mL/min (>60); Est Glom Filt Rate - Afr Amer 122 mL/min (>60); Globulin 3.7 g/dL (2.2-4.2); Glucose 86 mg/dL (74-106); Potassium 4.3 mmol/L (3.5-5.1); Sodium Level 138 mmol/L (136-145)
== END ==
PROVIDERS: PCP Internal Medicine; Referring Provider Internal Medicine; Visit Provider Internal Medicine
DX: I10 Essential (primary) hypertension (principal)
CPT/HCPCS: 36415; 80053; 85025

== ENCOUNTER → 2021-08-15 10:03 | Outpatient (CLI) | payer MEDICARE, OTHER, SELFPAY ==
[2021-08-15 10:19] VITALS: BP 128/83; PULSE 73; RESP 16; TEMP 36.4; O2SAT 97; BMI 25.1
[2021-08-15] MEDS: Mepolizumab 100 MG VIAL SQ (10:27)
== END ==
PROVIDERS: PCP Internal Medicine; Referring Provider Internal Medicine Critical Care Medicine; Visit Provider Internal Medicine Critical Care Medicine
DX: J45.50 Severe persistent asthma, uncomplicated (principal); R93.89 Abnormal findings on diagnostic imaging of other specified body structures; N28.1 Cyst of kidney, acquired
CPT/HCPCS: 76830; 76856; 96372; J2182

== ENCOUNTER → 2021-08-15 13:57 | Outpatient (CLI) | payer MEDICARE, OTHER, SELFPAY ==
--- NOTE | 2021-08-15 13:59 | US_ITS ---
STUDY: ULTRASOUND OF THE FEMALE PELVIS - COMPLETE REASON FOR EXAM: Female, [address] LMP: TECHNIQUE: Transabdominal and transvaginal TECHNICAL QUALITY: Adequate. COMPARISON: None FINDINGS: The uterus is anteverted and is in a midline position. The uterus measures 6.4 x 5.1 x 3.7 cm. Normal uterine cervix. The endometrium measures 3.7 mm in thickness, and is hyperechoic. There is no demonstrated endometrial mass. 2 fibroids measuring 1.5 x 1 x 1.6 cm and 5 x 4 x 4.1 cm I.U.D. - The patient does not have an I.U.D. Small amount of fluid within the endocervical canal of uncertain significance The right ovary is visualized. The right ovary measures 4.3 x 2.8 x 2.7 cm. cm. There is a cyst measuring 3.3 x 2.6 x 2.5 cm. There is no visualized right adnexal mass or complex lesion. There is normal arterial and normal venous vascularity. Limited visualization of the left ovary. The left ovary measures 3.4 x 2.1 x 1.8 cm cm. There is no left ovarian cyst or ovarian mass. There is no visualized left adnexal mass or complex lesion. There is normal arterial and normal venous vascularity. There is no fluid in the cul-de-sac. The pre void volume of the bladder was 472.04 ml. US/Transvaginal Non- IMPRESSION: Right renal cyst measuring 3.3 x 2.6 x 2.5 cm Electronically Signed: Ty Gonzalez MD at 17:02 EDT , Service support ,
--- NOTE | 2021-08-15 13:59 | US_ITS ---
STUDY: ULTRASOUND OF THE FEMALE PELVIS - COMPLETE REASON FOR EXAM: Female, [address] LMP: TECHNIQUE: Transabdominal and transvaginal TECHNICAL QUALITY: Adequate. COMPARISON: None FINDINGS: The uterus is anteverted and is in a midline position. The uterus measures 6.4 x 5.1 x 3.7 cm. Normal uterine cervix. The endometrium measures 3.7 mm in thickness, and is hyperechoic. There is no demonstrated endometrial mass. 2 fibroids measuring 1.5 x 1 x 1.6 cm and 5 x 4 x 4.1 cm I.U.D. - The patient does not have an I.U.D. Small amount of fluid within the endocervical canal of uncertain significance The right ovary is visualized. The right ovary measures 4.3 x 2.8 x 2.7 cm. cm. There is a cyst measuring 3.3 x 2.6 x 2.5 cm. There is no visualized right adnexal mass or complex lesion. There is normal arterial and normal venous vascularity. Limited visualization of the left ovary. The left ovary measures 3.4 x 2.1 x 1.8 cm cm. There is no left ovarian cyst or ovarian mass. There is no visualized left adnexal mass or complex lesion. There is normal arterial and normal venous vascularity. There is no fluid in the cul-de-sac. The pre void volume of the bladder was 472.04 ml. US/Pelvic (Non ) IMPRESSION: Right renal cyst measuring 3.3 x 2.6 x 2.5 cm Electronically Signed: Ty Gonzalez MD at 17:02 EDT , Service support ,
== END ==
PROVIDERS: PCP Internal Medicine; Referring Provider Internal Medicine; Visit Provider Internal Medicine
DX: N28.1 Cyst of kidney, acquired (principal)
CPT/HCPCS: 76830; 76856

== ENCOUNTER → 2021-09-22 14:33 | Outpatient (CLI) | payer MEDICARE, OTHER, SELFPAY ==
[2021-09-22 14:41] VITALS: BP 112/73; PULSE 80; RESP 16; O2SAT 100
[2021-09-22] MEDS: Mepolizumab 100 MG VIAL SQ (14:49)
== END ==
PROVIDERS: PCP Internal Medicine; Referring Provider Internal Medicine Critical Care Medicine; Visit Provider Internal Medicine Critical Care Medicine
DX: J45.50 Severe persistent asthma, uncomplicated (principal)
CPT/HCPCS: 96372; J2182

== ENCOUNTER → 2021-10-08 11:00 | Outpatient (CLI) | payer MEDICARE, OTHER, SELFPAY ==
--- NOTE | 2021-10-08 11:01 | BI_ITS ---
MAMMOGRAPHY - BILATERAL SCREENING REASON FOR EXAM: Female, 75 years old. Routine annual screening examination. PERTINENT HISTORY: Non-contributory. TECHNIQUE: Digital bilateral breast gema (3D mammographic acquisition) in the CC and MLO projections. 2-D mediolateral oblique (MLO) and craniocaudad (CC) views of both breasts were obtained. CAD: Full Field Digital Mammography with Computer Added Detection was performed. COMPARISON: Comparison is made with prior study dated 10/07/2020 and 05/09/2019. FINDINGS: Breast Composition: The breasts are heterogeneously dense, which may obscure small masses. There are no dominant masses or suspicious calcifications. Stable small benign appearing bilateral axillary nodes. No other significant abnormalities are identified. There has been no significant change since the prior study. BI/SCRN MAMM (CAD)W/GEMA BILAT IMPRESSION: Stable bilateral screening mammogram. Yearly follow-up mammogram recommended. (A) ASSESSMENT CATEGORY: BIRADS Category 2: Benign. A letter regarding these results will be sent to the patient by the facility within 30 days. Approximately 10% of breast cancers are not detected by mammography. A normal mammogram should not delay biopsy of a clinically suspicious abnormality. [id number] Electronically Signed: Anand Dumont MD at 12:06 EST , Service support ,
== END ==
PROVIDERS: PCP Internal Medicine; Visit Provider Internal Medicine
DX: Z12.31 Encounter for screening mammogram for malignant neoplasm of breast (principal)
CPT/HCPCS: 77063; 77067

== ENCOUNTER → 2021-10-20 13:03 | Outpatient (CLI) | payer MEDICARE, OTHER, SELFPAY ==
[2021-10-20 13:10] VITALS: BP 133/73; PULSE 83; RESP 16; TEMP 36.7; O2SAT 97
[2021-10-20] MEDS: Mepolizumab 100 MG VIAL SQ (13:30)
== END ==
PROVIDERS: PCP Internal Medicine; Referring Provider Internal Medicine Critical Care Medicine; Visit Provider Internal Medicine Critical Care Medicine
DX: J45.50 Severe persistent asthma, uncomplicated (principal)
CPT/HCPCS: 96372; J2182

== ENCOUNTER 2021-12-02 13:35 | Outpatient (CLI) | payer MEDICARE, OTHER, SELFPAY ==
[2021-12-02 09:54] LABS: Absolute Lymphocyte Count 1.48 X10^3/uL (0.83-4.51); Absolute Neutrophil Count 2.9 X10^3/uL (2.0-7.7); Basophil# 0.07 X10^3/uL; Basophil% 1.4 % (0-1); Eosinophil# 0.12 X10^3/uL; Eosinophils% 2.3 % (0-5); Hematocrit 43.9 % (37-47); Hemoglobin 14.4 g/dL (12.0-15.0); Lymphocyte # 1.48 X10^3/ul (0.83-4.51); Mean Corp Hgb Conc 32.8 g/dL (32-36); Mean Corpuscular Hgb 32.4 pg (27.0-32.0); Mean Corpuscular Volume 98.7 fL (81-99); Mean Platelet Vol. 10.5 fl (6.2-12.0); Monocyte# 0.54 X10^3/uL; Monocyte% 10.6 % (0-10); NRBC Flagged by Analyzer 0 % (0-5); Neutrophil # 2.88 X10^3/uL (2.7-7.7); Neutrophil % 56.3 % (47-70); Platelet Count 262 K/mm3 (150-450); RBC Distribution Width SD 51.3 fl (35.1-43.9); Red Blood Count 4.45 M/mm3 (4.2-5.4); White Blood Count 5.1 K/mm3 (4.4-11.0)
[2021-12-02 10:13] LABS: ALB/GLOB Ratio 0.9 RATIO (0.9-2.4); AST(SGOT) 24 U/L (15-37); Alanine Aminotransfer ALT/SGPT 26 U/L (13-56); Albumin, Serum 3.3 g/dL (3.2-5.0); Alkaline Phosphatase 86 U/L (45-117); Anion Gap 6 (5-15); BUN 23 mg/dL (7-18); Calcium,Total 8.3 mg/dL (8.5-10.1); Chloride 107 mmol/L (98-107); Cholesterol 190 mg/dL (200); Creatinine, Serum 0.66 mg/dL (0.55-1.02); EST Glomerular Filtration Rate 93 mL/min (>60); Est Glom Filt Rate - Afr Amer 112 mL/min (>60); Globulin 3.6 g/dL (2.2-4.2); Glucose 98 mg/dL (74-106); High Density Lipoprotein 70 mg/dL; Potassium 4.4 mmol/L (3.5-5.1); Protein, Total 6.9 g/dL (6.4-8.2); Sodium Level 139 mmol/L (136-145); Triglycerides 165 mg/dL; Very Low Density Lipoprotein 33 mg/dL (5-40)
[2021-12-02 10:18] LABS: Vitamin D,25 Hydroxy 66.3 ng/mL
[2021-12-02 13:52] VITALS: BP 125/64; PULSE 81; RESP 16; TEMP 36; O2SAT 99
[2021-12-02] MEDS: Mepolizumab 100 MG VIAL SQ (13:58)
== END 2021-12-02 23:59 | disposition home or self-care (01) ==
LOC: MEDOUTP 13:36
PROVIDERS: PCP Internal Medicine; Referring Provider Internal Medicine Critical Care Medicine; Visit Provider Internal Medicine Critical Care Medicine
DX: J45.50 Severe persistent asthma, uncomplicated (principal); I10 Essential (primary) hypertension; E78.5 Hyperlipidemia, unspecified; E55.9 Vitamin D deficiency, unspecified
CPT/HCPCS: 36415; 80053; 80061; 82306; 85025; 96372; J2182

== ENCOUNTER → 2022-02-12 | Outpatient (CLI) | payer MEDICARE, OTHER, SELFPAY ==
[2022-02-12 11:44] VITALS: BP 139/81; PULSE 87; RESP 16; TEMP 35.8; O2SAT 98; BMI 25.6
[2022-02-12] MEDS: Mepolizumab 100 MG VIAL SQ (12:03)
== END | disposition home or self-care (01) ==
LOC: MEDOUTP 11:39
PROVIDERS: PCP Internal Medicine; Referring Provider Internal Medicine Critical Care Medicine; Visit Provider Internal Medicine Critical Care Medicine
DX: J45.50 Severe persistent asthma, uncomplicated (principal)
CPT/HCPCS: 96372; J2182

== ENCOUNTER → 2022-02-24 | Outpatient (CLI) | payer MEDICARE, OTHER, SELFPAY ==
--- NOTE | 2022-02-24 11:53 | US_ITS ---
STUDY: THYROID ULTRASOUND REASON FOR EXAM: Female, 76 years old. THYROID NODULE TECHNIQUE: Ultrasound evaluation of the thyroid was performed with real-time and static calhoun-scale imaging. COMPARISON: Comparison is made with prior study dated 10/07/2020. FINDINGS: RIGHT LOBE: The right lobe of the thyroid gland measures 3.1 cm x 1 cm x 0.8 cm. There is a heterogeneous echotexture. There is a 4 mm x 4 mm x 2 mm well-defined hypoechoic solid nodule in the upper pole. LEFT LOBE: The left lobe of the thyroid gland measures 3.1 cm x 0.8 cm x 1.1 cm. There is a homogeneous echotexture. There is a 3 mm x 2 mm x 2 mm well-defined hypoechoic solid nodule in the midpole. ISTHMUS: The isthmus measures 2 mm. The regional lymph nodes are normal. US/Thyroid IMPRESSION: Subcentimeter solid nodules in both lobes as described. There has been essentially no change. Electronically Signed: Anand Dumont MD at 14:39 EDT ,
== END | disposition home or self-care (01) ==
LOC: US 11:52
PROVIDERS: PCP Internal Medicine; Referring Provider Internal Medicine; Visit Provider Internal Medicine
DX: E04.1 Nontoxic single thyroid nodule (principal)
CPT/HCPCS: 76536

== ENCOUNTER → 2022-03-13 | Outpatient (CLI) | payer MEDICARE, OTHER, SELFPAY ==
[2022-03-13 11:26] VITALS: BP 123/79; PULSE 77; RESP 16; O2SAT 99
[2022-03-13] MEDS: Mepolizumab 100 MG VIAL SQ (11:46)
== END | disposition home or self-care (01) ==
LOC: MEDOUTP 11:15
PROVIDERS: PCP Internal Medicine; Referring Provider Internal Medicine Critical Care Medicine; Visit Provider Internal Medicine Critical Care Medicine
DX: J45.50 Severe persistent asthma, uncomplicated (principal)
CPT/HCPCS: 96372; J2182

== ENCOUNTER → 2022-04-10 | Outpatient (CLI) | payer MEDICARE, OTHER, SELFPAY ==
[2022-04-10 10:43] VITALS: BP 125/87; PULSE 78; TEMP 36.6; O2SAT 96
[2022-04-10] MEDS: Mepolizumab 100 MG VIAL SC (11:03)
== END | disposition home or self-care (01) ==
LOC: MEDOUTP 10:35
PROVIDERS: PCP Internal Medicine; Referring Provider Internal Medicine Critical Care Medicine; Visit Provider Internal Medicine Critical Care Medicine
DX: J45.50 Severe persistent asthma, uncomplicated (principal)
CPT/HCPCS: 96372; J2182

== ENCOUNTER → 2022-05-05 | Outpatient (CLI) | payer MEDICARE, OTHER, SELFPAY ==
--- NOTE | 2022-05-05 13:08 | RAD_ITS ---
STUDY: X-RAY CHEST REASON FOR EXAM: Female, 76 years old. COVID TECHNIQUE: PA and lateral views of the chest. COMPARISON: Comparison is made with prior study 09/04/2019. FINDINGS: Hyperinflation. Stable mild increased linear markings at the lung bases suggestive of scarring. There is no demonstrated pleural abnormality. Normal size heart. Normal mediastinum and praveen. Normal visualized pulmonary arteries. Normal visualized aortic arch and descending thoracic aorta. There are diffuse degenerative changes of the visualized thoracic spine. Normal visualized ribs, clavicles, and shoulders. Moderate sized hiatal hernia. RAD/Chest PA and Lateral IMPRESSION: Hyperinflation. Stable mild linear scarring at the lung bases. Hiatal hernia. Electronically Signed: Anand Dumont MD at 13:24 EDT ,
== END | disposition home or self-care (01) ==
PROVIDERS: PCP Internal Medicine; Referring Provider Internal Medicine; Visit Provider Internal Medicine
DX: U07.1 COVID-19 (principal)
CPT/HCPCS: 71046

== ENCOUNTER → 2022-05-08 | Outpatient (CLI) | payer MEDICARE, OTHER, SELFPAY ==
[2022-05-08 09:38] VITALS: BP 124/59; PULSE 78; RESP 16; TEMP 36.3; O2SAT 100; BMI 25.6
[2022-05-08] MEDS: Mepolizumab 100 MG VIAL SQ (09:52)
== END | disposition home or self-care (01) ==
LOC: MEDOUTP 09:33
PROVIDERS: PCP Internal Medicine; Referring Provider Internal Medicine Critical Care Medicine; Visit Provider Internal Medicine Critical Care Medicine
DX: J45.50 Severe persistent asthma, uncomplicated (principal)
CPT/HCPCS: 96372; J2182

== ENCOUNTER → 2022-06-01 | Outpatient (CLI) | payer MEDICARE, OTHER, SELFPAY ==
--- NOTE | 2022-06-01 09:08 | RAD_ITS ---
STUDY: X-RAY - ESOPHAGUS (BARIUM SWALLOW) WITH FLUOROSCOPY REASON FOR EXAM: Female, 76 years old. DYSPHAGIA TECHNIQUE: 22 view(s) of the esophagus were obtained following swallowing of barium. FLUOROSCOPY TIME (if supplied): (54 seconds) minutes/seconds COMPARISON: None. FINDINGS: There is no demonstrated esophageal foreign body. Diffuse circumferential narrowing of the distal esophagus at the level of the gastroesophageal junction. There is evidence of a paraesophageal hiatal hernia without reflux. The patient ingested a 12 mm tablet at bedtime. The tablet is trapped at the gastroesophageal junction. There is atherosclerotic calcification of the aortic arch with tortuosity of the descending aorta. Normal visualized pulmonary parenchyma. There are diffuse degenerative changes of the visualized thoracic spine. RAD/Esophagus Dual Contrast IMPRESSION: Circumferential wall narrowing of the distal esophagus with trapping of the 12 mm tablet of barium. Endoscopic correlation is recommended. Paraesophageal hiatal hernia without reflux at this time. Electronically Signed: Anand Dumont MD at 15:18 EDT ,
== END | disposition home or self-care (01) ==
LOC: RAD 08:55
PROVIDERS: PCP Internal Medicine; Referring Provider Internal Medicine; Visit Provider Internal Medicine
DX: R13.10 Dysphagia, unspecified (principal)
CPT/HCPCS: 74221

== ENCOUNTER → 2022-06-05 | Outpatient (CLI) | payer MEDICARE, OTHER, SELFPAY ==
[2022-06-05 11:11] VITALS: BP 124/97; PULSE 75; RESP 16; TEMP 36.4; O2SAT 96; BMI 25.6
[2022-06-05] MEDS: Mepolizumab 100 MG VIAL SQ (11:37)
== END | disposition home or self-care (01) ==
LOC: MEDOUTP 11:01
PROVIDERS: PCP Internal Medicine; Referring Provider Internal Medicine Critical Care Medicine; Visit Provider Internal Medicine Critical Care Medicine
DX: J45.50 Severe persistent asthma, uncomplicated (principal)
CPT/HCPCS: 96372; J2182

== ENCOUNTER → 2022-06-10 | Outpatient (CLI) | payer MEDICARE, OTHER, SELFPAY ==
--- NOTE | 2022-06-10 11:25 | RAD_ITS ---
INDICATION: PAIN EXAMINATION/TECHNIQUE: X-RAY - XR Spine Lumbar Min 4 Views COMPARISON: None. FINDINGS: Levoscoliosis of the lumbar spine is visualized with apex along the left lateral aspect of the L3-4 intervertebral disc space. No evidence of compression deformity of the lumbar vertebral bodies. Multilevel degenerative endplate changes with osteophyte formation is seen. Decreased intervertebral disc height with degenerative endplate changes visualized most prominent at L1-L2, L2-L3, L4-L5 and to a lesser extent L5-S1. Calcifications visualized superimposed over the upper abdomen/lower lung caballero bilaterally. Calcifications visualized superimposed over the lateral left pelvis Abundance of stool visualized in the large bowel. RAD/L/S Spine Min 4 Views IMPRESSION: Extensive degenerative bone changes, no evidence of lumbar spinal fracture. Electronically Signed: Christopher Persaud MD at 15:44 EDT ,
== END | disposition home or self-care (01) ==
LOC: MTRAD 11:22
PROVIDERS: PCP Internal Medicine; Referring Provider Internal Medicine; Visit Provider Internal Medicine
DX: M54.16 Radiculopathy, lumbar region (principal)
CPT/HCPCS: 72110

== ENCOUNTER → 2022-07-03 | Outpatient (CLI) | payer MEDICARE, OTHER, SELFPAY ==
[2022-07-03 14:08] VITALS: BP 108/64; PULSE 76; RESP 16; TEMP 36.6; O2SAT 97
[2022-07-03] MEDS: Mepolizumab 100 MG VIAL SQ (14:38)
== END | disposition home or self-care (01) ==
LOC: MEDOUTP 13:37
PROVIDERS: PCP Internal Medicine; Referring Provider Internal Medicine Critical Care Medicine; Visit Provider Internal Medicine Critical Care Medicine
DX: J45.50 Severe persistent asthma, uncomplicated (principal)
CPT/HCPCS: 96372; J2182

== ENCOUNTER → 2022-07-31 | Outpatient (CLI) | payer MEDICARE, OTHER, SELFPAY ==
[2022-07-31 10:10] VITALS: BP 120/72; PULSE 75; RESP 16; TEMP 36.6; O2SAT 98
[2022-07-31] MEDS: Mepolizumab 100 MG VIAL SQ (10:21)
== END | disposition home or self-care (01) ==
LOC: MEDOUTP 10:00
PROVIDERS: PCP Internal Medicine; Referring Provider Internal Medicine Critical Care Medicine; Visit Provider Internal Medicine Critical Care Medicine
DX: J45.50 Severe persistent asthma, uncomplicated (principal)
CPT/HCPCS: 96372; J2182

== ENCOUNTER → 2022-08-25 | Outpatient (CLI) | payer MEDICARE, OTHER, SELFPAY ==
[2022-08-29 21:25] LABS: Cancer Antigen 125 14.9 U/mL (0.0-38.1); Carbohydrate Ag 19-9 2261 8 U/mL (0-35); Carcinoembryonic Antigen 5.5 ng/mL (0.0-4.7)
== END | disposition home or self-care (01) ==
LOC: WOBLAB 15:23
PROVIDERS: PCP Internal Medicine; Visit Provider Obstetrics & Gynecology
DX: N83.201 Unspecified ovarian cyst, right side (principal)
CPT/HCPCS: 36415; 82378; 86301; 86304

== ENCOUNTER → 2022-08-28 | Outpatient (CLI) | payer MEDICARE, OTHER, SELFPAY ==
[2022-08-28 10:48] VITALS: PULSE 73; RESP 16; TEMP 36.6; O2SAT 99; BMI 26.2
[2022-08-28] MEDS: Mepolizumab 100 MG VIAL SQ (10:59)
== END | disposition home or self-care (01) ==
LOC: MEDOUTP 10:41
PROVIDERS: PCP Internal Medicine; Referring Provider Internal Medicine Critical Care Medicine; Visit Provider Internal Medicine Critical Care Medicine
DX: J45.50 Severe persistent asthma, uncomplicated (principal)
CPT/HCPCS: 96372; J2182

== ENCOUNTER → 2022-09-29 | Outpatient (CLI) | payer MEDICARE, OTHER, SELFPAY ==
[2022-09-29 08:48] LABS: Absolute Lymphocyte Count 1.76 X10^3/uL (0.83-4.51); Absolute Neutrophil Count 2.8 X10^3/uL (2.0-7.7); Basophil# 0.05 X10^3/uL; Eosinophil# 0.09 X10^3/uL; Eosinophils% 1.7 % (0-5); Hematocrit 42.7 % (37-47); Hemoglobin 14.1 g/dL (12.0-15.0); Lymphocyte # 1.76 X10^3/ul (0.83-4.51); Lymphocyte % 33.6 % (19-41); Mean Platelet Vol. 10.8 fl (6.2-12.0); Monocyte# 0.56 X10^3/uL; Monocyte% 10.7 % (0-10); NRBC Flagged by Analyzer 0 % (0-5); Neutrophil # 2.76 X10^3/uL (2.7-7.7); Neutrophil % 52.6 % (47-70); Platelet Count 259 K/mm3 (150-450); RBC Distribution Width CV 14.1 % (11.6-14.6); RBC Distribution Width SD 50.6 fl (35.1-43.9); White Blood Count 5.2 K/mm3 (4.4-11.0)
[2022-09-29 08:59] LABS: Hemoglobin A1c 5.8 % (3.8-5.6)
[2022-09-29 09:03] LABS: Microalbumin,Random Urine 16.5 mg/L (NO RANGE EST.); Microalbumin:Creatinine Ratio 19.2 mg/g CRE (<30 mg/g CRE)
[2022-09-29 09:11] LABS: Vitamin D,25 Hydroxy 73.5 ng/mL
[2022-09-29 09:16] LABS: ALB/GLOB Ratio 0.9 RATIO (0.9-2.4); AST(SGOT) 29 U/L (15-37); Alanine Aminotransfer ALT/SGPT 27 U/L (13-56); Albumin, Serum 3.2 g/dL (3.2-5.0); Alkaline Phosphatase 102 U/L (45-117); Anion Gap 8 (5-15); BUN 25 mg/dL (7-18); BUN/Creat Ratio 37.2 RATIO (10-20); Calcium,Total 8.3 mg/dL (8.5-10.1); Chloride 106 mmol/L (98-107); Cholesterol 186 mg/dL (200); Creatinine, Serum 0.67 mg/dL (0.55-1.02); EST Glomerular Filtration Rate 90 mL/min (>60); Est Glom Filt Rate - Afr Amer 109 mL/min (>60); Free T3 2.4 pg/mL (2.18-3.98); Globulin 3.5 g/dL (2.2-4.2); Glucose 105 mg/dL (74-106); High Density Lipoprotein 58 mg/dL; Potassium 4.2 mmol/L (3.5-5.1); Protein, Total 6.7 g/dL (6.4-8.2); Sodium Level 140 mmol/L (136-145); T4 Free Direct 1.17 ng/dL (0.76-1.46); Thyroid Stim Hormone (TSH) 2.21 uIU/mL (0.358-3.74); Triglycerides 154 mg/dL; Very Low Density Lipoprotein 31 mg/dL (5-40)
[2022-10-02 17:35] LABS: Immunoglobulin E 1467 IU/mL (6-495)
== END | disposition home or self-care (01) ==
PROVIDERS: PCP Internal Medicine; Referring Provider Internal Medicine; Visit Provider Internal Medicine
DX: R73.09 Other abnormal glucose (principal); I10 Essential (primary) hypertension; E78.5 Hyperlipidemia, unspecified; E55.9 Vitamin D deficiency, unspecified; E03.9 Hypothyroidism, unspecified; J45.909 Unspecified asthma, uncomplicated
CPT/HCPCS: 36415; 80053; 80061; 82043; 82306; 82570; 82785; 83036; 84439; 84443; 84481; 85025

== ENCOUNTER → 2022-10-02 | Outpatient (CLI) | payer MEDICARE, OTHER, SELFPAY ==
[2022-10-02 10:16] VITALS: BP 122/69; PULSE 76; RESP 16; TEMP 36; O2SAT 100; BMI 26.2
[2022-10-02] MEDS: Mepolizumab 100 MG VIAL SQ (10:51)
== END | disposition home or self-care (01) ==
LOC: MEDOUTP 10:04
PROVIDERS: PCP Internal Medicine; Referring Provider Internal Medicine Critical Care Medicine; Visit Provider Internal Medicine Critical Care Medicine
DX: J45.50 Severe persistent asthma, uncomplicated (principal)
CPT/HCPCS: 96372; J2182

== ENCOUNTER → 2022-11-05 | Outpatient (CLI) | payer MEDICARE, OTHER, SELFPAY | END | disposition home or self-care (01) | LOC: WOBLAB 11:52 | PROVIDERS: PCP Internal Medicine; Visit Provider Student in an Organized Health Care Education/Training Program | DX: N83.201 Unspecified ovarian cyst, right side (principal) | CPT/HCPCS: 36415; 82378 ==

== ENCOUNTER → 2022-11-06 | Outpatient (CLI) | payer MEDICARE, OTHER, SELFPAY ==
[2022-11-06 14:22] VITALS: BP 129/77; PULSE 74; RESP 16; TEMP 36.4; O2SAT 95; BMI 26.2
[2022-11-06] MEDS: Mepolizumab 100 MG VIAL SQ (14:38)
== END | disposition home or self-care (01) ==
LOC: MEDOUTP 14:16
PROVIDERS: PCP Internal Medicine; Referring Provider Internal Medicine Critical Care Medicine; Visit Provider Internal Medicine Critical Care Medicine
DX: J45.50 Severe persistent asthma, uncomplicated (principal)
CPT/HCPCS: 96372; J2182

== ENCOUNTER → 2022-11-13 | Outpatient (CLI) | payer MEDICARE, OTHER, SELFPAY ==
--- NOTE | 2022-11-13 12:17 | BI_ITS ---
MAMMOGRAPHY - BILATERAL SCREENING REASON FOR EXAM: Female, 76 years old. Routine annual screening examination. PERTINENT HISTORY: Non-contributory. TECHNIQUE: Digital bilateral breast christa (3D mammographic acquisition) in the CC and MLO projections. 2-D mediolateral oblique (MLO) and craniocaudad (CC) views of both breasts were obtained. CAD: Full Field Digital Mammography with Computer Added Detection was performed. COMPARISON: Comparison is made with prior study dated 10/08/2021 and 10/07/2020. FINDINGS: Breast Composition: The breasts are heterogeneously dense, which may obscure small masses. There are no dominant masses or suspicious calcifications. Stable small benign-appearing bilateral axillary lymph nodes. No other significant abnormalities are identified. There has been no significant change since the prior study. BI/SCREENING MAMM (CAD), BILAT IMPRESSION: Stable bilateral screening mammogram. Yearly follow-up mammogram recommended. (A) ASSESSMENT CATEGORY: BIRADS Category 2: Benign. A letter regarding these results will be sent to the patient by the facility within 30 days. Approximately 10% of breast cancers are not detected by mammography. A normal mammogram should not delay biopsy of a clinically suspicious abnormality. [id number] Electronically Signed: Anand Dumont MD at 13:12 EST ,
== END | disposition home or self-care (01) ==
LOC: OPBI 12:15
PROVIDERS: PCP Internal Medicine; Visit Provider Internal Medicine
DX: Z12.31 Encounter for screening mammogram for malignant neoplasm of breast (principal)
CPT/HCPCS: 71046; 77067

== ENCOUNTER → 2022-11-13 | Outpatient (CLI) | payer MEDICARE, OTHER, SELFPAY ==
--- NOTE | 2022-11-13 10:48 | RAD_ITS ---
STUDY: X-RAY CHEST REASON FOR EXAM: Female, 76 years old. Cough and wheezing -- cough TECHNIQUE: PA and lateral views of the chest. COMPARISON: Comparison is made with prior study dated 05/05/2022. FINDINGS: Hyperinflation. Stable increased markings at the lung bases suggestive scarring. No focal infiltrate is seen. There is no demonstrated pleural abnormality. Normal size heart. Normal mediastinum and pravene. Normal visualized pulmonary arteries. There is atherosclerotic calcification of the aortic arch with tortuosity. There is demineralization of the osseous structures. Normal visualized ribs, clavicles, and shoulders. Hiatal hernia. RAD/Chest PA and Lateral IMPRESSION: Hyperinflation. Stable increased markings at the lung bases suggestive of scarring. Hiatal hernia. Electronically Signed: Anand Dumont MD at 11:14 EST ,
== END | disposition home or self-care (01) ==
PROVIDERS: PCP Internal Medicine; Referring Provider Internal Medicine; Visit Provider Internal Medicine
DX: J45.901 Unspecified asthma with (acute) exacerbation (principal)
CPT/HCPCS: 71046

== ENCOUNTER 2022-12-03 09:26 | Day surgery (SDC) | payer MEDICARE, OTHER, SELFPAY ==
[2022-11-30 15:30] LABS: Hematocrit 41.9 % (37-47); Mean Corp Hgb Conc 33.4 g/dL (32-36); Mean Corpuscular Volume 98.8 fL (81-99); Mean Platelet Vol. 10.8 fl (6.2-12.0); Platelet Count 273 K/mm3 (150-450); RBC Distribution Width CV 14.5 % (11.6-14.6); RBC Distribution Width SD 52.5 fl (35.1-43.9); Red Blood Count 4.24 M/mm3 (4.2-5.4); White Blood Count 9.3 K/mm3 (4.4-11.0)
[2022-11-30 15:43] LABS: Prothrombin Time (Protime)PT. 12.7 SECONDS (11.7-14.9)
[2022-11-30 15:44] LABS: Partial Thromboplast Time 28.7 Seconds (24.1-36.2)
--- NOTE | 2022-12-01 12:18 | EKG12_ITS ---
Test Reason : PRE-OP Blood Pressure : / mmHG Vent. Rate : 079 BPM Atrial Rate : 079 BPM P-R Int : 122 ms QRS Dur : 076 ms QT Int : 378 ms P-R-T Axes : 043 -06 079 degrees QTc Int : 433 ms Normal sinus rhythm Normal ECG Confirmed by BENJY RIVERO, EDWARD ([id number]), writer editor ROSEANNE MONTANEZ ([id number]) on 12/01/2022 1:59:05 PM Referred By: Nallely Antonio Confirmed By:EDWARD BURLESON MD
[2022-12-03] VITALS (7 sets, daily range): BP systolic 90–115; BP diastolic 48–67; PULSE 59–88; RESP 16–17; TEMP 36.2–36.7; O2SAT 95–100; BMI 27.5
[2022-12-03] MEDS: Lactated Ringers 1,000 ML 15 ML IV (10:05)
--- NOTE | 2022-12-03 11:01 | HP.PCM.OB_ITS ---
History and Physical Date of Admission: 12/03/22 HPI: 77-year-old female with persistent ovarian cyst plan for laparoscopic bilateral salpingectomy and ovarian cystectomy, possible oophorectomy.? Ovarian cyst has been persistent. As she is having gynecologic surgery, will complete salpingectomy for ovarian cancer risk reduction. Denies shortness of breath, nausea or vomiting, fevers or chills, diarrhea or constipation, headache or vision changes, abdominal pain. 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 Diverticulitis 2. Hypertension 3. Lisinopril 4. Hypercholesterolemia 5. Reflux 6. Hypothyroidism Medications: 1. Albuterol nebulizer 2. Albuterol Inhaler 3. Amlodipine 4. Vitamin C, vitamin D, cranberry 5. Duloxetine 6. Estrogen and progesterone 7. Fluticasone inhaler 8. Levothyroxine 9. Meloxicam 10. Nucala 11. Pantoprazole 12. Simvastatin Allergies: 1. Penicillins 2. Sulfa 3. Gabapentin Family history: No history of blood clots or bleeding disorders Social history: Denies tobacco, alcohol, drug use Surgical history: 1. Left knee replacement 2. Tonsillectomy 3. Laparoscopic colectomy Physical exam: BP 115/55, pulse 79, respirations 17, temp 97.1 ?F, oxygen saturation 96% on room air General: No acute distress HEENT: Normal cephalic/atraumatic, PERRLA Cardiac: Regular rate and rhythm, no murmurs rubs or gallops Respiratory: Clear to auscultation bilaterally Abdomen: Soft, nontender, nondistended Extremities: No edema Neurologic: Cranial nerves II through XII grossly intact, no focal deficits Musculoskeletal: Strength 5 out of 5 throughout all extremities Assessment/plan: 77-year-old female with persistent ovarian cyst plan for laparoscopic bilateral salpingectomy and ovarian cystectomy, possible oophorectomy.? All risk, benefits, alternatives were discussed with patient.? Risk include but are not limited to: Risk of bleeding to the point transfusion, infection, injury to surrounding tissue including bowel/bladder potentially requiring prolonged Pineda catheter use/major abdominal vessels, risk of laparotomy, VTE, ICU admission.? Patient did have ultrasound scheduled with radiology yesterday as she wanted to confirm persistence of ovarian cyst, she then canceled the appointment and did not have ultrasound done. Desires proceeding with surgery at this time. Patient aware and consented.
--- NOTE | 2022-12-03 11:05 | OV_PTH ---
PATIENT: LULI LARA [place]: [facility] [place][id number] AGE/SX: 77/F ROOM: RE12/03/[address]: Dr. Nallely Antonio DO : 1945 BED: DIS: 12/03/2022 SPEC #: [id number] RECD: 12/03/22 13:41 STATUS: OSMIN RE #: [id number] DIVYA: 12/03/22 11:[address]: Nallely Antonio DEPT: SURGICAL PATHOLOGY RECD BY: Anisha Graff ENTERED: 12/04/22 08:16 SP TYPE: OVARY OTHR DR: Dr. 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 Right and left fallopian tubes - No pathologic change. AM:pillo 12/07/2022 COMMENT Case has been reviewed in consultation with Dr. Willis who concurs with the above diagnosis. IDC:SJ MICROSCOPIC DESCRIPTION Slides are reviewed. GROSS DESCRIPTION Received in fixative is one container labeled with the patient's name and designated bilateral fallopian tubes, right ovary. The specimen consists of a crinkled, severino-yellow ovary measuring 4.0 x 2.2 x 1.5 cm. Serial sections reveal a cyst measuring 3.5 cm in greatest dimension. The cyst wall averages 0.4 cm in greatest dimension. The inner cyst wall contains a polypoid lesion measuring 1.0 x 1.0 x 0.6 cm. The cyst wall surface contains a firm, severino-white nodule measuring 0.6 cm in greatest dimension. The right and left fallopian tubes are similar in appearance with average lengths of 6.0 cm and average diameters of 0.5 cm. The fimbrial ends have a normal villous appearance. The fallopian tubes are not designated. Sections are submitted in six cassettes as follows: 1-4 - ovary, totally submitted (cassette 4 contains the surface nodule), 5 - one fallopian tube, 6 - the other fallopian tube. / BRETT:pillo 12/04/2022 TC:1 CPT: 49093
--- NOTE | 2022-12-03 12:06 | DCINST_ITS ---
Discharge Instructions Diet Discharge Diet: No restrictions Activity Discharge Activity: Return to Normal Activity and May Shower May resume sexual activity in: 2 weeks Weight Bearing Status: Weight bearing as tolerated Lifting Restrictions: No greater than 15 pounds Dressing / Incision Call your doctor if your incision/area has: Continuous Slow Oozing, Increased Pain/ Swelling, Increased Redness and Foul Smelling Discharge Call your doctor if you observe: Fever of 101 or Higher, Inability to urinate, Using more than 1 pad per hour, Shortness of breath, Chest pain, Calf discomfort and Uncontrolled pain Cleanse incision/area with: Soap & Water and Keep Dressing Clean & Dry Follow Up Care Please Follow Up With: Nallely Antonio DO When: 2 weeks post operative visit. Test Results: Test results from this visit will be discussed in further detail at your follow- up appointment, if applicable. Discharge Plan Admission Primary Reason for Your Visit: laparoscopy Attending Provider: Nallely Antonio Primary Care Provider: Domonique Akins Discharge Orders/Prescriptions Prescriptions: New oxycodone 5 mg tablet 5 mg PO Q6H PRN (Reason: pain (scale score 7-10)) 3 Days Qty: 10 0RF Continued levothyroxine 50 mcg capsule 50 mcg capsule 50 mcg PO DAILY simvastatin 5 mg tablet 10 mg PO QHS cholecalciferol (vitamin D3) 50 mcg (2,000 unit) capsule 100 mcg PO DAILY vitamin K2 45 mcg capsule 45 mcg PO DAILY meloxicam 15 mg tablet 15 mg PO DAILY PRN (Reason: Pain) Label Comments: TAKE 1 TABLET BY MOUTH EVERY MORNING acetaminophen 500 mg tablet 1,000 mg PO Q6H PRN (Reason: Pain) fluticasone furoate-vilanterol [Breo Ellipta] 200-25 mcg/dose blister with device 1 inh inhalation DAILY Qty: 3 3RF albuterol sulfate 1.25 mg/3 mL solution for nebulization 1.25 mg inhalation Q4H PRN (Reason: SOB) albuterol sulfate [Ventolin HFA] 90 mcg/actuation HFA aerosol inhaler 2 puff INHALATION Q4H PRN (Reason: shortness of breath or wheezing) Qty: 8.5 6RF Rx Instructions: administer with spacer Nucala 100 mg recon soln 100 mg subcut Q4W Qty: 1 11RF lisinopril 5 MG tablet 5 mg PO DAILY multivitamin 1 EACH tablet 1 each PO MOWEFR amlodipine 5 MG tablet 5 mg PO 1800 ascorbic acid (vitamin C) 500 MG capsule 500 mg PO DAILY cranberry 500 mg capsule 1,500 mg PO BID pantoprazole [Protonix] 20 mg Tablet,Delayed Release (Dr/Ec) 20 mg PO DAILY medroxyprogesterone 2.5 mg Tablet 2.5 mg PO MOWEFR estradiol-norethindrone acet 0.5-0.1 mg Tablet 1 tab PO MOWEFR Probiotic 3 billion cell Capsule 3,000 mmu cells PO DAILY Rx Instructions: administer with a meal No Action duloxetine 60 mg capsule,delayed release(DR/EC) 60 mg PO QHS Referrals / Follow Up: Fast,Domonique, DO [Primary Care Provider] - Disposition Disposition (needs filled in before D/C Order can be placed): Home, Self Care
--- NOTE | 2022-12-03 12:06 | OP.PCM_ITS ---
Report of Operation Date of Procedure: 12/03/22 Pre-Operative Diagnosis: Ovarian cyst Post-Operative Diagnosis: Ovarian cyst Surgery/Procedure Performed:: Laparoscopic right oophorectomy, bilateral salpingectomy Description of Surgical Findings:: Normal-appearing external genitalia. Normal-appearing bilateral fallopian tubes. Normal-appearing left ovary. Right ovary with large simple ovarian cyst encompassing the majority of the ovary. Large amount of small bowel in pelvis. No adhesions of colon or small bowel. Type of Anesthesia: General Specimen's removed: Bilateral fallopian tubes, right ovary, right ovarian cyst Estimated Blood Loss (mL): 5cc Fluids Replaced: 250cc Description of Procedure: Indication/risk/benefits:77-year-old female with persistent ovarian cyst plan for laparoscopic bilateral salpingectomy and ovarian cystectomy, possible oophorectomy.? All risk, benefits, alternatives were discussed with patient.? Risk include but are not limited to: Risk of bleeding to the point transfusion, infection, injury to surrounding tissue including bowel/bladder potentially re quiring prolonged Pineda catheter use/major abdominal vessels, risk of laparotomy, VTE, ICU admission. Procedure: Patient taken to the operating room placed under general anesthesia. Patient placed in the dorsal lithotomy position prepped and draped in usual sterile fashion. Pineda catheter placed. Craft retractor placed in posterior vagina and Craft retractor used anteriorly to visualize cervix. Anterior lip of cervix grasped with single-tooth tenaculum. Cervix gradually dilated. Sargis manipulator placed. Retractors removed. Gloves were changed and attention turned to the anterior abdominal wall. Supraumbilical incision made with scalpel and trocar placed under direct visualization. Abdomen insufflated. Right and left lateral trocars placed under direct visualization. 5 mm trocar in the left, 8 mm trocar on the right. Findings noted above. Right ovary and cyst elevated from the posterior cul-de-sac. Right gonadal vessels coagulated and cut. Utero ovarian ligament also coagulated and cut. Salpingo-oophorectomy completed with LigaSure device to the level of the uterine cornua. Right tube and ovary left in the pelvis. Left fallopian tube identified and grasped at the fimbriated end. Fallopian tube removed along mesosalpinx to the uterine cornua using LigaSure device. Fallopian tube removed through trocar. 5 mm Endo Catch bag placed and fallopian tube and ovary placed into this Endo Catch bag. Endo Catch bag elevated to the level of the right lower quadrant port site we will go back. Endo Catch bag elevated to the level of the skin. Bag opened at skin le ravindra. Fallopian tube grasped and removed ovary and cyst. Removed intact inside the Endo Catch bag through this trocar site. Abdomen inspected noting hemostasis along the dissection beds. Abdomen been desufflated. Trocars removed. Skin closed with subcutaneous stitch and skin glue. Single-tooth tenaculum and Sargis manipulator removed. Cervix hemostatic. Pineda catheter removed. At the end of the procedure all needle, lap, sponge counts were correct. UOP: 25cc Complications None
== END 2022-12-03 15:41 | disposition home or self-care (01) ==
LOC: SDC 09:28 → AC 09:28
PROVIDERS: Anesthesiology; PCP Internal Medicine; Referring Provider Student in an Organized Health Care Education/Training Program; Visit Provider Student in an Organized Health Care Education/Training Program
PROC: (CPT 58661; principal; 2022-12-03 10:50)
DX: N83.201 Unspecified ovarian cyst, right side (principal); M30.1 Polyarteritis with lung involvement [Churg-Strauss]; I73.9 Peripheral vascular disease, unspecified; I10 Essential (primary) hypertension; E78.00 Pure hypercholesterolemia, unspecified; K21.9 Gastro-esophageal reflux disease without esophagitis; E03.9 Hypothyroidism, unspecified; J45.909 Unspecified asthma, uncomplicated; Z96.651 Presence of right artificial knee joint; G62.9 Polyneuropathy, unspecified; I83.893 Varicose veins of bilateral lower extremities with other complications; R23.3 Spontaneous ecchymoses
CPT/HCPCS: 58661; 00840; 36415; 85027; 85610; 85730; 86850; 86900; 86901; 88305; 88307; 93005; J7120; J2405

== ENCOUNTER → 2022-12-11 | Outpatient (CLI) | payer MEDICARE, OTHER, SELFPAY ==
[2022-12-11 11:00] VITALS: BP 119/79; PULSE 81; RESP 14; TEMP 36.6; O2SAT 98; BMI 26.4
[2022-12-11] MEDS: Mepolizumab 100 MG VIAL SQ (11:20)
== END | disposition home or self-care (01) ==
LOC: MEDOUTP 10:34
PROVIDERS: PCP Internal Medicine; Referring Provider Nurse Practitioner Acute Care; Visit Provider Nurse Practitioner Acute Care
DX: J45.50 Severe persistent asthma, uncomplicated (principal)
CPT/HCPCS: 96372; J2182

== ENCOUNTER → 2023-03-04 | Outpatient (CLI) | payer MEDICARE, OTHER, SELFPAY ==
--- NOTE | 2023-03-04 13:53 | PFTCOMP_ITS ---
COMPLETE PULMONARY FUNCTION TEST INTERPRETATION Brief HPI: Patient is a 77-year-old female, currently under the care of myself, who presents to [facility] for complete pulmonary function tests secondary to diagnosis of severe persistent asthma. Respiratory therapist reports good effort and reproducible results. Interpretation: Forced expiration spirometry shows no large airways obstructive ventilatory defect with an FEV1 of 116% predicted. There is no significant bronchodilator response by strict ATS criteria. Spirograms are of good quality and plateau normally. The respiratory flow volume loop shows a normal pattern. Lung volumes by body plethysmography show a slightly elevated total lung capacity at 4.83 L, 123% predicted. All other lung volumes are increased symmetrically. Diffusion capacity by carbon monoxide is normal at 93% predicted. The airway resistance is slightly elevated. Compared to previous pulmonary function tests from 07/25/2020, there has been no significant change. Impression: Grossly normal pulmonary function test with no significant change compared to previous testing
== END | disposition home or self-care (01) ==
PROVIDERS: PCP Internal Medicine; Referring Provider Nurse Practitioner Acute Care; Visit Provider Nurse Practitioner Acute Care
DX: N83.201 Unspecified ovarian cyst, right side (principal)
CPT/HCPCS: 94060; 94726; 94729

== ENCOUNTER → 2023-03-11 | Outpatient (CLI) | payer MEDICARE, OTHER, SELFPAY ==
[2023-03-13 04:07] LABS: Carcinoembryonic Antigen 6.1 ng/mL (0.0-4.7)
== END | disposition home or self-care (01) ==
PROVIDERS: PCP Internal Medicine; Referring Provider Student in an Organized Health Care Education/Training Program; Visit Provider Student in an Organized Health Care Education/Training Program
DX: N83.201 Unspecified ovarian cyst, right side (principal); R97.0 Elevated carcinoembryonic antigen [CEA]
CPT/HCPCS: 36415; 82378

== ENCOUNTER 2023-03-12 13:27 | Outpatient (CLI) | payer MEDICARE, OTHER, SELFPAY ==
[2023-03-12 13:32] VITALS: BP 129/64; PULSE 86; RESP 16; O2SAT 96; BMI 26.7
[2023-03-12] MEDS: Mepolizumab 100 MG VIAL SQ (13:59)
== END 2023-03-12 13:28 | disposition home or self-care (01) ==
LOC: MEDOUTP 13:27
PROVIDERS: PCP Internal Medicine; Referring Provider Nurse Practitioner Acute Care; Visit Provider Nurse Practitioner Acute Care
DX: J45.50 Severe persistent asthma, uncomplicated (principal)
CPT/HCPCS: 96372; J2182

== ENCOUNTER 2023-04-09 11:00 | Outpatient (CLI) | payer MEDICARE, OTHER, SELFPAY ==
[2023-04-09 11:07] VITALS: BP 120/66; PULSE 88; RESP 16; TEMP 36.1; O2SAT 99; BMI 26.4
[2023-04-09] MEDS: Mepolizumab 100 MG VIAL SQ (11:23)
== END 2023-04-09 11:01 | disposition home or self-care (01) ==
PROVIDERS: PCP Internal Medicine; Referring Provider Nurse Practitioner Acute Care; Visit Provider Nurse Practitioner Acute Care
DX: J45.50 Severe persistent asthma, uncomplicated (principal)
CPT/HCPCS: 96372; J2182

== ENCOUNTER 2023-05-06 09:30 | Outpatient (RCR) | payer MEDICARE, OTHER, SELFPAY ==
--- NOTE | 2023-04-08 13:12 | HP.PTEVAL_ITS ---
Patient's Visit Information LULI LARA is a 77 year old F referred to Physical Therapy by Dr. Domonique Akins DO with a diagnosis of CERVICAL RADICULOATHY. Date of Evaluation: 04/08/23 Physical Therapist: Giancarlo Najera, PT, Cert MDT, OCS - Visit Plan Frequency: 2x /Week Duration: 4 Weeks Plan: PT INTERVETION MANUAL THERAPY STM/CERCERVICAL TRACTION , CERVICAL ROM/POSTURAL EX'S ,US AND [facility] 15#-20# X15 MIN - Subjective This 77 y/o female who goes by Bree presents to physical therapy with cervical radiculopathy . Patient has had neck pain ~ 5 months .Se[address] Dr recommended no medication. Patient seen chiropractor did x-rays DDD. Pain located cervical to scapular occasional triceps. Symptoms better in arm. Pain described as dull ache/sore. Aggravating lifting ,extension and rotation to left . Alleviating rest ,chiropractor. Denies paresthesia/tingling. Patient has mild MCGUIRE frontal. Denies dizziness/nausea/ tinnitus. Patient symptoms can affect sleeping. Patient condition affects QOL and function with ADLS and housework tasks. Patient goals to have less pain. SOCIAL : . VOCATION: retired - Pain Left Neck Pain Intensity (Out of 10): 2 Pain Intensity Range: 10 - Objective POSTURE: mild forward posture. PALPTION: UT/levator/paraspinals left. NEURO: denies paresthesia/tingling ,reflexes C5-6-7 2/3. CERVICAL ROM: flexion WFL ,extension min loss pain ,lateral flexion mod loss pain > left ,rotation min/mod loss. MMT: grossly 4/5 - Special Tests C/S Radiculapathy - Left Upper limb tension test: Negative C/S Radiculapathy - Right Upper limb tension test: Negative C/S Radiculapathy - Left Spurlings: Positive C/S Radiculapathy - Right Spurlings: Negative C/S Radiculapathy - Left Cervical distraction: Negative C/S Radiculapathy - Right Cervical distraction: Negative C/S Radiculapathy - Left Relief test: Negative C/S Radiculapathy - Right Relief test: Negative C/S Radiculapathy - Valsalva: Negative Sharp Morgan: Negative Vertebral Artery Test: Negative Alar Ligament Test: Negative - Balance/Special Test Scores Oswestry Neck Score: 25 - Goals Goal 1:: Patient to be I with HEP Goal Time Frame: 4-6 Weeks Goal 2:: Patient to improve posture for ADLS 80% OF THE TIME Goal Time Frame: 4-6 Weeks Goal 3:: Patient to improve cervical ROM for function of recovery for driving Goal Time Frame: 4-6 Weeks Goal 4:: Patient to improve cervical oswestry score by 5 points to improve QOL Goal Time Frame: 4-6 Weeks Goal 5:: Patient to demonstrate 50% improvement with decrease pain to improve function Goal Time Frame: 4-6 Weeks - Rehabilitation Potential Physical Therapy Diagnosis: This patient has cervical radiculopathy with pain left cervical possible due to foraminal stenosis with symptom worse with position and motion testing thus benefit from skilled PT . Rehabilitation Potential: Good - Anticipated Interventions Patient/Client Instruction: Educate patient on: Condition, Plan of Care For the Purpose of:: To decrease pain, To increase ROM, To improve muscle performance and motor function, To improve ability to perform ADL's, To increase tolerance to activity/condition/position, To improve ability of physical actions for home/community/work/leisure, To improve health of tissue, To decrease soft tissue restriction, To increase flexibility/ROM, To improve tolerance to ADL's Therapeutic Exercise to Include: Strength training, Postural training, Flexibilty training, Active ROM For the Purpose of:: To decrease pain, To increase ROM, To improve nutrient delivery to tissue, To increase oxygenation perfusion, To improve muscle performance and motor function, To increase tolerance to activity/condition/position, To improve ability of physical actions for home/community/work/leisure, To improve health of tissue, To decrease soft tissue restriction, To increase flexibility/ROM, To prevent re-injury Manual Therapy Techniques to Include: Mobilization, Soft tissue mobilization For the Purpose of:: To decrease pain, To increase ROM, To improve muscle performance and motor function, To improve ability to perform ADL's, To increase tolerance to activity/condition/position, To improve ability of physical actions for home/community/work/leisure, To improve health of tissue, To decrease soft tissue restriction, To increase flexibility/ROM TENS: Yes IF ES: Yes Cryotherapy (ice pack, ice massage): Yes Thermo therapy (hot pack): Yes Ultrasound (thermal/non thermal): Yes For the Purpose of:: To decrease pain, To increase ROM, To improve nutrient delivery to tissue, To increase oxygenation perfusion, To decrease soft tissue restriction, To increase flexibility/ROM Thank you for the opportunity to evaluate your patient. For Medicare and Medicare HMO plans, please review the plan of care and approve it. It will need to be FAXED BACK to us at [phone] for Medicare purposes. For Medicare only, by signing this I certify the plan of care. Please let me know if there are questions or concerns regarding this plan of care. Physician Signature: Date:
--- NOTE | 2023-05-06 10:19 | HP.PTDCSUM ---
Discharge Summary D/C summary: It has been my pleasure to treat LULI LARA referred by Dr. Domonique Akins DO, with the diagnosis of CERVICAL RADICULOATHY for a total of 9 visit(s). Discharge Date: Please see the following information for a summary of their discharge status. Subjective Subjective: Doing well ..Pain in morning is worse as day goes better and movement Pain Left Neck: Pain Intensity (Out of 10): 1 Overall Improvement % Improvement: 50 Objective Objective/Function: POSTURE: mild forward posture. PALPTION: milk UT/levator/paraspinals left. NEURO: denies paresthesia/tingling ,reflexes C5-6-7 2/3. CERVICAL ROM: flexion WFL ,extension WNL loss pain ,lateral flexion /min/mod loss pain > left ,rotation min/mod loss. MMT: grossly 4/5 Goals Goal 1:: Patient to be I with HEP Goal 2:: Patient to improve posture for ADLS 80% OF THE TIME Goal 3:: Patient to improve cervical ROM for function of recovery for driving Goal 4:: Patient to improve cervical oswestry score by 5 points to improve QOL Goal 5:: Patient to demonstrate 50% improvement with decrease pain to improve function Plan Plan: D/C HEP D/C Information d/c sentence: If there are questions or concerns regarding this patient's physical therapy, please feel free to call me at [phone]. Thank you for the referral of this patient. Sincerely, Giancarlo Najera, PT, Cert MDT, OCS Balance/Gait/Functional tests Balance/Special Test Scores Oswestry Neck Score: 3
== END 2023-05-06 13:09 | disposition home or self-care (01) ==
LOC: PT 09:30
PROVIDERS: PCP Internal Medicine; Referring Provider Internal Medicine; Visit Provider Internal Medicine
DX: M54.12 Radiculopathy, cervical region (principal)
CPT/HCPCS: 97012; 97110; 97140; 97162; 97530

== ENCOUNTER 2023-05-07 11:53 | Outpatient (CLI) | payer MEDICARE, OTHER, SELFPAY ==
[2023-05-07 12:01] VITALS: BP 107/69; PULSE 81; RESP 16; TEMP 36.5; O2SAT 96; BMI 26.7
[2023-05-07] MEDS: Mepolizumab 100 MG VIAL SC (12:20)
== END 2023-05-07 11:54 | disposition home or self-care (01) ==
LOC: MEDOUTP 11:53
PROVIDERS: PCP Internal Medicine; Referring Provider Nurse Practitioner Acute Care; Visit Provider Nurse Practitioner Acute Care
DX: J45.50 Severe persistent asthma, uncomplicated (principal)
CPT/HCPCS: 96372; J2182

== ENCOUNTER → 2023-05-18 | Outpatient (CLI) | payer MEDICARE, OTHER, SELFPAY ==
--- NOTE | 2023-05-18 14:39 | BD_ITS ---
STUDY: DUAL ENERGY X-RAY ABSORPTIOMETRY / DXA REASON FOR EXAM: Female, 77 years old. 627.8Menopausal postmenopausal BONE DENSITY REASON FOR EXAM -- postmenopausal.. due for screening TECHNIQUE: Bone Mineral Density (BMD) measurements of lumbar spine and bilateral hips were obtained. COMPARISON: None. FINDINGS: Lumbar Spine (L1-L4): g/cm2 (1.205) / T-score (1.4) / Z-score (4.0) Findings are suggestive of normal bone density with a low fracture risk. Left Femur Total: g/cm2 (0.827) / T-score (-0.9) / Z-score (1.0) Left Femoral Neck: g/cm2 (0.674) / T-score (-1.6) / Z-score (0.7) Right Femur Total: g/cm2 (0.848) / T-score (-0.8) / Z-score (1.2) Right Femoral Neck: g/cm2 (0.678) / T-score (-1.5) / Z-score (0.7) BD/Dexa Bone Density Study IMPRESSION: The patient is considered osteopenic as outlined below according to World Jj Organization (WHO) criteria with a moderate fracture risk. Reference Information: The T-score is the number of standard deviations above or below the standard which is normal for young adults at their peak bone mineral density. The World Health Organization (WHO) interprets the T-scores as follows: Above -1 Normal bone density Between -1 and -2.5 Osteopenia Equal to / or below -2.5 Osteoporosis As a practical clinical guideline, osteopenia may be graded as follows: Mild -1 through -1.5 Moderate -1.6 through -2.0 Severe -2.1 through -2.4 The Z-score is the number of standard deviations above or below age-matched controls. A Z-score of less than -1.5 would be considered abnormal. References: 1. NIH Osteoporosis and Related Bone Diseases www osteo.org 2. International Society for Clinical Densitometry www iscd.org 3. National Osteoporosis Foundation www nof.org Electronically Signed: Anand Dumont MD at 14:33 EDT ,
== END | disposition home or self-care (01) ==
LOC: OPBD 14:36
PROVIDERS: PCP Internal Medicine; Referring Provider Internal Medicine; Visit Provider Internal Medicine
DX: Z78.0 Asymptomatic menopausal state (principal)
CPT/HCPCS: 77080

== ENCOUNTER → 2023-05-28 | Outpatient (CLI) | payer MEDICARE, OTHER, SELFPAY ==
--- NOTE | 2023-05-28 12:50 | US_ITS ---
EXAM: US SOFT TISSUES HEAD AND NECK, THYROID CLINICAL INDICATION: thyroid nodule TECHNIQUE: Greyscale and color doppler imaging was performed of the thyroid gland. COMPARISON: Thyroid ultrasound 02/24/2022 and 05/09/2019 FINDINGS: LEFT THYROID LOBE: 2.5 x 1.0 x 1.1 cm. Small nodule in the left thyroid lobe measuring 3 x 3 x 2 mm with coarse shadowing calcification. This nodule is of uncertain composition due to calcification, is of indeterminate echogenicity, [id number], smoothly marginated, contains microcalcifications and is peripherally calcified. TI-RADS points: 6. TI-RADS category: TR4. This nodule is moderately suspicious but no FNA or follow-up is necessary given the small size of this nodule. RIGHT THYROID LOBE: 3.1 x 1.0 x 1.4 cm. There is a small hypoechoic nodule in the right thyroid lobe measuring 6 x 4 x 4 mm. This nodule is solid or almost completely solid, hypoechoic, [id number], smoothly marginated and contains no echogenic foci. TI-RADS points: 4. TI-RADS category: TR4. This nodule is moderately suspicious but no FNA or follow-up is necessary given the small size of this nodule. ISTHMUS: 2 mm. No thyroid nodules are present. US/Thyroid IMPRESSION: Small subcentimeter thyroid nodules as detailed above. No FNA or follow-up is required based on imaging appearance due to the small size of the nodules, as well as the stability for greater than 4 years. Electronically Signed: Anthony Blakely MD at 7:25 EDT ,
== END | disposition home or self-care (01) ==
LOC: US 12:49
PROVIDERS: PCP Internal Medicine; Referring Provider Internal Medicine; Visit Provider Internal Medicine
DX: E04.1 Nontoxic single thyroid nodule (principal)
CPT/HCPCS: 76536

== ENCOUNTER 2023-06-04 12:02 | Outpatient (CLI) | payer MEDICARE, OTHER, SELFPAY ==
[2023-06-04 12:18] VITALS: BP 122/79; PULSE 79; RESP 18; TEMP 36.2; BMI 26.9
[2023-06-04] MEDS: Mepolizumab 100 MG VIAL SC (12:29)
== END 2023-06-04 12:03 | disposition home or self-care (01) ==
LOC: MEDOUTP 12:03
PROVIDERS: PCP Internal Medicine; Referring Provider Nurse Practitioner Acute Care; Visit Provider Nurse Practitioner Acute Care
DX: J45.50 Severe persistent asthma, uncomplicated (principal)
CPT/HCPCS: 96372; J2182

== ENCOUNTER 2023-06-10 08:02 | Outpatient (CLI) | payer MEDICARE, OTHER, SELFPAY ==
[2023-06-10 08:15] VITALS: BP 130/78; PULSE 74; RESP 16; TEMP 36.3; O2SAT 99; BMI 26.6
[2023-06-10] MEDS: Cosyntropin 0.25 MG Vial IM (08:20)
== END 2023-06-10 08:03 | disposition home or self-care (01) ==
PROVIDERS: PCP Internal Medicine; Referring Provider Internal Medicine; Visit Provider Internal Medicine
DX: R79.89 Other specified abnormal findings of blood chemistry (principal)
CPT/HCPCS: 36415; 82533; 96372; J0834

== ENCOUNTER 2023-06-11 09:33 | Outpatient (CLI) | payer MEDICARE, OTHER, SELFPAY ==
[2023-06-11 09:41] VITALS: BP 124/68; PULSE 77; RESP 16; TEMP 36.8; O2SAT 98; BMI 26.6
[2023-06-11] MEDS: Zoledronic Acid 5 MG 100 ML 300 MG IV (10:05)
[2023-06-11 10:27] VITALS: BP 122/67; PULSE 71; RESP 16
== END 2023-06-11 09:34 | disposition home or self-care (01) ==
LOC: MEDOUTP 09:33
PROVIDERS: PCP Internal Medicine; Referring Provider Internal Medicine; Visit Provider Internal Medicine
DX: M85.80 Other specified disorders of bone density and structure, unspecified site (principal)
CPT/HCPCS: 96365; J3489

== ENCOUNTER 2023-07-02 14:10 | Outpatient (CLI) | payer MEDICARE, OTHER, SELFPAY ==
[2023-07-02 14:18] VITALS: BP 113/71; PULSE 75; RESP 16; TEMP 36.1; O2SAT 97; BMI 26.8
[2023-07-02] MEDS: Mepolizumab 100 MG VIAL SC (14:23)
== END 2023-07-02 14:11 | disposition home or self-care (01) ==
LOC: MEDOUTP 14:10
PROVIDERS: PCP Internal Medicine; Referring Provider Nurse Practitioner Acute Care; Visit Provider Nurse Practitioner Acute Care
DX: J45.50 Severe persistent asthma, uncomplicated (principal)
CPT/HCPCS: 96372; J2182

== ENCOUNTER 2023-07-30 12:41 | Outpatient (CLI) | payer MEDICARE, OTHER, SELFPAY ==
[2023-07-30 13:23] VITALS: BP 132/74; PULSE 75; RESP 16; TEMP 36.2; O2SAT 98; BMI 26.8
[2023-07-30] MEDS: Mepolizumab 100 MG VIAL SC (13:40)
== END 2023-07-30 12:42 | disposition home or self-care (01) ==
LOC: MEDOUTP 12:41
PROVIDERS: PCP Internal Medicine; Referring Provider Nurse Practitioner Acute Care; Visit Provider Nurse Practitioner Acute Care
DX: J45.50 Severe persistent asthma, uncomplicated (principal)
CPT/HCPCS: 96372; J2182

== ENCOUNTER 2023-08-27 12:00 | Outpatient (CLI) | payer MEDICARE, OTHER, SELFPAY ==
[2023-08-27 12:19] VITALS: BP 116/75; PULSE 84; RESP 16; TEMP 35.9; O2SAT 97; BMI 26.4
[2023-08-27] MEDS: Mepolizumab 100 MG VIAL SC (12:39)
== END 2023-08-27 12:01 | disposition home or self-care (01) ==
PROVIDERS: PCP Internal Medicine; Referring Provider Nurse Practitioner Acute Care; Visit Provider Nurse Practitioner Acute Care
DX: J45.50 Severe persistent asthma, uncomplicated (principal)
CPT/HCPCS: 96372; J2182

== ENCOUNTER 2023-09-24 12:38 | Outpatient (CLI) | payer MEDICARE, OTHER, SELFPAY ==
[2023-09-24 12:51] VITALS: BP 133/70; PULSE 72; RESP 16; TEMP 36.1; O2SAT 99; BMI 26.6
[2023-09-24] MEDS: Mepolizumab 100 MG VIAL SC (13:34)
== END 2023-09-24 12:39 | disposition home or self-care (01) ==
LOC: MEDOUTP 12:38
PROVIDERS: PCP Internal Medicine; Referring Provider Nurse Practitioner Acute Care; Visit Provider Nurse Practitioner Acute Care
DX: J45.50 Severe persistent asthma, uncomplicated (principal)
CPT/HCPCS: 96372; J2182

== ENCOUNTER → 2023-10-08 | Outpatient (CLI) | payer MEDICARE, OTHER, SELFPAY ==
--- NOTE | 2023-10-08 13:08 | RAD_ITS ---
EXAM: XR BILATERAL RIBS, 3 VIEWS CLINICAL INDICATION: right rib mass -- right rib mass TECHNIQUE: Frontal and oblique views of the bilateral ribs. COMPARISON: 11/13/2022 chest radiographs. FINDINGS: LUNGS AND PLEURAL SPACES: No significant abnormality. No consolidation or edema. No pneumothorax. No effusion. BONES/JOINTS: Degenerative changes in the spine and scoliotic curvature. No displaced fracture. No sclerotic or destructive changes observed. SOFT TISSUES: No significant abnormality. No soft tissue swelling or gas. VASCULATURE: Atherosclerosis. RAD/Ribs Bilat 3V No CXR IMPRESSION: No distinct evidence of mass, erosive change, or other acute osseous abnormality in the chest wall. Degenerative changes of the spine. No additional acute pathology in the chest. Electronically Signed: Christiano Porter DO at 16:03 EST ,
== END | disposition home or self-care (01) ==
LOC: MTRAD 13:04
PROVIDERS: PCP Internal Medicine; Referring Provider Internal Medicine; Visit Provider Internal Medicine
DX: R22.2 Localized swelling, mass and lump, trunk (principal)
CPT/HCPCS: 71110

== ENCOUNTER 2023-11-03 14:30 | Outpatient (CLI) | payer MEDICARE, OTHER, SELFPAY ==
[2023-11-03 14:46] VITALS: BP 128/71; PULSE 79; RESP 16; TEMP 36.8; BMI 26.6
[2023-11-03] MEDS: Mepolizumab 100 MG VIAL SC (15:12)
== END 2023-11-03 14:31 | disposition home or self-care (01) ==
LOC: MEDOUTP 14:32
PROVIDERS: PCP Internal Medicine; Referring Provider Nurse Practitioner Acute Care; Visit Provider Nurse Practitioner Acute Care
DX: J45.50 Severe persistent asthma, uncomplicated (principal)
CPT/HCPCS: 96372; J2182

== ENCOUNTER 2024-03-03 09:58 | Outpatient (CLI) | payer MEDICARE, OTHER, SELFPAY ==
[2024-03-03 10:03] VITALS: BP 129/83; PULSE 88; RESP 16; TEMP 36.1; O2SAT 98
[2024-03-03] MEDS: Mepolizumab 100 MG VIAL SC (10:24)
== END 2024-03-03 09:59 | disposition home or self-care (01) ==
LOC: MEDOUTP 09:58
PROVIDERS: PCP Internal Medicine; Referring Provider Nurse Practitioner Acute Care; Visit Provider Nurse Practitioner Acute Care
DX: J45.50 Severe persistent asthma, uncomplicated (principal)
CPT/HCPCS: 96372; J2182

== ENCOUNTER → 2024-03-03 | Outpatient (CLI) | payer MEDICARE, OTHER, SELFPAY ==
--- NOTE | 2024-03-03 13:47 | BI_ITS ---
MAMMOGRAPHY - BILATERAL SCREENING REASON FOR EXAM: Female, 78 years old. Routine annual screening examination. PERTINENT HISTORY: Non-contributory. TECHNIQUE: Digital bilateral breast gema (3D mammographic acquisition) in the CC and MLO projections. 2-D mediolateral oblique (MLO) and craniocaudad (CC) views of both breasts were obtained. CAD: Full Field Digital Mammography with Computer Added Detection was performed. COMPARISON: Comparison is made with prior study dated May 13, 2023 and October 08, 2021. FINDINGS: Breast Composition: The breasts are heterogeneously dense, which may obscure small masses. There are no dominant masses or suspicious calcifications. No other significant abnormalities are identified. There has been no significant change since the prior study. BI/SCRN MAMM (CAD)W/GEMA BILAT IMPRESSION: Stable bilateral screening mammogram. Yearly follow-up mammogram recommended. (A) ASSESSMENT CATEGORY: BIRADS Category 1: Negative. A letter regarding these results will be sent to the patient by the facility within 30 days. Approximately 10% of breast cancers are not detected by mammography. A normal mammogram should not delay biopsy of a clinically suspicious abnormality. [id number] Electronically Signed: Anand Dumont MD at 15:22 EDT ,
== END | disposition home or self-care (01) ==
LOC: OPBI 13:46
PROVIDERS: PCP Internal Medicine; Referring Provider Internal Medicine; Visit Provider Internal Medicine
DX: Z12.31 Encounter for screening mammogram for malignant neoplasm of breast (principal)
CPT/HCPCS: 77063; 77067

== ENCOUNTER → 2024-03-06 | Outpatient (CLI) | payer MEDICARE, OTHER, SELFPAY ==
[2024-03-06 09:31] LABS: Absolute Lymphocyte Count 1.88 X10^3/uL (0.83-4.51); Absolute Neutrophil Count 3.2 X10^3/uL (2.0-7.7); Basophil# 0.07 X10^3/uL; Basophil% 1.2 % (0-1); Eosinophil# 0.08 X10^3/uL; Eosinophils% 1.3 % (0-5); Hematocrit 45.2 % (37-47); Hemoglobin 14.6 g/dL (12.0-15.0); Lymphocyte # 1.88 X10^3/ul (0.83-4.51); Lymphocyte % 31.6 % (19-41); Mean Corp Hgb Conc 32.3 g/dL (32-36); Mean Corpuscular Hgb 31.7 pg (27.0-32.0); Mean Corpuscular Volume 98.3 fL (81-99); Mean Platelet Vol. 10.6 fl (6.2-12.0); Monocyte# 0.69 X10^3/uL; Monocyte% 11.6 % (0-10); NRBC Flagged by Analyzer 0 % (0-5); Neutrophil % 53.8 % (47-70); Platelet Count 254 K/mm3 (150-450); RBC Distribution Width CV 14.6 % (11.6-14.6); RBC Distribution Width SD 53.1 fl (35.1-43.9)
[2024-03-06 10:12] LABS: ALB/GLOB Ratio 0.8 RATIO (0.9-2.4); AST(SGOT) 34 U/L (15-37); Alanine Aminotransfer ALT/SGPT 33 U/L (13-56); Albumin, Serum 3.3 g/dL (3.2-5.0); Alkaline Phosphatase 91 U/L (45-117); Anion Gap 2 (5-15); BUN 19 mg/dL (7-18); Calcium,Total 8.5 mg/dL (8.5-10.1); Chloride 108 mmol/L (98-107); Cholesterol 199 mg/dL (200); Creatinine, Serum 0.73 mg/dL (0.55-1.02); EST Glomerular Filtration Rate 82 mL/min (>60); Est Glom Filt Rate - Afr Amer 99 mL/min (>60); Globulin 3.9 g/dL (2.2-4.2); Glucose 109 mg/dL (74-106); High Density Lipoprotein 78 mg/dL; Potassium 4.8 mmol/L (3.5-5.1); Protein, Total 7.2 g/dL (6.4-8.2); Sodium Level 137 mmol/L (136-145); Thyroid Stim Hormone (TSH) 3.76 uIU/mL (0.358-3.74); Triglycerides 143 mg/dL; Very Low Density Lipoprotein 29 mg/dL (5-40)
[2024-03-06 12:04] LABS: Hemoglobin A1c 5.4 % (3.8-5.6)
[2024-03-06 16:54] LABS: Vitamin D,25 Hydroxy 85.3 ng/mL
[2024-03-07 04:18] LABS: Carcinoembryonic Antigen 6.4 ng/mL (0.0-4.7)
== END | disposition home or self-care (01) ==
LOC: LAB 09:07
PROVIDERS: PCP Internal Medicine; Referring Provider Internal Medicine; Visit Provider Internal Medicine
DX: R97.0 Elevated carcinoembryonic antigen [CEA] (principal); E03.9 Hypothyroidism, unspecified; R73.09 Other abnormal glucose; E78.5 Hyperlipidemia, unspecified; I10 Essential (primary) hypertension; E55.9 Vitamin D deficiency, unspecified
CPT/HCPCS: 36415; 80053; 80061; 82306; 82378; 83036; 84443; 85025

== ENCOUNTER 2024-03-31 10:59 | Outpatient (CLI) | payer MEDICARE, OTHER, SELFPAY ==
[2024-03-31 11:13] VITALS: BP 133/69; PULSE 80; RESP 16; TEMP 36.3; O2SAT 97
[2024-03-31] MEDS: Mepolizumab 100 MG VIAL SC (11:31)
== END 2024-03-31 23:59 | disposition home or self-care (01) ==
LOC: MEDOUTP 10:59
PROVIDERS: PCP Internal Medicine; Referring Provider Nurse Practitioner Acute Care; Visit Provider Nurse Practitioner Acute Care
DX: J45.50 Severe persistent asthma, uncomplicated (principal)
CPT/HCPCS: 96372; J2182

== ENCOUNTER → 2024-04-14 | Outpatient (CLI) | payer MEDICARE, OTHER, SELFPAY ==
[2024-04-14 14:15] LABS: AST(SGOT) 30 U/L (15-37); Alanine Aminotransfer ALT/SGPT 30 U/L (13-56); Albumin, Serum 3.4 g/dL (3.2-5.0); Alkaline Phosphatase 105 U/L (45-117); Anion Gap 5 (5-15); BUN 28 mg/dL (7-18); BUN/Creat Ratio 35.4 RATIO (10-20); CRP 5.14 mg/L (0.0-3.0); Chloride 105 mmol/L (98-107); Creatinine, Serum 0.79 mg/dL (0.55-1.02); EST Glomerular Filtration Rate 74 mL/min (>60); Est Glom Filt Rate - Afr Amer 90 mL/min (>60); Globulin 3.5 g/dL (2.2-4.2); Glucose 104 mg/dL (74-106); Potassium 4.6 mmol/L (3.5-5.1); Protein, Total 6.9 g/dL (6.4-8.2); Sodium Level 136 mmol/L (136-145); Thyroid Stim Hormone (TSH) 1.42 uIU/mL (0.358-3.74)
== END | disposition home or self-care (01) ==
PROVIDERS: PCP Internal Medicine; Referring Provider Internal Medicine; Visit Provider Internal Medicine
DX: R79.82 Elevated C-reactive protein (CRP) (principal); E03.9 Hypothyroidism, unspecified; I10 Essential (primary) hypertension
CPT/HCPCS: 36415; 80053; 84443; 86140

== ENCOUNTER → 2024-04-21 | Outpatient (CLI) | payer MEDICARE, OTHER, SELFPAY ==
--- NOTE | 2024-04-21 07:12 | ECHOD_ITS ---
Reason For Study: PANG Procedure This was a 2D Doppler, Color Flow transthoracic echocardiogram. Exam performed in department. Left Ventricle Normal LV size. The estimated ejection fraction is 55 %. Normal diastology for age. No regional wall motion abnormalities noted. Right Ventricle Normal RV size. Normal systolic function. Atria The left and right atria are normal. No doppler evidence for ASD. Mitral Valve There is no mitral valve stenosis. Trivial mitral valve insufficiency. Tricuspid Valve There is no tricuspid stenosis. Trivial tricuspid valve insufficiency. Pulmonary artery systolic pressure is 25 mmHg. Aortic Valve Trisinus/trileaflet aortic valve. Aortic sclerosis, no stenosis. There is no aortic stenosis. No aortic valve insufficiency. Pulmonic Valve There is no pulmonic valvular stenosis. No pulmonic valve insufficiency. Great Vessels Normal aortic root. Pericardium/Pleural No pericardial effusion. MMode/2D Measurements & Calculations LVIDd: 4.3 cm IVSd: 0.79 cm LVOT diam: 1.9 cm LVIDs: 2.8 cm LVPWd: 0.78 cm LVOT area: 2.7 cm2 RVDd: 3.2 cm FS: 35.9 % Ao root diam: 3.1 cm LAV(MOD-bp): 29.5 ml LVAd ap4: 22.1 cm2 LAV(MOD-bp) Indexed: 18.0 ml/m2 LVLd ap4: 6.6 cm LAV(MOD-sp2): 27.7 ml EDV(MOD-sp4): 60.9 ml LAV(MOD-sp4): 28.4 ml EDV(sp4-el): 62.4 ml LVAs ap4: 14.2 cm2 LVLs ap4: 5.7 cm ESV(MOD-sp4): 30.5 ml ESV(sp4-el): 30.2 ml EF(MOD-sp4): 50.0 % EF(sp4-el): 51.7 % LVAd ap2: 20.5 cm2 SV(MOD-sp4): 30.4 ml SV(MOD-sp2): 31.5 ml LVLd ap2: 6.1 cm EDV(MOD-sp2): 59.1 ml EDV(sp2-el): 58.4 ml LVAs ap2: 13.2 cm2 LVLs ap2: 5.4 cm ESV(MOD-sp2): 27.6 ml ESV(sp2-el): 27.3 ml EF(MOD-sp2): 53.3 % SV(sp4-el): 32.3 ml LA dimension(2D): 3.0 cm LA A4 area: 12.9 cm2 RA A4 area: 11.3 cm2 TAPSE: 2.2 cm Time Measurements MV dec time: 0.21 sec Doppler Measurements & Calculations MV E max melecio: 69.4 cm/sec Lat Peak E' Melecio: 9.2 cm/sec Med Peak E' Melecio: 6.1 cm/sec MV A max melecio: 93.0 cm/sec E/E' lat: 7.5 E/E' med: 11.4 MV E/A: 0.75 Ao V2 max: 166.3 cm/sec LV V1 max: 98.4 cm/sec MV dec slope: 349.6 cm/sec2 Ao max P.1 mmHg LV V1 max P.9 mmHg Ao V2 mean: 119.4 cm/sec LV V1 mean P.6 mmHg Ao mean P.4 mmHg LV V1 mean: 78.2 cm/sec Ao V2 VTI: 38.8 cm LV V1 VTI: 23.1 cm AV (velocity ratio): 0.60 RAY(I,D): 1.6 cm2 RAY(V,D): 1.6 cm2 SV(LVOT): 62.8 ml PA V2 max: 91.6 cm/sec TR max melecio: 239.4 cm/sec TR max P.9 mmHg ECHO/Echo Complete Interpretation Summary The estimated ejection fraction is 55 %. Trivial mitral valve insufficiency. Ordering Physician: Domonique Akins Referring Physician: Domonique Akins Performed By: Eduarda Kraft, MARNI, RVT
--- NOTE | 2024-04-21 11:08 | STRESSREP_ITS ---
Stress Test Report Date: 04/21/2024 Procedure: Exercise tolerance test/imaging study Indications: Dyspnea Consent: Per the patient Procedure: The patient exercised on a Carlitos protocol for 3 minutes and 30 seconds achieving a peak heart rate of 133 bpm (94% predicted maximal heart rate) with a peak blood pressure 170/90 mmHg and a peak MET capacity of 5.8 METs. The baseline ECG demonstrated normal sinus rhythm. The peak exercise ECG demonstrated no significant ischemic changes. EKG during recovery revealed no significant ischemic changes [There were no cardiac dysrhythmias pretest, during exercise, or recovery]. The functional capacity was considered normal for age. There was [no complaint of chest discomfort during exercise or recovery]. The examination was discontinued secondary to dyspnea. Impression: 1. Technically adequate (percent predicted maximal heart rate greater than 85%) exercise tolerance test 2. Stress test is negative for exercise-induced EKG changes of ischemia 3. The test test is negative for exercise-induced chest pain 4. Functional capacity is normal for age 5. Nuclear images pending Myocardial perfusion imaging study: Technique: The patient was injected with 12 mCi of technetium 99m Cardiolite and subsequently rest SPECT Cardiolite nuclear imaging was obtained in the horizontal long, vertical long, and short axis views. The patient exercised on a Carlitos protocol. Please see above for details. The patient was injected with 35.2 mCi of technetium 99m Cardiolite and subsequently stress SPECT Cardiolite nuclear imaging was obtained in the horizontal long, vertical long, and short axis views. A gated Cardiolite study at peak stress was obtained. Interpretation: Rest and stress SPECT Cardiolite nuclear imaging status post realignment, normalization, and attenuation correction, demonstrates no evidence of significant ischemia or infarction. The gated Cardiolite study demonstrates no significant regional wall motion abnormalities. The reported LVEF is 59%. Impression: 1. There is no evidence of significant ischemia or infarction. 2. The gated Cardiolite study reports an LVEF of 59%. This note was generated with [employer] software. It may contain incorrect words, spelling, and punctuation that were not noted in checking the note before signing.
== END | disposition home or self-care (01) ==
LOC: CVS 07:06
PROVIDERS: PCP Internal Medicine; Referring Provider Internal Medicine; Visit Provider Internal Medicine
DX: R06.09 Other forms of dyspnea (principal)
CPT/HCPCS: 78452; 93017; 93306; A9500; A4216

== ENCOUNTER 2024-05-05 11:35 | Outpatient (CLI) | payer MEDICARE, OTHER, SELFPAY ==
[2024-05-05 11:48] VITALS: BP 122/69; PULSE 83; RESP 16; TEMP 35.8; O2SAT 94; BMI 27.1
[2024-05-05] MEDS: Mepolizumab 100 MG VIAL SC (11:58)
== END 2024-05-05 23:59 | disposition home or self-care (01) ==
LOC: MEDOUTP 11:35
PROVIDERS: PCP Internal Medicine; Referring Provider Nurse Practitioner Acute Care; Visit Provider Nurse Practitioner Acute Care
DX: J45.50 Severe persistent asthma, uncomplicated (principal)
CPT/HCPCS: 96372; J2182

== ENCOUNTER 2024-06-02 10:35 | Outpatient (CLI) | payer MEDICARE, OTHER, SELFPAY ==
[2024-06-02 10:49] VITALS: BP 127/66; PULSE 82; RESP 16; TEMP 35.6; O2SAT 98; BMI 26.9
[2024-06-02] MEDS: Mepolizumab 100 MG VIAL SC (10:56)
== END 2024-06-02 23:59 | disposition home or self-care (01) ==
LOC: MEDOUTP 10:35
PROVIDERS: PCP Internal Medicine; Referring Provider Nurse Practitioner Acute Care; Visit Provider Nurse Practitioner Acute Care
DX: J45.50 Severe persistent asthma, uncomplicated (principal)
CPT/HCPCS: 96372; J2182

== ENCOUNTER 2024-06-30 10:27 | Outpatient (CLI) | payer MEDICARE, OTHER, SELFPAY ==
[2024-06-30 10:41] VITALS: BP 108/69; PULSE 78; RESP 16; TEMP 36.2; O2SAT 98; BMI 26.2
[2024-06-30] MEDS: Mepolizumab 100 MG VIAL SC (11:23)
== END 2024-06-30 23:59 | disposition home or self-care (01) ==
LOC: MEDOUTP 10:27
PROVIDERS: PCP Internal Medicine; Referring Provider Nurse Practitioner Acute Care; Visit Provider Nurse Practitioner Acute Care
DX: J45.50 Severe persistent asthma, uncomplicated (principal)
CPT/HCPCS: 96372; J2182

== ENCOUNTER 2024-07-28 11:05 | Outpatient (CLI) | payer MEDICARE, OTHER, SELFPAY ==
[2024-07-28 11:12] VITALS: BP 130/66; PULSE 71; RESP 16; TEMP 35.8; O2SAT 98; BMI 25.9
[2024-07-28] MEDS: Mepolizumab 100 MG VIAL SC (11:42)
== END 2024-07-28 23:59 | disposition home or self-care (01) ==
LOC: MEDOUTP 11:05
PROVIDERS: PCP Internal Medicine; Referring Provider Nurse Practitioner Acute Care; Visit Provider Nurse Practitioner Acute Care
DX: J45.50 Severe persistent asthma, uncomplicated (principal)
CPT/HCPCS: 96372; J2182

== ENCOUNTER 2024-08-25 11:04 | Outpatient (CLI) | payer MEDICARE, OTHER, SELFPAY ==
[2024-08-25 11:17] VITALS: BP 129/64; PULSE 81; RESP 16; TEMP 35.6; O2SAT 97; BMI 25.9
[2024-08-25] MEDS: Mepolizumab 100 MG VIAL SC (11:46)
== END 2024-08-25 23:59 | disposition home or self-care (01) ==
LOC: MEDOUTP 11:04
PROVIDERS: PCP Internal Medicine; Referring Provider Nurse Practitioner Acute Care; Visit Provider Nurse Practitioner Acute Care
DX: J45.50 Severe persistent asthma, uncomplicated (principal)
CPT/HCPCS: 96372; J2182

== ENCOUNTER 2024-10-02 14:04 | Outpatient (CLI) | payer MEDICARE, OTHER, SELFPAY ==
[2024-10-02 14:17] VITALS: BP 120/59; PULSE 75; RESP 16; TEMP 35.8; O2SAT 97; BMI 25.9
[2024-10-02] MEDS: Mepolizumab 100 MG VIAL SC (14:55)
== END 2024-10-02 23:59 | disposition home or self-care (01) ==
LOC: MEDOUTP 14:04
PROVIDERS: PCP Internal Medicine; Referring Provider Nurse Practitioner Acute Care; Visit Provider Nurse Practitioner Acute Care
DX: J45.50 Severe persistent asthma, uncomplicated (principal)
CPT/HCPCS: 96372; J2182

== ENCOUNTER → 2025-01-01 | Outpatient (CLI) | payer MEDICARE, OTHER, SELFPAY ==
[2025-01-01 11:35] LABS: Absolute Lymphocyte Count 1.71 X10^3/uL (0.83-4.51); Absolute Neutrophil Count 2.9 X10^3/uL (2.0-7.7); Basophil# 0.04 X10^3/uL; Basophil% 0.8 % (0-1); Eosinophil# 0.05 X10^3/uL; Hematocrit 44.4 % (37-47); Hemoglobin 14.6 g/dL (12.0-15.0); Lymphocyte # 1.71 X10^3/ul (0.83-4.51); Lymphocyte % 32.8 % (19-41); Mean Corp Hgb Conc 32.9 g/dL (32-36); Mean Corpuscular Hgb 32.1 pg (27.0-32.0); Mean Corpuscular Volume 97.6 fL (81-99); Monocyte# 0.55 X10^3/uL; Monocyte% 10.5 % (0-10); NRBC Flagged by Analyzer 0 % (0-5); Neutrophil # 2.85 X10^3/uL (2.7-7.7); Neutrophil % 54.5 % (47-70); Platelet Count 265 K/mm3 (150-450); RBC Distribution Width CV 14.4 % (11.6-14.6); Red Blood Count 4.55 M/mm3 (4.2-5.4); White Blood Count 5.2 K/mm3 (4.4-11.0)
[2025-01-01 11:53] LABS: Hemoglobin A1c 5.7 % (<=5.6)
[2025-01-01 12:20] LABS: Microalbumin,Random Urine < 12.0 mg/L (NO RANGE EST.); Microalbumin:Creatinine Ratio UNABLE TO CALCULATE mg/g CRE
[2025-01-01 12:52] LABS: ALB/GLOB Ratio 1.5 RATIO (0.9-2.4); AST(SGOT) 30 U/L (<=31); Alanine Aminotransfer ALT/SGPT 22 U/L (<=34); Albumin, Serum 4.1 g/dL (3.4-4.8); Alkaline Phosphatase 91 U/L (35-104); Anion Gap 12 (5-15); BUN 20 mg/dL (4-19); BUN/Creat Ratio 28.8 RATIO (10-20); Calcium,Total 9.1 mg/dL (7.6-11.0); Chloride 103 mmol/L (98-108); Cholesterol 202 mg/dL (<=200); Creatinine, Serum 0.68 mg/dL (0.70-1.20); EST Glomerular Filtration Rate 88 (>60); Globulin 2.8 g/dL (2.2-4.2); Glucose 117 mg/dL (70-99); High Density Lipoprotein 77 mg/dL; Low Density Lipoprotein Calc. 100 mg/dL; Potassium 4.2 mmol/L (3.3-5.1); Protein, Total 6.9 g/dL (5.9-8.4); Sodium Level 139 mmol/L (133-145); Total Bilirubin 0.29 mg/dL (0.00-1.30); Triglycerides 124 mg/dL; Very Low Density Lipoprotein 25 mg/dL (5-40); Vitamin D,25 Hydroxy 60.7 ng/mL (30-100); cholesterol:hdl ratio screen 2.61
[2025-01-02 04:07] LABS: Carcinoembryonic Antigen 6.1 ng/mL (0.0-4.7)
== END | disposition home or self-care (01) ==
LOC: LAB 10:50
PROVIDERS: PCP Internal Medicine; Referring Provider Internal Medicine; Visit Provider Internal Medicine
DX: R97.0 Elevated carcinoembryonic antigen [CEA] (principal); R73.09 Other abnormal glucose; E55.9 Vitamin D deficiency, unspecified; E78.5 Hyperlipidemia, unspecified
CPT/HCPCS: 36415; 80053; 80061; 82043; 82306; 82378; 82570; 83036; 85025

== ENCOUNTER → 2025-01-02 | Outpatient (CLI) | payer MEDICARE, OTHER, SELFPAY ==
--- NOTE | 2025-01-02 14:03 | CDU_ITS ---
Reason For Study Reason For Study: BILATERAL CAROTID DISEASE Rt. Velocities/BP Lt. Velocities/BP Prox CCA 51.6/11.9 cm/sec. Prox CCA 54.6/8.4 cm/sec. Mid CCA 60.1/14.7 cm/sec. Mid CCA 46.8/9.2 cm/sec. Dist CCA 40.2/6.2 cm/sec. Dist CCA 53.7/13.6 cm/sec. Prox ICA 55.4/13.8 cm/sec. Prox ICA 50.2/12.7 cm/sec. Mid ICA 42.1/10.8 cm/sec. Mid ICA 110.0/24.1 cm/sec. Dist ICA 51.2/13.8 cm/sec. Dist ICA 60.9/13.0 cm/sec. Rt. ICA/CCA = 55.4/60.1=0.9. Lt. ICA/CCA = 110.0/46.8=2.4. Prox ECA 63.9/11.9 cm/sec. Prox ECA 48.5/9.2 cm/sec. Rt. Vert. 33.7/11.0 cm/sec. Lt. Vert. 24.8/4.7 cm/sec. Right Extracranial There is intimal thickening but no significant atherosclerotic plaque noted in the right common carotid artery. There is heterogeneous, irregular atherosclerotic plaque noted in the right internal carotid artery. The right internal carotid artery is very tortuous. There is intimal thickening but no significant atherosclerotic plaque noted in the right external carotid artery. Antegrade flow is noted in the right vertebral artery. Left Extracranial There is intimal thickening but no significant atherosclerotic plaque noted in the left common carotid artery. There is heterogeneous, irregular atherosclerotic plaque noted in the left internal carotid artery. The left internal carotid artery is very tortuous. There is intimal thickening but no significant atherosclerotic plaque noted in the left external carotid artery. Antegrade flow is noted in the left vertebral artery. Procedure Carotid Duplex [id number]. This is a Carotid Duplex examination using B-mode, color flow and specral Doppler. The study was technically difficult. Exam performed in department. VL/Carotid Duplex Ultrasound Interpretation Summary Mild (<50%) stenosis right extracranial internal carotid. Mild (<50%) stenosis left extracranial internal carotid. Patent and antegrade vertebrals bilaterally. Ordering Physician: Domonique Akins Referring Physician: Domonique Akins Performed By: Rosita Segovia, MARNI, RVT
== END | disposition home or self-care (01) ==
LOC: CVS 14:01
PROVIDERS: PCP Internal Medicine; Visit Provider Internal Medicine
DX: I77.9 Disorder of arteries and arterioles, unspecified (principal); I65.23 Occlusion and stenosis of bilateral carotid arteries
CPT/HCPCS: 93880

== ENCOUNTER → 2025-03-05 | Outpatient (CLI) | payer MEDICARE, OTHER, SELFPAY ==
--- NOTE | 2025-03-05 10:39 | BI_ITS ---
EXAM: SCRN MAMM (CAD)W/GEMA BILAT DATE: 03/05/2025 CLINICAL HISTORY: F, Age 79 y/o , SCRN MAMM (CAD)W/GEMA BILAT BREAST CANCER RISK ASSESSMENT: Has not been calculated. TECHNIQUE: Bilateral screening digital breast tomosynthesis with 2D and 3D images. Computer aided detection. COMPARISON: Prior exam(s) dated 03/03/2024,. 11/13/2022, and 10/07/2020 Loading to those load or disclose. FINDINGS: TISSUE DENSITY: The breast tissue is composed of scattered area of fibroglandular density. Bilateral Breast Mammographic Findings: There are no suspicious masses, suspicious clustered microcalcifications, architectural distortion or secondary signs of malignancy identified in either breast. Benign-appearing round calcifications are seen in both breasts. Benign-appearing intramammary lymph nodes are seen bilaterally. BI/SCRN MAMM (CAD)W/GEMA BILAT IMPRESSION: OVERALL FINAL ASSESSMENT: BIRADS 2 BENIGN FINDING RECOMMENDATION: Routine annual follow-up in 1 Year A letter with findings and recommendations will be mailed to the patient. Reading Location: [id number]
== END | disposition home or self-care (01) ==
PROVIDERS: PCP Internal Medicine; Referring Provider Internal Medicine; Visit Provider Internal Medicine
DX: Z12.31 Encounter for screening mammogram for malignant neoplasm of breast (principal)
CPT/HCPCS: 77063; 77067

== ENCOUNTER → 2025-04-02 | Outpatient (CLI) | payer MEDICARE, OTHER, SELFPAY ==
[2025-04-02 10:06] LABS: Absolute Lymphocyte Count 1.94 X10^3/uL (0.83-4.51); Absolute Neutrophil Count 3.4 X10^3/uL (2.0-7.7); Basophil# 0.05 X10^3/uL; Basophil% 0.8 % (0-1); Eosinophil# 0.05 X10^3/uL; Eosinophils% 0.8 % (0-5); Hemoglobin 13.8 g/dL (12.0-15.0); Lymphocyte # 1.94 X10^3/ul (0.83-4.51); Lymphocyte % 30.7 % (19-41); Mean Corp Hgb Conc 32.9 g/dL (32-36); Mean Corpuscular Hgb 31.7 pg (27.0-32.0); Mean Corpuscular Volume 96.6 fL (81-99); Mean Platelet Vol. 10.6 fl (6.2-12.0); Monocyte# 0.79 X10^3/uL; Monocyte% 12.5 % (0-10); NRBC Flagged by Analyzer 0 % (0-5); Neutrophil # 3.43 X10^3/uL (2.7-7.7); Neutrophil % 54.4 % (47-70); Platelet Count 290 K/mm3 (150-450); RBC Distribution Width CV 14.5 % (11.6-14.6); RBC Distribution Width SD 51.6 fl (35.1-43.9); Red Blood Count 4.35 M/mm3 (4.2-5.4); White Blood Count 6.3 K/mm3 (4.4-11.0)
[2025-04-02 11:45] LABS: Hemoglobin A1c 5.8 % (<=5.6)
[2025-04-02 13:03] LABS: Cholesterol 224 mg/dL (<=200); High Density Lipoprotein 69 mg/dL; Low Density Lipoprotein Calc. 127 mg/dL; Triglycerides 140 mg/dL; Very Low Density Lipoprotein 28 mg/dL (5-40); cholesterol:hdl ratio screen 3.26
[2025-04-02 14:34] LABS: Vitamin B12 762 pg/mL (180-914); Vitamin D,25 Hydroxy 69.6 ng/mL (30-100)
[2025-04-02 15:03] LABS: ALB/GLOB Ratio 1.4 RATIO (0.9-2.4); AST(SGOT) 25 U/L (<=31); Alanine Aminotransfer ALT/SGPT 17 U/L (<=34); Alkaline Phosphatase 83 U/L (35-104); Anion Gap 9 (5-15); BUN 26 mg/dL (4-19); BUN/Creat Ratio 33.4 RATIO (10-20); Calcium,Total 8.8 mg/dL (7.6-11.0); Carbon Dioxide 23.9 mmol/L (21.0-32.0); Chloride 105 mmol/L (98-108); Creatinine, Serum 0.78 mg/dL (0.70-1.20); EST Glomerular Filtration Rate 77 (>60); Globulin 2.8 g/dL (2.2-4.2); Glucose 97 mg/dL (70-99); Potassium 4.6 mmol/L (3.3-5.1); Protein, Total 6.8 g/dL (5.9-8.4); Sodium Level 138 mmol/L (133-145); Total Bilirubin 0.33 mg/dL (0.00-1.30)
== END | disposition home or self-care (01) ==
LOC: LAB 09:15
PROVIDERS: PCP Internal Medicine; Referring Provider Internal Medicine; Visit Provider Internal Medicine
DX: E03.9 Hypothyroidism, unspecified (principal); I10 Essential (primary) hypertension; E78.5 Hyperlipidemia, unspecified; F32.A Depression, unspecified; E55.9 Vitamin D deficiency, unspecified; R73.09 Other abnormal glucose
CPT/HCPCS: 36415; 80053; 80061; 82306; 82607; 82746; 83036; 84443; 85025

== ENCOUNTER → 2025-04-09 | Outpatient (CLI) | payer MEDICARE, OTHER, SELFPAY ==
--- NOTE | 2025-04-09 15:07 | RAD_ITS ---
PROCEDURE: CHEST PA AND LATERAL 04/09/2025 REASON FOR EXAM: PA AND LATERAL CXR 3-4 WEEKS TECHNIQUE: CHEST PA AND LATERAL COMPARISON: 10/08/2023 FINDINGS: No focal consolidation. No pleural effusion or pneumothorax. Cardiac silhouette is within normal limits. No acute fractures. RAD/Chest PA and Lateral IMPRESSION: No focal consolidations. Reading Location: [id number]
== END | disposition home or self-care (01) ==
LOC: MTRAD 15:07
PROVIDERS: PCP Internal Medicine; Referring Provider Internal Medicine; Visit Provider Internal Medicine
DX: J18.9 Pneumonia, unspecified organism (principal)
CPT/HCPCS: 71046

== ENCOUNTER 2025-04-13 09:05 | Outpatient (CLI) | payer MEDICARE, OTHER, SELFPAY ==
[2025-04-13 09:17] VITALS: BP 109/59; PULSE 80; RESP 14; TEMP 35.4; O2SAT 97; BMI 26.0
[2025-04-13] MEDS: Mepolizumab 100 MG VIAL SC (09:29)
== END 2025-04-13 23:59 | disposition home or self-care (01) ==
LOC: MEDOUTP 09:06
PROVIDERS: PCP Internal Medicine; Referring Provider Nurse Practitioner Acute Care; Visit Provider Nurse Practitioner Acute Care
DX: J45.50 Severe persistent asthma, uncomplicated (principal)
CPT/HCPCS: 96372; J2182

== ENCOUNTER 2025-05-11 12:29 | Outpatient (CLI) | payer MEDICARE, OTHER, SELFPAY ==
[2025-05-11 12:31] VITALS: BP 120/80; PULSE 67; RESP 16; TEMP 35.7; O2SAT 97
== END 2025-05-11 23:59 | disposition home or self-care (01) ==
LOC: MEDOUTP 12:29
PROVIDERS: PCP Internal Medicine; Referring Provider Nurse Practitioner Acute Care; Visit Provider Nurse Practitioner Acute Care
DX: J45.50 Severe persistent asthma, uncomplicated (principal)
CPT/HCPCS: 96372; J2182

== ENCOUNTER → 2025-05-24 | Outpatient (CLI) | payer MEDICARE, OTHER, SELFPAY ==
--- NOTE | 2025-05-24 09:29 | BD_ITS ---
PROCEDURE: DEXA BONE DENSITY STUDY 05/24/2025 REASON FOR EXAM: F, age 79 y/o . Postmenopausal. TECHNIQUE: DEXA BONE DENSITY STUDY COMPARISON: Prior study dated May 18, 2023. FINDINGS: BMD and T-SCORES Lumbar spine: 1.274 g/cm2, T-score 2.0 Levels: L1 through L4 Change from prior: Improvement of 5.7%. Left femoral neck: 0.699 g/cm2, T-score -1.3 Femoral neck comparison data not recommended for monitoring change. Left total hip: 0.893 g/cm2, T-score -0.4 Change from prior: Improvement of 8.1%. Right femoral neck: 0.667 g/cm2, T-score -1.6 Femoral neck comparison data not recommended for monitoring change. Right total hip: 0.867 g/cm2, T-score -0.6 Change from prior: Improvement of 2.3%. The World Health Organization has defined the following categories based on bone density: Normal bone density: T-score equal to or greater than -1.0 Osteopenia: T-score between -1.0 and -2.5 Osteoporosis: T-score equal to or less than -2.5 The patient does meet the pharmacological treatment recommendations for prevention of osteoporosis. BD/Dexa Bone Density Study IMPRESSION: OSTEOPENIA. Recommend follow-up as clinically warranted. Reading Location: [id number]
== END | disposition home or self-care (01) ==
LOC: OPBD 09:27
PROVIDERS: PCP Internal Medicine; Referring Provider Internal Medicine; Visit Provider Internal Medicine
DX: Z78.0 Asymptomatic menopausal state (principal)
CPT/HCPCS: 77080

== ENCOUNTER 2025-06-08 12:38 | Outpatient (CLI) | payer MEDICARE, OTHER, SELFPAY ==
[2025-06-08 12:46] VITALS: BP 131/67; PULSE 87; RESP 16; TEMP 36.5; O2SAT 97; BMI 26.4
== END 2025-06-08 23:59 | disposition home or self-care (01) ==
LOC: MEDOUTP 12:38
PROVIDERS: PCP Internal Medicine; Referring Provider Nurse Practitioner Acute Care; Visit Provider Nurse Practitioner Acute Care
DX: J45.50 Severe persistent asthma, uncomplicated (principal)
CPT/HCPCS: 96372; J2182

== ENCOUNTER 2025-07-06 12:27 | Outpatient (CLI) | payer MEDICARE, OTHER, SELFPAY ==
[2025-07-06 12:40] VITALS: BP 147/76; PULSE 78; RESP 16; TEMP 35.9; O2SAT 97; BMI 26.4
== END 2025-07-06 23:59 | disposition home or self-care (01) ==
LOC: MEDOUTP 12:27
PROVIDERS: PCP Internal Medicine; Referring Provider Nurse Practitioner Acute Care; Visit Provider Nurse Practitioner Acute Care
DX: J45.50 Severe persistent asthma, uncomplicated (principal)
CPT/HCPCS: 96372; J2182

== ENCOUNTER 2025-08-21 14:30 | Outpatient (CLI) | payer MEDICARE, OTHER, SELFPAY ==
[2025-08-21 14:42] VITALS: BP 132/81; PULSE 77; RESP 16; TEMP 36.3; O2SAT 97; BMI 26.8
== END 2025-08-21 23:59 | disposition home or self-care (01) ==
LOC: MEDOUTP 14:31
PROVIDERS: PCP Internal Medicine; Referring Provider Nurse Practitioner Acute Care; Visit Provider Nurse Practitioner Acute Care
DX: J45.50 Severe persistent asthma, uncomplicated (principal)
CPT/HCPCS: 96372; J2182

== ENCOUNTER → 2025-08-29 | Outpatient (CLI) | payer MEDICARE, OTHER, SELFPAY ==
[2025-08-29 15:48] LABS: Hematocrit 41.7 % (37-47); Hemoglobin 13.6 g/dL (12.0-15.0); Immature Granulocytes Count 0.030 X10^3/uL (0.0-0.0); Mean Corp Hgb Conc 32.6 g/dL (32-36); Mean Corpuscular Volume 98.3 fL (81-99); Mean Platelet Vol. 11.1 fl (6.2-12.0); NRBC Flagged by Analyzer 0 % (0-5); Platelet Count 289 K/mm3 (150-450); RBC Distribution Width CV 14.5 % (11.6-14.6); RBC Distribution Width SD 52.3 fl (35.1-43.9); Red Blood Count 4.24 M/mm3 (4.2-5.4); White Blood Count 7.8 K/mm3 (4.4-11.0)
[2025-09-05 22:07] LABS: Bluegrass, Kentucky 0.83 kU/L (Class II); Cat Hair/Dander, Standard 0.13 kU/L (Class 0/I); Dog Epithelia <0.10 kU/L (Class 0); Elm, American White 0.66 kU/L (Class II); Oak, White 0.62 kU/L (Class II); Plantain, English 0.33 kU/L (Class I); Ragweed, Short/Common 2.51 kU/L (Class III)
== END | disposition home or self-care (01) ==
LOC: LAB 15:13
PROVIDERS: PCP Internal Medicine; Referring Provider Nurse Practitioner Acute Care; Visit Provider Nurse Practitioner Acute Care
DX: J30.89 Other allergic rhinitis (principal)
CPT/HCPCS: 36415; 82785; 85025; 86003

== ENCOUNTER 2025-09-18 14:54 | Outpatient (CLI) | payer MEDICARE, OTHER, SELFPAY ==
[2025-09-18 15:01] VITALS: BP 126/67; PULSE 76; RESP 18; TEMP 35.9; O2SAT 98; BMI 26.6
== END 2025-09-18 23:59 | disposition home or self-care (01) ==
LOC: MEDOUTP 14:54
PROVIDERS: PCP Internal Medicine; Referring Provider Nurse Practitioner Acute Care; Visit Provider Nurse Practitioner Acute Care
DX: J45.50 Severe persistent asthma, uncomplicated (principal)
CPT/HCPCS: 96372; J2182

== ENCOUNTER 2025-10-15 14:04 | Outpatient (CLI) | payer MEDICARE, OTHER, SELFPAY ==
[2025-10-15 14:09] VITALS: BP 130/74; PULSE 82; RESP 16; TEMP 35.7; O2SAT 100; BMI 26.2
== END 2025-10-15 23:59 | disposition home or self-care (01) ==
LOC: MEDOUTP 14:04
PROVIDERS: PCP Internal Medicine; Referring Provider Nurse Practitioner Acute Care; Visit Provider Nurse Practitioner Acute Care
DX: J45.50 Severe persistent asthma, uncomplicated (principal)
CPT/HCPCS: 96372; J2182